=== PATIENT | female | born 1945 | race Caucasian/White ===

== ENCOUNTER 2016-03-22 08:44 | Outpatient (CLI) | payer MEDICARE, MEDICAID | END 2016-03-22 08:45 | disposition home or self-care (01) | DX: I48.91 Unspecified atrial fibrillation (principal); Z79.899 Other long term (current) drug therapy ==

== ENCOUNTER 2016-04-19 | Outpatient (CLI) | payer MEDICARE | END 2016-04-19 09:15 | disposition home or self-care (01) ==

== ENCOUNTER 2016-04-19 09:09 | Outpatient (CLI) | payer MEDICARE, MEDICAID | END 2016-04-19 09:10 | disposition home or self-care (01) | DX: I50.9 Heart failure, unspecified (principal); I48.91 Unspecified atrial fibrillation; Z79.899 Other long term (current) drug therapy ==

== ENCOUNTER 2016-04-20 09:27 | Emergency (ER) | payer MEDICARE, MEDICAID ==
[2016-04-20] MEDS ORDERED: FUROSEMIDE 20 MG/2 ML VIAL IVP STA (10:08)
[2016-04-20] MEDS ORDERED: FUROSEMIDE 20 MG/2 ML VIAL IVP ONE (10:16)
== END 2016-04-20 12:06 | disposition home or self-care (01) ==
DX: I11.0 Hypertensive heart disease with heart failure (principal); I50.9 Heart failure, unspecified; E87.6 Hypokalemia; I48.91 Unspecified atrial fibrillation; I44.7 Left bundle-branch block, unspecified; Z79.01 Long term (current) use of anticoagulants; J45.909 Unspecified asthma, uncomplicated; E03.9 Hypothyroidism, unspecified; K44.9 Diaphragmatic hernia without obstruction or gangrene

== ENCOUNTER 2016-04-24 14:24 | Outpatient (CLI) | payer MEDICARE, MEDICAID | END 2016-04-24 14:25 | disposition home or self-care (01) | DX: M17.12 Unilateral primary osteoarthritis, left knee (principal); I50.9 Heart failure, unspecified; E87.6 Hypokalemia; I48.91 Unspecified atrial fibrillation; Z79.899 Other long term (current) drug therapy ==

== ENCOUNTER 2016-04-24 14:27 | Outpatient (CLI) | payer MEDICARE, MEDICAID | END 2016-04-24 14:28 | disposition home or self-care (01) | DX: I50.9 Heart failure, unspecified (principal); E87.6 Hypokalemia; I48.91 Unspecified atrial fibrillation; Z79.899 Other long term (current) drug therapy ==

== ENCOUNTER 2016-05-16 08:55 | Outpatient (CLI) | payer MEDICARE, MEDICAID | END 2016-05-16 23:59 | DX: I48.91 Unspecified atrial fibrillation (principal); Z79.899 Other long term (current) drug therapy ==

== ENCOUNTER 2016-06-13 14:34 | Outpatient (CLI) | payer MEDICAID | END 2016-06-13 14:35 | disposition home or self-care (01) | DX: I48.91 Unspecified atrial fibrillation (principal); E87.6 Hypokalemia; Z79.899 Other long term (current) drug therapy ==

== ENCOUNTER 2016-07-11 08:38 | Outpatient (CLI) | payer MEDICARE, MEDICAID | END 2016-07-11 08:39 | disposition home or self-care (01) | DX: I48.91 Unspecified atrial fibrillation (principal); Z79.899 Other long term (current) drug therapy ==

== ENCOUNTER 2016-08-08 12:31 | Outpatient (CLI) | payer MEDICARE, MEDICAID | END 2016-08-08 12:32 | disposition home or self-care (01) | LOC: LAB.N 12:31 | PROVIDERS: ATTEND Nurse Practitioner Gerontology | DX: I48.91 Unspecified atrial fibrillation (principal); Z79.899 Other long term (current) drug therapy | CPT/HCPCS: 85610 ==

== ENCOUNTER 2016-08-15 09:35 | Outpatient (CLI) | payer MEDICARE, MEDICAID | END 2016-08-15 09:36 | LOC: LAB.N 09:35 | PROVIDERS: ATTEND Nurse Practitioner Gerontology | DX: I48.91 Unspecified atrial fibrillation (principal); Z79.899 Other long term (current) drug therapy | CPT/HCPCS: 85610 ==

== ENCOUNTER 2016-09-12 09:00 | Outpatient (CLI) | payer MEDICARE, MEDICAID | END 2016-09-12 09:01 | disposition home or self-care (01) | LOC: LAB.N 09:00 | PROVIDERS: ATTEND Nurse Practitioner Gerontology | DX: I48.91 Unspecified atrial fibrillation (principal); Z79.899 Other long term (current) drug therapy | CPT/HCPCS: 85610 ==

== ENCOUNTER 2016-09-17 08:27 | Outpatient (CLI) | payer MEDICARE, MEDICAID | END 2016-09-17 08:28 | disposition home or self-care (01) | LOC: LAB.N 08:27 | PROVIDERS: ATTEND Nurse Practitioner Gerontology | DX: I48.91 Unspecified atrial fibrillation (principal); Z79.899 Other long term (current) drug therapy | CPT/HCPCS: 85610 ==

== ENCOUNTER 2016-09-24 09:01 | Outpatient (CLI) | payer MEDICARE, MEDICAID | END 2016-09-24 09:02 | disposition home or self-care (01) | LOC: LAB.N 09:01 | PROVIDERS: ATTEND Nurse Practitioner Gerontology | DX: I48.91 Unspecified atrial fibrillation (principal); Z79.899 Other long term (current) drug therapy | CPT/HCPCS: 85610 ==

== ENCOUNTER 2016-10-03 09:15 | Outpatient (CLI) | payer MEDICARE, MEDICAID | END 2016-10-03 09:16 | LOC: LAB.N 09:15 | PROVIDERS: ATTEND Nurse Practitioner Gerontology | DX: I48.91 Unspecified atrial fibrillation (principal); Z79.899 Other long term (current) drug therapy | CPT/HCPCS: 85610 ==

== ENCOUNTER 2016-10-09 08:10 | Outpatient (CLI) | payer MEDICARE, MEDICAID | END 2016-10-09 08:11 | disposition home or self-care (01) | LOC: LAB.N 08:10 | PROVIDERS: ATTEND Nurse Practitioner Gerontology | DX: I48.91 Unspecified atrial fibrillation (principal); Z79.899 Other long term (current) drug therapy | CPT/HCPCS: 85610 ==

== ENCOUNTER 2016-10-17 08:25 | Outpatient (CLI) | payer MEDICARE, MEDICAID | END 2016-10-17 08:26 | disposition home or self-care (01) | LOC: LAB.N 08:25 | PROVIDERS: ATTEND Nurse Practitioner Gerontology | DX: I48.91 Unspecified atrial fibrillation (principal); Z79.899 Other long term (current) drug therapy | CPT/HCPCS: 85610 ==

== ENCOUNTER 2016-10-24 07:57 | Outpatient (CLI) | payer MEDICARE, MEDICAID | END 2016-10-24 07:58 | disposition home or self-care (01) | LOC: LAB.N 07:57 | PROVIDERS: ATTEND Nurse Practitioner Gerontology | DX: I48.91 Unspecified atrial fibrillation (principal); Z79.899 Other long term (current) drug therapy | CPT/HCPCS: 85610 ==

== ENCOUNTER 2016-11-07 08:21 | Outpatient (CLI) | payer MEDICARE, MEDICAID | END 2016-11-07 08:22 | disposition home or self-care (01) | LOC: LAB.N 08:21 | PROVIDERS: ATTEND Nurse Practitioner Gerontology | DX: I48.91 Unspecified atrial fibrillation (principal); Z79.899 Other long term (current) drug therapy | CPT/HCPCS: 85610 ==

== ENCOUNTER 2016-11-20 08:49 | Outpatient (CLI) | payer MEDICARE, MEDICAID | END 2016-11-20 08:50 | disposition home or self-care (01) | LOC: LAB.N 08:49 | PROVIDERS: ATTEND Nurse Practitioner Gerontology | DX: I48.91 Unspecified atrial fibrillation (principal); Z79.899 Other long term (current) drug therapy | CPT/HCPCS: 85610 ==

== ENCOUNTER 2016-12-05 15:17 | Outpatient (CLI) | payer MEDICARE, MEDICAID | END 2016-12-05 15:18 | disposition home or self-care (01) | LOC: LAB.N 15:17 | PROVIDERS: ATTEND Nurse Practitioner Gerontology | DX: I48.91 Unspecified atrial fibrillation (principal); Z79.899 Other long term (current) drug therapy | CPT/HCPCS: 85610 ==

== ENCOUNTER 2017-01-23 08:41 | Outpatient (CLI) | payer MEDICARE, MEDICAID | END 2017-01-23 08:42 | disposition home or self-care (01) | LOC: LAB.N 08:41 | PROVIDERS: ATTEND Nurse Practitioner Gerontology | DX: E87.6 Hypokalemia (principal); I48.91 Unspecified atrial fibrillation; Z79.899 Other long term (current) drug therapy | CPT/HCPCS: 36415; 84132; 85610 ==

== ENCOUNTER 2017-01-30 09:03 | Outpatient (CLI) | payer MEDICARE, MEDICAID | END 2017-01-30 09:04 | disposition home or self-care (01) | LOC: LAB.N 09:03 | PROVIDERS: ATTEND Nurse Practitioner Gerontology | DX: I48.91 Unspecified atrial fibrillation (principal); Z79.899 Other long term (current) drug therapy | CPT/HCPCS: 85610 ==

== ENCOUNTER 2017-02-13 09:11 | Outpatient (CLI) | payer MEDICARE, MEDICAID | END 2017-02-13 23:59 | LOC: LAB.N 09:11 | PROVIDERS: ATTEND Nurse Practitioner Gerontology | DX: I48.91 Unspecified atrial fibrillation (principal); Z79.899 Other long term (current) drug therapy | CPT/HCPCS: 85610 ==

== ENCOUNTER 2017-02-28 15:19 | Inpatient (IN) | payer MEDICARE, MEDICAID ==
--- NOTE | 2017-02-28 16:49 | ED Physician Documentation ---
History of Present Illness - Stated complaint Stated Complaint: CHF - Chief complaint Chief Complaint: Resp - Additonal information Additional information: hx from pt's sister 71 female hx afib and CHF on lasix and coumadin among other meds cough since Nov after a flu shot today acute soa while shopping also body aches no fever no NVD no bloody BM no new leg swelling Review of Systems Constitutional: denies: Fever, Chills Cardiac: denies: Chest pain / pressure Respiratory: reports: Dyspnea GI: denies: Abdominal Pain, Nausea, Vomiting, Diarrhea, Bloody / black stool Musculoskeletal: denies: Extremity swelling Neurologic: denies: Generalized weakness Endocrine: reports: Easy bruising / bleeding (coumadin) Immunocompromised: denies: Immunocompromised PD PAST MEDICAL HISTORY - Past Medical History Cardiovascular: Atrial fibrillation, Other Respiratory: Asthma Endocrine/Autoimmune: HyPOthyroidism : Incontinence - 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 History 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 History: Yes - Present Medications Home Medications: Ambulatory Orders Medication Instructions Recorded Confirmed Hydrochlorothiazide 25 mg PO DAILY PRN 08/01/12 02/28/17 Levothyroxine [Synthroid] 100 mcg PO QDAC 08/01/12 02/28/17 Loratadine [Claritin] 10 mg PO DAILY 08/01/12 02/28/17 Oxybutynin [Ditropan] 5 mg PO BID 08/01/12 02/28/17 Verapamil ER [Calan SA] 180 mg PO DAILY 08/01/12 02/28/17 Warfarin Sodium [Coumadin] 5 mg PO DAILY 08/01/12 02/28/17 Potassium Bicarbonate/Cit AC 25 meq PO DAILY #7 tablet.eff 04/20/16 02/28/17 [Potassium 25 Meq Tablet Eff] Furosemide [Lasix] 20 mg PO DAILY 02/28/17 02/28/17 - Allergies Allergies/Adverse Reactions: Allergies Allergy/AdvReac Type Severity Reaction Status Date / Time teva pharmacuticals AdvReac Unknown Rash Uncoded 12/24/15 10:02 - Social History Does the pt smoke?: No Smoking Status: Never smoker Does the pt drink ETOH?: No Does the pt have substance abuse?: No - Immunizations Immunizations are current?: Yes - POLST Patient has POLST: No PD ED PE NORMAL - Vitals Vital signs reviewed: Yes - Cardiac Cardiac: No: RRR (irreg) - Respiratory Respiratory: Other - Abdomen Abdomen: No: Soft, Non tender - Extremities Extremities: No edema (mild luiz symm). No: No calf tenderness / cord - Neuro Neuro: No: No motor deficit, No sensory deficit Results - Vitals Vitals: Vital Signs - 24 hr 02/28/17 02/28/17 15:35 17:33 Temperature 36.8 C Heart Rate 104 H 93 Respiratory 17 19 Rate Blood Pressure 140/90 H 154/94 H O2 Saturation 97 96 Oxygen O2 Source Room air - EKG (time done) 1648 Rate: Rate (enter#) (92) Rhythm: Atrial fibrillation Intervals: LBBB Other comments: Other comments (discordant ST elev< 5 mm inferior leads) Compare to prior EKG: Unchanged from prior EKG (unchanged from Mar 2016) - Labs Labs: Laboratory Tests 02/28/17 02/28/17 02/28/17 16:45 16:54 16:54 WBC 9.3 RBC 4.74 Hgb 15.1 Hct 45.7 MCV 96.5 MCH 31.9 H MCHC 33.0 RDW 14.9 Plt Count 228 MPV 9.3 Neut # 6.9 H Lymph # 1.4 L [place] # 1.0 Eos # 0.0 Baso # 0.0 Absolute Nucleated RBC 0.00 Nucleated RBC % 0.0 Manual Slide Review Indicated WBC Morphology NORMAL APPEARANCE Platelet Estimate NORMAL (130-450,000) Platelet Morphology 1+ GIANT PLATELETS RBC Morph Micro Appear NORMAL APPEARANCE PT INR Sodium 133 L Potassium 3.7 Chloride 95 L Carbon Dioxide 25 Anion Gap 13.0 BUN 30 H Creatinine 1.3 H Estimated GFR (MDRD) 41 L Glucose 122 H Calcium 8.6 Troponin I B-Natriuretic Peptide Influenza A (Rapid) Negative Influenza B (Rapid) Negative Influenza Types A,B Ag - 02/28/17 02/28/17 02/28/17 16:54 16:54 16:54 WBC RBC Hgb Hct MCV MCH MCHC RDW Plt Count MPV Neut # Lymph # [place] # Eos # Baso # Absolute Nucleated RBC Nucleated RBC % Manual Slide Review WBC Morphology Platelet Estimate Platelet Morphology RBC Morph Micro Appear PT 25.2 H INR 2.3 H Sodium Potassium Chloride Carbon Dioxide Anion Gap BUN Creatinine Estimated GFR (MDRD) Glucose Calcium Troponin I 0.08 B-Natriuretic Peptide 2081 H Influenza A (Rapid) Influenza B (Rapid) Influenza Types A,B Ag - Rads (name of study) CXR Radiology: See rad report (cardiomegaly, some pulm edema, COPD) PD MEDICAL DECISION MAKING - ED course ED course: abn EKG LBBB perhaps inferior ischemia but unchanged from prior EKG neg but borderline trop BNP > 2000 without sig CHF on CXR sig cardiomegaly on CXR - do not see any prior echos on pt will admit for diuresis, YT, and echo with elev BNP and not too much CHF on CXR considered PE with heat strain but doubtful to occur while therapeutic on coumadin and GFR too low for CTPA Departure - Departure Disposition: 66 [facility] DC/Xfer Clinical Impression: Ruled out for myocardial infarction, Renal insufficiency, Cardiomegaly Congestive heart failure Qualifiers: Congestive heart failure type: unspecified congestive heart failure type Congestive heart failure chronicity: unspecified congestive heart failure chronicity Qualified Code(s): I50.9 - Heart failure, unspecified
[2017-02-28 17:06] LABS: BASOPHILS % (AUTO) 0.4 %; HGB - HEMOGLOBIN 15.1 g/dL (12.0-16.0); LYMPHOCYTES # (AUTO) 1.4 10^3/uL (1.5-3.5); LYMPHOCYTES % (AUTO) 14.5 %; MEAN CORPUSCULAR HEMOGLOBIN 31.9 pg (27.0-31.0); MEAN CORPUSCULAR VOLUME 96.5 fL (81.0-99.0); MEAN PLATELET VOLUME 9.3 fL (7.9-10.8); MONOCYTES % (AUTO) 11.1 %; NEUTROPHILS # (AUTO) 6.9 10^3/uL (1.5-6.6); PLT - PLATELET COUNT 228 10^3/uL (130-450); RED BLOOD COUNT 4.74 10^6/uL (4.20-5.40); RED CELL DISTRIBUTION WIDTH 14.9 % (12.0-15.0); WHITE BLOOD COUNT 9.3 x10^3/uL (4.8-10.8)
[2017-02-28 17:08] LABS: CALCIUM 8.6 mg/dL (8.5-10.3); CREATININE 1.3 mg/dL (0.4-1.0)
[2017-02-28 17:10] LABS: INR 2.3 (0.8-1.2); PT - PROTHROMBIN TIME 25.2 secs (9.9-12.6)
--- NOTE | 2017-02-28 17:17 | XRAY Report ---
EXAM: CHEST RADIOGRAPHY EXAM DATE: 02/28/2017 04:45 PM. CLINICAL HISTORY: Shortness of breath COMPARISON: None. TECHNIQUE: 2 views. FINDINGS: Lungs/Pleura: Lucent upper lungs compatible with COPD. Mild cephalization of pulmonary vascular or co uld reflect mild interstitial pulmonary edema. No other focal airspace consolidation. No evidence for pneumothorax. Mediastinum: Cardiomegaly is noted. Heart size unchanged compared to prior. Other: Again noted is hiatal hernia. IMPRESSION: 1. Persistent cardiomegaly. 2. Possible mild interstitial pulmonary edema. 3. COPD again noted. [facility] Referring Provider Line: [phone] SITE ID: [id number]
[2017-02-28] MEDS ORDERED: FUROSEMIDE 40 MG/4 ML VIAL IVP STA (17:22)
[2017-02-28 17:29] LABS: PLATELET ESTIMATE, MANUAL NORMAL (130-450,000) (NORMAL); PLATELET MORPHOLOGY 1+ GIANT PLATELETS (NORMAL); RBC MORPHOLOGY (MULTIPLE) NORMAL APPEARANCE (NORMAL)
[2017-02-28] MEDS ORDERED: hydroCHLOROthiazide 25 MG TABLET PO PRN (18:14)
[2017-02-28] MEDS ORDERED: oxyCODONE 5 MG TABLET PO PRN ×2 (18:14)
[2017-02-28] MEDS ORDERED: ONDANSETRON 4 MG/2 ML VIAL IVP PRN (18:14)
[2017-02-28] MEDS ORDERED: FUROSEMIDE 40 MG/4 ML VIAL IVP SCH (21:00)
[2017-02-28] MEDS: OXYBUTYNIN 5MG TABLET PO SCH (21:02)
[2017-02-28] MEDS: SODIUM CHLORIDE FLUSH 0.9% 10 ML SYRINGE IVP SCH (21:02)
--- NOTE | 2017-02-28 21:05 | HISTORY & PHYSICAL EXAMINATION ---
Chief Complaint - Chief Complaint Chief Complaint: Shortness of breath History of Present Illness - Admitted From Admitted From:: Home - History of Present Illness HPI Comment/Other: Ms. Misti Dai is a 71-year-old female with a history of shortness of breath for the last 2-3 days. She was admitted to [facility] about 12 years ago and was diagnosed with congestive heart failure at that time. The patient continued to struggle to breathe today and had increasing dyspnea with exertion and her sister brought her into the emergency room for evaluation and treatment. At the ED she was found to have a BNP of 2106, and the chest x-ray suggested patchy interstitial pulmonary edema. 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 - Family & Social History Family History: Mother: , CAD, Hyperlipidemia, Hypertension, [place] (Father age 57 of an [place]), Father: , CAD, Hyperlipidemia, Hypertension, [place], Brother: , CAD, Hyperlipidemia, Hypertension, [place] Living arrangement: At home Living Situation: Alone (Sister is legal guardian and supervises her closely) - Substance History Use: Uses substance without health or social issues: NONE - POLST Patient has POLST: No POLST Status: Full Code Meds/Allgy - Home Medications Home Medications: Ambulatory Orders Medication Instructions Recorded Confirmed Hydrochlorothiazide 25 mg PO DAILY PRN 08/01/12 02/28/17 Levothyroxine [Synthroid] 100 mcg PO QDAC 08/01/12 02/28/17 Loratadine [Claritin] 10 mg PO DAILY 08/01/12 02/28/17 Oxybutynin [Ditropan] 5 mg PO BID 08/01/12 02/28/17 Verapamil ER [Calan SA] 180 mg PO DAILY 08/01/12 02/28/17 Warfarin Sodium [Coumadin] 5 mg PO DAILY 08/01/12 02/28/17 Potassium Bicarbonate/Cit AC 25 meq PO DAILY #7 tablet.eff 04/20/16 02/28/17 [Potassium 25 Meq Tablet Eff] Furosemide [Lasix] 20 mg PO DAILY 02/28/17 02/28/17 - Allergies Allergies/Adverse Reactions: Allergies Allergy/AdvReac Type Severity Reaction Status Date / Time teva pharmacuticals AdvReac Unknown Rash Uncoded 12/24/15 10:02 Review of Systems - Constitutional Constitutional: reports: Fatigue. denies: Fever, Chills, Malaise - Eyes Eyes: denies: Pain, Irritation, Blurred vision, Dipolpia - Ears, Nose & Throat Ears, Nose & Throat: denies: Ear pain, Hearing loss, Hearing aids, Tinnitus, Vertigo - Cardiovascular Cariovascular: reports: Irregular heart rate. denies: Palpitations, Chest pain , Edema - Respiratory Respiratory: reports: SOB at rest, SOB with exertion. denies: Wheezing, Hemoptysis - Gastrointestinal Gastrointestinal: denies: Abdominal pain, Abdominal distention, Constipation, Diarrhea, Rectal bleeding, Bloody stools - Genitourinary Genitourinary: denies: Dysuria, Frequency, Urgency, Hematuria - Musculoskeletal Musculoskeletal: denies: Muscle pain, Back pain, Muscle aches, Stiffness - Integumentary Integumentary: denies: Rash, Pruritis, Lesions, Dryness - Neurological Neurological: reports: General weakness. denies: Focal weakness, Headache, Dizziness - Psychiatric Psychiatric: denies: Depression, Anxiety, Suicidal, Hallucinations - Endocrine Endocrine: denies: Polyuria, Polydypsia, Polyphagia - Hematologic/Lymphatic Hematologic/Lymphatic: denies: Anemia, Bruising, Petechiae - All Other Systems All Other Systems: reports: Reviewed and negative Exam - Vital Signs Reviewed Vital Signs: Yes Vital Signs: Vital Signs x48h Temp Pulse Pulse Resp BP Pulse Ox 02/28/17 20:58 37.2 C 98 20 95 02/28/17 19:23 91 18 135/96 H 97 - Physical Exam General Appearance: positive: No acute distress, Alert, Anxious Eyes Bilateral: positive: Normal inspection, PERRL, EOMI ENT: positive: ENT inspection nml, Pharynx nml, No signs of dehydration. negative: Purulent nasal drainage Neck: positive: Nml inspection, Thyroid nml, No JVD, Trachea midline. negative : Thyromegaly Respiratory: positive: Chest non-tender. negative: Wheezes, Rales, Rhonchi Cardiovascular: positive: No murmur, No gallop, Irregularly irregular Peripheral Pulses: positive: 1+ Abdomen: positive: Non-tender, No organomegaly, Nml bowel sounds, No distention. negative: Guarding, Rebound Back: positive: Nml inspection. negative: CVA tenderness (R), CVA tenderness (L ) Skin: positive: Color nml, No rash, Warm, Dry. negative: Cyanosis Extremities: positive: Non-tender, Full ROM, Nml appearance Neurologic/Psychiatric: positive: Oriented x3, CN's nml (2-12), Motor nml, Sensation nml, Mood/affect nml Conclusion/Plan - Problem List (1) Congestive heart failure Conclusion/Plan: We will admit the patient to a telemetry bed and start her on diuresis for her fluid overload.We will continue with supplemental oxygen on a as needed basis and obtain an echocardiogram. Qualifiers: Congestive heart failure type: unspecified congestive heart failure type Congestive heart failure chronicity: unspecified congestive heart failure chronicity Qualified Code(s): I50.9 - Heart failure, unspecified (2) COPD (chronic obstructive pulmonary disease) Conclusion/Plan: We will continue the patient on supplemental oxygen and nebulized bronchodilators. Qualifiers: COPD type: emphysema - Lab Results Lab results reviewed: Yes Fish Bones: 02/28/17 16:54 02/28/17 16:54 - Diagnostic Imaging Results Diagnostic Imaging Results: positive: Final report reviewed Diagnostic Imaging Results Comments: EXAM: CHEST RADIOGRAPHY EXAM DATE: 02/28/2017 04:45 PM. CLINICAL HISTORY: Shortness of breath COMPARISON: None. TECHNIQUE: 2 views. FINDINGS: Lungs/Pleura: Lucent upper lungs compatible with COPD. Mild cephalization of pulmonary vascular or could reflect mild interstitial pulmonary edema. No other focal airspace consolidation. No evidence for pneumothorax. Mediastinum: Cardiomegaly is noted. Heart size unchanged compared to prior. Other: Again noted is hiatal hernia. IMPRESSION: 1. Persistent cardiomegaly. 2. Possible mild interstitial pulmonary edema. 3. COPD again noted. Core Measures - Anticipated LOS I expect patient to be DC'd or transferred within 96 hours.: Yes - DVT/VTE - Prophylaxis VTE/DVT Device ordered at admit?: Yes
[2017-02-28] MEDS ORDERED: ALBUTEROL NEB 2.5 MG/3 ML INH PRN (21:19)
[2017-03-01 04:18] LABS: BASOPHILS % (AUTO) 0.4 %; EOSINOPHILS % (AUTO) 0.1 %; HGB - HEMOGLOBIN 14.4 g/dL (12.0-16.0); LYMPHOCYTES # (AUTO) 1.5 10^3/uL (1.5-3.5); LYMPHOCYTES % (AUTO) 14.5 %; MEAN CORPUSCULAR HEMOGLOBIN 32.2 pg (27.0-31.0); MEAN CORPUSCULAR HGB CONC 33.7 g/dL (32.0-36.0); MEAN CORPUSCULAR VOLUME 95.4 fL (81.0-99.0); MEAN PLATELET VOLUME 9.5 fL (7.9-10.8); MONOCYTES # (AUTO) 1.3 10^3/uL (0.0-1.0); MONOCYTES % (AUTO) 13.1 %; NEUTROPHILS # (AUTO) 7.2 10^3/uL (1.5-6.6); NEUTROPHILS % (AUTO) 71.9 %; PLT - PLATELET COUNT 219 10^3/uL (130-450); RED BLOOD COUNT 4.47 10^6/uL (4.20-5.40); RED CELL DISTRIBUTION WIDTH 14.4 % (12.0-15.0); WHITE BLOOD COUNT 10.1 x10^3/uL (4.8-10.8)
[2017-03-01 04:23] LABS: INR 2.4 (0.8-1.2); PT - PROTHROMBIN TIME 25.8 secs (9.9-12.6)
[2017-03-01 04:30] LABS: ALBUMIN 3.6 g/dL (3.2-5.5); ALBUMIN/GLOBULIN RATIO 1.1 (1.0-2.2); BILIRUBIN,TOTAL 1.5 mg/dL (0.2-1.0); CALCIUM 8.6 mg/dL (8.5-10.3); CREATININE 1.2 mg/dL (0.4-1.0); MAGNESIUM 1.5 mg/dL (1.7-2.8); TOTAL PROTEIN 6.9 g/dL (6.7-8.2)
[2017-03-01] MEDS ORDERED: MAG HYDROX/AL HYDROX/SIMETH 30 ML UDC PO PRN (04:32)
[2017-03-01] MEDS: SODIUM CHLORIDE FLUSH 0.9% 10 ML SYRINGE IVP SCH ×4 (06:08→20:16)
[2017-03-01] MEDS: LEVOTHYROXINE 125 MCG TABLET PO SCH (06:08)
[2017-03-01] MEDS: OXYBUTYNIN 5MG TABLET PO SCH ×2 (09:43→20:15)
[2017-03-01] MEDS: FUROSEMIDE 40 MG/4 ML VIAL IVP SCH ×2 (09:45→14:14)
[2017-03-01] MEDS: FAMOTIDINE 20 MG TABLET PO SCH (09:45)
[2017-03-01] MEDS: SODIUM CHLORIDE FLUSH 0.9% 10 ML SYRINGE IVP PRN ×3 (10:07→15:16)
[2017-03-01] MEDS: VERAPAMIL ER 180 MG TABLET PO SCH (10:09)
[2017-03-01] MEDS: POTASSIUM CHLORIDE 20 MEQ TABLET PO SCH ×2 (10:09→18:14)
[2017-03-01] MEDS: POLYETHYLENE GLYCOL 3350 17 GM PACKET PO SCH (14:13)
[2017-03-01] MEDS: WARFARIN 5 MG TABLET PO SCH (14:13)
[2017-03-01] MEDS: PROCHLORPERAZINE 10 MG/2 ML VIAL IVP PRN (15:15)
[2017-03-01] MEDS: ACETAMINOPHEN 325 MG TABLET PO PRN (20:15)
[2017-03-02] MEDS: LEVOTHYROXINE 125 MCG TABLET PO SCH (06:26)
[2017-03-02 06:48] LABS: INR 2.6 (0.8-1.2); PT - PROTHROMBIN TIME 28.6 secs (9.9-12.6)
[2017-03-02 06:50] LABS: BASOPHILS % (AUTO) 0.5 %; EOSINOPHILS % (AUTO) 0.5 %; LYMPHOCYTES % (AUTO) 23.7 %; MEAN CORPUSCULAR HEMOGLOBIN 31.6 pg (27.0-31.0); MEAN CORPUSCULAR HGB CONC 32.7 g/dL (32.0-36.0); MEAN CORPUSCULAR VOLUME 96.7 fL (81.0-99.0); MONOCYTES # (AUTO) 1.1 10^3/uL (0.0-1.0); NEUTROPHILS # (AUTO) 5.3 10^3/uL (1.5-6.6); NEUTROPHILS % (AUTO) 62.3 %; PLT - PLATELET COUNT 205 10^3/uL (130-450); RED BLOOD COUNT 4.75 10^6/uL (4.20-5.40); RED CELL DISTRIBUTION WIDTH 14.5 % (12.0-15.0); WHITE BLOOD COUNT 8.6 x10^3/uL (4.8-10.8)
[2017-03-02 06:56] LABS: ALBUMIN 3.8 g/dL (3.2-5.5); ALBUMIN/GLOBULIN RATIO 1.1 (1.0-2.2); BILIRUBIN,TOTAL 1.5 mg/dL (0.2-1.0); CALCIUM 8.6 mg/dL (8.5-10.3); CREATININE 1.5 mg/dL (0.4-1.0); TOTAL PROTEIN 7.4 g/dL (6.7-8.2)
[2017-03-02 07:13] LABS: PLATELET ESTIMATE, MANUAL NORMAL (130-450,000) (NORMAL); PLATELET MORPHOLOGY 1+ GIANT PLATELETS (NORMAL)
[2017-03-02] MEDS: FAMOTIDINE 20 MG TABLET PO SCH (11:08)
[2017-03-02] MEDS: OXYBUTYNIN 5MG TABLET PO SCH ×2 (11:08→21:34)
[2017-03-02] MEDS: VERAPAMIL ER 180 MG TABLET PO SCH (11:09)
[2017-03-02] MEDS: FUROSEMIDE 40 MG/4 ML VIAL IVP SCH ×2 (11:11→15:19)
[2017-03-02] MEDS: POLYETHYLENE GLYCOL 3350 17 GM PACKET PO SCH (11:16)
[2017-03-02] MEDS: SODIUM CHLORIDE FLUSH 0.9% 10 ML SYRINGE IVP PRN (11:16)
[2017-03-02] MEDS: DOCUSATE SODIUM 250 MG CAPSULE PO SCH (14:55)
[2017-03-02] MEDS: WARFARIN 5 MG TABLET PO SCH (15:19)
[2017-03-02] MEDS: SODIUM CHLORIDE FLUSH 0.9% 10 ML SYRINGE IVP SCH ×2 (15:19→21:33)
[2017-03-02] MEDS: ACETAMINOPHEN 325 MG TABLET PO PRN ×2 (15:29→21:33)
[2017-03-02] MEDS: METOPROLOL TARTRATE 25 MG TABLET PO SCH ×2 (22:09→22:16)
[2017-03-02] MEDS: LISINOPRIL 5 MG TABLET PO SCH ×2 (22:12→22:15)
[2017-03-03] MEDS: LEVOTHYROXINE 125 MCG TABLET PO SCH (06:45)
[2017-03-03] MEDS: SODIUM CHLORIDE FLUSH 0.9% 10 ML SYRINGE IVP SCH ×3 (06:45→20:22)
[2017-03-03 06:56] LABS: BASOPHILS % (AUTO) 0.4 %; EOSINOPHILS # (AUTO) 0.1 10^3/uL (0.0-0.7); EOSINOPHILS % (AUTO) 0.7 %; HGB - HEMOGLOBIN 13.2 g/dL (12.0-16.0); LYMPHOCYTES # (AUTO) 1.5 10^3/uL (1.5-3.5); MEAN CORPUSCULAR HGB CONC 32.9 g/dL (32.0-36.0); MEAN CORPUSCULAR VOLUME 97.2 fL (81.0-99.0); MEAN PLATELET VOLUME 9.6 fL (7.9-10.8); MONOCYTES % (AUTO) 12.3 %; NEUTROPHILS # (AUTO) 5.7 10^3/uL (1.5-6.6); NEUTROPHILS % (AUTO) 68.6 %; PLT - PLATELET COUNT 177 10^3/uL (130-450); RED BLOOD COUNT 4.13 10^6/uL (4.20-5.40); RED CELL DISTRIBUTION WIDTH 14.6 % (12.0-15.0); WHITE BLOOD COUNT 8.3 x10^3/uL (4.8-10.8)
[2017-03-03 07:04] LABS: PT - PROTHROMBIN TIME 32.7 secs (9.9-12.6)
[2017-03-03 07:05] LABS: ALBUMIN 3.2 g/dL (3.2-5.5); BILIRUBIN,TOTAL 0.8 mg/dL (0.2-1.0); CALCIUM 8.5 mg/dL (8.5-10.3); CREATININE 1.6 mg/dL (0.4-1.0); MAGNESIUM 1.7 mg/dL (1.7-2.8); TOTAL PROTEIN 6.3 g/dL (6.7-8.2)
[2017-03-03] MEDS: ACETAMINOPHEN 325 MG TABLET PO PRN ×2 (08:52→18:48)
[2017-03-03] MEDS: POLYETHYLENE GLYCOL 3350 17 GM PACKET PO SCH (08:53)
[2017-03-03] MEDS: FUROSEMIDE 40 MG TABLET PO SCH (08:55)
[2017-03-03] MEDS: METOPROLOL TARTRATE 25 MG TABLET PO SCH ×2 (08:55→20:18)
[2017-03-03] MEDS: FAMOTIDINE 20 MG TABLET PO SCH (08:55)
[2017-03-03] MEDS: OXYBUTYNIN 5MG TABLET PO SCH ×2 (08:55→20:20)
[2017-03-03] MEDS: DOCUSATE SODIUM 250 MG CAPSULE PO SCH (08:56)
[2017-03-03] MEDS: PROCHLORPERAZINE 10 MG/2 ML VIAL IVP PRN (11:27)
[2017-03-03] MEDS ORDERED: WARFARIN 2.5 MG TABLET PO SCH (14:00)
[2017-03-03 15:06] LABS: BILIRUBIN,URINE NEGATIVE (NEGATIVE); GLUCOSE, URINE (UA) NEGATIVE (NEGATIVE); KETONES,URINE (UA) NEGATIVE (NEGATIVE); LEUKOCYTE ESTERASE, URINE TRACE (NEGATIVE); NITRITE,URINE NEGATIVE (NEGATIVE); OCCULT BLOOD,URINE LARGE (NEGATIVE); PROTEIN,URINE TRACE mg/dL (NEGATIVE); UROBILINOGEN,URINE 1 (NORMAL) E.U./dL (NORMAL)
[2017-03-03 15:21] LABS: BACTERIA,URINE Few /HPF (None Seen); CLARITY,URINE CLOUDY (CLEAR); RBC,URINE TNTC /HPF (0-5); SQUAMOUS EPITHELIAL CELL,UR RARE Squamous (<= Few)
[2017-03-03] MEDS ORDERED: SODIUM CHLORIDE FLUSH 0.9% 10 ML SYRINGE IVP ONE (17:12)
[2017-03-03] MEDS: SODIUM CHLORIDE FLUSH 0.9% 10 ML SYRINGE IVP PRN (17:13)
[2017-03-03] MEDS: cefTRIAXone 1 GM in SODIUM CHLORIDE 0.9% MINIBAG 100 ML IV SCH (17:13)
[2017-03-03] MEDS: LOSARTAN 50 MG TABLET PO SCH (20:20)
[2017-03-04 05:06] LABS: BASOPHILS # (AUTO) 0.1 10^3/uL (0.0-0.1); EOSINOPHILS # (AUTO) 0.1 10^3/uL (0.0-0.7); EOSINOPHILS % (AUTO) 2.1 %; HGB - HEMOGLOBIN 13.3 g/dL (12.0-16.0); LYMPHOCYTES # (AUTO) 1.6 10^3/uL (1.5-3.5); LYMPHOCYTES % (AUTO) 26.4 %; MEAN CORPUSCULAR HEMOGLOBIN 31.7 pg (27.0-31.0); MEAN CORPUSCULAR HGB CONC 32.7 g/dL (32.0-36.0); MEAN PLATELET VOLUME 9.3 fL (7.9-10.8); MONOCYTES # (AUTO) 0.9 10^3/uL (0.0-1.0); MONOCYTES % (AUTO) 13.9 %; NEUTROPHILS # (AUTO) 3.5 10^3/uL (1.5-6.6); NEUTROPHILS % (AUTO) 56.6 %; PLT - PLATELET COUNT 205 10^3/uL (130-450); RED CELL DISTRIBUTION WIDTH 14.5 % (12.0-15.0); WHITE BLOOD COUNT 6.2 x10^3/uL (4.8-10.8)
[2017-03-04 05:28] LABS: ALBUMIN/GLOBULIN RATIO 0.8 (1.0-2.2); BILIRUBIN,TOTAL 0.8 mg/dL (0.2-1.0); CALCIUM 8.4 mg/dL (8.5-10.3); CREATININE 1.3 mg/dL (0.4-1.0); MAGNESIUM 1.7 mg/dL (1.7-2.8); TOTAL PROTEIN 6.6 g/dL (6.7-8.2)
[2017-03-04 05:31] LABS: INR 2.9 (0.8-1.2); PT - PROTHROMBIN TIME 31.9 secs (9.9-12.6)
[2017-03-04] MEDS: LEVOTHYROXINE 125 MCG TABLET PO SCH (06:51)
[2017-03-04] MEDS: SODIUM CHLORIDE FLUSH 0.9% 10 ML SYRINGE IVP SCH ×3 (06:52→20:25)
[2017-03-04] MEDS: POLYETHYLENE GLYCOL 3350 17 GM PACKET PO SCH (08:51)
[2017-03-04] MEDS: DOCUSATE SODIUM 250 MG CAPSULE PO SCH (08:52)
[2017-03-04] MEDS: OXYBUTYNIN 5MG TABLET PO SCH ×2 (08:52→20:25)
[2017-03-04] MEDS: METOPROLOL TARTRATE 25 MG TABLET PO SCH ×2 (08:52→20:24)
[2017-03-04] MEDS: FAMOTIDINE 20 MG TABLET PO SCH (08:52)
[2017-03-04] MEDS: FUROSEMIDE 40 MG TABLET PO SCH (08:52)
--- NOTE | 2017-03-04 17:05 | PROVIDER PROGRESS NOTE ---
Assessment/Plan - Problem List (1) CHF exacerbation Qualifiers: Congestive heart failure type: unspecified Qualified Code(s): I50.9 - Heart failure, unspecified Assessment/Plan: Patient presented with 2-3 days of shortness of breath. She had a previous admission at [facility] 12 years ago with CHF exacerbation and alcohol withdrawal. 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 Resource Planner Avoid nephrotoxic agents (3) COPD (chronic obstructive pulmonary disease) Qualifiers: COPD type: emphysema Assessment/Plan: History of COPD Does not appear to be in exacerbation Will place on albuterol as needed O2 (4) Atrial fibrillation Qualifiers: Atrial fibrillation type: chronic Qualified Code(s): I48.2 - Chronic atrial fibrillation Assessment/Plan: Patient has history of A fib on coumadin INR is 2.4 COntinue coumadin Tele Rate controlled (5) Hypothyroidism Assessment/Plan: Continue synthroid Stable - Current Meds Current Meds: Current Medications Generic Name Dose Route Start Last Admin Trade Name Freq PRN Reason Stop Dose Admin Acetaminophen 650 mg 02/28/17 18:14 03/03/17 18:48 Tylenol PO 650 mg Q4HR PRN Administration Pain 1 to 4 Al Hydroxide/Mg Hydroxide 30 ml 03/01/17 04:32 03/01/17 04:35 Mylanta Plus PO 30 ml Q4HR PRN Administration INDIGESTION Docusate Sodium 250 - 500 mg 03/02/17 09:00 03/04/17 08:52 Colace 250mg Capsule PO 250 mg DAILY RAYNA Administration Famotidine 20 mg 03/01/17 09:00 03/04/17 08:52 Pepcid PO 20 mg DAILY RAYNA Administration Furosemide 40 mg 03/03/17 09:00 03/04/17 08:52 Lasix PO 40 mg DAILY RAYNA Administration Ceftriaxone Sodium 1 gm/ 100 mls @ 200 mls/hr 03/03/17 16:00 03/03/17 19:29 Sodium Chloride IV Infused Q24H RAYNA Infusion Levothyroxine Sodium 125 mcg 03/01/17 07:00 03/04/17 06:51 Synthroid PO 125 mcg QDAC RAYNA Administration Losartan Potassium 25 mg 03/03/17 21:00 03/03/17 20:20 Cozaar PO 25 mg QPM RAYNA Administration Metoprolol Tartrate 12.5 mg 03/03/17 09:00 03/04/17 08:52 Lopressor PO 12.5 mg BID RAYNA Administration Ondansetron HCl 4 mg 02/28/17 18:14 03/01/17 11:28 Zofran Inj IVP 4 mg Q6HR PRN Administration Nausea / Vomiting Oxybutynin Chloride 5 mg 02/28/17 21:00 03/04/17 08:52 Ditropan PO 5 mg BID RAYNA Administration Polyethylene Glycol 17 gm 03/01/17 09:00 03/04/17 08:51 Miralax PO 17 gm DAILY RAYNA Administration Prochlorperazine Edisylate 10 mg 02/28/17 18:14 03/03/17 11:27 Compazine Inj IVP 10 mg Q6HR PRN Administration Nausea / Vomiting Sodium Chloride 10 ml 02/28/17 18:14 03/03/17 17:13 Normal Saline Flush 0.9% IVP 10 ml PRN PRN Administration NEEDED PER PROVIDER ORDERS Sodium Chloride 10 ml 02/28/17 22:00 03/04/17 14:30 Normal Saline Flush 0.9% IVP 10 ml Q8HR RAYNA Administration - Lab Result Lab results reviewed: Yes Fish Bone Diagrams: 03/04/17 04:58 03/04/17 04:58 - Diagnostic Imaging Results Diagnostic Imaging Results: Final report reviewed - Additional Planning Condition/Complexity: Guarded My Orders: My Active Orders 03/03/17 21:00 Losartan [Cozaar] 25 mg PO QPM Plan Discussed with:: Patient, Family Time Spent: 31-60 minutes Subjective - Subjective Patient Reports: Shortness of Breath (At rest and with minimal exertion), Other (No cough, fevers or chills.) Nursing Reports: No Complaints Objective Vital Signs: Vital Signs - 24 hr 03/03/17 03/03/17 03/04/17 20:14 23:25 05:00 Temperature 36.6 C 36.4 C L 36.4 C L Heart Rate [ Brachial] Heart Rate [ 76 58 L 61 Monitoring electrodes] Respiratory 18 16 16 Rate Blood Pressure Blood Pressure 101/61 99/68 102/61 [Right Brachial artery] O2 Saturation 95 93 94 03/04/17 03/04/17 03/04/17 08:52 09:13 14:26 Temperature 36.8 C 37.0 C Heart Rate [ Brachial] Heart Rate [ 75 70 Monitoring electrodes] Respiratory 18 19 Rate Blood Pressure 105/49 L Blood Pressure 105/53 L 109/55 L [Right Brachial artery] O2 Saturation 98 97 03/04/17 15:37 Temperature 36.7 C Heart Rate [ 67 Brachial] Heart Rate [ Monitoring electrodes] Respiratory 20 Rate Blood Pressure Blood Pressure 106/59 L [Right Brachial artery] O2 Saturation 98 Oxygen O2 Source Nasal cannula I&O (Last 24 Hrs): Intake and Output Totals x24h 03/02/17 03/03/17 03/04/17 23:59 23:59 23:59 Intake Total 720 980 450 Output Total 2075 950 1300 Balance -1355 30 -850 General: Alert, Oriented x3, Cooperative, Mild distress (respiratory) HEENT: Atraumatic, PERRLA, EOMI, Mucous membr. moist/pink Neck: Supple, No thyromegaly, +2 carotid pulse wo bruit, No LAD Lymphatic: no adenopathy Neuro: Alert, Non Focal, CN 2-12 Grossly Intact, Oriented Times 3 Cardiovascular: No murmurs, Other (Irregularly irregular) Respiratory: Chest non-tender, Rales (Bilateral) Abdomen: Normal bowel sounds, Soft, No tenderness, No hepatospenomegaly Extremities: No clubbing, No cyanosis, Normal pulses, Other (Bilateral LE edema) Skin: No rashes, No breakdown - Results Results: Laboratory Results WBC 6.2 x10^3/uL (4.8-10.8) 03/04/17 04:58 RBC 4.20 10^6/uL (4.20-5.40) 03/04/17 04:58 Hgb 13.3 g/dL (12.0-16.0) 03/04/17 04:58 Hct 40.8 % (37.0-47.0) 03/04/17 04:58 MCV 97.0 fL (81.0-99.0) 03/04/17 04:58 MCH 31.7 pg (27.0-31.0) H 03/04/17 04:58 MCHC 32.7 g/dL (32.0-36.0) 03/04/17 04:58 RDW 14.5 % (12.0-15.0) 03/04/17 04:58 Plt Count 205 10^3/uL (130-450) 03/04/17 04:58 MPV 9.3 fL (7.9-10.8) 03/04/17 04:58 Neut # 3.5 10^3/uL (1.5-6.6) 03/04/17 04:58 Lymph # 1.6 10^3/uL (1.5-3.5) 03/04/17 04:58 [place] # 0.9 10^3/uL (0.0-1.0) 03/04/17 04:58 Eos # 0.1 10^3/uL (0.0-0.7) 03/04/17 04:58 Baso # 0.1 10^3/uL (0.0-0.1) 03/04/17 04:58 Absolute Nucleated RBC 0.00 x10^3/uL 03/04/17 04:58 Nucleated RBC % 0.0 /100WBC 03/04/17 04:58 Manual Slide Review Indicated 02/28/17 16:54 WBC Morphology NORMAL APPEARANCE (NORMAL) 02/28/17 16:54 Platelet Estimate NORMAL (130-450,000) (NORMAL) 03/02/17 06:32 Platelet Morphology 1+ GIANT PLATELETS (NORMAL) 03/02/17 06:32 RBC Morph Micro Appear NORMAL APPEARANCE (NORMAL) 02/28/17 16:54 PT 31.9 secs (9.9-12.6) H 03/04/17 04:58 INR 2.9 (0.8-1.2) H 03/04/17 04:58 Sodium 134 mmol/L (135-145) L 03/04/17 04:58 Potassium 4.2 mmol/L (3.5-5.0) 03/04/17 04:58 Chloride 96 mmol/L (101-111) L 03/04/17 04:58 Carbon Dioxide 29 mmol/L (21-32) 03/04/17 04:58 Anion Gap 9.0 (6-13) 03/04/17 04:58 BUN 46 mg/dL (6-20) H 03/04/17 04:58 Creatinine 1.3 mg/dL (0.4-1.0) H 03/04/17 04:58 Estimated GFR (MDRD) 41 (>89) L 03/04/17 04:58 Glucose 99 mg/dL (70-100) 03/04/17 04:58 Calcium 8.4 mg/dL (8.5-10.3) L 03/04/17 04:58 Magnesium 1.7 mg/dL (1.7-2.8) 03/04/17 04:58 Total Bilirubin 0.8 mg/dL (0.2-1.0) 03/04/17 04:58 AST 30 IU/L (10-42) 03/04/17 04:58 ALT 15 IU/L (10-60) 03/04/17 04:58 Alkaline Phosphatase 52 IU/L (42-121) 03/04/17 04:58 Troponin I 0.08 ng/mL (<0.49) 03/01/17 10:04 B-Natriuretic Peptide 876 pg/mL (5-100) H 03/04/17 04:58 Total Protein 6.6 g/dL (6.7-8.2) L 03/04/17 04:58 Albumin 3.0 g/dL (3.2-5.5) L 03/04/17 04:58 Globulin 3.6 g/dL (2.1-4.2) 03/04/17 04:58 Albumin/Globulin Ratio 0.8 (1.0-2.2) L 03/04/17 04:58 Urine Color BROWN 03/03/17 14:35 Urine Clarity CLOUDY (CLEAR) 03/03/17 14:35 Urine pH 6.0 PH (5.0-7.5) 03/03/17 14:35 Ur Specific [place] 1.010 (1.002-1.030) 03/03/17 14:35 Urine Protein TRACE mg/dL (NEGATIVE) 03/03/17 14:35 Urine Glucose (UA) NEGATIVE mg/dL (NEGATIVE) 03/03/17 14:35 Urine Ketones NEGATIVE mg/dL (NEGATIVE) 03/03/17 14:35 Urine Occult Blood LARGE (NEGATIVE) H 03/03/17 14:35 Urine Nitrite NEGATIVE (NEGATIVE) 03/03/17 14:35 Urine Bilirubin NEGATIVE (NEGATIVE) 03/03/17 14:35 Urine Urobilinogen 1 (NORMAL) E.U./dL (NORMAL) 03/03/17 14:35 Ur Leukocyte Esterase TRACE (NEGATIVE) H 03/03/17 14:35 Urine RBC TNTC /HPF (0-5) H 03/03/17 14:35 Urine WBC 6-10 /HPF (0-5) H 03/03/17 14:35 Ur Squamous Epith Cells RARE Squamous (<= Few) 03/03/17 14:35 Urine Bacteria Few /HPF (None Seen) 03/03/17 14:35 Urine Culture Comments INDICATED 03/03/17 14:35 Influenza A (Rapid) Negative (Negative) 02/28/17 16:45 Influenza B (Rapid) Negative (Negative) 02/28/17 16:45 Influenza Types A,B Ag - 02/28/17 16:45
--- NOTE | 2017-03-04 17:30 | PROVIDER PROGRESS NOTE ---
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 Operator was 1.2 on presentation now up to 1.5 with increasing BNP concerning for cardiorenal syndrome Give IV lasix Monitor Video Camera Operator Avoid nephrotoxic agents (3) COPD (chronic obstructive pulmonary disease) Qualifiers: COPD type: emphysema Assessment/Plan: History of COPD Does not appear to be in exacerbation Will place on albuterol as needed O2 (4) Atrial fibrillation Qualifiers: Atrial fibrillation type: chronic Qualified Code(s): I48.2 - Chronic atrial fibrillation Assessment/Plan: Patient has history of A fib on coumadin INR is 2.6 COntinue coumadin Tele Rate controlled (5) Hypothyroidism Assessment/Plan: Continue synthroid Stable - Current Meds Current Meds: Current Medications Generic Name Dose Route Start Last Admin Trade Name Freq PRN Reason Stop Dose Admin Acetaminophen 650 mg 02/28/17 18:14 03/03/17 18:48 Tylenol PO 650 mg Q4HR PRN Administration Pain 1 to 4 Al Hydroxide/Mg Hydroxide 30 ml 03/01/17 04:32 03/01/17 04:35 Mylanta Plus PO 30 ml Q4HR PRN Administration INDIGESTION Docusate Sodium 250 - 500 mg 03/02/17 09:00 03/04/17 08:52 Colace 250mg Capsule PO 250 mg DAILY RAYNA Administration Famotidine 20 mg 03/01/17 09:00 03/04/17 08:52 Pepcid PO 20 mg DAILY ARYNA Administration Furosemide 40 mg 03/03/17 09:00 03/04/17 08:52 Lasix PO 40 mg DAILY RAYNA Administration Ceftriaxone Sodium 1 gm/ 100 mls @ 200 mls/hr 03/03/17 16:00 03/03/17 19:29 Sodium Chloride IV Infused Q24H RAYNA Infusion Levothyroxine Sodium 125 mcg 03/01/17 07:00 03/04/17 06:51 Synthroid PO 125 mcg QDAC RAYNA Administration Losartan Potassium 25 mg 03/03/17 21:00 03/03/17 20:20 Cozaar PO 25 mg QPM RAYNA Administration Metoprolol Tartrate 12.5 mg 03/03/17 09:00 03/04/17 08:52 Lopressor PO 12.5 mg BID RAYNA Administration Ondansetron HCl 4 mg 02/28/17 18:14 03/01/17 11:28 Zofran Inj IVP 4 mg Q6HR PRN Administration Nausea / Vomiting Oxybutynin Chloride 5 mg 02/28/17 21:00 03/04/17 08:52 Ditropan PO 5 mg BID RAYNA Administration Polyethylene Glycol 17 gm 03/01/17 09:00 03/04/17 08:51 Miralax PO 17 gm DAILY RAYNA Administration Prochlorperazine Edisylate 10 mg 02/28/17 18:14 03/03/17 11:27 Compazine Inj IVP 10 mg Q6HR PRN Administration Nausea / Vomiting Sodium Chloride 10 ml 02/28/17 18:14 03/03/17 17:13 Normal Saline Flush 0.9% IVP 10 ml PRN PRN Administration NEEDED PER PROVIDER ORDERS Sodium Chloride 10 ml 02/28/17 22:00 03/04/17 14:30 Normal Saline Flush 0.9% IVP 10 ml Q8HR RAYNA Administration - Lab Result Lab results reviewed: Yes Fish Bone Diagrams: 03/04/17 04:58 03/04/17 04:58 - Diagnostic Imaging Results Diagnostic Imaging Results: Final report reviewed - Additional Planning Condition/Complexity: Guarded My Orders: My Active Orders 03/03/17 21:00 Losartan [Cozaar] 25 mg PO QPM Plan Discussed with:: Patient, Family Time Spent: 31-60 minutes Subjective - Subjective Patient Reports: Feeling Better (But still very weak and easily fatigued), Shortness of Breath (With minimal exertion) Nursing Reports: No Complaints Objective Vital Signs: Vital Signs - 24 hr 03/03/17 03/03/17 03/04/17 20:14 23:25 05:00 Temperature 36.6 C 36.4 C L 36.4 C L Heart Rate [ Brachial] Heart Rate [ 76 58 L 61 Monitoring electrodes] Respiratory 18 16 16 Rate Blood Pressure Blood Pressure 101/61 99/68 102/61 [Right Brachial artery] O2 Saturation 95 93 94 03/04/17 03/04/17 03/04/17 08:52 09:13 14:26 Temperature 36.8 C 37.0 C Heart Rate [ Brachial] Heart Rate [ 75 70 Monitoring electrodes] Respiratory 18 19 Rate Blood Pressure 105/49 L Blood Pressure 105/53 L 109/55 L [Right Brachial artery] O2 Saturation 98 97 03/04/17 15:37 Temperature 36.7 C Heart Rate [ 67 Brachial] Heart Rate [ Monitoring electrodes] Respiratory 20 Rate Blood Pressure Blood Pressure 106/59 L [Right Brachial artery] O2 Saturation 98 Oxygen O2 Source Nasal cannula I&O (Last 24 Hrs): Intake and Output Totals x24h 03/02/17 03/03/17 03/04/17 23:59 23:59 23:59 Intake Total 720 980 450 Output Total 2075 950 1300 Balance -1355 30 -850 General: Alert, Oriented x3, Cooperative, Mild distress (respiratory with exertion) HEENT: Atraumatic, PERRLA, EOMI, Mucous membr. moist/pink Neck: Supple, No JVD, No thyromegaly, +2 carotid pulse wo bruit, No LAD Lymphatic: no adenopathy Neuro: Alert, Non Focal, CN 2-12 Grossly Intact, Oriented Times 3 Cardiovascular: No murmurs, Other (Irregularly irregular rhythm) Respiratory: Chest non-tender, No respiratory distress, Rales ([place]) Abdomen: Normal bowel sounds, Soft, No tenderness, No hepatospenomegaly Extremities: No clubbing, No cyanosis, Normal pulses, Other (Mild LE edema) Skin: No rashes, No breakdown - Results Results: Laboratory Results WBC 6.2 x10^3/uL (4.8-10.8) 03/04/17 04:58 RBC 4.20 10^6/uL (4.20-5.40) 03/04/17 04:58 Hgb 13.3 g/dL (12.0-16.0) 03/04/17 04:58 Hct 40.8 % (37.0-47.0) 03/04/17 04:58 MCV 97.0 fL (81.0-99.0) 03/04/17 04:58 MCH 31.7 pg (27.0-31.0) H 03/04/17 04:58 MCHC 32.7 g/dL (32.0-36.0) 03/04/17 04:58 RDW 14.5 % (12.0-15.0) 03/04/17 04:58 Plt Count 205 10^3/uL (130-450) 03/04/17 04:58 MPV 9.3 fL (7.9-10.8) 03/04/17 04:58 Neut # 3.5 10^3/uL (1.5-6.6) 03/04/17 04:58 Lymph # 1.6 10^3/uL (1.5-3.5) 03/04/17 04:58 [place] # 0.9 10^3/uL (0.0-1.0) 03/04/17 04:58 Eos # 0.1 10^3/uL (0.0-0.7) 03/04/17 04:58 Baso # 0.1 10^3/uL (0.0-0.1) 03/04/17 04:58 Absolute Nucleated RBC 0.00 x10^3/uL 03/04/17 04:58 Nucleated RBC % 0.0 /100WBC 03/04/17 04:58 Manual Slide Review Indicated 02/28/17 16:54 WBC Morphology NORMAL APPEARANCE (NORMAL) 02/28/17 16:54 Platelet Estimate NORMAL (130-450,000) (NORMAL) 03/02/17 06:32 Platelet Morphology 1+ GIANT PLATELETS (NORMAL) 03/02/17 06:32 RBC Morph Micro Appear NORMAL APPEARANCE (NORMAL) 02/28/17 16:54 PT 31.9 secs (9.9-12.6) H 03/04/17 04:58 INR 2.9 (0.8-1.2) H 03/04/17 04:58 Sodium 134 mmol/L (135-145) L 03/04/17 04:58 Potassium 4.2 mmol/L (3.5-5.0) 03/04/17 04:58 Chloride 96 mmol/L (101-111) L 03/04/17 04:58 Carbon Dioxide 29 mmol/L (21-32) 03/04/17 04:58 Anion Gap 9.0 (6-13) 03/04/17 04:58 BUN 46 mg/dL (6-20) H 03/04/17 04:58 Creatinine 1.3 mg/dL (0.4-1.0) H 03/04/17 04:58 Estimated GFR (MDRD) 41 (>89) L 03/04/17 04:58 Glucose 99 mg/dL (70-100) 03/04/17 04:58 Calcium 8.4 mg/dL (8.5-10.3) L 03/04/17 04:58 Magnesium 1.7 mg/dL (1.7-2.8) 03/04/17 04:58 Total Bilirubin 0.8 mg/dL (0.2-1.0) 03/04/17 04:58 AST 30 IU/L (10-42) 03/04/17 04:58 ALT 15 IU/L (10-60) 03/04/17 04:58 Alkaline Phosphatase 52 IU/L (42-121) 03/04/17 04:58 Troponin I 0.08 ng/mL (<0.49) 03/01/17 10:04 B-Natriuretic Peptide 876 pg/mL (5-100) H 03/04/17 04:58 Total Protein 6.6 g/dL (6.7-8.2) L 03/04/17 04:58 Albumin 3.0 g/dL (3.2-5.5) L 03/04/17 04:58 Globulin 3.6 g/dL (2.1-4.2) 03/04/17 04:58 Albumin/Globulin Ratio 0.8 (1.0-2.2) L 03/04/17 04:58 Urine Color BROWN 03/03/17 14:35 Urine Clarity CLOUDY (CLEAR) 03/03/17 14:35 Urine pH 6.0 PH (5.0-7.5) 03/03/17 14:35 Ur Specific [place] 1.010 (1.002-1.030) 03/03/17 14:35 Urine Protein TRACE mg/dL (NEGATIVE) 03/03/17 14:35 Urine Glucose (UA) NEGATIVE mg/dL (NEGATIVE) 03/03/17 14:35 Urine Ketones NEGATIVE mg/dL (NEGATIVE) 03/03/17 14:35 Urine Occult Blood LARGE (NEGATIVE) H 03/03/17 14:35 Urine Nitrite NEGATIVE (NEGATIVE) 03/03/17 14:35 Urine Bilirubin NEGATIVE (NEGATIVE) 03/03/17 14:35 Urine Urobilinogen 1 (NORMAL) E.U./dL (NORMAL) 03/03/17 14:35 Ur Leukocyte Esterase TRACE (NEGATIVE) H 03/03/17 14:35 Urine RBC TNTC /HPF (0-5) H 03/03/17 14:35 Urine WBC 6-10 /HPF (0-5) H 03/03/17 14:35 Ur Squamous Epith Cells RARE Squamous (<= Few) 03/03/17 14:35 Urine Bacteria Few /HPF (None Seen) 03/03/17 14:35 Urine Culture Comments INDICATED 03/03/17 14:35 Influenza A (Rapid) Negative (Negative) 02/28/17 16:45 Influenza B (Rapid) Negative (Negative) 02/28/17 16:45 Influenza Types A,B Ag - 02/28/17 16:45
--- NOTE | 2017-03-04 17:38 | PROVIDER PROGRESS NOTE ---
Assessment/Plan - Problem List (1) CHF exacerbation Qualifiers: Congestive heart failure type: unspecified Qualified Code(s): I50.9 - Heart failure, unspecified Assessment/Plan: Echo shows EF of less than 20% Start patient on metoprolol and cozaar (allergy to lisinopril) BNP down to 676 and patient is -3.5L Will hold off on starting spironolactone as patients BP may not be able to tolerate all that Patients echo shows global hypokinesis likely has cardiomyopathy possibly from history of alcoholism Patient needs to follow up with cardiology may need AICD if EF does not improve Would benefit from Cardiac Rehab CHF education Fluid restriction 1800 ml Low Na diet Patient is very weak from hospitalization will order PT today (2) OUMOU (acute kidney injury) Assessment/Plan: Supervisor 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 was 1.2 on presentation now up to 1.6 Change lasix to PO Monitor Supervisor Litharge Avoid nephrotoxic agents (3) COPD (chronic obstructive pulmonary disease) Qualifiers: COPD type: emphysema Assessment/Plan: History of COPD Does not appear to be in exacerbation Will place on albuterol as needed O2 (4) Atrial fibrillation Qualifiers: Atrial fibrillation type: chronic Qualified Code(s): I48.2 - Chronic atrial fibrillation Assessment/Plan: Patient has history of A fib on coumadin INR is 3.0 Hold coumadin Tele Rate controlled Start metoprolol (5) Hypothyroidism Assessment/Plan: Continue synthroid Stable - Current Meds Current Meds: Current Medications Generic Name Dose Route Start Last Admin Trade Name Freq PRN Reason Stop Dose Admin Acetaminophen 650 mg 02/28/17 18:14 03/03/17 18:48 Tylenol PO 650 mg Q4HR PRN Administration Pain 1 to 4 Al Hydroxide/Mg Hydroxide 30 ml 03/01/17 04:32 03/01/17 04:35 Mylanta Plus PO 30 ml Q4HR PRN Administration INDIGESTION Docusate Sodium 250 - 500 mg 03/02/17 09:00 03/04/17 08:52 Colace 250mg Capsule PO 250 mg DAILY RAYNA Administration Famotidine 20 mg 03/01/17 09:00 03/04/17 08:52 Pepcid PO 20 mg DAILY RAYNA Administration Furosemide 40 mg 03/03/17 09:00 03/04/17 08:52 Lasix PO 40 mg DAILY RAYNA Administration Ceftriaxone Sodium 1 gm/ 100 mls @ 200 mls/hr 03/03/17 16:00 03/03/17 19:29 Sodium Chloride IV Infused Q24H RAYNA Infusion Levothyroxine Sodium 125 mcg 03/01/17 07:00 03/04/17 06:51 Synthroid PO 125 mcg QDAC RAYNA Administration Losartan Potassium 25 mg 03/03/17 21:00 03/03/17 20:20 Cozaar PO 25 mg QPM RAYNA Administration Metoprolol Tartrate 12.5 mg 03/03/17 09:00 03/04/17 08:52 Lopressor PO 12.5 mg BID RAYNA Administration Ondansetron HCl 4 mg 02/28/17 18:14 03/01/17 11:28 Zofran Inj IVP 4 mg Q6HR PRN Administration Nausea / Vomiting Oxybutynin Chloride 5 mg 02/28/17 21:00 03/04/17 08:52 Ditropan PO 5 mg BID RAYNA Administration Polyethylene Glycol 17 gm 03/01/17 09:00 03/04/17 08:51 Miralax PO 17 gm DAILY RAYNA Administration Prochlorperazine Edisylate 10 mg 02/28/17 18:14 03/03/17 11:27 Compazine Inj IVP 10 mg Q6HR PRN Administration Nausea / Vomiting Sodium Chloride 10 ml 02/28/17 18:14 03/03/17 17:13 Normal Saline Flush 0.9% IVP 10 ml PRN PRN Administration NEEDED PER PROVIDER ORDERS Sodium Chloride 10 ml 02/28/17 22:00 03/04/17 14:30 Normal Saline Flush 0.9% IVP 10 ml Q8HR RAYNA Administration - Lab Result Lab results reviewed: Yes Fish Bone Diagrams: 03/04/17 04:58 03/04/17 04:58 - Diagnostic Imaging Results Diagnostic Imaging Results: Final report reviewed - Additional Planning Condition/Complexity: Guarded My Orders: My Active Orders 03/03/17 21:00 Losartan [Cozaar] 25 mg PO QPM Plan Discussed with:: Patient, Family Time Spent: 31-60 minutes Subjective - Subjective Patient Reports: Fatigue, Shortness of Breath (With exertion and feels very weak and unsteady) Nursing Reports: No Complaints Objective Vital Signs: Vital Signs - 24 hr 03/03/17 03/03/17 03/04/17 20:14 23:25 05:00 Temperature 36.6 C 36.4 C L 36.4 C L Heart Rate [ Brachial] Heart Rate [ 76 58 L 61 Monitoring electrodes] Respiratory 18 16 16 Rate Blood Pressure Blood Pressure 101/61 99/68 102/61 [Right Brachial artery] O2 Saturation 95 93 94 03/04/17 03/04/17 03/04/17 08:52 09:13 14:26 Temperature 36.8 C 37.0 C Heart Rate [ Brachial] Heart Rate [ 75 70 Monitoring electrodes] Respiratory 18 19 Rate Blood Pressure 105/49 L Blood Pressure 105/53 L 109/55 L [Right Brachial artery] O2 Saturation 98 97 03/04/17 15:37 Temperature 36.7 C Heart Rate [ 67 Brachial] Heart Rate [ Monitoring electrodes] Respiratory 20 Rate Blood Pressure Blood Pressure 106/59 L [Right Brachial artery] O2 Saturation 98 Oxygen O2 Source Nasal cannula I&O (Last 24 Hrs): Intake and Output Totals x24h 03/02/17 03/03/17 03/04/17 23:59 23:59 23:59 Intake Total 720 980 450 Output Total 2075 950 1300 Balance -1355 30 -850 General: Alert, Oriented x3, Cooperative, No acute distress, Other (thin and frail) HEENT: Atraumatic, PERRLA, EOMI Neck: Supple, No JVD, No thyromegaly, +2 carotid pulse wo bruit, No LAD Lymphatic: no adenopathy Neuro: Alert, Non Focal, CN 2-12 Grossly Intact, Oriented Times 3 Cardiovascular: No murmurs, Other (Irregularly irregular) Respiratory: Chest non-tender, Rales ([place]) Abdomen: Normal bowel sounds, Soft, No tenderness, No hepatospenomegaly, No masses Extremities: No clubbing, No cyanosis, No edema, Normal pulses Skin: No rashes, No breakdown - Results Results: Laboratory Results WBC 6.2 x10^3/uL (4.8-10.8) 03/04/17 04:58 RBC 4.20 10^6/uL (4.20-5.40) 03/04/17 04:58 Hgb 13.3 g/dL (12.0-16.0) 03/04/17 04:58 Hct 40.8 % (37.0-47.0) 03/04/17 04:58 MCV 97.0 fL (81.0-99.0) 03/04/17 04:58 MCH 31.7 pg (27.0-31.0) H 03/04/17 04:58 MCHC 32.7 g/dL (32.0-36.0) 03/04/17 04:58 RDW 14.5 % (12.0-15.0) 03/04/17 04:58 Plt Count 205 10^3/uL (130-450) 03/04/17 04:58 MPV 9.3 fL (7.9-10.8) 03/04/17 04:58 Neut # 3.5 10^3/uL (1.5-6.6) 03/04/17 04:58 Lymph # 1.6 10^3/uL (1.5-3.5) 03/04/17 04:58 [place] # 0.9 10^3/uL (0.0-1.0) 03/04/17 04:58 Eos # 0.1 10^3/uL (0.0-0.7) 03/04/17 04:58 Baso # 0.1 10^3/uL (0.0-0.1) 03/04/17 04:58 Absolute Nucleated RBC 0.00 x10^3/uL 03/04/17 04:58 Nucleated RBC % 0.0 /100WBC 03/04/17 04:58 Manual Slide Review Indicated 02/28/17 16:54 WBC Morphology NORMAL APPEARANCE (NORMAL) 02/28/17 16:54 Platelet Estimate NORMAL (130-450,000) (NORMAL) 03/02/17 06:32 Platelet Morphology 1+ GIANT PLATELETS (NORMAL) 03/02/17 06:32 RBC Morph Micro Appear NORMAL APPEARANCE (NORMAL) 02/28/17 16:54 PT 31.9 secs (9.9-12.6) H 03/04/17 04:58 INR 2.9 (0.8-1.2) H 03/04/17 04:58 Sodium 134 mmol/L (135-145) L 03/04/17 04:58 Potassium 4.2 mmol/L (3.5-5.0) 03/04/17 04:58 Chloride 96 mmol/L (101-111) L 03/04/17 04:58 Carbon Dioxide 29 mmol/L (21-32) 03/04/17 04:58 Anion Gap 9.0 (6-13) 03/04/17 04:58 BUN 46 mg/dL (6-20) H 03/04/17 04:58 Creatinine 1.3 mg/dL (0.4-1.0) H 03/04/17 04:58 Estimated GFR (MDRD) 41 (>89) L 03/04/17 04:58 Glucose 99 mg/dL (70-100) 03/04/17 04:58 Calcium 8.4 mg/dL (8.5-10.3) L 03/04/17 04:58 Magnesium 1.7 mg/dL (1.7-2.8) 03/04/17 04:58 Total Bilirubin 0.8 mg/dL (0.2-1.0) 03/04/17 04:58 AST 30 IU/L (10-42) 03/04/17 04:58 ALT 15 IU/L (10-60) 03/04/17 04:58 Alkaline Phosphatase 52 IU/L (42-121) 03/04/17 04:58 Troponin I 0.08 ng/mL (<0.49) 03/01/17 10:04 B-Natriuretic Peptide 876 pg/mL (5-100) H 03/04/17 04:58 Total Protein 6.6 g/dL (6.7-8.2) L 03/04/17 04:58 Albumin 3.0 g/dL (3.2-5.5) L 03/04/17 04:58 Globulin 3.6 g/dL (2.1-4.2) 03/04/17 04:58 Albumin/Globulin Ratio 0.8 (1.0-2.2) L 03/04/17 04:58 Urine Color BROWN 03/03/17 14:35 Urine Clarity CLOUDY (CLEAR) 03/03/17 14:35 Urine pH 6.0 PH (5.0-7.5) 03/03/17 14:35 Ur Specific [place] 1.010 (1.002-1.030) 03/03/17 14:35 Urine Protein TRACE mg/dL (NEGATIVE) 03/03/17 14:35 Urine Glucose (UA) NEGATIVE mg/dL (NEGATIVE) 03/03/17 14:35 Urine Ketones NEGATIVE mg/dL (NEGATIVE) 03/03/17 14:35 Urine Occult Blood LARGE (NEGATIVE) H 03/03/17 14:35 Urine Nitrite NEGATIVE (NEGATIVE) 03/03/17 14:35 Urine Bilirubin NEGATIVE (NEGATIVE) 03/03/17 14:35 Urine Urobilinogen 1 (NORMAL) E.U./dL (NORMAL) 03/03/17 14:35 Ur Leukocyte Esterase TRACE (NEGATIVE) H 03/03/17 14:35 Urine RBC TNTC /HPF (0-5) H 03/03/17 14:35 Urine WBC 6-10 /HPF (0-5) H 03/03/17 14:35 Ur Squamous Epith Cells RARE Squamous (<= Few) 03/03/17 14:35 Urine Bacteria Few /HPF (None Seen) 03/03/17 14:35 Urine Culture Comments INDICATED 03/03/17 14:35 Influenza A (Rapid) Negative (Negative) 02/28/17 16:45 Influenza B (Rapid) Negative (Negative) 02/28/17 16:45 Influenza Types A,B Ag - 02/28/17 16:45
--- NOTE | 2017-03-04 17:49 | PROVIDER PROGRESS NOTE ---
Assessment/Plan - Problem List (1) CHF exacerbation Qualifiers: Congestive heart failure type: unspecified Qualified Code(s): I50.9 - Heart failure, unspecified Assessment/Plan: Echo shows EF of less than 20% Patient on metoprolol and cozaar (allergy to lisinopril) BNP is 876 down from 2680 and patient nearly 4L negative since admission Will hold off on starting spironolactone as patients BP may not be able to tolerate all that Patients echo shows global hypokinesis likely has cardiomyopathy possibly from history of alcoholism Patient needs to follow up with cardiology may need AICD if EF does not improve Would benefit from Cardiac Rehab CHF education Fluid restriction 1800 ml Low Na diet According to PT patient is still very weak and needs home health PT Patient still got SOA with PT and was very weak. PT will work with her again tomorrow If stronger and able to tolerate more PT tomorrow will likely be able to go home COntinue PO lasix and consider starting aldactone in place of lasix at discharge (2) OUMOU (acute kidney injury) Assessment/Plan: Resolved Physician General Internal Medicine down 1.3 (3) COPD (chronic obstructive pulmonary disease) Qualifiers: COPD type: emphysema Assessment/Plan: History of COPD Does not appear to be in exacerbation Will place on albuterol as needed O2 (4) Atrial fibrillation Qualifiers: Atrial fibrillation type: chronic Qualified Code(s): I48.2 - Chronic atrial fibrillation Assessment/Plan: Patient has history of A fib on coumadin INR is 2.9 Hold coumadin Tele Rate controlled On metoprolol Restart Coumadin at discharge (5) Hypothyroidism Assessment/Plan: Continue synthroid Stable - Current Meds Current Meds: Current Medications Generic Name Dose Route Start Last Admin Trade Name Freq PRN Reason Stop Dose Admin Acetaminophen 650 mg 02/28/17 18:14 03/03/17 18:48 Tylenol PO 650 mg Q4HR PRN Administration Pain 1 to 4 Al Hydroxide/Mg Hydroxide 30 ml 03/01/17 04:32 03/01/17 04:35 Mylanta Plus PO 30 ml Q4HR PRN Administration INDIGESTION Docusate Sodium 250 - 500 mg 03/02/17 09:00 03/04/17 08:52 Colace 250mg Capsule PO 250 mg DAILY RAYNA Administration Famotidine 20 mg 03/01/17 09:00 03/04/17 08:52 Pepcid PO 20 mg DAILY RAYNA Administration Furosemide 40 mg 03/03/17 09:00 03/04/17 08:52 Lasix PO 40 mg DAILY RAYNA Administration Ceftriaxone Sodium 1 gm/ 100 mls @ 200 mls/hr 03/03/17 16:00 03/03/17 19:29 Sodium Chloride IV Infused Q24H RAYNA Infusion Levothyroxine Sodium 125 mcg 03/01/17 07:00 03/04/17 06:51 Synthroid PO 125 mcg QDAC RAYNA Administration Losartan Potassium 25 mg 03/03/17 21:00 03/03/17 20:20 Cozaar PO 25 mg QPM RAYNA Administration Metoprolol Tartrate 12.5 mg 03/03/17 09:00 03/04/17 08:52 Lopressor PO 12.5 mg BID RAYNA Administration Ondansetron HCl 4 mg 02/28/17 18:14 03/01/17 11:28 Zofran Inj IVP 4 mg Q6HR PRN Administration Nausea / Vomiting Oxybutynin Chloride 5 mg 02/28/17 21:00 03/04/17 08:52 Ditropan PO 5 mg BID RAYNA Administration Polyethylene Glycol 17 gm 03/01/17 09:00 03/04/17 08:51 Miralax PO 17 gm DAILY RAYNA Administration Prochlorperazine Edisylate 10 mg 02/28/17 18:14 03/03/17 11:27 Compazine Inj IVP 10 mg Q6HR PRN Administration Nausea / Vomiting Sodium Chloride 10 ml 02/28/17 18:14 03/03/17 17:13 Normal Saline Flush 0.9% IVP 10 ml PRN PRN Administration NEEDED PER PROVIDER ORDERS Sodium Chloride 10 ml 02/28/17 22:00 03/04/17 14:30 Normal Saline Flush 0.9% IVP 10 ml Q8HR RAYNA Administration - Lab Result Fish Bone Diagrams: 03/04/17 04:58 03/04/17 04:58 - Diagnostic Imaging Results Diagnostic Imaging Results: Final report reviewed - Additional Planning Condition/Complexity: Improved My Orders: My Active Orders 03/03/17 21:00 Losartan [Cozaar] 25 mg PO QPM Consult/Specialty: PT Plan Discussed with:: Patient, Family Time Spent: 31-60 minutes Subjective - Subjective Patient Reports: Other (Feels very weak when working with PT. Shortness of breath is better when at rest but still has SOB with exertion. No fevers, no chills. No chest pain.) Nursing Reports: No Complaints Objective Vital Signs: Vital Signs - 24 hr 03/03/17 03/03/17 03/04/17 20:14 23:25 05:00 Temperature 36.6 C 36.4 C L 36.4 C L Heart Rate [ Brachial] Heart Rate [ 76 58 L 61 Monitoring electrodes] Respiratory 18 16 16 Rate Blood Pressure Blood Pressure 101/61 99/68 102/61 [Right Brachial artery] O2 Saturation 95 93 94 03/04/17 03/04/17 03/04/17 08:52 09:13 14:26 Temperature 36.8 C 37.0 C Heart Rate [ Brachial] Heart Rate [ 75 70 Monitoring electrodes] Respiratory 18 19 Rate Blood Pressure 105/49 L Blood Pressure 105/53 L 109/55 L [Right Brachial artery] O2 Saturation 98 97 03/04/17 15:37 Temperature 36.7 C Heart Rate [ 67 Brachial] Heart Rate [ Monitoring electrodes] Respiratory 20 Rate Blood Pressure Blood Pressure 106/59 L [Right Brachial artery] O2 Saturation 98 Oxygen O2 Source Nasal cannula I&O (Last 24 Hrs): Intake and Output Totals x24h 03/02/17 03/03/17 03/04/17 23:59 23:59 23:59 Intake Total 720 980 450 Output Total 2075 950 1300 Balance -1355 30 -850 General: Alert, Oriented x3, Cooperative, No acute distress, Other (Thin, frail) HEENT: Atraumatic, PERRLA, EOMI, Mucous membr. moist/pink Neck: Supple, No JVD, No thyromegaly, +2 carotid pulse wo bruit, No LAD Lymphatic: no adenopathy Neuro: Alert, Non Focal, CN 2-12 Grossly Intact, Oriented Times 3 Cardiovascular: Regular rate, Other (Irregularly, irregular) Respiratory: Chest non-tender, No respiratory distress, Other (Breath sounds improved no more crackles) Abdomen: Normal bowel sounds, Soft, No tenderness, No hepatospenomegaly Extremities: No clubbing, No cyanosis, No edema, Normal pulses, No tenderness/ swelling Skin: No rashes, No breakdown - Results Results: Laboratory Results WBC 6.2 x10^3/uL (4.8-10.8) 03/04/17 04:58 RBC 4.20 10^6/uL (4.20-5.40) 03/04/17 04:58 Hgb 13.3 g/dL (12.0-16.0) 03/04/17 04:58 Hct 40.8 % (37.0-47.0) 03/04/17 04:58 MCV 97.0 fL (81.0-99.0) 03/04/17 04:58 MCH 31.7 pg (27.0-31.0) H 03/04/17 04:58 MCHC 32.7 g/dL (32.0-36.0) 03/04/17 04:58 RDW 14.5 % (12.0-15.0) 03/04/17 04:58 Plt Count 205 10^3/uL (130-450) 03/04/17 04:58 MPV 9.3 fL (7.9-10.8) 03/04/17 04:58 Neut # 3.5 10^3/uL (1.5-6.6) 03/04/17 04:58 Lymph # 1.6 10^3/uL (1.5-3.5) 03/04/17 04:58 [place] # 0.9 10^3/uL (0.0-1.0) 03/04/17 04:58 Eos # 0.1 10^3/uL (0.0-0.7) 03/04/17 04:58 Baso # 0.1 10^3/uL (0.0-0.1) 03/04/17 04:58 Absolute Nucleated RBC 0.00 x10^3/uL 03/04/17 04:58 Nucleated RBC % 0.0 /100WBC 03/04/17 04:58 Manual Slide Review Indicated 02/28/17 16:54 WBC Morphology NORMAL APPEARANCE (NORMAL) 02/28/17 16:54 Platelet Estimate NORMAL (130-450,000) (NORMAL) 03/02/17 06:32 Platelet Morphology 1+ GIANT PLATELETS (NORMAL) 03/02/17 06:32 RBC Morph Micro Appear NORMAL APPEARANCE (NORMAL) 02/28/17 16:54 PT 31.9 secs (9.9-12.6) H 03/04/17 04:58 INR 2.9 (0.8-1.2) H 03/04/17 04:58 Sodium 134 mmol/L (135-145) L 03/04/17 04:58 Potassium 4.2 mmol/L (3.5-5.0) 03/04/17 04:58 Chloride 96 mmol/L (101-111) L 03/04/17 04:58 Carbon Dioxide 29 mmol/L (21-32) 03/04/17 04:58 Anion Gap 9.0 (6-13) 03/04/17 04:58 BUN 46 mg/dL (6-20) H 03/04/17 04:58 Creatinine 1.3 mg/dL (0.4-1.0) H 03/04/17 04:58 Estimated GFR (MDRD) 41 (>89) L 03/04/17 04:58 Glucose 99 mg/dL (70-100) 03/04/17 04:58 Calcium 8.4 mg/dL (8.5-10.3) L 03/04/17 04:58 Magnesium 1.7 mg/dL (1.7-2.8) 03/04/17 04:58 Total Bilirubin 0.8 mg/dL (0.2-1.0) 03/04/17 04:58 AST 30 IU/L (10-42) 03/04/17 04:58 ALT 15 IU/L (10-60) 03/04/17 04:58 Alkaline Phosphatase 52 IU/L (42-121) 03/04/17 04:58 Troponin I 0.08 ng/mL (<0.49) 03/01/17 10:04 B-Natriuretic Peptide 876 pg/mL (5-100) H 03/04/17 04:58 Total Protein 6.6 g/dL (6.7-8.2) L 03/04/17 04:58 Albumin 3.0 g/dL (3.2-5.5) L 03/04/17 04:58 Globulin 3.6 g/dL (2.1-4.2) 03/04/17 04:58 Albumin/Globulin Ratio 0.8 (1.0-2.2) L 03/04/17 04:58 Urine Color BROWN 03/03/17 14:35 Urine Clarity CLOUDY (CLEAR) 03/03/17 14:35 Urine pH 6.0 PH (5.0-7.5) 03/03/17 14:35 Ur Specific [place] 1.010 (1.002-1.030) 03/03/17 14:35 Urine Protein TRACE mg/dL (NEGATIVE) 03/03/17 14:35 Urine Glucose (UA) NEGATIVE mg/dL (NEGATIVE) 03/03/17 14:35 Urine Ketones NEGATIVE mg/dL (NEGATIVE) 03/03/17 14:35 Urine Occult Blood LARGE (NEGATIVE) H 03/03/17 14:35 Urine Nitrite NEGATIVE (NEGATIVE) 03/03/17 14:35 Urine Bilirubin NEGATIVE (NEGATIVE) 03/03/17 14:35 Urine Urobilinogen 1 (NORMAL) E.U./dL (NORMAL) 03/03/17 14:35 Ur Leukocyte Esterase TRACE (NEGATIVE) H 03/03/17 14:35 Urine RBC TNTC /HPF (0-5) H 03/03/17 14:35 Urine WBC 6-10 /HPF (0-5) H 03/03/17 14:35 Ur Squamous Epith Cells RARE Squamous (<= Few) 03/03/17 14:35 Urine Bacteria Few /HPF (None Seen) 03/03/17 14:35 Urine Culture Comments INDICATED 03/03/17 14:35 Influenza A (Rapid) Negative (Negative) 02/28/17 16:45 Influenza B (Rapid) Negative (Negative) 02/28/17 16:45 Influenza Types A,B Ag - 02/28/17 16:45
[2017-03-04] MEDS: ACETAMINOPHEN 325 MG TABLET PO PRN (19:34)
[2017-03-04] MEDS: cefTRIAXone 1 GM in SODIUM CHLORIDE 0.9% MINIBAG 100 ML IV SCH (19:36)
[2017-03-04] MEDS: LOSARTAN 50 MG TABLET PO SCH (20:25)
[2017-03-05] MEDS: LEVOTHYROXINE 125 MCG TABLET PO SCH (06:15)
[2017-03-05] MEDS: ACETAMINOPHEN 325 MG TABLET PO PRN (06:15)
[2017-03-05] MEDS: SODIUM CHLORIDE FLUSH 0.9% 10 ML SYRINGE IVP SCH (06:16)
[2017-03-05 06:26] LABS: PT - PROTHROMBIN TIME 22.5 secs (9.9-12.6)
[2017-03-05 06:29] LABS: BASOPHILS # (AUTO) 0.1 10^3/uL (0.0-0.1); BASOPHILS % (AUTO) 1.1 %; EOSINOPHILS # (AUTO) 0.1 10^3/uL (0.0-0.7); EOSINOPHILS % (AUTO) 2.5 %; LYMPHOCYTES # (AUTO) 1.7 10^3/uL (1.5-3.5); LYMPHOCYTES % (AUTO) 31.9 %; MEAN CORPUSCULAR HEMOGLOBIN 31.7 pg (27.0-31.0); MEAN CORPUSCULAR HGB CONC 32.6 g/dL (32.0-36.0); MEAN CORPUSCULAR VOLUME 97.2 fL (81.0-99.0); MEAN PLATELET VOLUME 9.8 fL (7.9-10.8); MONOCYTES # (AUTO) 0.8 10^3/uL (0.0-1.0); MONOCYTES % (AUTO) 14.6 %; NEUTROPHILS # (AUTO) 2.7 10^3/uL (1.5-6.6); NEUTROPHILS % (AUTO) 49.9 %; PLT - PLATELET COUNT 203 10^3/uL (130-450); RED BLOOD COUNT 4.41 10^6/uL (4.20-5.40); RED CELL DISTRIBUTION WIDTH 14.6 % (12.0-15.0); WHITE BLOOD COUNT 5.5 x10^3/uL (4.8-10.8)
[2017-03-05 06:35] LABS: ALBUMIN/GLOBULIN RATIO 0.8 (1.0-2.2); BILIRUBIN,TOTAL 0.5 mg/dL (0.2-1.0); CALCIUM 8.4 mg/dL (8.5-10.3); CREATININE 0.9 mg/dL (0.4-1.0); MAGNESIUM 1.5 mg/dL (1.7-2.8); TOTAL PROTEIN 6.6 g/dL (6.7-8.2)
[2017-03-05 06:51] LABS: PLATELET ESTIMATE, MANUAL NORMAL (130-450,000) (NORMAL); PLATELET MORPHOLOGY 1+ LARGE PLATELETS (NORMAL)
[2017-03-05] MEDS: DOCUSATE SODIUM 250 MG CAPSULE PO SCH (08:26)
[2017-03-05] MEDS: FUROSEMIDE 40 MG TABLET PO SCH (08:26)
[2017-03-05] MEDS: OXYBUTYNIN 5MG TABLET PO SCH (08:29)
[2017-03-05] MEDS: FAMOTIDINE 20 MG TABLET PO SCH (08:29)
[2017-03-05] MEDS: POLYETHYLENE GLYCOL 3350 17 GM PACKET PO SCH (08:30)
[2017-03-05] MEDS: METOPROLOL TARTRATE 25 MG TABLET PO SCH (08:30)
--- NOTE | 2017-03-05 10:39 | Discharge Plan ---
Discharge Plan Disposition: Home Health Service Condition: Stable Prescriptions: Losartan [Cozaar] 25 mg PO QPM #30 tablet Metoprolol Tartrate [Lopressor] 12.5 mg PO BID #30 tablet Nitrofurantoin [Macrobid] 100 mg PO DAILY #8 capsule Diet: Low Sodium Activity Restrictions: Activity as Tolerated Shower Restrictions: No Driving Restrictions: Yes (no driving) Additional Instructions or Follow Up instructions: You are a patient with chronic congestive heart failure and have chronic shortness of breath. For the week before admission, you were getting more and more short of breath. We found you to have worsening of your congestive heart failure that we treated with new medicines. You are now on metoprolol and we have stopped your verapamil. We added losartan as well which is a basic medicine for congestive heart failure. We have also increased your lasix dose. Please see your primary care provider, Oswaldo Banuelos, in the next week. You need to weigh yourself daily and if you gain more than 3 pounds in 2 days, take and extra lasix dose and call Oswaldo Banuelos. While here you had cloudy, bloody urine with bacteria and you have a UTI. We will finish treatment for that using oral antibiotics. Please finish all of those pills. Stay on a low sodium diet. Walk daily. 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 No Smoking: If you smoke, Please STOP! Call for help. Follow-up with: Oswaldo Banuelos PA-C [Primary Care Provider] -
[2017-03-05 12:10] VITALS: BP 109/61
--- NOTE | 2017-03-13 14:49 | DISCHARGE SUMMARY ---
Physician: Chichi Branch MD DATE OF ADMISSION: 02/28/2017 DATE OF DISCHARGE: 03/05/2017 DISCHARGE DIAGNOSES: 1. Acute on chronic systolic high blood pressure. 2. Acute kidney injury on chronic kidney injury, stage III. 3. Chronic obstructive pulmonary disease. 4. Chronic atrial fibrillation. 5. Hypothyroidism. 6. Urinary tract infection. DISCHARGE MEDICATIONS: 1. Lasix 40 mg p.o. daily. 2. Synthroid 100 mcg daily. 3. Loratadine 10 mg daily. 4. Losartan 25 mg daily. 5. Lopressor 12.5 mg p.o. b.i.d. 6. Macrobid 100 mg p.o. b.i.d. 7. Ditropan 5 mg p.o. daily. 8. Potassium chloride 10 mEq daily, 2 mg on Tuesdays and Wednesdays, 4 mg on Saturday, Saturday, Saturday, Saturday, 5 mg on . PRINCIPAL PROCEDURES: 1. Chest x-ray with persistent cardiomegaly, persistent mild interstitial pulmonary edema and signs of chronic obstructive pulmonary disease. 2. Echocardiogram showing moderate left ventricular enlargement, mild concentric left ventricular hypertrophy. Overall, left ventricular systolic function is severely impaired with an ejection fraction of less than 20%. Severe global hypokinesis of the LV contractility. Right ventricle size normal. Right ventricular systolic function moderately impaired. Severe increase in left atrial volume index. Severe right atrial enlargement. Moderate to severe mitral regurgitation. Mitral regurgitation is predominantly posterior jet. Moderate tricuspid regurgitation. Mildly abnormal right heart pressures. Right ventricular systolic pressure at rest is 44 mmHg. Inferior vena cava dilated suggesting elevated CVP. HOSPITAL COURSE: She is a 71-year-old female who presents with a history of shortness of breath for a few days if not a few weeks prior to admission. She was admitted to this hospital 12 years ago and diagnosed with congestive heart failure. While she is on verapamil for rate control of her atrial fibrillation and anticoagulated, she is not on a beta john or LALITHA inhibitor. She continues to struggle to breathe today and had increasing dyspnea with exertion, and she was brought to the emergency room by her sister. In the ED, she was found to have acute congestive heart failure on physical examination with a BNP of 2106. Chest x-ray was suggestive of patchy interstitial pulmonary edema. On admission, her O2 saturation was 96%. This was on 1.5 liters nasal cannula. She has a past medical history of chronic atrial fibrillation, hypertension. Asthma/COPD with hypothyroidism. All of those problems remain quiescent during her stay. In an effort to treat her congestive heart failure and tighten up medical management, verapamil was changed to metoprolol. Lasix was added to her regime initially IV. Then, p.o. Her intake and output was negative 700 the first day, negative 1455 the second day, negative 1355 the third day, and negative 480 on the fourth day. She was seen by physical therapy to see how she did with ambulation because of the dyspnea on exertion she had prior to admission. She was seen for 15 minutes by physical therapy for gait training. She was able to transfer from a supine to a sitting position with standby assist. She transferred by standing up with bilateral hands pushing on the bed. Contact guard assist from physical therapy. She was able to ambulate 30 feet with a front-wheeled walker and contact guard assist and was very tired with that. She transferred to her chair with standby assist. Rested for 3 minutes. Able to get back out of her chair and ambulate 10 feet to the bedside chair with contact guard assist. They did not feel she would need usp placement for physical therapy, but thought she would improve with home health PT. During her stay, she also was noted to have an abnormal urinalysis. She was treated as a possible UTI and at discharge, she is to be continued on nitrofurantoin. Urine growth was no culture. She did not have a fever or an elevated white cell count during her stay. As already noted, her verapamil was discontinued and changed to Lopressor. Lasix was added to her home regime. She is asked to follow up with her primary care provider in the next 1-2 weeks. She was instructed to weigh herself daily and call her primary care provider office if she increased weight over 2 days. To avoid a high salt diet. To elevate her legs as much as possible. At discharge, temperature is 36.9, heart rate is 88, blood pressure is 109/61, respirations 16, 96% on room air. She is an alert, oriented, short statured, moderately overweight female who looks her stated age. Able to ambulate with only minimal increased respiratory effort. Lungs are clear with diminished breath sounds at the bases. She has a chronic irregular rate and rhythm that is slow and controlled. Abdomen is soft and nontender. No edema is present. Greater than 30 minutes was spent in coordinating discharge. It would be recommended that this patient go home with home health, physical and occupational therapy and a possible RN evaluation to listen to her lungs and make sure she is being compliant with medications and that she is not going back into congestive heart failure, needing medication adjustment. TD: 03/13/2017 13:47 IVAN
== END 2017-03-05 13:15 | disposition home health service (06) | DRG 291 ==
LOC: ED 15:19 → MS2 18:14
PROVIDERS: ADMIT Hospitalist; ATTEND Specialist
DX: I50.9 Heart failure, unspecified (principal); N28.9 Disorder of kidney and ureter, unspecified; I51.7 Cardiomegaly; I13.0 Hypertensive heart and chronic kidney disease with heart failure and stage 1 through stage 4 chronic kidney disease, or unspecified chronic kidney disease; I48.91 Unspecified atrial fibrillation; Z79.899 Other long term (current) drug therapy; I50.23 Acute on chronic systolic (congestive) heart failure; N17.9 Acute kidney failure, unspecified; N39.0 Urinary tract infection, site not specified; R31.9 Hematuria, unspecified; N18.3 Chronic kidney disease, stage 3 (moderate); R09.02 Hypoxemia; J43.9 Emphysema, unspecified; I48.2 Chronic atrial fibrillation; E03.9 Hypothyroidism, unspecified; F10.21 Alcohol dependence, in remission; Z79.01 Long term (current) use of anticoagulants; Z88.8 Allergy status to other drugs, medicaments and biological substances
CPT/HCPCS: 36415; 71046; 80048; 80053; 81001; 83735; 83880; 84484; 85025; 85610; 87086; 87275; 87276; 93005; 93306; 96374; 99284

== ENCOUNTER 2017-03-14 14:22 | Outpatient (CLI) | payer MEDICARE, MEDICAID | END 2017-03-14 14:23 | disposition home or self-care (01) | LOC: LAB.N 14:22 | PROVIDERS: ATTEND Nurse Practitioner Gerontology | DX: I48.91 Unspecified atrial fibrillation (principal); Z79.899 Other long term (current) drug therapy | CPT/HCPCS: 85610 ==

== ENCOUNTER 2017-03-21 08:00 | Outpatient (CLI) | payer MEDICARE, MEDICAID | END 2017-03-21 08:01 | disposition home or self-care (01) | LOC: LAB.N 08:00 | PROVIDERS: ATTEND Nurse Practitioner Gerontology | DX: I48.91 Unspecified atrial fibrillation (principal); Z79.899 Other long term (current) drug therapy | CPT/HCPCS: 85610 ==

== ENCOUNTER 2017-04-03 10:31 | Outpatient (CLI) | payer MEDICARE, MEDICAID | END 2017-04-03 10:32 | disposition home or self-care (01) | LOC: LAB.N 10:31 | PROVIDERS: ATTEND Nurse Practitioner Gerontology | DX: Z79.899 Other long term (current) drug therapy (principal); I48.91 Unspecified atrial fibrillation | CPT/HCPCS: 85610 ==

== ENCOUNTER 2017-05-01 08:00 | Outpatient (CLI) | payer MEDICARE, MEDICAID | END 2017-05-01 08:01 | disposition home or self-care (01) | LOC: LAB.N 08:00 | PROVIDERS: ATTEND Nurse Practitioner Gerontology | DX: I48.91 Unspecified atrial fibrillation (principal); Z79.899 Other long term (current) drug therapy | CPT/HCPCS: 85610 ==

== ENCOUNTER 2017-05-16 07:00 | Outpatient (CLI) | payer MEDICARE, MEDICAID ==
[2017-05-16 18:57] LABS: BASOPHILS # (AUTO) 0.1 10^3/uL (0.0-0.1); BASOPHILS % (AUTO) 1.2 %; EOSINOPHILS # (AUTO) 0.1 10^3/uL (0.0-0.7); EOSINOPHILS % (AUTO) 1.4 %; HGB - HEMOGLOBIN 15.1 g/dL (12.0-16.0); LYMPHOCYTES # (AUTO) 1.5 10^3/uL (1.5-3.5); LYMPHOCYTES % (AUTO) 28.6 %; MEAN CORPUSCULAR HEMOGLOBIN 31.2 pg (27.0-31.0); MEAN CORPUSCULAR HGB CONC 32.6 g/dL (32.0-36.0); MEAN CORPUSCULAR VOLUME 95.8 fL (81.0-99.0); MEAN PLATELET VOLUME 10.1 fL (7.9-10.8); MONOCYTES # (AUTO) 0.8 10^3/uL (0.0-1.0); NEUTROPHILS % (AUTO) 54.8 %; PLT - PLATELET COUNT 200 10^3/uL (130-450); RED BLOOD COUNT 4.85 10^6/uL (4.20-5.40); RED CELL DISTRIBUTION WIDTH 15.6 % (12.0-15.0); WHITE BLOOD COUNT 5.4 x10^3/uL (4.8-10.8)
[2017-05-16 18:58] LABS: CALCIUM 9.2 mg/dL (8.5-10.3); CREATININE 0.8 mg/dL (0.4-1.0)
== END 2017-05-16 07:01 | disposition home or self-care (01) ==
LOC: LAB.N 07:00
PROVIDERS: ATTEND Internal Medicine Cardiovascular Disease
DX: I48.2 Chronic atrial fibrillation (principal); I50.23 Acute on chronic systolic (congestive) heart failure
CPT/HCPCS: 36415; 80048; 85025

== ENCOUNTER 2017-05-31 09:23 | Outpatient (CLI) | payer MEDICARE, MEDICAID | END 2017-05-31 09:24 | disposition home or self-care (01) | LOC: LAB.N 09:23 | PROVIDERS: ATTEND Nurse Practitioner Gerontology | DX: I48.91 Unspecified atrial fibrillation (principal); Z79.899 Other long term (current) drug therapy | CPT/HCPCS: 85610 ==

== ENCOUNTER 2017-06-03 08:00 | Outpatient (CLI) | payer MEDICARE, MEDICAID | END 2017-06-03 08:01 | disposition home or self-care (01) | LOC: LAB.N 08:00 | PROVIDERS: ATTEND Nurse Practitioner Gerontology | DX: I48.91 Unspecified atrial fibrillation (principal); Z79.899 Other long term (current) drug therapy | CPT/HCPCS: 85610 ==

== ENCOUNTER 2017-06-07 08:50 | Outpatient (CLI) | payer MEDICARE, MEDICAID | END 2017-06-07 08:51 | disposition home or self-care (01) | LOC: LAB.N 08:50 | PROVIDERS: ATTEND Nurse Practitioner Gerontology | DX: I48.91 Unspecified atrial fibrillation (principal); Z79.899 Other long term (current) drug therapy | CPT/HCPCS: 85610 ==

== ENCOUNTER 2017-06-12 09:04 | Outpatient (CLI) | payer MEDICARE, MEDICAID | END 2017-06-12 09:05 | disposition home or self-care (01) | LOC: LAB.N 09:04 | PROVIDERS: ATTEND Nurse Practitioner Gerontology | DX: I48.91 Unspecified atrial fibrillation (principal); Z79.899 Other long term (current) drug therapy | CPT/HCPCS: 85610 ==

== ENCOUNTER 2017-06-19 08:00 | Outpatient (CLI) | payer MEDICARE, MEDICAID | END 2017-06-19 08:01 | disposition home or self-care (01) | LOC: LAB.N 08:00 | PROVIDERS: ATTEND Nurse Practitioner Gerontology | DX: I48.91 Unspecified atrial fibrillation (principal); Z79.899 Other long term (current) drug therapy | CPT/HCPCS: 85610 ==

== ENCOUNTER 2017-07-03 08:41 | Outpatient (CLI) | payer MEDICARE, MEDICAID | END 2017-07-03 08:42 | disposition home or self-care (01) | LOC: LAB.N 08:41 | PROVIDERS: ATTEND Nurse Practitioner Gerontology | DX: I48.91 Unspecified atrial fibrillation (principal); Z79.899 Other long term (current) drug therapy | CPT/HCPCS: 85610 ==

== ENCOUNTER 2017-07-23 10:57 | Outpatient (CLI) | payer MEDICARE, MEDICAID | END 2017-07-23 10:58 | disposition home or self-care (01) | LOC: DI 10:57 | PROVIDERS: ATTEND Internal Medicine Cardiovascular Disease | DX: I50.23 Acute on chronic systolic (congestive) heart failure (principal); I48.2 Chronic atrial fibrillation; I51.7 Cardiomegaly | CPT/HCPCS: 93308 ==

== ENCOUNTER 2017-07-31 08:00 | Outpatient (CLI) | payer MEDICARE, MEDICAID | END 2017-07-31 08:01 | disposition home or self-care (01) | LOC: LAB.N 08:00 | PROVIDERS: ATTEND Nurse Practitioner Gerontology | DX: I48.91 Unspecified atrial fibrillation (principal); Z79.899 Other long term (current) drug therapy | CPT/HCPCS: 85610 ==

== ENCOUNTER 2017-08-29 08:48 | Outpatient (CLI) | payer MEDICARE, MEDICAID | END 2017-08-29 08:49 | disposition home or self-care (01) | LOC: LAB.N 08:48 | PROVIDERS: ATTEND Nurse Practitioner Gerontology | DX: I48.91 Unspecified atrial fibrillation (principal); Z79.899 Other long term (current) drug therapy | CPT/HCPCS: 85610 ==

== ENCOUNTER 2017-09-25 08:00 | Outpatient (CLI) | payer MEDICARE, MEDICAID | END 2017-09-25 08:01 | disposition home or self-care (01) | LOC: LAB.N 08:00 | PROVIDERS: ATTEND Nurse Practitioner Gerontology | DX: I48.91 Unspecified atrial fibrillation (principal); Z79.899 Other long term (current) drug therapy | CPT/HCPCS: 85610 ==

== ENCOUNTER 2017-10-02 08:00 | Outpatient (CLI) | payer MEDICARE, MEDICAID ==
[2017-10-02 13:53] LABS: ALBUMIN 3.7 g/dL (3.2-5.5); BILIRUBIN,TOTAL 0.8 mg/dL (0.2-1.0); CALCIUM 9.1 mg/dL (8.5-10.3); CREATININE 0.7 mg/dL (0.4-1.0); TOTAL PROTEIN 7.4 g/dL (6.7-8.2)
== END 2017-10-02 08:01 | disposition home or self-care (01) ==
LOC: LAB.N 08:00
PROVIDERS: ATTEND Internal Medicine Clinical Cardiac Electrophysiology
DX: I50.22 Chronic systolic (congestive) heart failure (principal); E03.9 Hypothyroidism, unspecified
CPT/HCPCS: 36415; 80053; 84443

== ENCOUNTER 2017-10-23 08:38 | Outpatient (CLI) | payer MEDICARE, MEDICAID | END 2017-10-23 08:39 | disposition home or self-care (01) | LOC: LAB.N 08:38 | PROVIDERS: ATTEND Nurse Practitioner Gerontology | DX: I48.91 Unspecified atrial fibrillation (principal); Z79.899 Other long term (current) drug therapy | CPT/HCPCS: 85610 ==

== ENCOUNTER 2017-11-04 08:00 | Outpatient (CLI) | payer MEDICARE, MEDICAID ==
[2017-11-04 13:43] LABS: THYROID STIMULATING HORMONE 0.19 uIU/mL (0.34-5.60)
[2017-11-04 13:45] LABS: FREE T4 (FREE THYROXINE) 1.69 ng/dL (0.58-1.64)
== END 2017-11-04 08:01 ==
LOC: LAB.N 08:00
PROVIDERS: ATTEND Physician Assistant Medical
DX: E03.9 Hypothyroidism, unspecified (principal)
CPT/HCPCS: 36415; 84439; 84443

== ENCOUNTER 2017-11-11 10:46 | Outpatient (CLI) | payer MEDICARE, MEDICAID | END 2017-11-11 10:47 | disposition home or self-care (01) | LOC: DI 10:46 | PROVIDERS: ATTEND Internal Medicine Clinical Cardiac Electrophysiology | DX: I50.22 Chronic systolic (congestive) heart failure (principal); I51.7 Cardiomegaly | CPT/HCPCS: 93308 ==

== ENCOUNTER 2017-12-16 09:32 | Outpatient (CLI) | payer MEDICARE, MEDICAID ==
[2017-12-16 14:53] LABS: THYROID STIMULATING HORMONE 1.21 uIU/mL (0.34-5.60)
[2017-12-16 14:54] LABS: FREE T4 (FREE THYROXINE) 1.37 ng/dL (0.58-1.64)
== END 2017-12-16 09:33 | disposition home or self-care (01) ==
LOC: LAB.N 09:32
PROVIDERS: ATTEND Physician Assistant Medical
DX: E03.9 Hypothyroidism, unspecified (principal); I48.91 Unspecified atrial fibrillation; Z79.899 Other long term (current) drug therapy
CPT/HCPCS: 36415; 84439; 84443; 85610

== ENCOUNTER 2018-01-13 08:00 | Outpatient (CLI) | payer MEDICARE, MEDICAID | END 2018-01-13 08:01 | disposition home or self-care (01) | LOC: LAB.N 08:00 | PROVIDERS: ATTEND Nurse Practitioner Gerontology | DX: I48.91 Unspecified atrial fibrillation (principal); Z79.899 Other long term (current) drug therapy | CPT/HCPCS: 85610 ==

== ENCOUNTER 2018-01-20 08:00 | Outpatient (CLI) | payer MEDICARE, MEDICAID | END 2018-01-20 23:59 | disposition home or self-care (01) | LOC: LAB.N 08:00 | PROVIDERS: ATTEND Nurse Practitioner Gerontology | DX: I48.91 Unspecified atrial fibrillation (principal); Z79.899 Other long term (current) drug therapy | CPT/HCPCS: 85610 ==

== ENCOUNTER 2018-01-27 08:00 | Outpatient (CLI) | payer MEDICARE, MEDICAID | END 2018-01-27 23:59 | disposition home or self-care (01) | LOC: LAB.N 08:00 | PROVIDERS: ATTEND Nurse Practitioner Gerontology | DX: I48.91 Unspecified atrial fibrillation (principal); Z79.899 Other long term (current) drug therapy | CPT/HCPCS: 85610 ==

== ENCOUNTER 2018-02-03 08:00 | Outpatient (CLI) | payer MEDICARE, MEDICAID | END 2018-02-03 23:59 | disposition home or self-care (01) | LOC: LAB.N 08:00 | PROVIDERS: ATTEND Nurse Practitioner Gerontology | DX: I48.91 Unspecified atrial fibrillation (principal); Z79.899 Other long term (current) drug therapy | CPT/HCPCS: 85610 ==

== ENCOUNTER 2018-02-20 10:32 | Outpatient (CLI) | payer MEDICARE, MEDICAID | END 2018-02-20 23:59 | disposition home or self-care (01) | LOC: LAB.N 10:32 | PROVIDERS: ATTEND Nurse Practitioner Gerontology | DX: I48.91 Unspecified atrial fibrillation (principal); Z79.899 Other long term (current) drug therapy | CPT/HCPCS: 85610 ==

== ENCOUNTER 2018-03-19 08:00 | Outpatient (CLI) | payer MEDICARE, MEDICAID | END 2018-03-19 23:59 | LOC: LAB.N 08:00 | PROVIDERS: ATTEND Nurse Practitioner Gerontology | DX: I48.91 Unspecified atrial fibrillation (principal) | CPT/HCPCS: 85610 ==

== ENCOUNTER 2018-04-16 08:00 | Outpatient (CLI) | payer MEDICARE, MEDICAID | END 2018-04-16 23:59 | LOC: LAB.N 08:00 | PROVIDERS: ATTEND Nurse Practitioner Gerontology | DX: I48.91 Unspecified atrial fibrillation (principal); Z79.899 Other long term (current) drug therapy | CPT/HCPCS: 85610 ==

== ENCOUNTER 2018-05-14 08:00 | Outpatient (CLI) | payer MEDICARE, MEDICAID | END 2018-05-14 23:59 | disposition home or self-care (01) | LOC: LAB.N 08:00 | PROVIDERS: ATTEND Nurse Practitioner Gerontology | DX: I48.91 Unspecified atrial fibrillation (principal); Z79.899 Other long term (current) drug therapy | CPT/HCPCS: 85610 ==

== ENCOUNTER 2018-06-16 08:00 | Outpatient (CLI) | payer MEDICARE, MEDICAID ==
[2018-06-16 13:51] LABS: BASOPHILS % (AUTO) 0.2 %; EOSINOPHILS % (AUTO) 0.8 %; HGB - HEMOGLOBIN 15.6 g/dL (12.0-16.0); LYMPHOCYTES % (AUTO) 22.8 %; MEAN CORPUSCULAR HEMOGLOBIN 32.5 pg (27.0-31.0); MEAN CORPUSCULAR HGB CONC 33.2 g/dL (32.0-36.0); MEAN CORPUSCULAR VOLUME 97.8 fL (81.0-99.0); MEAN PLATELET VOLUME 9.9 fL (7.9-10.8); MONOCYTES % (AUTO) 11.1 %; NEUTROPHILS % (AUTO) 65.1 %; PLT - PLATELET COUNT 180 10^3/uL (130-450); RED BLOOD COUNT 4.81 10^6/uL (4.20-5.40); WHITE BLOOD COUNT 4.2 x10^3/uL (4.8-10.8)
[2018-06-16 13:55] LABS: CALCIUM 8.9 mg/dL (8.5-10.3); CREATININE 0.9 mg/dL (0.4-1.0)
[2018-06-16 14:15] LABS: THYROID STIMULATING HORMONE 1.21 uIU/mL (0.34-5.60)
[2018-06-16 14:17] LABS: FREE T4 (FREE THYROXINE) 1.29 ng/dL (0.58-1.64)
[2018-06-16 14:55] LABS: ABNORMAL LYMPHS % (MANUAL) 0 %
[2018-06-16 15:21] LABS: BAND NEUTROPHILS % (MANUAL) 3 %; DIFFERENTIAL COMMENT MANUAL DIFFERENTIAL; LYMPHOCYTES # (MANUAL) 1.2 10^3/uL (1.5-3.5); LYMPHOCYTES % (MANUAL) 28 %; MONOCYTES # (MANUAL) 0.5 10^3/uL (0.0-1.0); NEUTROPHILS # (MANUAL) 2.4 10^3/uL (1.5-6.6); NEUTROPHILS % (MANUAL) 55 %
== END 2018-06-16 23:59 | disposition home or self-care (01) ==
LOC: LAB.N 08:00
PROVIDERS: ATTEND Nurse Practitioner Gerontology
DX: I50.9 Heart failure, unspecified (principal); E03.9 Hypothyroidism, unspecified; I48.91 Unspecified atrial fibrillation; Z79.899 Other long term (current) drug therapy
CPT/HCPCS: 36415; 80048; 84439; 84443; 85025; 85610

== ENCOUNTER 2018-07-14 08:00 | Outpatient (CLI) | payer MEDICARE, MEDICAID | END 2018-07-14 23:59 | disposition home or self-care (01) | LOC: LAB.N 08:00 | PROVIDERS: ATTEND Physician Assistant Medical | DX: I48.91 Unspecified atrial fibrillation (principal); Z79.899 Other long term (current) drug therapy | CPT/HCPCS: 85610 ==

== ENCOUNTER 2018-07-22 08:00 | Outpatient (CLI) | payer MEDICARE, MEDICAID | END 2018-07-22 23:59 | disposition home or self-care (01) | LOC: LAB.N 08:00 | PROVIDERS: ATTEND Physician Assistant Medical | DX: I48.91 Unspecified atrial fibrillation (principal); Z79.01 Long term (current) use of anticoagulants | CPT/HCPCS: 85610 ==

== ENCOUNTER 2018-07-28 08:00 | Outpatient (CLI) | payer MEDICARE, MEDICAID | END 2018-07-28 23:59 | disposition home or self-care (01) | LOC: LAB.N 08:00 | PROVIDERS: ATTEND Physician Assistant Medical | DX: I48.91 Unspecified atrial fibrillation (principal); Z79.899 Other long term (current) drug therapy | CPT/HCPCS: 85610 ==

== ENCOUNTER 2018-08-04 08:00 | Outpatient (CLI) | payer MEDICARE, MEDICAID | END 2018-08-04 23:59 | disposition home or self-care (01) | LOC: LAB.N 08:00 | PROVIDERS: ATTEND Physician Assistant Medical | DX: I48.91 Unspecified atrial fibrillation (principal); Z79.899 Other long term (current) drug therapy | CPT/HCPCS: 85610 ==

== ENCOUNTER 2018-08-11 08:00 | Outpatient (CLI) | payer MEDICARE, MEDICAID | END 2018-08-11 23:59 | disposition home or self-care (01) | LOC: LAB.N 08:00 | PROVIDERS: ATTEND Physician Assistant Medical | DX: I48.91 Unspecified atrial fibrillation (principal); Z79.01 Long term (current) use of anticoagulants | CPT/HCPCS: 85610 ==

== ENCOUNTER 2018-08-18 08:31 | Outpatient (CLI) | payer MEDICARE, MEDICAID | END 2018-08-18 23:59 | disposition home or self-care (01) | LOC: LAB.N 08:31 | PROVIDERS: ATTEND Physician Assistant Medical | DX: I48.91 Unspecified atrial fibrillation (principal); Z79.899 Other long term (current) drug therapy | CPT/HCPCS: 85610 ==

== ENCOUNTER 2018-08-25 06:34 | Outpatient (CLI) | payer MEDICARE, MEDICAID | END 2018-08-25 23:59 | disposition home or self-care (01) | LOC: LAB.N 06:34 | PROVIDERS: ATTEND Physician Assistant Medical | DX: I48.91 Unspecified atrial fibrillation (principal); Z79.899 Other long term (current) drug therapy | CPT/HCPCS: 85610 ==

== ENCOUNTER 2018-09-08 08:00 | Outpatient (CLI) | payer MEDICARE, MEDICAID | END 2018-09-08 23:59 | disposition home or self-care (01) | LOC: LAB.N 08:00 | PROVIDERS: ATTEND Physician Assistant Medical | DX: I48.91 Unspecified atrial fibrillation (principal); Z79.899 Other long term (current) drug therapy | CPT/HCPCS: 85610 ==

== ENCOUNTER 2018-09-15 08:51 | Outpatient (CLI) | payer MEDICARE, MEDICAID | END 2018-09-15 23:59 | disposition home or self-care (01) | LOC: LAB.N 08:51 | PROVIDERS: ATTEND Physician Assistant Medical | DX: I48.91 Unspecified atrial fibrillation (principal); Z79.899 Other long term (current) drug therapy | CPT/HCPCS: 85610 ==

== ENCOUNTER 2018-09-29 08:49 | Outpatient (CLI) | payer MEDICARE, MEDICAID | END 2018-09-29 23:59 | disposition home or self-care (01) | LOC: LAB.N 08:49 | PROVIDERS: ATTEND Physician Assistant Medical | DX: I48.91 Unspecified atrial fibrillation (principal); Z79.899 Other long term (current) drug therapy | CPT/HCPCS: 85610 ==

== ENCOUNTER 2018-10-13 08:00 | Outpatient (CLI) | payer MEDICARE, MEDICAID | END 2018-10-13 23:59 | disposition home or self-care (01) | LOC: LAB.N 08:00 | PROVIDERS: ATTEND Physician Assistant Medical | DX: I48.91 Unspecified atrial fibrillation (principal); Z79.899 Other long term (current) drug therapy | CPT/HCPCS: 85610 ==

== ENCOUNTER 2018-11-03 08:00 | Outpatient (CLI) | payer MEDICARE, MEDICAID | END 2018-11-03 23:59 | disposition home or self-care (01) | LOC: LAB.N 08:00 | PROVIDERS: ATTEND Physician Assistant Medical | DX: I48.91 Unspecified atrial fibrillation (principal); Z79.01 Long term (current) use of anticoagulants | CPT/HCPCS: 85610 ==

== ENCOUNTER 2018-11-11 08:00 | Outpatient (CLI) | payer MEDICARE, MEDICAID | END 2018-11-11 23:59 | disposition home or self-care (01) | LOC: LAB.N 08:00 | PROVIDERS: ATTEND Physician Assistant Medical | DX: I48.91 Unspecified atrial fibrillation (principal); Z79.899 Other long term (current) drug therapy | CPT/HCPCS: 85610 ==

== ENCOUNTER 2018-11-17 08:00 | Outpatient (CLI) | payer MEDICARE, MEDICAID | END 2018-11-17 08:15 | disposition home or self-care (01) | LOC: LAB.N 08:00 | PROVIDERS: ATTEND Physician Assistant Medical | DX: I48.91 Unspecified atrial fibrillation (principal); Z79.899 Other long term (current) drug therapy | CPT/HCPCS: 85610 ==

== ENCOUNTER 2018-11-24 08:00 | Outpatient (CLI) | payer MEDICARE, MEDICAID | END 2018-11-24 08:20 | disposition home or self-care (01) | LOC: LAB.N 08:00 | PROVIDERS: ATTEND Physician Assistant Medical | DX: I48.91 Unspecified atrial fibrillation (principal); Z79.899 Other long term (current) drug therapy | CPT/HCPCS: 85610 ==

== ENCOUNTER 2018-12-03 09:02 | Outpatient (CLI) | payer MEDICARE, MEDICAID ==
[2018-12-03 12:27] LABS: BASOPHILS # (AUTO) 0.1 10^3/uL (0.0-0.1); BASOPHILS % (AUTO) 1.1 %; EOSINOPHILS # (AUTO) 0.1 10^3/uL (0.0-0.7); EOSINOPHILS % (AUTO) 1.3 %; LYMPHOCYTES # (AUTO) 1.1 10^3/uL (1.5-3.5); LYMPHOCYTES % (AUTO) 24.7 %; MEAN CORPUSCULAR HEMOGLOBIN 32.7 pg (27.0-31.0); MEAN CORPUSCULAR HGB CONC 32.7 g/dL (32.0-36.0); MEAN CORPUSCULAR VOLUME 99.8 fL (81.0-99.0); MEAN PLATELET VOLUME 11.3 fL (7.9-10.8); MONOCYTES # (AUTO) 0.5 10^3/uL (0.0-1.0); MONOCYTES % (AUTO) 10.7 %; NEUTROPHILS # (AUTO) 2.8 10^3/uL (1.5-6.6); NEUTROPHILS % (AUTO) 61.8 %; PLT - PLATELET COUNT 244 10^3/uL (130-450); RED CELL DISTRIBUTION WIDTH 13.4 % (12.0-15.0); WHITE BLOOD COUNT 4.5 x10^3/uL (4.8-10.8)
[2018-12-03 12:39] LABS: CALCIUM 8.9 mg/dL (8.5-10.3); CREATININE 0.8 mg/dL (0.4-1.0)
[2018-12-03 13:17] LABS: FREE T4 (FREE THYROXINE) 1.2 ng/dL (0.58-1.64)
== END 2018-12-03 23:59 | disposition home or self-care (01) ==
LOC: LAB.N 09:02
PROVIDERS: ATTEND Physician Assistant Medical
DX: I48.91 Unspecified atrial fibrillation (principal); R05 Cough; I50.9 Heart failure, unspecified; E03.9 Hypothyroidism, unspecified; Z79.899 Other long term (current) drug therapy
CPT/HCPCS: 36415; 80048; 83880; 84439; 84443; 85025; 85610

== ENCOUNTER 2018-12-08 09:32 | Outpatient (CLI) | payer MEDICARE, MEDICAID | END 2018-12-08 09:33 | disposition home or self-care (01) | LOC: LAB.N 09:32 | PROVIDERS: ATTEND Physician Assistant Medical | DX: Z79.899 Other long term (current) drug therapy (principal); I48.91 Unspecified atrial fibrillation | CPT/HCPCS: 85610 ==

== ENCOUNTER 2018-12-09 10:41 | Outpatient (CLI) | payer MEDICARE, MEDICAID | END 2018-12-09 23:59 | disposition home or self-care (01) | LOC: LAB.N 10:41 | PROVIDERS: ATTEND Physician Assistant Medical | DX: I50.9 Heart failure, unspecified (principal) | CPT/HCPCS: 36415; 83880 ==

== ENCOUNTER 2018-12-11 08:00 | Outpatient (CLI) | payer MEDICARE, MEDICAID ==
[2018-12-11 13:03] LABS: ALBUMIN 3.7 g/dL (3.2-5.5); BILIRUBIN,TOTAL 1.1 mg/dL (0.2-1.0); CALCIUM 8.9 mg/dL (8.5-10.3); CREATININE 0.8 mg/dL (0.4-1.0); TOTAL PROTEIN 7.3 g/dL (6.7-8.2)
== END 2018-12-11 23:59 | disposition home or self-care (01) ==
LOC: LAB.N 08:00
PROVIDERS: ATTEND Physician Assistant Medical
DX: I50.9 Heart failure, unspecified (principal)
CPT/HCPCS: 36415; 80053; 83880

== ENCOUNTER 2018-12-15 08:00 | Outpatient (CLI) | payer MEDICARE, MEDICAID | END 2018-12-15 23:59 | disposition home or self-care (01) | LOC: LAB.N 08:00 | PROVIDERS: ATTEND Physician Assistant Medical | DX: I48.91 Unspecified atrial fibrillation (principal); Z79.899 Other long term (current) drug therapy | CPT/HCPCS: 85610 ==

== ENCOUNTER 2018-12-22 08:00 | Outpatient (CLI) | payer MEDICARE, MEDICAID | END 2018-12-22 08:01 | disposition home or self-care (01) | LOC: LAB.N 08:00 | PROVIDERS: ATTEND Physician Assistant Medical | DX: Z79.899 Other long term (current) drug therapy (principal); I48.91 Unspecified atrial fibrillation | CPT/HCPCS: 85610 ==

== ENCOUNTER 2018-12-29 08:39 | Outpatient (CLI) | payer MEDICARE, MEDICAID | END 2018-12-29 23:59 | disposition home or self-care (01) | LOC: LAB.N 08:39 | PROVIDERS: ATTEND Physician Assistant Medical | DX: Z79.899 Other long term (current) drug therapy (principal); I48.91 Unspecified atrial fibrillation | CPT/HCPCS: 85610 ==

== ENCOUNTER 2019-01-05 08:51 | Outpatient (CLI) | payer MEDICARE, MEDICAID | END 2019-01-05 23:59 | disposition home or self-care (01) | LOC: LAB.N 08:51 | PROVIDERS: ATTEND Physician Assistant Medical | DX: Z79.899 Other long term (current) drug therapy (principal); I48.91 Unspecified atrial fibrillation | CPT/HCPCS: 85610 ==

== ENCOUNTER 2019-01-19 09:09 | Outpatient (CLI) | payer MEDICARE, MEDICAID | END 2019-01-19 23:59 | disposition home or self-care (01) | LOC: LAB.N 09:09 | PROVIDERS: ATTEND Physician Assistant Medical | DX: I48.91 Unspecified atrial fibrillation (principal); Z79.899 Other long term (current) drug therapy | CPT/HCPCS: 85610 ==

== ENCOUNTER 2019-02-02 08:37 | Outpatient (CLI) | payer MEDICARE, MEDICAID | END 2019-02-02 23:59 | disposition home or self-care (01) | LOC: LAB.N 08:37 | PROVIDERS: ATTEND Physician Assistant Medical | DX: Z79.899 Other long term (current) drug therapy (principal); I48.91 Unspecified atrial fibrillation | CPT/HCPCS: 85610 ==

== ENCOUNTER 2019-02-04 11:05 | Outpatient (CLI) | payer MEDICARE, MEDICAID | END 2019-02-04 11:06 | disposition home or self-care (01) | LOC: DI 11:05 | PROVIDERS: ATTEND Internal Medicine Cardiovascular Disease | DX: I50.22 Chronic systolic (congestive) heart failure (principal); I27.20 Pulmonary hypertension, unspecified; I08.1 Rheumatic disorders of both mitral and tricuspid valves | CPT/HCPCS: 93306 ==

== ENCOUNTER 2019-02-17 12:19 | Inpatient (IN) | payer MEDICARE, MEDICAID ==
--- NOTE | 2019-02-17 13:38 | ED Physician Documentation ---
History of Present Illness - Stated complaint Stated Complaint: VOMITING - Chief complaint Chief Complaint: Abd Pain - Additonal information Additional information: This is a 73-year-old female history of hypertension, atrial fibrillation on warfarin, heart failure with reported ejection fraction less than 30%, and history of a past laparotomy for abdominal trauma in the distant past, who presents with vomiting for 2 days, and no bowel movement for 3 days. Patient states that initially she thought she was constipated, but then 2 days ago began vomiting and she has been having repeated episodes of vomiting since. Her vomit turned to brownish in color today, and she is been unable to hold down any medications. She is been sipping on water but most fluids and anything else she eats she will throw up right back up. She denies any history of bowel obstructions. She denies chest pain or shortness of breath. She has had a mild to moderate abdominal discomfort which is located more in her but is somewhat migratory. Currently she has very little pain. No fever or dysuria. 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: Other - Present Medications Home Medications: Ambulatory Orders Medication Instructions Recorded Confirmed Loratadine [Claritin] 10 mg PO DAILY 08/01/12 02/17/19 Oxybutynin [Ditropan] 5 mg PO BID 08/01/12 02/17/19 Warfarin [Coumadin] 4 mg PO SUMOFRSA@1400 03/01/17 02/17/19 Warfarin [Coumadin] 5 mg PO TH@1400 03/01/17 02/17/19 Furosemide 20 mg ORAL DAILY 02/17/19 02/17/19 Levothyroxine Sodium 75 mcg ORAL DAILY 02/17/19 02/17/19 Metoprolol Succinate 25 mg ORAL DAILY 02/17/19 02/17/19 Metoprolol Tartrate [Lopressor] 12.5 mg PO DAILY PM 02/17/19 02/17/19 Spironolactone 12.5 mg PO DAILY 02/17/19 02/17/19 - Allergies Allergies/Adverse Reactions: Allergies Allergy/AdvReac Type Severity Reaction Status Date / Time peach Allergy Hives Verified 02/17/19 12:25 pear Allergy Hives Verified 02/17/19 12:25 milk AdvReac Nausea Verified 02/17/19 12:25 teva pharmacuticals AdvReac Unknown Rash Uncoded 02/17/19 12:25 - Social History Does the pt smoke?: No Smoking Status: Never smoker Does the pt drink ETOH?: No Does the pt have substance abuse?: No - Immunizations Immunizations are current?: Yes - POLST Patient has POLST: No POLST Status: Full Code PD ED PE NORMAL - Vitals Vital signs reviewed: Yes - General General: Alert and oriented X 3, Other (Uncomfortable but nontoxic-appearing) - HEENT HEENT: PERRL - Neck Neck: Supple, no meningeal sign - Cardiac Cardiac: Other (Irregularly irregular rhythm, tachycardic.) - Respiratory Respiratory: No respiratory distress, Clear bilaterally - Abdomen Abdomen: Soft, Other (Non-distended. Tender in the mid upper abdomen mildly, no guarding.) - Derm Derm: Warm and dry - Extremities Extremities: No deformity - Neuro Neuro: Alert and oriented X 3 - Psych Psych: Normal mood, Normal affect Results - Vitals Vitals: Vital Signs - 24 hr 02/17/19 02/17/19 02/17/19 12:25 13:38 14:32 Temperature 36.5 C 36.7 C Heart Rate 107 H 104 H 116 H Heart Rate [ Sitting] Heart Rate [ Standing] Heart Rate [ Supine] Respiratory 14 22 24 Rate Blood Pressure 130/100 H 129/86 H 133/94 H Blood Pressure [Sitting] Blood Pressure [Standing] Blood Pressure [Supine] O2 Saturation 97 97 98 02/17/19 02/17/19 14:42 16:33 Temperature 36.7 C Heart Rate 108 H Heart Rate [ 114 H Sitting] Heart Rate [ 118 H Standing] Heart Rate [ 116 H Supine] Respiratory 16 Rate Blood Pressure 119/92 H Blood Pressure 140/94 H [Sitting] Blood Pressure 139/97 H [Standing] Blood Pressure 133/94 H [Supine] O2 Saturation 98 Oxygen O2 Source Room air - EKG (time done) 13:15 Other comments: Other comments (Rate 112, rhythm atrial fibrillation with rapid ventricular response. There is a left bundle branch block. There is ST elevation from a repolarization abnormality in V2 and V3, however this is negative for STEMI by [place] modified Sgarbossa criteria. The pattern is unchanged from prior EKGs) - Labs Labs: Laboratory Tests 02/17/19 02/17/19 02/17/19 13:35 13:35 13:35 WBC 9.0 RBC 5.39 Hgb 18.2 H Hct 53.2 H MCV 98.7 MCH 33.8 H MCHC 34.2 RDW 13.5 Plt Count 205 MPV 11.5 H Neut # (Auto) 6.8 H Lymph # (Auto) 1.0 L Faulk # (Auto) 1.1 H Eos # (Auto) 0.0 Baso # (Auto) 0.1 Absolute Nucleated RBC 0.00 Nucleated RBC % 0.0 PT 54.1 H INR 5.2 H* Sodium 128 L Potassium 4.9 Chloride 90 L Carbon Dioxide 24 Anion Gap 14.0 H BUN 37 H Creatinine 1.0 Estimated GFR (MDRD) 55 L Glucose 138 H Lactic Acid Calcium 9.6 Total Bilirubin 1.5 H AST 53 H ALT 31 Alkaline Phosphatase 76 Troponin I High Sens B-Natriuretic Peptide Total Protein 9.3 H Albumin 4.7 Globulin 4.6 H Albumin/Globulin Ratio 1.0 Lipase 27 Urine Color Urine Clarity Urine pH Ur Specific [place] Urine Protein Urine Glucose (UA) Urine Ketones Urine Occult Blood Urine Nitrite Urine Bilirubin Urine Urobilinogen Ur Leukocyte Esterase Urine RBC Urine WBC Ur Squamous Epith Cells Urine Bacteria Ur Microscopic Review Gastric Fluid pH Gastric Occult Blood 02/17/19 02/17/19 02/17/19 13:35 14:32 16:17 WBC RBC Hgb Hct MCV MCH MCHC RDW Plt Count MPV Neut # (Auto) Lymph # (Auto) Faulk # (Auto) Eos # (Auto) Baso # (Auto) Absolute Nucleated RBC Nucleated RBC % PT INR Sodium Potassium Chloride Carbon Dioxide Anion Gap BUN Creatinine Estimated GFR (MDRD) Glucose Lactic Acid Calcium Total Bilirubin AST ALT Alkaline Phosphatase Troponin I High Sens 54.8 H* 41.0 H* B-Natriuretic Peptide Total Protein Albumin Globulin Albumin/Globulin Ratio Lipase Urine Color Urine Clarity Urine pH Ur Specific [place] Urine Protein Urine Glucose (UA) Urine Ketones Urine Occult Blood Urine Nitrite Urine Bilirubin Urine Urobilinogen Ur Leukocyte Esterase Urine RBC Urine WBC Ur Squamous Epith Cells Urine Bacteria Ur Microscopic Review Gastric Fluid pH 5.0 Gastric Occult Blood POSITIVE A 02/17/19 02/17/19 02/17/19 16:17 16:17 16:30 WBC RBC Hgb Hct MCV MCH MCHC RDW Plt Count MPV Neut # (Auto) Lymph # (Auto) Faulk # (Auto) Eos # (Auto) Baso # (Auto) Absolute Nucleated RBC Nucleated RBC % PT INR Sodium Potassium Chloride Carbon Dioxide Anion Gap BUN Creatinine Estimated GFR (MDRD) Glucose Lactic Acid 1.6 Calcium Total Bilirubin AST ALT Alkaline Phosphatase Troponin I High Sens B-Natriuretic Peptide 825 H Total Protein Albumin Globulin Albumin/Globulin Ratio Lipase Urine Color YELLOW Urine Clarity HAZY Urine pH 6.5 Ur Specific Lincoln <=1.005 Urine Protein TRACE Urine Glucose (UA) NEGATIVE Urine Ketones NEGATIVE Urine Occult Blood SMALL H Urine Nitrite NEGATIVE Urine Bilirubin NEGATIVE Urine Urobilinogen 0.2 (NORMAL) Ur Leukocyte Esterase NEGATIVE Urine RBC 6-10 H Urine WBC 0-3 Ur Squamous Epith Cells FEW Squamous Urine Bacteria None Seen Ur Microscopic Review INDICATED Gastric Fluid pH Gastric Occult Blood - Rads (name of study) Ct abd/pelvis W Radiology: Other (Small bowel obstruction, potentially partial or early given prominent colonic stool burden, large hiatal hernia which is not new) CXR Radiology: Other (Large hiatal hernia, otherwise lungs are essentially clear) PD MEDICAL DECISION MAKING - ED course Complexity details: considered differential (Gastritis, GI bleed, pancreatitis, obstruction, cholecystitis, UTI, ACS, dysrhtymia, electrolyte abnormality) ED course: On arrival patient is tachycardic, normotensive, appears mildly uncomfortable. IV was inserted labs were drawn and patient was is given a 500 cc normal saline bolus as well as Zofran. She had significant improvement in her symptoms with these interventions. Labs show hemoconcentration with a hemoglobin of 18.2. No leukocytosis. INR is supratherapeutic at 5.2. She did have a small amount emesis that she brought in a bag, this was mostly clear with some specks of brown in it, it was gastric occult positive. She has not had any blood in her stool, and I have a high suspicion this is a Zoë-Tatum tear from persistent repeated vomiting. She had no further vomiting and given that she does not have signs of serious or significant bleeding at this time, I think it would be reasonable to hold her warfarin but do not think we need to actively reverse it at the moment Her chemistry panel reveals a hyponatremia of 128 and hypochloremia. She appears hypovolemic. Her creatinine is actually normal at 1. Bilirubin is slightly elevated at 1.5, and her AST is also mildly elevated at 53, though it is been mildly elevated on past visits as well. She does have a history of congestive heart failure and this may be secondary to some hepatic congestion. She does not have any chest pain or shortness of breath, her initial troponin is elevated at 54.8, this is downtrending to 41 on repeat 2 hours later. Given her symptoms, I think a troponin leak is more likely than true ACS, she continues to have no chest pain or shortness of breath. Her BNP is elevated 825, her past values have ranged anywhere from 391-2600. Urine is negative for infection. CT scan shows a small bowel obstruction with no transition point. I spoke with Dr. Ernandez Of general surgery, who agreed that she appeared reasonable for trial of conservative management at this time. Given her multiple medical comorbidities she will be admitted to the hospitalist service. I updated patient with his results, she is on exam and is feeling much better. She is in agreement with the plan and was admitted to the hospital. She remains mildly tachycardic but her blood pressure is normal at the time of admission. Departure - Departure Disposition: [facility] DC/Xfer Clinical Impression: Dehydration, Hyponatremia, Elevated troponin Bowel obstruction Qualifiers: Intestinal obstruction type: unspecified Intestinal obstruction extent: unspecified extent Qualified Code(s): K56.609 - Unspecified intestinal obstruc tion, unspecified as to partial versus complete obstruction Condition: Stable
[2019-02-17] MEDS ORDERED: ONDANSETRON 4 MG/2 ML VIAL IVP STA (13:39)
[2019-02-17] MEDS ORDERED: SODIUM CHLORIDE 0.9% 500 ML IV ONE ×2 (13:39→16:10)
[2019-02-17 14:08] LABS: BASOPHILS # (AUTO) 0.1 10^3/uL (0.0-0.1); BASOPHILS % (AUTO) 0.6 %; EOSINOPHILS % (AUTO) 0.1 %; HGB - HEMOGLOBIN 18.2 g/dL (12.0-16.0); LYMPHOCYTES % (AUTO) 11.3 %; MEAN CORPUSCULAR HEMOGLOBIN 33.8 pg (27.0-31.0); MEAN CORPUSCULAR HGB CONC 34.2 g/dL (32.0-36.0); MEAN CORPUSCULAR VOLUME 98.7 fL (81.0-99.0); MEAN PLATELET VOLUME 11.5 fL (7.9-10.8); MONOCYTES # (AUTO) 1.1 10^3/uL (0.0-1.0); MONOCYTES % (AUTO) 12.1 %; NEUTROPHILS # (AUTO) 6.8 10^3/uL (1.5-6.6); NEUTROPHILS % (AUTO) 75.5 %; PLT - PLATELET COUNT 205 10^3/uL (130-450); RED BLOOD COUNT 5.39 10^6/uL (4.20-5.40); RED CELL DISTRIBUTION WIDTH 13.5 % (12.0-15.0)
[2019-02-17 14:12] LABS: PT - PROTHROMBIN TIME 54.1 secs (9.9-12.6)
[2019-02-17 14:18] LABS: INR 5.2 (0.8-1.2)
[2019-02-17 14:22] LABS: ALBUMIN 4.7 g/dL (3.2-5.5); BILIRUBIN,TOTAL 1.5 mg/dL (0.2-1.0); CALCIUM 9.6 mg/dL (8.5-10.3); TOTAL PROTEIN 9.3 g/dL (6.7-8.2)
[2019-02-17 14:52] LABS: GASTROCCULT POSITIVE (Negative)
[2019-02-17] MEDS ORDERED: IOVERSOL 320 100 ML VIAL IVP ONE ×2 (15:02→16:38)
--- NOTE | 2019-02-17 15:32 | XRAY Report ---
Reason: Cough, vomiting Procedure Date: 02/17/2019 Accession Number: [id number] / [id number] Procedure: XR - Chest 2 View X-Ray CPT Code: 06735 Final Report FULL RESULT: EXAM: CHEST RADIOGRAPHY EXAM DATE: 02/17/2019 03:24 PM. CLINICAL HISTORY: Cough, vomiting. COMPARISON: CHEST 2 VIEW 02/28/2017 4:21 PM. TECHNIQUE: 2 views. FINDINGS: Lungs/Pleura: No focal opacities evident. No pleural effusion. No pneumothorax. Normal volumes. Mediastinum: Moderate stable cardiomegaly. Other: The large hiatal hernia seen projected through the right mediastinum and right lower hemithorax, with an air-fluid level. IMPRESSION: A large hiatal hernia projected through right mediastinum and right lower hemithorax with an air-fluid level. Essentially clear lungs. RADIA
--- NOTE | 2019-02-17 15:51 | CT Report ---
Reason: Abdominal pain, vomiting Procedure Date: 02/17/2019 Accession Number: [id number] / [id number] Procedure: CT - Abdomen/Pelvis W CPT Code: Final Report FULL RESULT: EXAM: CT ABDOMEN AND PELVIS EXAM DATE: 02/17/2019 03:34 PM. CLINICAL HISTORY: Abdominal pain, vomiting. COMPARISONS: CHEST 2 VIEW PA/LAT 04/20/2016 9:42 AM. TECHNIQUE: Routine helical CT imaging was performed through the abdomen and pelvis. IV contrast: Optiray 320 100 mL. Enteric contrast: No. Reconstructions: Coronal and sagittal. In accordance with CT protocol optimization, one or more of the following dose reduction techniques were utilized for this exam: automated exposure control, adjustment of mA and/or KV based on patient size, or use of iterative reconstructive technique. FINDINGS: Lung Bases: There is marked biatrial cardiomegaly. There is what is presumed to be compressive atelectasis of the right lower lobe in the setting of a gas and fluid-filled bowel structure occupying much of the right hemithorax, likely the vast majority of the stomach, anatomy is difficult to delineate as the esophagus is not visualized. Liver: Normal. No masses. Gallbladder/Bile Ducts: Unremarkable. Spleen: Spleen is not seen, presumed asplenic. Pancreas: Limited visualization of the splenic bed due to extensive streak artifact from surgical clips. Adrenal Glands: Normal. Kidneys: Normal. No masses or hydronephrosis. Peritoneal Cavity/Bowel: There are dilated loops of duodenum and proximal small bowel with collapsed loops of small bowel in the pelvis and stool-filled colon. The appearance is suggestive of small bowel obstruction with potential transition point in the pelvis near midline on image 57 series 3. There is no free air or free fluid. Within exam limitations there is no definite lymphadenopathy by size criteria. Pelvic Organs: Limited visualization of pelvic organs due to absence of intrapelvic fat and close conglomerate of collapsed bowel loops, loss of definition. Vasculature: No aneurysms or other significant abnormality. Bones: Less than 1 cm of anterolisthesis of L5 on S1. No aggressive osseous lesions are detected. Other: None. IMPRESSION: Small bowel obstruction, potentially partial or early given prominent colonic stool burden. Of note, the large hiatal hernia appears radiographically present dating back to 2017. CRITICAL RESULT: The findings were discussed with Dr. Santos on 02/17/2019 at 3:49 PM. RADIA
[2019-02-17 16:42] LABS: BILIRUBIN,URINE NEGATIVE (NEGATIVE); GLUCOSE, URINE (UA) NEGATIVE (NEGATIVE); KETONES,URINE (UA) NEGATIVE (NEGATIVE); LEUKOCYTE ESTERASE, URINE NEGATIVE (NEGATIVE); NITRITE,URINE NEGATIVE (NEGATIVE); OCCULT BLOOD,URINE SMALL (NEGATIVE); PH,URINE 6.5 PH (5.0-7.5); PROTEIN,URINE TRACE mg/dL (NEGATIVE); UROBILINOGEN,URINE 0.2 (NORMAL) E.U./dL (NORMAL)
[2019-02-17 16:45] LABS: CLARITY,URINE HAZY (CLEAR)
[2019-02-17 17:00] LABS: BACTERIA,URINE None Seen /HPF (None Seen); SQUAMOUS EPITHELIAL CELL,UR FEW Squamous (<= Few)
[2019-02-17] MEDS ORDERED: ONDANSETRON 4 MG/2 ML VIAL IVP PRN (17:07)
[2019-02-17] MEDS ORDERED: ACETAMINOPHEN 325 MG TABLET PO PRN (17:07)
[2019-02-17] MEDS ORDERED: MORPHINE 2 MG/ML CARPUJECT IVP PRN (17:07)
[2019-02-17] MEDS ORDERED: METOPROLOL 5 MG/5 ML VIAL IVP PRN (17:16)
[2019-02-17] MEDS ORDERED: PHYTONADIONE 10 MG/ML AMP IVP STA (17:19)
--- NOTE | 2019-02-17 17:59 | HISTORY & PHYSICAL EXAMINATION ---
Chief Complaint - Chief Complaint Chief Complaint: N/V and abdominal pain History of Present Illness - History of Present Illness HPI Comment/Other: This is a 73-year-old female a PMH significant of hypertension, atrial fibrillation on warfarin, heart failure with recently reported ejection fraction 20-25%, hypothyroidism, asthma, incontinence, osteoarthritis, s/p a past laparotomy for abdominal trauma in the distant past, Hep C, who presents with na usea and vomiting for and no bowel movement for 2- 3 days. she report she felt upper quadrant abdominal pain only when she vomited. She also report her vomit turned to brownish in color today, and she is been unable to hold down any medications and food. she has no NG tube since she has no vomiting now. She report her manager support only let she drink 4 small bottle waster per day, she report she felt dehydrated and felt very tired all the time. She denies chest pain, fever, chill, shortness of breath. She report her PT/INR is unstable, and up and down and her PCP is monitoring for her. CT of abdomen reveals small obstruction, potentially partial or early, large hiatal hernia presented dating back to 2017. lab test reveals elevated troponin 55, then down to 41, BNP is 825, Na 128, BUN 37, Bili 1.5 HGB 18.2, Occult stool positive for blood, INR 5.2. pt is afebrile, slight tachycardia with afib at HR 108, otherwise pt is hemodynamic stable. Surgeon was called by ER. pt is admitted for above medical reason. 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: Other - Substance History Use: Uses substance without health or social issues: NONE - POLST Patient has POLST: No POLST Status: Full Code Meds/Allgy - Home Medications Home Medications: Ambulatory Orders Medication Instructions Recorded Confirmed Loratadine [Claritin] 10 mg PO DAILY 08/01/12 02/17/19 Oxybutynin [Ditropan] 5 mg PO BID 08/01/12 02/17/19 Warfarin [Coumadin] 4 mg PO SUMOFRSA@1400 01/05/18 12/24/19 Warfarin [Coumadin] 5 mg PO TH@1400 03/01/17 02/17/19 Furosemide 20 mg ORAL DAILY 02/17/19 02/17/19 Levothyroxine Sodium 75 mcg ORAL DAILY 02/17/19 02/17/19 Metoprolol Succinate 25 mg ORAL DAILY 02/17/19 02/17/19 Metoprolol Tartrate [Lopressor] 12.5 mg PO DAILY PM 02/17/19 02/17/19 Spironolactone 12.5 mg PO DAILY 02/17/19 02/17/19 - Allergies Allergies/Adverse Reactions: Allergies Allergy/AdvReac Type Severity Reaction Status Date / Time peach Allergy Hives Verified 02/17/19 12:25 pear Allergy Hives Verified 02/17/19 12:25 milk AdvReac Nausea Verified 02/17/19 12:25 teva pharmacuticals AdvReac Unknown Rash Uncoded 02/17/19 12:25 Review of Systems - Constitutional Constitutional: reports: Fatigue. denies: Fever, Chills, Malaise, Weakness, Poor appetite, Diaphoresis, Night sweats - Eyes Eyes: denies: Pain, Irritation, Amaurosis, Blurred vision, Spots in vision, Field loss, Vision loss, Dipolpia - Ears, Nose & Throat Ears, Nose & Throat: denies: Ear pain, Hearing loss, Hearing aids, Tinnitus, Nasal pain, Nasal discharge, Nosebleeds, Nasal obstruction, Nasal congestion, Sore throat, Hoarseness, Mouth lesions, Bleeding gums - Cardiovascular Cariovascular: denies: Irregular heart rate, Palpitations, Chest pain, Edema, Lightheadedness, Syncope, Exertional dyspnea, Decr. exercise tolerance - Respiratory Respiratory: denies: Cough, Sputum production, Wheezing, Snoring, Hemoptysis, Orthopnea, SOB at rest, SOB with exertion - Gastrointestinal Gastrointestinal: reports: Abdominal pain, Nausea, Vomiting. denies: Abdominal distention, Constipation, Diarrhea, Change in bowel habits, Rectal bleeding, Black stools, Bloody stools, Bile emesis, [place] blood emesis, Coffee grounds emesis - Genitourinary Genitourinary: denies: Dysuria, Frequency, Urgency, Hematuria, Incontinence, Flank pain, Nocturia, Urethral discharge - Musculoskeletal Musculoskeletal: denies: Muscle pain, Back pain, Muscle aches, Stiffness, Limited range of motion, Muscle weakness, Gout, Joint pain - Integumentary Integumentary: denies: Rash, Pruritis, Lesions, Dryness, Lumps, Acne, Pigment changes, Nail changes - Neurological Neurological: denies: General weakness, Focal weakness, Headache, Dizziness, Numbness, Memory problems, Pre-existing deficit, Abnormal gait, Seizures, Incoordination, Slurred speech - Psychiatric Psychiatric: denies: Depression, Anxiety, Suicidal, Delusions, Hallucinations, Homicidal - Endocrine Endocrine: denies: Polyuria, Polydypsia, Polyphagia, Intolerance to cold - Hematologic/Lymphatic Hematologic/Lymphatic: denies: Anemia, Bruising, Petechiae, Blood clots, Lymphadenopathy, Bleeding tendencies Exam - Vital Signs Reviewed Vital Signs: Yes Vital Signs: Vital Signs x48h Temp Pulse Pulse Pulse Pulse Resp BP 02/17/19 16:33 36.7 C 108 H 16 119/92 H 02/17/19 14:42 114 H 118 H 116 H 02/17/19 14:32 116 H 24 133/94 H 02/17/19 13:38 36.7 C 104 H 22 129/86 H 02/17/19 12:25 36.5 C 107 H 14 130/100 H BP BP BP Pulse Ox 02/17/19 16:33 98 02/17/19 14:42 140/94 H 139/97 H 133/94 H 02/17/19 14:32 98 02/17/19 13:38 97 02/17/19 12:25 97 - Physical Exam General Appearance: positive: No acute distress, Alert. negative: Lethargic Eyes Bilateral: positive: Normal inspection, PERRL, EOMI, No lid inflammation ENT: positive: ENT inspection nml, Pharynx nml, No signs of dehydration. negative: Purulent nasal drainage Neck: positive: Nml inspection, Thyroid nml, No JVD, Trachea midline. negative: Thyromegaly, Lymphadenopathy (R), Lymphadenopathy (L), Stiff neck, Tracheal deviation Respiratory: positive: Chest non-tender, No respiratory distress, Breath sounds nml. negative: Wheezes, Rales, Rhonchi Cardiovascular: positive: No murmur, No gallop, Irregularly irregular, Tachycardia. negative: Regular rate & rhythm, Extrasystoles, Bradycardia, JVD present, Systolic murmur, Diastolic murmur Peripheral Pulses: positive: 2+ Abdomen: positive: Non-tender, No organomegaly, No distention, Abnml bowel sounds (hypoactive bowel sound at all quadrant). negative: Nml bowel sounds, Tenderness, Guarding, Rebound Back: positive: Nml inspection Skin: positive: Color nml, No rash, Warm, Dry. negative: Cyanosis, Diaphoresis, Pallor, Skin rash Extremities: positive: Non-tender, Full ROM, Nml appearance. negative: Calf tenderness, Khurram's sign/cords Neurologic/Psychiatric: positive: Oriented x3, Motor nml, Sensation nml, Mood/affect nml. negative: Weakness, Sensory loss, Facial droop, Slurred/abnml speech, Depressed mood/affect Sepsis Event Note (H) - Evaluation Current Stage of Sepsis: Ruled out Conclusion/Plan - Problem List (1) Bowel obstruction Conclusion/Plan: pt present N/V and abdominal pain, no bowel movement. CT of abdomen reveals SB, potentially partial. Encourage pt ambulate consult with surgeon NPO, IVF. will put NG tube if pt has vomiting Qualifiers: Intestinal obstruction type: unspecified Intestinal obstruction extent: unspecified extent Qualified Code(s): K56.609 - Unspecified intestinal obstruction, unspecified as to partial versus complete obstruction (2) GI bleed Conclusion/Plan: occult test is positive. pt has INR 5.2 and HGB 18.2. hold Coumadin, IV of vitamin K consult with GI surgeon daily check PT/INR H&H monitor (3) Elevated INR Conclusion/Plan: pt report her PT/INR is unstable, today INR is 5.2. Hold Coumadin, IV of vitamin K 2.5 mg daily check PT/INR (4) Systolic heart failure Conclusion/Plan: pt has 20-25% EF at 01/13 ECHO. pt is high risk for surgery. pt has 98% sat on room air and did not present respiratory distress or SOB. add IV Metoprolol PRN hold Spironolactone and Lasix now for her dehydration. check BNP tele and vital monitor (5) Dehydration Conclusion/Plan: pt clinic present dehydration, an has elevated BUN, elevated HGB, and hyponatremia. it is likely hypovolumia with hyponatremia slight hydration slowly because her EF 20-25% daily lab monitor, vital monitor (6) Hyponatremia Conclusion/Plan: it is likely hypovolumia with hyponatremia IV of NS slowly, lab monitor (7) Elevated troponin Conclusion/Plan: it is likely from pt's dehydration and demanded, pt's EKG has no acute change from previous with afib and LBBB. and troponin is running down as well. pt has INR 5.2, it is unlikely pt has heart attack. tele and vital monitor PRN metoprolol (8) HTN (hypertension) Conclusion/Plan: stable now, will resume home after verified. hold Lasix and spironolactone for pt's dehydration. (9) Hypothyroidism Conclusion/Plan: stable, check TSH, resume home levothyroxine after pt can have PO. now pt is NPO for SBO (10) History of asthma Conclusion/Plan: stable, PRN albuterol (11) Do not intubate, cardiopulmonary resuscitation (CPR)-only code status Conclusion/Plan: pt and her DPOA request DNR/DNI - Lab Results Fish Bones: 02/17/19 13:35 02/17/19 13:35 Core Measures - Anticipated LOS I expect patient to be DC'd or transferred within 96 hours.: Yes - DVT/VTE - Prophylaxis VTE/DVT Device ordered at admit?: Yes VTE/DVT Prophylaxis med ordered at admit?: Yes
[2019-02-17] MEDS ORDERED: SODIUM CHLORIDE 0.9% 1,000 ML IV SCH (18:00)
[2019-02-17] MEDS ORDERED: ALBUTEROL NEB 2.5 MG/3 ML INH PRN (18:01)
[2019-02-17] MEDS ORDERED: PHYTONADIONE INJ (ADULT) 5 MG in SODIUM CHLORIDE 0.9% 50 ML IV ONE (18:12)
[2019-02-17] MEDS ORDERED: PHYTONADIONE INJ (ADULT) 2.5 MG in SODIUM CHLORIDE 0.9% 50 ML IV ONE (18:30)
[2019-02-17 18:50] LABS: HGB - HEMOGLOBIN 17.3 g/dL (12.0-16.0)
[2019-02-17] MEDS: SODIUM CHLORIDE 0.9% 1,000 ML IV SCH (19:11)
[2019-02-17] MEDS: METOCLOPRAMIDE 10 MG/2 ML VIAL IVP PRN (19:57)
[2019-02-17] MEDS ORDERED: ZINC OXIDE 20% OINT 30 GM TUBE SCH (23:00)
[2019-02-18] MEDS: SODIUM CHLORIDE FLUSH 0.9% 10 ML SYRINGE IVP SCH ×3 (01:58→18:55)
[2019-02-18] MEDS: METOCLOPRAMIDE 10 MG/2 ML VIAL IVP PRN ×2 (03:01→09:03)
[2019-02-18 03:15] LABS: BASOPHILS % (AUTO) 0.3 %; EOSINOPHILS % (AUTO) 0.1 %; HGB - HEMOGLOBIN 16.5 g/dL (12.0-16.0); LYMPHOCYTES # (AUTO) 1.1 10^3/uL (1.5-3.5); LYMPHOCYTES % (AUTO) 12.5 %; MEAN CORPUSCULAR HEMOGLOBIN 33.6 pg (27.0-31.0); MEAN CORPUSCULAR HGB CONC 33.7 g/dL (32.0-36.0); MEAN CORPUSCULAR VOLUME 99.8 fL (81.0-99.0); MEAN PLATELET VOLUME 10.6 fL (7.9-10.8); MONOCYTES # (AUTO) 1.4 10^3/uL (0.0-1.0); MONOCYTES % (AUTO) 16.3 %; NEUTROPHILS # (AUTO) 6.2 10^3/uL (1.5-6.6); NEUTROPHILS % (AUTO) 70.3 %; PLT - PLATELET COUNT 204 10^3/uL (130-450); RED BLOOD COUNT 4.91 10^6/uL (4.20-5.40); RED CELL DISTRIBUTION WIDTH 13.4 % (12.0-15.0); WHITE BLOOD COUNT 8.9 x10^3/uL (4.8-10.8)
[2019-02-18 03:24] LABS: INR 2.5 (0.8-1.2); PT - PROTHROMBIN TIME 27.3 secs (9.9-12.6)
[2019-02-18 03:25] LABS: ALBUMIN 3.9 g/dL (3.2-5.5); ALBUMIN/GLOBULIN RATIO 1.1 (1.0-2.2); CALCIUM 8.6 mg/dL (8.5-10.3); CREATININE 0.9 mg/dL (0.4-1.0); TOTAL PROTEIN 7.3 g/dL (6.7-8.2)
[2019-02-18] MEDS: PANTOPRAZOLE 40 MG VIAL IVP SCH (06:21)
[2019-02-18] MEDS ORDERED: ENOXAPARIN 40 MG/0.4 ML SYRINGE SUBQ SCH (09:00)
[2019-02-18] MEDS: SODIUM CHLORIDE 0.9% 1,000 ML IV SCH ×2 (09:04→22:51)
--- NOTE | 2019-02-18 09:30 | PHARMACY PROGRESS NOTE ---
- Best Possible Medication History Admit Date and Time: 02/17/19 0722 Medication History completed: Yes Patient Interview: Completed As the person ultimately responsible for medication therapy, providers are able to order a medication from an existing home medication list in [facility] via the "Reconcile Routine" prior to Confirmation of that medication by lead performance support analyst. Such practice is discouraged except when the physician, in their clinical judgment, deems that a medical need exists for a medication without regard to previous use.
[2019-02-18 11:13] LABS: HGB - HEMOGLOBIN 16.3 g/dL (12.0-16.0)
[2019-02-18] MEDS: METOPROLOL 5 MG/5 ML VIAL IVP SCH ×2 (12:20→20:21)
[2019-02-18] MEDS: DIATR MEGLU/DIATRIZOATE SODIUM 120 ML BOTTLE PO SCH ×2 (12:20→14:54)
--- NOTE | 2019-02-18 12:47 | CONSULTATION NOTE ---
Referring Provider Name of Referring Provider:: Dr. 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 Her sister is her child care teacher and is with her today. She reports she was in her usual state of health when she began to feel nauseated and subsequently started vomiting. She has not had a bowel movement in 3-4 days and denies passing any flatus. No vomiting since admission but says she still feels nauseated when she gets up to walk around. Denies any pain. She and her sister both report she has not had a similar episode in the past. She has a distant history of laparotomy for trauma. Unsure what procedures were done at laparotomy or what injuries necessitated the procedure. She has a fairly complex past medical history including congestive heart failure with decreased EF, Hepatitis C and Atrial fibrillation. She was evaluated in the ED and found to have findings consistent with small bowel obstruction. CT scan showed dilated proximal small bowel with decompressed distal loops and a stool filled colon. Possible transition zone in the upper pelvis toward the midline. I have been consulted regarding these findings. 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 - Substance History Use: Uses substance without health or social issues: NONE - POLST Patient has POLST: No POLST Status: Full Code Meds/Allgy - Home Medications Home Medications: Ambulatory Orders Medication Instructions Recorded Confirmed Loratadine [Claritin] 10 mg PO DAILY 08/01/12 02/18/19 Oxybutynin [Ditropan] 5 mg PO BID 08/01/12 02/18/19 Warfarin [Coumadin] 4 mg PO NORBERTOTCHRISTINESA@0700 03/01/17 02/18/19 Warfarin [Coumadin] 5 mg PO WEFR@0700 03/01/17 02/18/19 Furosemide 20 mg PO MOWEFR@0700 02/17/19 02/18/19 Levothyroxine Sodium 75 mcg ORAL QDAC 02/17/19 02/18/19 Metoprolol Succinate 25 mg PO DAILY 02/17/19 02/18/19 Spironolactone 12.5 mg PO DAILY 02/17/19 02/18/19 - Allergies Allergies/Adverse Reactions: Allergies Allergy/AdvReac Type Severity Reaction Status Date / Time peach Allergy Hives Verified 02/17/19 12:25 pear Allergy Hives Verified 02/17/19 12:25 milk AdvReac Nausea Verified 02/17/19 12:25 Sulfa (Sulfonamide AdvReac Rash Verified 02/17/19 20:30 Antibiotics) teva pharmacuticals AdvReac Unknown Rash Uncoded 02/17/19 12:25 Review of Systems - Constitutional Constitutional: reports: Fatigue, Malaise, Weakness, Poor appetite. denies: Fever, Chills - Eyes Eyes: denies: Pain, Irritation, Blurred vision - Ears, Nose & Throat Ears, Nose & Throat: denies: Tinnitus, Vertigo, Nasal pain, Nasal discharge - Cardiovascular Cariovascular: reports: Irregular heart rate, Lightheadedness, Exertional dyspnea. denies: Palpitations, Chest pain - Respiratory Respiratory: denies: Cough, Wheezing - Gastrointestinal Gastrointestinal: reports: Change in bowel habits, Nausea, Vomiting, Coffee grounds emesis, Reflux/heartburn. denies: Abdominal pain, Abdominal distention, Constipation, Diarrhea - Genitourinary Genitourinary: denies: Dysuria, Frequency, Urgency - Musculoskeletal Musculoskeletal: denies: Muscle pain, Back pain - Integumentary Integumentary: denies: Rash, Pruritis - Neurological Neurological: denies: General weakness, Focal weakness - Psychiatric Psychiatric: denies: Depression, Anxiety - Hematologic/Lymphatic Hematologic/Lymphatic: denies: Anemia, Bruising Exam - Vital Signs Reviewed Vital Signs: Yes Vital Signs: Vital Signs x48h Temp Pulse Pulse Resp BP BP BP 02/18/19 12:20 36.6 C 109 H 16 132/79 H 132/79 H 02/18/19 11:00 100 151/87 H 02/18/19 08:50 36.5 C 99 20 141/90 H 02/18/19 05:22 37.0 C 95 17 146/85 H Pulse Ox Pulse Ox 02/18/19 12:20 96 02/18/19 11:00 97 02/18/19 08:50 98 02/18/19 05:22 99 - Physical Exam General Appearance: positive: No acute distress (Very thin and frail appearing lady. Appearance is older than stated age.), Alert Eyes Bilateral: positive: Normal inspection, PERRL ENT: positive: ENT inspection nml, Pharynx nml, No signs of dehydration Neck: positive: Nml inspection Abdomen: positive: Non-tender, Nml bowel sounds, Other (Mildly distended but active bowel sounds). negative: Tenderness Skin: positive: Color nml Conclusion and Plan - Lab Results Laboratory Results 02/18/19 10:57: Hgb 16.3 H, Hct 49.9 H 02/18/19 03:00: TSH 3.93 02/18/19 03:00: Sodium 131 L, Potassium 4.4, Chloride 95 L, Carbon Dioxide 25, Anion Gap 11.0, BUN 33 H, Creatinine 0.9, Estimated GFR (MDRD) 62 L, Glucose 124 H, Calcium 8.6, Total Bilirubin 2.0 H, AST 40, ALT 26, Alkaline Phosphatase 61, Total Protein 7.3, Albumin 3.9, Globulin 3.4, Albumin/Globulin Ratio 1.1 02/18/19 03:00: WBC 8.9, RBC 4.91, Hgb 16.5 H, Hct 49.0 H, MCV 99.8 H, MCH 33.6 H, MCHC 33.7, RDW 13.4, Plt Count 204, MPV 10.6, Neut # (Auto) 6.2, Lymph # (Auto) 1.1 L, Donley # (Auto) 1.4 H, Eos # (Auto) 0.0, Baso # (Auto) 0.0, Absolute Nucleated RBC 0.00, Nucleated RBC % 0.0 02/18/19 03:00: B-Natriuretic Peptide 697 H 02/18/19 03:00: PT 27.3 H, INR 2.5 H 02/17/19 18:45: Hgb 17.3 H, Hct 52.3 H 02/17/19 16:30: Urine Color YELLOW, Urine Clarity HAZY, Urine pH 6.5, Ur Specific [place] <=1.005, Urine Protein TRACE, Urine Glucose (UA) NEGATIVE, Urine Ketones NEGATIVE, Urine Occult Blood SMALL H, Urine Nitrite NEGATIVE, Urine Bilirubin NEGATIVE, Urine Urobilinogen 0.2 (NORMAL), Ur Leukocyte Esterase NEGATIVE, Urine RBC 6-10 H, Urine WBC 0-3, Ur Squamous Epith Cells FEW Squamous, Urine Bacteria None Seen, Ur Microscopic Review INDICATED 02/17/19 16:17: B-Natriuretic Peptide 825 H 02/17/19 16:17: Lactic Acid 1.6 02/17/19 16:17: Troponin I High Sens 41.0 H* 02/17/19 14:32: Gastric Fluid pH 5.0, Gastric Occult Blood POSITIVE A 02/17/19 13:35: Troponin I High Sens 54.8 H* 02/17/19 13:35: Sodium 128 L, Potassium 4.9, Chloride 90 L, Carbon Dioxide 24, Anion Gap 14.0 H, BUN 37 H, Creatinine 1.0, Estimated GFR (MDRD) 55 L, Glucose 138 H, Calcium 9.6, Total Bilirubin 1.5 H, AST 53 H, ALT 31, Alkaline Phosphatase 76, Total Protein 9.3 H, Albumin 4.7, Globulin 4.6 H, Albumin/Globulin Ratio 1.0, Lipase 27 02/17/19 13:35: PT 54.1 H, INR 5.2 H* 02/17/19 13:35: WBC 9.0, RBC 5.39, Hgb 18.2 H, Hct 53.2 H, MCV 98.7, MCH 33.8 H, MCHC 34.2, RDW 13.5, Plt Count 205, MPV 11.5 H, Neut # (Auto) 6.8 H, Lymph # (Auto) 1.0 L, [place]ley # (Auto) 1.1 H, Eos # (Auto) 0.0, Baso # (Auto) 0.1, Absolute Nucleated RBC 0.00, Nucleated RBC % 0.0 - Diagnostic Imaging Results Diagnostic Imaging Results: positive: Final report reviewed - Diagnosis Diagnosis: Small bowel obstruction - Plan Plan: 1. Continue to bowel rest. Recommend NGT placement with plans to consider gastrograffin challenge tomorrow 2. Dulcolax suppository to stimulate from below. 3. Agree with all excellent care per the Hospitalist service.
[2019-02-18] MEDS ORDERED: BISACODYL 10 MG SUPP PR ONE (14:35)
--- NOTE | 2019-02-18 15:05 | XRAY Report ---
Reason: NG tube placement Procedure Date: 02/18/2019 Accession Number: [id number] / [id number] Procedure: XR - Chest 1 View X-Ray CPT Code: 78043 Addended Final Report FULL RESULT: EXAM: CHEST RADIOGRAPHY EXAM DATE: 02/18/2019 02:56 PM. CLINICAL HISTORY: NG tube placement. COMPARISON: CT of the abdomen and pelvis from 02/17/2019. TECHNIQUE: 1 view. FINDINGS: Lungs/Pleura: No focal airspace opacities. No pleural effusion or pneumothorax. Mediastinum: There is moderate enlargement of the cardiac silhouette. There is ovoid density projecting over the medial base of the right hemithorax, compatible with paraesophageal hernia seen on CT. Atherosclerotic calcification of the aortic arch and descending thoracic aorta demonstrated. Other: Enteric tube projects over the right lower chest. Its course appears to be just below the right mainstem bronchus. Dilated small bowel loops are demonstrated in the upper abdomen, measuring up to 4.6 cm. Multiple surgical clips project over the upper abdomen. IMPRESSION: 1. Enteric tube projects over the right lower chest, most likely within large paraesophageal hernia. The catheter appears to be just below the right mainstem bronchus, suggesting this does not represent endobronchial placement. However, would correlate with tube output to ensure intragastric positioning. 2. Partially visualized small bowel dilation in the upper abdomen, compatible with bowel obstruction seen on CT. 3. Moderate enlargement of the cardiac silhouette. No acute cardiopulmonary abnormality. RADIA The call report notification system was initiated by Dr. Beto Lovelace at 03:00 PM on 02/18/2019. ADDENDUM: 02/18/19 15:47 The above call report findings were discussed with CE Acuna, by Dr. Beto Lovelace at 03:47 PM on 02/18/2019. There are gastric contents coming from the patient's NG tube, suggesting enteric tube is intragastric in position.
--- NOTE | 2019-02-18 15:42 | PROVIDER PROGRESS NOTE ---
Assessment/Plan - Problem List (1) Partial small bowel obstruction Assessment/Plan: She is still nauseated despite getting Reglan every 6 hours. We will insert NG tube to wall suction, for bowel rest. No diet yet. PT for walking if she can tolerate this which will help the obstruction. Surgical consult advised the NG tube. It was put in and she had 1350 mL of output. Gastrografin challenge will be planned for tomorrow. The surgeon recommended a Dulcolax suppository which was ordered. Continue with IV hydration, antiemetics, pain meds if she has any pain. (2) Dehydration Assessment/Plan: She still has an elevated BUN/creatinine ratio. Continue with IV hydration but slower than for a non-cardiomyopathy patient. Follow daily weight, I's and O's, daily BMP (3) Chronic systolic congestive heart failure, NYHA class 2 Assessment/Plan: There are no current signs of volume overload. The BNP went from 800 to 600 She was currently on Metoprolol, Spironolactone and Lasix, no LALITHA or ARB, at home. Her Metoprolol will be changed to IV form, since she is getting tachycardic by being off her oral meds for the past 2 to 3 days (due to vomiting) Continue telemetry. IV hydration planned at a slow rate to avoid CHF exacerbation (4) Atrial fibrillation Qualifiers: Atrial fibrillation type: chronic Assessment/Plan: Chronic A. fib, the rate appears to be tachycardic since she has been off her p.o. beta-john for 2 to 3 days because of vomiting at home. We will switch to IV beta-john. Continue telemetry monitoring. Will hold Coumadin since she is npo, and switch to therapeutic subq bid Lovenox injections, to start when the INR is subtherapeutic. Follow INR daily (5) Elevated INR Assessment/Plan: She got vitamin K x1 and the INR is therapeutic today at 2.5. Coumadin is on hold however because she is n.p.o. We will use therapeutic subcu twice daily Lovenox doses in the place of Coumadin while she is n.p.o. (6) Hyponatremia Assessment/Plan: This is likely from her use of Lasix plus the current volume losses with vomiting. Follow BMP daily. IV hydration is planned while she is n.p.o. (7) UGI bleed Assessment/Plan: The vomitus was heme tested and is positive. This is likely a Zoë-Tatum tear due to her 2 to 3 days of vomiting or stress gastritis or a stress ulcer. She is on IV treatment to prevent a peptic ulcer. We will also start bowel rest with NG decompression. (8) Hypothyroidism Assessment/Plan: Thyroid medicine oral is on hold currently. If she does not resume p.o. meds soon, will give IV thyroid replacement q. 3 days (9) History of asthma Assessment/Plan: Currently stable, no wheezing. (10) History of hypertension Assessment/Plan: Her meds are currently on hold because she is dehydrated and not hypertensive - Current Meds Current Meds: Current Medications Generic Name Dose Route Start Last Admin Trade Name Freq PRN Reason Stop Dose Admin Sodium Chloride 1,000 mls @ 75 mls/hr 02/17/19 18:00 02/18/19 09:04 Normal Saline 0.9% IV 02/18/19 20:38 75 mls/hr .[id number] RAYNA Administration Metoclopramide HCl 5 mg 02/17/19 18:34 02/18/19 09:03 Reglan Inj IVP 5 mg Q6HR PRN Administration Nausea / Vomiting Metoprolol Tartrate 5 mg 02/17/19 17:16 02/17/19 18:51 Lopressor Inj IVP 5 mg Q6H PRN Administration afib Metoprolol Tartrate 5 mg 02/18/19 12:30 02/18/19 12:20 Lopressor Inj IVP 5 mg Q8H RAYNA Administration Pantoprazole Sodium 40 mg 02/18/19 07:00 02/18/19 06:21 Protonix IVP 40 mg QDAC RAYNA Administration Sodium Chloride 10 ml 02/18/19 01:00 02/18/19 08:19 Normal Saline Flush 0.9% IVP Not Given 0100,0900,1700 RAYNA - Lab Result Fish Bone Diagrams: 02/18/19 10:57 02/18/19 03:00 - Additional Planning My Orders: My Active Orders 02/18/19 Evaluate and Treat PT [PT] Routine 02/18/19 12:30 Metoprolol Inj [Lopressor Inj] 5 mg IVP Q8H 02/18/19 14:35 NG Tube Care [RC] Q4HR 02/18/19 15:10 Miscellaenous Nursing Order [RC] ONCE 02/19/19 07:00 Levothyroxine [Synthroid] 75 mcg PO QDAC Subjective - Subjective Patient Reports: Nausea Nursing Reports: Other (G-tube inserted and she had 1350 mL of output) Objective Vital Signs: Vital Signs - 24 hr 02/17/19 02/17/19 02/17/19 16:33 18:04 18:32 Temperature 36.7 C 36.3 C L Heart Rate 108 H 119 H Heart Rate [ Activity] Heart Rate [ 110 H Radial] Respiratory 16 22 16 Rate Blood Pressure 119/92 H 131/84 H Blood Pressure [Activity] Blood Pressure 136/85 H [Right Brachial artery] O2 Saturation 98 98 97 O2 Saturation [ With Activity] 02/17/19 02/17/19 02/17/19 18:51 19:15 19:21 Temperature Heart Rate Heart Rate [ Activity] Heart Rate [ 97 Radial] Respiratory Rate Blood Pressure 132/85 H 136/85 H Blood Pressure [Activity] Blood Pressure 136/82 H [Right Brachial artery] O2 Saturation O2 Saturation [ With Activity] 02/17/19 02/18/19 02/18/19 19:30 00:56 04:44 Temperature 36.4 C L Heart Rate Heart Rate [ Activity] Heart Rate [ 101 H 104 H 98 Radial] Respiratory 18 Rate Blood Pressure Blood Pressure [Activity] Blood Pressure 137/90 H 142/89 H [Right Brachial artery] O2 Saturation 96 O2 Saturation [ With Activity] 02/18/19 02/18/19 02/18/19 05:22 08:50 11:00 Temperature 37.0 C 36.5 C Heart Rate Heart Rate [ 100 Activity] Heart Rate [ 95 99 Radial] Respiratory 17 20 Rate Blood Pressure Blood Pressure 151/87 H [Activity] Blood Pressure 146/85 H 141/90 H [Right Brachial artery] O2 Saturation 99 98 O2 Saturation [ 97 With Activity] 02/18/19 02/18/19 12:20 15:38 Temperature 36.6 C 36.9 C Heart Rate Heart Rate [ Activity] Heart Rate [ 109 H 89 Radial] Respiratory 16 18 Rate Blood Pressure 132/79 H Blood Pressure [Activity] Blood Pressure 132/79 H 129/77 [Right Brachial artery] O2 Saturation 96 96 O2 Saturation [ With Activity] Oxygen O2 Source [With Activity] Room air O2 Source Room air I&O (Last 24 Hrs): Intake and Output Totals x24h 02/16/19 02/17/19 02/18/19 23:59 23:59 23:59 Intake Total 1050.25 1000 Output Total 250 1600 Balance 800.25 -600 General: Alert, Oriented x3 HEENT: Mucous membr. moist/pink, Other (Cachectic) Neck: Supple, No JVD Neuro: Non Focal Cardiovascular: No murmurs, Other (Irregularly irregular) Respiratory: No respiratory distress, Breath sounds nml Abdomen: Soft, Other (No bowel sounds present, no guarding or rebound) Extremities: No edema - Results Results: Laboratory Results WBC 8.9 x10^3/uL (4.8-10.8) 02/18/19 03:00 RBC 4.91 10^6/uL (4.20-5.40) 02/18/19 03:00 Hgb 16.3 g/dL (12.0-16.0) H 02/18/19 10:57 Hct 49.9 % (37.0-47.0) H 02/18/19 10:57 MCV 99.8 fL (81.0-99.0) H 02/18/19 03:00 MCH 33.6 pg (27.0-31.0) H 02/18/19 03:00 MCHC 33.7 g/dL (32.0-36.0) 02/18/19 03:00 RDW 13.4 % (12.0-15.0) 02/18/19 03:00 Plt Count 204 10^3/uL (130-450) 02/18/19 03:00 MPV 10.6 fL (7.9-10.8) 02/18/19 03:00 Neut # (Auto) 6.2 10^3/uL (1.5-6.6) 02/18/19 03:00 Lymph # (Auto) 1.1 10^3/uL (1.5-3.5) L 02/18/19 03:00 [place] # (Auto) 1.4 10^3/uL (0.0-1.0) H 02/18/19 03:00 Eos # (Auto) 0.0 10^3/uL (0.0-0.7) 02/18/19 03:00 Baso # (Auto) 0.0 10^3/uL (0.0-0.1) 02/18/19 03:00 Absolute Nucleated RBC 0.00 x10^3/uL 02/18/19 03:00 Nucleated RBC % 0.0 /100WBC 02/18/19 03:00 PT 27.3 secs (9.9-12.6) H 02/18/19 03:00 INR 2.5 (0.8-1.2) H 02/18/19 03:00 Sodium 131 mmol/L (135-145) L 02/18/19 03:00 Potassium 4.4 mmol/L (3.5-5.0) 02/18/19 03:00 Chloride 95 mmol/L (101-111) L 02/18/19 03:00 Carbon Dioxide 25 mmol/L (21-32) 02/18/19 03:00 Anion Gap 11.0 (6-13) 02/18/19 03:00 BUN 33 mg/dL (6-20) H 02/18/19 03:00 Creatinine 0.9 mg/dL (0.4-1.0) 02/18/19 03:00 Estimated GFR (MDRD) 62 (>89) L 02/18/19 03:00 Glucose 124 mg/dL (70-100) H 02/18/19 03:00 Lactic Acid 1.6 mmol/L (0.5-2.2) 02/17/19 16:17 Calcium 8.6 mg/dL (8.5-10.3) 02/18/19 03:00 Total Bilirubin 2.0 mg/dL (0.2-1.0) H 02/18/19 03:00 AST 40 IU/L (10-42) 02/18/19 03:00 ALT 26 IU/L (10-60) 02/18/19 03:00 Alkaline Phosphatase 61 IU/L (42-121) 02/18/19 03:00 Troponin I High Sens 41.0 ng/L (2.3-14.8) H* 02/17/19 16:17 B-Natriuretic Peptide 697 pg/mL (5-100) H 02/18/19 03:00 Total Protein 7.3 g/dL (6.7-8.2) 02/18/19 03:00 Albumin 3.9 g/dL (3.2-5.5) 02/18/19 03:00 Globulin 3.4 g/dL (2.1-4.2) 02/18/19 03:00 Albumin/Globulin Ratio 1.1 (1.0-2.2) 02/18/19 03:00 Lipase 27 U/L (22-51) 02/17/19 13:35 TSH 3.93 uIU/mL (0.34-5.60) 02/18/19 03:00 Urine Color YELLOW 02/17/19 16:30 Urine Clarity HAZY (CLEAR) 02/17/19 16:30 Urine pH 6.5 PH (5.0-7.5) 02/17/19 16:30 Ur Specific [place] <=1.005 (1.002-1.030) 02/17/19 16:30 Urine Protein TRACE mg/dL (NEGATIVE) 02/17/19 16:30 Urine Glucose (UA) NEGATIVE mg/dL (NEGATIVE) 02/17/19 16:30 Urine Ketones NEGATIVE mg/dL (NEGATIVE) 02/17/19 16:30 Urine Occult Blood SMALL (NEGATIVE) H 02/17/19 16:30 Urine Nitrite NEGATIVE (NEGATIVE) 02/17/19 16:30 Urine Bilirubin NEGATIVE (NEGATIVE) 02/17/19 16:30 Urine Urobilinogen 0.2 (NORMAL) E.U./dL (NORMAL) 02/17/19 16:30 Ur Leukocyte Esterase NEGATIVE (NEGATIVE) 02/17/19 16:30 Urine RBC 6-10 /HPF (0-5) H 02/17/19 16:30 Urine WBC 0-3 /HPF (0-5) 02/17/19 16:30 Ur Squamous Epith Cells FEW Squamous (<= Few) 02/17/19 16:30 Urine Bacteria None Seen /HPF (None Seen) 02/17/19 16:30 Ur Microscopic Review INDICATED 02/17/19 16:30 Gastric Fluid pH 5.0 02/17/19 14:32 Gastric Occult Blood POSITIVE (Negative) A 02/17/19 14:32 Sepsis Event Note (H) - Evaluation Current Stage of Sepsis: Ruled out
[2019-02-18] MEDS: ACETAMINOPHEN 1,000 MG/100 ML 100 ML IV PRN (19:25)
[2019-02-18 19:50] LABS: HGB - HEMOGLOBIN 15.2 g/dL (12.0-16.0)
[2019-02-18] MEDS ORDERED: SODIUM CHLORIDE 0.9% 1,000 ML IV SCH (23:00)
[2019-02-19] MEDS: SODIUM CHLORIDE FLUSH 0.9% 10 ML SYRINGE IVP SCH ×3 (01:51→16:40)
[2019-02-19] MEDS: METOPROLOL 5 MG/5 ML VIAL IVP SCH ×4 (04:37→20:22)
[2019-02-19 04:59] LABS: INR 1.6 (0.8-1.2)
[2019-02-19 05:10] LABS: ALBUMIN 3.3 g/dL (3.2-5.5); ALBUMIN/GLOBULIN RATIO 1.1 (1.0-2.2); CALCIUM 8.2 mg/dL (8.5-10.3); CREATININE 0.8 mg/dL (0.4-1.0); TOTAL PROTEIN 6.4 g/dL (6.7-8.2)
[2019-02-19] MEDS: ACETAMINOPHEN 1,000 MG/100 ML 100 ML IV PRN ×3 (05:16→22:57)
[2019-02-19] MEDS: PANTOPRAZOLE 40 MG VIAL IVP SCH (05:53)
[2019-02-19 06:10] LABS: BASOPHILS % (AUTO) 0.5 %; EOSINOPHILS % (AUTO) 0.5 %; HGB - HEMOGLOBIN 14.9 g/dL (12.0-16.0); LYMPHOCYTES # (AUTO) 1.3 10^3/uL (1.5-3.5); LYMPHOCYTES % (AUTO) 20.9 %; MEAN CORPUSCULAR HEMOGLOBIN 33.6 pg (27.0-31.0); MEAN CORPUSCULAR HGB CONC 33.3 g/dL (32.0-36.0); MEAN CORPUSCULAR VOLUME 100.7 fL (81.0-99.0); MEAN PLATELET VOLUME 10.7 fL (7.9-10.8); MONOCYTES # (AUTO) 1.4 10^3/uL (0.0-1.0); MONOCYTES % (AUTO) 21.8 %; NEUTROPHILS # (AUTO) 3.6 10^3/uL (1.5-6.6); NEUTROPHILS % (AUTO) 55.8 %; PLT - PLATELET COUNT 180 10^3/uL (130-450); RED BLOOD COUNT 4.44 10^6/uL (4.20-5.40); RED CELL DISTRIBUTION WIDTH 13.3 % (12.0-15.0); WHITE BLOOD COUNT 6.4 x10^3/uL (4.8-10.8)
[2019-02-19] MEDS ORDERED: LEVOTHYROXINE 75 MCG TABLET PO SCH (07:00)
[2019-02-19] MEDS: SODIUM CHLORIDE 0.9% 1,000 ML IV SCH (12:09)
--- NOTE | 2019-02-19 13:52 | XRAY Report ---
Reason: small bowel obstruction Procedure Date: 02/19/2019 Accession Number: [id number] / [id number] Procedure: XR - Abdomen Acute CPT Code: Final Report FULL RESULT: EXAM: ABDOMINAL SERIES AND PA CHEST EXAM DATE: 02/19/2019 01:39 PM. CLINICAL HISTORY: Small bowel obstruction. COMPARISON: CHEST 1 VIEW 02/18/2019 2:38 PM ABDOMEN/PELVIS W/ 02/17/2019 3:26 PM. TECHNIQUE: 2 views abdomen and 1 view chest. FINDINGS: CHEST: Lungs/Pleura: No focal opacities. No effusion or pneumothorax. Mediastinum: Stable moderate enlargement of cardiac silhouette. Atherosclerotic calcifications of the aortic arch. ABDOMEN: Bowel Gas Pattern: Redemonstrated large hiatal hernia which protrudes over the right long base. Enteric tube tip projects over the right lung base over gastric air bubble which appears decreased in distention from prior exam. Numerous surgical clips over the midline upper abdomen. Redemonstrated dilated loops of bowel with air-fluid levels, similar to prior exam. Moderate stool in right colon as well as colon near splenic flexure. Free Air: No obvious free air seen on upright imaging. Other: Degenerative changes in the spine. IMPRESSION: 1. Similar appearance of dilated loops of small bowel and air-fluid levels compatible with small bowel obstruction. 2. Redemonstration of large hiatal hernia. 3. Stable cardiomegaly. [facility]
[2019-02-19] MEDS ORDERED: BISACODYL 10 MG SUPP PR PRN (14:31)
[2019-02-19] MEDS ORDERED: DIATR MEGLU/DIATRIZOATE SODIUM 120 ML BOTTLE PO ONE (14:36)
--- NOTE | 2019-02-19 16:23 | PROVIDER PROGRESS NOTE ---
Assessment/Plan - Problem List (1) Partial small bowel obstruction Assessment/Plan: Awaiting further BMs or flatus after last night's small BM, but none occurred by noon. Abdominal films still show dilated loops without much change. The Gastrografin challenge would be the next step. The surgeon and I both ordered this with a series of small bowel follow-through images in the x-ray department. There is no radiologist here after 3:30 PM today therefore this could not be started today, will begin at 0845 tomorrow, per the [employer] Helper. Continue with NG to suction, for decompression. Continue with walking to help with releaving the obstruction. Continue gentle hydration, while npo. She is off her Coumadin now, her INR has drifted down to 1.6. Coumadin will be on hold, no Lovenox currently if there is a chance of needing surgery. (2) Chronic systolic congestive heart failure, NYHA class 2 Assessment/Plan: No signs of overt heart failure, especially no shortness of breath with walking. The BNP is actually improving every day. Continue with her beta-john in IV form. She remains off of her Lasix while she is getting very gentle hydration (3) Atrial fibrillation Qualifiers: Atrial fibrillation type: chronic Assessment/Plan: At presentation she was tachycardic, since she had been throwing up her oral beta-john for 3 days. IV beta-jonh has been started yesterday Continue with telemetry and present management. She is off her Coumadin now, her INR has drifted down to 1.6. Coumadin will be on hold, no Lovenox currently if there is a chance of needing surgery. (4) Hyponatremia Assessment/Plan: Likely related to Lasix use plus volume depletion from vomiting. Yesterday's sodium 131, improving to 134 today. Follow BMP daily. Continue gentle hydration (5) UGI bleed Assessment/Plan: Her vomitus was tested for heme and it was positive. This is an additional reason that Coumadin is on hold. The CBC showed no anemia. Follow hemoglobin daily (6) Hypothyroidism Assessment/Plan: The TSH is acceptable at 3.9. Since she cannot get the NG out today, and remains npo, will plan IV thyroid replacement which is given every 3 days. (7) History of asthma Assessment/Plan: PRN inhalers. (8) History of hypertension Assessment/Plan: Blood pressure is currently stable (9) Elevated INR Assessment/Plan: Resolved after she got 1 dose of vitamin K at presentation (10) Dehydration Assessment/Plan: Resolved with gentle hydration - Current Meds Current Meds: Current Medications Generic Name Dose Route Start Last Admin Trade Name Freq PRN Reason Stop Dose Admin Acetaminophen 100 mls @ 400 mls/hr 02/18/19 19:08 02/19/19 05:54 Ofirmev IV Infused Q6HR PRN Infusion PAIN Sodium Chloride 1,000 mls @ 75 mls/hr 02/18/19 23:00 02/19/19 12:09 Normal Saline 0.9% IV 75 mls/hr .[id number] RAYNA Administration Metoclopramide HCl 5 mg 02/17/19 18:34 02/18/19 09:03 Reglan Inj IVP 5 mg Q6HR PRN Administration Nausea / Vomiting Metoprolol Tartrate 5 mg 02/17/19 17:16 02/17/19 18:51 Lopressor Inj IVP 5 mg Q6H PRN Administration afib Metoprolol Tartrate 5 mg 02/18/19 12:30 02/19/19 12:09 Lopressor Inj IVP 5 mg Q8H RAYNA Administration Pantoprazole Sodium 40 mg 02/18/19 07:00 02/19/19 05:53 Protonix IVP 40 mg QDAC RAYNA Administration Sodium Chloride 10 ml 02/18/19 01:00 02/19/19 07:41 Normal Saline Flush 0.9% IVP Not Given 0100,0900,1700 RAYNA - Lab Result Fish Bone Diagrams: 02/19/19 06:00 02/19/19 04:30 - Additional Planning My Orders: My Active Orders 02/18/19 14:35 NG Tube Care [RC] Q4HR 02/18/19 15:10 Miscellaenous Nursing Order [RC] ONCE 02/18/19 15:51 Daily Weight [RC] 0600 02/18/19 19:08 Acetaminophen 1,000 mg/100 ml [Ofirmev] 100 ml IV Q6HR 02/19/19 14:37 Miscellaenous Nursing Order [RC] ONCE 02/20/19 02:35 No-Charge 1V Abdomen [XR] Timed 02/20/19 09:00 Small Bowel Follow Through [FL] Routine 02/20/19 14:35 No-Charge 1V Abdomen [XR] Timed Subjective - Subjective Patient Reports: Feeling Better, Resting Comfortably Nursing Reports: Other (She had a small luma, brown BM last night) Objective Vital Signs: Vital Signs - 24 hr 02/18/19 02/18/19 02/18/19 15:38 19:46 20:10 Temperature 36.9 C 37.0 C Heart Rate 97 Heart Rate [ 89 97 Radial] Respiratory 18 18 18 Rate Blood Pressure Blood Pressure 129/77 133/74 H [Right Brachial artery] O2 Saturation 96 97 02/18/19 02/18/19 02/19/19 20:21 23:04 04:00 Temperature 37.0 C 36.6 C Heart Rate Heart Rate [ 85 93 Radial] Respiratory 16 16 Rate Blood Pressure 129/75 Blood Pressure 113/54 L 113/60 [Right Brachial artery] O2 Saturation 93 94 02/19/19 02/19/19 02/19/19 04:37 05:51 06:09 Temperature Heart Rate Heart Rate [ 98 Radial] Respiratory Rate Blood Pressure 106/59 L 140/75 H Blood Pressure 137/85 H [Right Brachial artery] O2 Saturation 02/19/19 02/19/19 02/19/19 06:20 06:34 08:39 Temperature 37.4 C Heart Rate Heart Rate [ 87 78 87 Radial] Respiratory 16 Rate Blood Pressure Blood Pressure 132/81 H 120/82 H 138/69 H [Right Brachial artery] O2 Saturation 97 02/19/19 02/19/19 02/19/19 09:20 12:09 12:16 Temperature 37 C Heart Rate 97 Heart Rate [ 100 Radial] Respiratory 16 16 Rate Blood Pressure 127/82 H Blood Pressure 127/82 H [Right Brachial artery] O2 Saturation 99 Oxygen O2 Source [With Activity] Room air O2 Source Room air I&O (Last 24 Hrs): Intake and Output Totals x24h 02/17/19 02/18/19 02/19/19 23:59 23:59 23:59 Intake Total 1050.25 2130 1125.00 Output Total 250 1600 850 Balance 800.25 530 275.00 General: Alert, Oriented x3 HEENT: Mucous membr. moist/pink Neck: Supple Neuro: Alert, Non Focal Cardiovascular: No murmurs Respiratory: No respiratory distress Abdomen: Soft, Other (decreased bowel sounds) Extremities: No edema - Results Results: Laboratory Results WBC 6.4 x10^3/uL (4.8-10.8) 02/19/19 06:00 RBC 4.44 10^6/uL (4.20-5.40) 02/19/19 06:00 Hgb 14.9 g/dL (12.0-16.0) 02/19/19 06:00 Hct 44.7 % (37.0-47.0) 02/19/19 06:00 MCV 100.7 fL (81.0-99.0) H 02/19/19 06:00 MCH 33.6 pg (27.0-31.0) H 02/19/19 06:00 MCHC 33.3 g/dL (32.0-36.0) 02/19/19 06:00 RDW 13.3 % (12.0-15.0) 02/19/19 06:00 Plt Count 180 10^3/uL (130-450) 02/19/19 06:00 MPV 10.7 fL (7.9-10.8) 02/19/19 06:00 Neut # (Auto) 3.6 10^3/uL (1.5-6.6) 02/19/19 06:00 Lymph # (Auto) 1.3 10^3/uL (1.5-3.5) L 02/19/19 06:00 [place] # (Auto) 1.4 10^3/uL (0.0-1.0) H 02/19/19 06:00 Eos # (Auto) 0.0 10^3/uL (0.0-0.7) 02/19/19 06:00 Baso # (Auto) 0.0 10^3/uL (0.0-0.1) 02/19/19 06:00 Absolute Nucleated RBC 0.00 x10^3/uL 02/19/19 06:00 Nucleated RBC % 0.0 /100WBC 02/19/19 06:00 PT 18.0 secs (9.9-12.6) H 02/19/19 04:30 INR 1.6 (0.8-1.2) H 02/19/19 04:30 Sodium 134 mmol/L (135-145) L 02/19/19 04:30 Potassium 3.7 mmol/L (3.5-5.0) 02/19/19 04:30 Chloride 103 mmol/L (101-111) 02/19/19 04:30 Carbon Dioxide 22 mmol/L (21-32) 02/19/19 04:30 Anion Gap 9.0 (6-13) 02/19/19 04:30 BUN 26 mg/dL (6-20) H 02/19/19 04:30 Creatinine 0.8 mg/dL (0.4-1.0) 02/19/19 04:30 Estimated GFR (MDRD) 71 (>89) L 02/19/19 04:30 Glucose 84 mg/dL (70-100) 02/19/19 04:30 POC Whole Bld Glucose 64 mg/dL (70 - 100) L 02/19/19 08:15 Lactic Acid 1.6 mmol/L (0.5-2.2) 02/17/19 16:17 Calcium 8.2 mg/dL (8.5-10.3) L 02/19/19 04:30 Total Bilirubin 2.0 mg/dL (0.2-1.0) H 02/19/19 04:30 AST 31 IU/L (10-42) 02/19/19 04:30 ALT 21 IU/L (10-60) 02/19/19 04:30 Alkaline Phosphatase 48 IU/L (42-121) 02/19/19 04:30 Troponin I High Sens 41.0 ng/L (2.3-14.8) H* 02/17/19 16:17 B-Natriuretic Peptide 438 pg/mL (5-100) H 02/19/19 06:00 Total Protein 6.4 g/dL (6.7-8.2) L 02/19/19 04:30 Albumin 3.3 g/dL (3.2-5.5) 02/19/19 04:30 Globulin 3.1 g/dL (2.1-4.2) 02/19/19 04:30 Albumin/Globulin Ratio 1.1 (1.0-2.2) 02/19/19 04:30 Lipase 27 U/L (22-51) 02/17/19 13:35 TSH 3.93 uIU/mL (0.34-5.60) 02/18/19 03:00 Urine Color YELLOW 02/17/19 16:30 Urine Clarity HAZY (CLEAR) 02/17/19 16:30 Urine pH 6.5 PH (5.0-7.5) 02/17/19 16:30 Ur Specific [place] <=1.005 (1.002-1.030) 02/17/19 16:30 Urine Protein TRACE mg/dL (NEGATIVE) 02/17/19 16:30 Urine Glucose (UA) NEGATIVE mg/dL (NEGATIVE) 02/17/19 16:30 Urine Ketones NEGATIVE mg/dL (NEGATIVE) 02/17/19 16:30 Urine Occult Blood SMALL (NEGATIVE) H 02/17/19 16:30 Urine Nitrite NEGATIVE (NEGATIVE) 02/17/19 16:30 Urine Bilirubin NEGATIVE (NEGATIVE) 02/17/19 16:30 Urine Urobilinogen 0.2 (NORMAL) E.U./dL (NORMAL) 02/17/19 16:30 Ur Leukocyte Esterase NEGATIVE (NEGATIVE) 02/17/19 16:30 Urine RBC 6-10 /HPF (0-5) H 02/17/19 16:30 Urine WBC 0-3 /HPF (0-5) 02/17/19 16:30 Ur Squamous Epith Cells FEW Squamous (<= Few) 02/17/19 16:30 Urine Bacteria None Seen /HPF (None Seen) 02/17/19 16:30 Ur Microscopic Review INDICATED 02/17/19 16:30 Gastric Fluid pH 5.0 02/17/19 14:32 Gastric Occult Blood POSITIVE (Negative) A 02/17/19 14:32 Sepsis Event Note (H) - Evaluation Current Stage of Sepsis: Ruled out
[2019-02-19] MEDS: SODIUM CHLORIDE FLUSH 0.9% 10 ML SYRINGE IVP PRN (16:52)
--- NOTE | 2019-02-19 17:11 | PROVIDER PROGRESS NOTE ---
Assessment/Plan - Current Meds Current Meds: Current Medications Generic Name Dose Route Start Last Admin Trade Name Freq PRN Reason Stop Dose Admin Bisacodyl 10 mg 02/19/19 14:31 02/19/19 16:40 Dulcolax Supp MS 10 mg DAILY PRN Administration Constipation Acetaminophen 100 mls @ 400 mls/hr 02/18/19 19:08 02/19/19 16:39 Ofirmev IV 400 mls/hr Q6HR PRN Administration PAIN Sodium Chloride 1,000 mls @ 75 mls/hr 02/18/19 23:00 02/19/19 12:09 Normal Saline 0.9% IV 75 mls/hr .[id number] RAYNA Administration Metoclopramide HCl 5 mg 02/17/19 18:34 02/18/19 09:03 Reglan Inj IVP 5 mg Q6HR PRN Administration Nausea / Vomiting Metoprolol Tartrate 5 mg 02/17/19 17:16 02/17/19 18:51 Lopressor Inj IVP 5 mg Q6H PRN Administration afib Metoprolol Tartrate 5 mg 02/18/19 12:30 02/19/19 12:09 Lopressor Inj IVP 5 mg Q8H RAYNA Administration Pantoprazole Sodium 40 mg 02/18/19 07:00 02/19/19 05:53 Protonix IVP 40 mg QDAC RAYNA Administration Sodium Chloride 10 ml 02/17/19 17:07 02/19/19 16:52 Normal Saline Flush 0.9% IVP 10 ml PRN PRN Administration NEEDED PER PROVIDER ORDERS Sodium Chloride 10 ml 02/18/19 01:00 02/19/19 16:40 Normal Saline Flush 0.9% IVP Not Given 0100,0900,1700 RAYNA - Lab Result Lab results reviewed: Yes Fish Bone Diagrams: 02/19/19 06:00 02/19/19 04:30 - Additional Planning My Orders: My Active Orders 02/19/19 14:31 Bisacodyl Supp [Dulcolax Supp] 10 mg MS DAILY PRN Plan Discussed with:: Patient, Family Additional Planning Notes: Passing flatus today per patient and her sister. Has had several small hard bowel movements and nausea has abated with NGT in place. Abdominal films still show dilated loops without much change. Gastrograffin challenge ordered and discussed with radiology. Due to availability of Radiologist, could not be completed today. Will start the procedure at 0900 in the AM. Would very much hope to manage this nonoperatively as she is a fairly high risk surgical candidate. Both patient and her sister are in agreement with our plan. Subjective - Subjective Patient Reports: Feeling Better, Abdominal Pain (throat discomfort from NGT) Objective Vital Signs: Vital Signs - 24 hr 02/18/19 02/18/19 02/18/19 19:46 20:10 20:21 Temperature 37.0 C Heart Rate 97 Heart Rate [ 97 Radial] Respiratory 18 18 Rate Blood Pressure 129/75 Blood Pressure 133/74 H [Right Brachial artery] O2 Saturation 97 02/18/19 02/19/19 02/19/19 23:04 04:00 04:37 Temperature 37.0 C 36.6 C Heart Rate Heart Rate [ 85 93 Radial] Respiratory 16 16 Rate Blood Pressure 106/59 L Blood Pressure 113/54 L 113/60 [Right Brachial artery] O2 Saturation 93 94 02/19/19 02/19/19 02/19/19 05:51 06:09 06:20 Temperature Heart Rate Heart Rate [ 98 87 Radial] Respiratory Rate Blood Pressure 140/75 H Blood Pressure 137/85 H 132/81 H [Right Brachial artery] O2 Saturation 02/19/19 02/19/19 02/19/19 06:34 08:39 09:20 Temperature 37.4 C Heart Rate 97 Heart Rate [ 78 87 Radial] Respiratory 16 16 Rate Blood Pressure Blood Pressure 120/82 H 138/69 H [Right Brachial artery] O2 Saturation 97 02/19/19 02/19/19 02/19/19 12:09 12:16 15:58 Temperature 37 C 36.7 C Heart Rate Heart Rate [ 100 100 Radial] Respiratory 16 18 Rate Blood Pressure 127/82 H Blood Pressure 127/82 H 124/75 [Right Brachial artery] O2 Saturation 99 97 Oxygen O2 Source [With Activity] Room air O2 Source Room air I&O (Last 24 Hrs): Intake and Output Totals x24h 02/17/19 02/18/19 02/19/19 23:59 23:59 23:59 Intake Total 1050.25 2130 1125.00 Output Total 250 1600 850 Balance 800.25 530 275.00 General: Alert, Cooperative, No acute distress HEENT: Atraumatic, PERRLA Abdomen: Normal bowel sounds, Soft, No tenderness - Results Results: Laboratory Results WBC 6.4 x10^3/uL (4.8-10.8) 02/19/19 06:00 RBC 4.44 10^6/uL (4.20-5.40) 02/19/19 06:00 Hgb 14.9 g/dL (12.0-16.0) 02/19/19 06:00 Hct 44.7 % (37.0-47.0) 02/19/19 06:00 MCV 100.7 fL (81.0-99.0) H 02/19/19 06:00 MCH 33.6 pg (27.0-31.0) H 02/19/19 06:00 MCHC 33.3 g/dL (32.0-36.0) 02/19/19 06:00 RDW 13.3 % (12.0-15.0) 02/19/19 06:00 Plt Count 180 10^3/uL (130-450) 02/19/19 06:00 MPV 10.7 fL (7.9-10.8) 02/19/19 06:00 Neut # (Auto) 3.6 10^3/uL (1.5-6.6) 02/19/19 06:00 Lymph # (Auto) 1.3 10^3/uL (1.5-3.5) L 02/19/19 06:00 [place] # (Auto) 1.4 10^3/uL (0.0-1.0) H 02/19/19 06:00 Eos # (Auto) 0.0 10^3/uL (0.0-0.7) 02/19/19 06:00 Baso # (Auto) 0.0 10^3/uL (0.0-0.1) 02/19/19 06:00 Absolute Nucleated RBC 0.00 x10^3/uL 02/19/19 06:00 Nucleated RBC % 0.0 /100WBC 02/19/19 06:00 PT 18.0 secs (9.9-12.6) H 02/19/19 04:30 INR 1.6 (0.8-1.2) H 02/19/19 04:30 Sodium 134 mmol/L (135-145) L 02/19/19 04:30 Potassium 3.7 mmol/L (3.5-5.0) 02/19/19 04:30 Chloride 103 mmol/L (101-111) 02/19/19 04:30 Carbon Dioxide 22 mmol/L (21-32) 02/19/19 04:30 Anion Gap 9.0 (6-13) 02/19/19 04:30 BUN 26 mg/dL (6-20) H 02/19/19 04:30 Creatinine 0.8 mg/dL (0.4-1.0) 02/19/19 04:30 Estimated GFR (MDRD) 71 (>89) L 02/19/19 04:30 Glucose 84 mg/dL (70-100) 02/19/19 04:30 POC Whole Bld Glucose 64 mg/dL (70 - 100) L 02/19/19 08:15 Lactic Acid 1.6 mmol/L (0.5-2.2) 02/17/19 16:17 Calcium 8.2 mg/dL (8.5-10.3) L 02/19/19 04:30 Total Bilirubin 2.0 mg/dL (0.2-1.0) H 02/19/19 04:30 AST 31 IU/L (10-42) 02/19/19 04:30 ALT 21 IU/L (10-60) 02/19/19 04:30 Alkaline Phosphatase 48 IU/L (42-121) 02/19/19 04:30 Troponin I High Sens 41.0 ng/L (2.3-14.8) H* 02/17/19 16:17 B-Natriuretic Peptide 438 pg/mL (5-100) H 02/19/19 06:00 Total Protein 6.4 g/dL (6.7-8.2) L 02/19/19 04:30 Albumin 3.3 g/dL (3.2-5.5) 02/19/19 04:30 Globulin 3.1 g/dL (2.1-4.2) 02/19/19 04:30 Albumin/Globulin Ratio 1.1 (1.0-2.2) 02/19/19 04:30 Lipase 27 U/L (22-51) 02/17/19 13:35 TSH 3.93 uIU/mL (0.34-5.60) 02/18/19 03:00 Urine Color YELLOW 02/17/19 16:30 Urine Clarity HAZY (CLEAR) 02/17/19 16:30 Urine pH 6.5 PH (5.0-7.5) 02/17/19 16:30 Ur Specific [place] <=1.005 (1.002-1.030) 02/17/19 16:30 Urine Protein TRACE mg/dL (NEGATIVE) 02/17/19 16:30 Urine Glucose (UA) NEGATIVE mg/dL (NEGATIVE) 02/17/19 16:30 Urine Ketones NEGATIVE mg/dL (NEGATIVE) 02/17/19 16:30 Urine Occult Blood SMALL (NEGATIVE) H 02/17/19 16:30 Urine Nitrite NEGATIVE (NEGATIVE) 02/17/19 16:30 Urine Bilirubin NEGATIVE (NEGATIVE) 02/17/19 16:30 Urine Urobilinogen 0.2 (NORMAL) E.U./dL (NORMAL) 02/17/19 16:30 Ur Leukocyte Esterase NEGATIVE (NEGATIVE) 02/17/19 16:30 Urine RBC 6-10 /HPF (0-5) H 02/17/19 16:30 Urine WBC 0-3 /HPF (0-5) 02/17/19 16:30 Ur Squamous Epith Cells FEW Squamous (<= Few) 02/17/19 16:30 Urine Bacteria None Seen /HPF (None Seen) 02/17/19 16:30 Ur Microscopic Review INDICATED 02/17/19 16:30 Gastric Fluid pH 5.0 02/17/19 14:32 Gastric Occult Blood POSITIVE (Negative) A 02/17/19 14:32 Sepsis Event Note (H) - Evaluation Current Stage of Sepsis: Ruled out ABX Reporting Has patient been on IV antibiotics over the past 48 hours?: No Current Medications - Current Medications Current Medications: Active Medications Generic Name Dose Route Start Last Admin Trade Name Freq PRN Reason Stop Dose Admin Albuterol 2.5 mg 02/17/19 18:01 INH RTQ4H PRN Wheezing Bisacodyl 10 mg 02/19/19 14:31 02/19/19 16:40 Dulcolax Supp MS 10 mg DAILY PRN Administration Constipation Acetaminophen 100 mls @ 400 mls/hr 02/18/19 19:08 02/19/19 16:39 Ofirmev IV 400 mls/hr Q6HR PRN Administration PAIN Sodium Chloride 1,000 mls @ 75 mls/hr 02/18/19 23:00 02/19/19 12:09 Normal Saline 0.9% IV 75 mls/hr .[id number] RAYNA Administration Metoclopramide HCl 5 mg 02/17/19 18:34 02/18/19 09:03 Reglan Inj IVP 5 mg Q6HR PRN Administration Nausea / Vomiting Metoprolol Tartrate 5 mg 02/17/19 17:16 02/17/19 18:51 Lopressor Inj IVP 5 mg Q6H PRN Administration afib Metoprolol Tartrate 5 mg 02/18/19 12:30 02/19/19 12:09 Lopressor Inj IVP 5 mg Q8H RAYNA Administration Multi-Ingredient Ointment 1 applic 02/17/19 22:29 Zinc Oxide TOP PRN PRN skin care Ondansetron HCl 4 mg 02/17/19 17:07 Zofran Inj IVP Q6HR PRN Nausea / Vomiting Pantoprazole Sodium 40 mg 02/18/19 07:00 02/19/19 05:53 Protonix IVP 40 mg QDAC RAYNA Administration Sodium Chloride 10 ml 02/17/19 17:07 02/19/19 16:52 Normal Saline Flush 0.9% IVP 10 ml PRN PRN Administration NEEDED PER PROVIDER ORDERS Sodium Chloride 10 ml 02/18/19 01:00 02/19/19 16:40 Normal Saline Flush 0.9% IVP Not Given 0100,0900,1700 RAYNA Loratadine [Claritin] 10 mg PO DAILY 08/01/12 Oxybutynin [Ditropan] 5 mg PO BID 08/01/12 Warfarin [Coumadin] 4 mg PO SUMOTUTHSA@0700 03/01/17 Warfarin [Coumadin] 5 mg PO WEFR@0703/01/17 Furosemide 20 mg PO MOWEFR@69902/17/19 Levothyroxine Sodium 75 mcg ORAL QDAC 02/17/19 Metoprolol Succinate 25 mg PO DAILY 02/17/19 Spironolactone 12.5 mg PO DAILY 02/17/19
[2019-02-19] MEDS: BENZOCAINE/MENTHOL LOZENGE MM PRN ×2 (19:47→20:22)
[2019-02-19] MEDS ORDERED: DEXTROSE 10% 250 ML IV STA (22:57)
[2019-02-19] MEDS ORDERED: DEXTROSE 5%-0.45% NACL 1,000 ML IV SCH ×2 (23:00→23:04)
[2019-02-20] MEDS: SODIUM CHLORIDE FLUSH 0.9% 10 ML SYRINGE IVP SCH ×3 (00:58→06:15)
--- NOTE | 2019-02-20 03:30 | XRAY Report ---
Reason: SBO Procedure Date: 02/20/2019 Accession Number: [id number] / [id number] Procedure: XR - No-Charge 1V Abdomen CPT Code: 44756 Final Report FULL RESULT: EXAM: ABDOMEN RADIOGRAPHY EXAM DATE: 02/20/2019 02:41 AM. CLINICAL HISTORY: Small bowel obstruction. COMPARISON: ABDOMEN ACUTE 02/19/2019 1:24 PM. TECHNIQUE: 1 view. FINDINGS: Bowel Gas Pattern: Dilated small bowel loops. Moderate stool in the colon. Other: Postoperative changes. Enteric tube tip in large hiatal hernia. IMPRESSION: 1. Dilated small bowel loops consistent with obstruction. 2. Moderate stool in the colon. RADIA
[2019-02-20] MEDS: METOPROLOL 5 MG/5 ML VIAL IVP SCH ×4 (04:30→20:28)
[2019-02-20 04:56] LABS: BASOPHILS % (AUTO) 0.7 %; EOSINOPHILS # (AUTO) 0.1 10^3/uL (0.0-0.7); EOSINOPHILS % (AUTO) 1.3 %; HGB - HEMOGLOBIN 15.2 g/dL (12.0-16.0); LYMPHOCYTES # (AUTO) 1.5 10^3/uL (1.5-3.5); MEAN CORPUSCULAR HEMOGLOBIN 33.6 pg (27.0-31.0); MEAN CORPUSCULAR HGB CONC 34.1 g/dL (32.0-36.0); MEAN CORPUSCULAR VOLUME 98.5 fL (81.0-99.0); MEAN PLATELET VOLUME 10.6 fL (7.9-10.8); MONOCYTES % (AUTO) 17.5 %; NEUTROPHILS # (AUTO) 2.8 10^3/uL (1.5-6.6); NEUTROPHILS % (AUTO) 51.9 %; PLT - PLATELET COUNT 178 10^3/uL (130-450); RED BLOOD COUNT 4.53 10^6/uL (4.20-5.40); WHITE BLOOD COUNT 5.4 x10^3/uL (4.8-10.8)
[2019-02-20 05:11] LABS: ALBUMIN 3.4 g/dL (3.2-5.5); ALBUMIN/GLOBULIN RATIO 1.1 (1.0-2.2); BILIRUBIN,TOTAL 2.1 mg/dL (0.2-1.0); CALCIUM 8.7 mg/dL (8.5-10.3); CREATININE 0.7 mg/dL (0.4-1.0); TOTAL PROTEIN 6.6 g/dL (6.7-8.2)
[2019-02-20 05:17] LABS: INR 1.6 (0.8-1.2); PT - PROTHROMBIN TIME 18.1 secs (9.9-12.6)
[2019-02-20] MEDS: PANTOPRAZOLE 40 MG VIAL IVP SCH (06:14)
--- NOTE | 2019-02-20 06:54 | PROVIDER PROGRESS NOTE ---
Subjective - Prog Note Date Prog Note Date: 02/20/19 Prog Note Time: 06:52 - Subjective Pt reports feeling: Improved Subjective: Misti reports feeling better today. She denies any abdominal pain. She says she passed a little flatus last night but no additional bowel movements. Denies shortness of breath. Current Medications - Current Medications Current Medications: Active Medications Generic Name Dose Route Start Last Admin Trade Name Freq PRN Reason Stop Dose Admin Albuterol 2.5 mg 02/17/19 18:01 INH RTQ4H PRN Wheezing Bisacodyl 10 mg 02/19/19 14:31 02/19/19 16:40 Dulcolax Supp [place] 10 mg DAILY PRN Administration Constipation Acetaminophen 100 mls @ 400 mls/hr 02/18/19 19:08 02/19/19 23:15 Ofirmev IV Infused Q6HR PRN Infusion PAIN Dextrose/Sodium Chloride 1,000 mls @ 75 mls/hr 02/19/19 23:04 02/19/19 23:13 D5.45ns IV 75 mls/hr .[id number] RAYNA Administration Metoclopramide HCl 5 mg 02/17/19 18:34 02/18/19 09:03 Reglan Inj IVP 5 mg Q6HR PRN Administration Nausea / Vomiting Metoprolol Tartrate 5 mg 02/17/19 17:16 02/17/19 18:51 Lopressor Inj IVP 5 mg Q6H PRN Administration afib Metoprolol Tartrate 5 mg 02/18/19 12:30 02/20/19 04:30 Lopressor Inj IVP 5 mg Q8H RAYNA Administration Multi-Ingredient Ointment 1 applic 02/17/19 22:29 Zinc Oxide TOP PRN PRN skin care Ondansetron HCl 4 mg 02/17/19 17:07 Zofran Inj IVP Q6HR PRN Nausea / Vomiting Pantoprazole Sodium 40 mg 02/18/19 07:00 02/20/19 06:14 Protonix IVP 40 mg QDAC RAYNA Administration Sodium Chloride 10 ml 02/17/19 17:07 02/19/19 16:52 Normal Saline Flush 0.9% IVP 10 ml PRN PRN Administration NEEDED PER PROVIDER ORDERS Sodium Chloride 10 ml 02/18/19 01:00 02/20/19 06:15 Normal Saline Flush 0.9% IVP 10 ml 0100,0900,1700 RAYNA Administration Throat Lozenges 1 lozenge 02/19/19 17:14 02/19/19 20:22 Cepacol MM 1 lozenge Q2HR PRN Administration Mouth Sore Pain Loratadine [Claritin] 10 mg PO DAILY 08/01/12 Oxybutynin [Ditropan] 5 mg PO BID 08/01/12 Warfarin [Coumadin] 4 mg PO SUMOTUTHSA@69903/01/17 Warfarin [Coumadin] 5 mg PO WEFR@69903/01/17 Furosemide 20 mg PO MOWEFR@69902/17/19 Levothyroxine Sodium 75 mcg ORAL QDAC 02/17/19 Metoprolol Succinate 25 mg PO DAILY 02/17/19 Spironolactone 12.5 mg PO DAILY 02/17/19 Objective - Vital Signs/Intake & Output Reviewed Vital Signs: Yes Vital Signs: Vital Signs x48h Temp Pulse Resp BP BP BP Pulse Ox 02/20/19 05:30 109 H 135/79 H 02/20/19 05:15 91 143/76 H 02/20/19 05:00 109 H 138/76 H 02/20/19 04:45 81 131/68 H 02/20/19 04:43 92 133/76 H 02/20/19 04:40 103 H 145/88 H 02/20/19 04:30 134/80 H 02/20/19 04:00 36.4 C L 91 16 134/80 H 96 02/20/19 00:36 36.7 C 85 18 139/70 H 96 Intake & Output: Intake & Output 02/17/19 02/18/19 02/19/19 02/20/19 23:59 23:59 23:59 23:59 Intake Total 1050.25 2130 2426.25 Output Total 250 1600 1350 400 Balance 800.25 530 1076.25 -400 - Objective General Appearance: positive: No acute distress, Alert Eyes Bilateral: positive: Normal inspection, PERRL, EOMI Respiratory: positive: Chest non-tender, No respiratory distress Abdomen: positive: No distention, Tenderness, Abnml bowel sounds (Hypoactive bowel sounds) Skin: positive: Color nml, No rash - Lab Results Fish Bones: 02/20/19 04:50 02/20/19 04:50 Other Labs: Lab Results x24hrs 02/20/19 02/20/19 02/20/19 Range/Units 05:33 04:50 04:50 WBC 5.4 (4.8-10.8) x10^3/uL RBC 4.53 (4.20-5.40) 10^6/uL Hgb 15.2 (12.0-16.0) g/dL Hct 44.6 (37.0-47.0) % MCV 98.5 (81.0-99.0) fL MCH 33.6 H (27.0-31.0) pg MCHC 34.1 (32.0-36.0) g/dL RDW 13.0 (12.0-15.0) % Plt Count 178 (130-450) 10^3/uL MPV 10.6 (7.9-10.8) fL Neut # (Auto) 2.8 (1.5-6.6) 10^3/uL Lymph # (Auto) 1.5 (1.5-3.5) 10^3/uL [place] # (Auto) 1.0 (0.0-1.0) 10^3/uL Eos # (Auto) 0.1 (0.0-0.7) 10^3/uL Baso # (Auto) 0.0 (0.0-0.1) 10^3/uL Absolute Nucleated RBC 0.00 x10^3/uL Nucleated RBC % 0.0 /100WBC PT (9.9-12.6) secs INR (0.8-1.2) Sodium 137 (135-145) mmol/L Potassium 3.6 (3.5-5.0) mmol/L Chloride 106 (101-111) mmol/L Carbon Dioxide 21 (21-32) mmol/L Anion Gap 10.0 (6-13) BUN 25 H (6-20) mg/dL Creatinine 0.7 (0.4-1.0) mg/dL Estimated GFR (MDRD) 82 L (>89) Glucose 79 (70-100) mg/dL POC Whole Bld Glucose 73 (70 - 100) mg/dL Calcium 8.7 (8.5-10.3) mg/dL Total Bilirubin 2.1 H (0.2-1.0) mg/dL AST 34 (10-42) IU/L ALT 21 (10-60) IU/L Alkaline Phosphatase 51 (42-121) IU/L B-Natriuretic Peptide (5-100) pg/mL Total Protein 6.6 L (6.7-8.2) g/dL Albumin 3.4 (3.2-5.5) g/dL Globulin 3.2 (2.1-4.2) g/dL Albumin/Globulin Ratio 1.1 (1.0-2.2) 02/20/19 02/19/19 02/19/19 Range/Units 04:50 23:35 22:52 WBC (4.8-10.8) x10^3/uL RBC (4.20-5.40) 10^6/uL Hgb (12.0-16.0) g/dL Hct (37.0-47.0) % MCV (81.0-99.0) fL MCH (27.0-31.0) pg MCHC (32.0-36.0) g/dL RDW (12.0-15.0) % Plt Count (130-450) 10^3/uL MPV (7.9-10.8) fL Neut # (Auto) (1.5-6.6) 10^3/uL Lymph # (Auto) (1.5-3.5) 10^3/uL [place] # (Auto) (0.0-1.0) 10^3/uL Eos # (Auto) (0.0-0.7) 10^3/uL Baso # (Auto) (0.0-0.1) 10^3/uL Absolute Nucleated RBC x10^3/uL Nucleated RBC % /100WBC PT 18.1 H (9.9-12.6) secs INR 1.6 H (0.8-1.2) Sodium (135-145) mmol/L Potassium (3.5-5.0) mmol/L Chloride (101-111) mmol/L Carbon Dioxide (21-32) mmol/L Anion Gap (6-13) BUN (6-20) mg/dL Creatinine (0.4-1.0) mg/dL Estimated GFR (MDRD) (>89) Glucose (70-100) mg/dL POC Whole Bld Glucose 200 H 54 L* (70 - 100) mg/dL Calcium (8.5-10.3) mg/dL Total Bilirubin (0.2-1.0) mg/dL AST (10-42) IU/L ALT (10-60) IU/L Alkaline Phosphatase (42-121) IU/L B-Natriuretic Peptide (5-100) pg/mL Total Protein (6.7-8.2) g/dL Albumin (3.2-5.5) g/dL Globulin (2.1-4.2) g/dL Albumin/Globulin Ratio (1.0-2.2) 02/19/19 02/19/19 Range/Units 08:15 06:00 WBC (4.8-10.8) x10^3/uL RBC (4.20-5.40) 10^6/uL Hgb (12.0-16.0) g/dL Hct (37.0-47.0) % MCV (81.0-99.0) fL MCH (27.0-31.0) pg MCHC (32.0-36.0) g/dL RDW (12.0-15.0) % Plt Count (130-450) 10^3/uL MPV (7.9-10.8) fL Neut # (Auto) (1.5-6.6) 10^3/uL Lymph # (Auto) (1.5-3.5) 10^3/uL [place] # (Auto) (0.0-1.0) 10^3/uL Eos # (Auto) (0.0-0.7) 10^3/uL Baso # (Auto) (0.0-0.1) 10^3/uL Absolute Nucleated RBC x10^3/uL Nucleated RBC % /100WBC PT (9.9-12.6) secs INR (0.8-1.2) Sodium (135-145) mmol/L Potassium (3.5-5.0) mmol/L Chloride (101-111) mmol/L Carbon Dioxide (21-32) mmol/L Anion Gap (6-13) BUN (6-20) mg/dL Creatinine (0.4-1.0) mg/dL Estimated GFR (MDRD) (>89) Glucose (70-100) mg/dL POC Whole Bld Glucose 64 L (70 - 100) mg/dL Calcium (8.5-10.3) mg/dL Total Bilirubin (0.2-1.0) mg/dL AST (10-42) IU/L ALT (10-60) IU/L Alkaline Phosphatase (42-121) IU/L B-Natriuretic Peptide 438 H (5-100) pg/mL Total Protein (6.7-8.2) g/dL Albumin (3.2-5.5) g/dL Globulin (2.1-4.2) g/dL Albumin/Globulin Ratio (1.0-2.2) ABX Reporting Has patient been on IV antibiotics over the past 48 hours?: No Sepsis Event Note (H) - Evaluation Current Stage of Sepsis: Ruled out Assessment/Plan - Problem List (1) Bowel obstruction Impression: WBC has normalized and pain has improved. NGT output remains high and there is n o real evidence of bowel function. Gastrograffin challenge today. I have discussed this case with our anesthesia service. If Misti requires surgical intervention, she is a very poor candidate for our facility and transfer to a tertiary care center should be strongly considered. Qualifiers: Intestinal obstruction type: unspecified Intestinal obstruction extent: unspecified extent Qualified Code(s): K56.609 - Unspecified intestinal obstruction, unspecified as to partial versus complete obstruction
--- NOTE | 2019-02-20 08:19 | XRAY Report ---
Reason: IMMEDIATE FILM Procedure Date: 02/20/2019 Accession Number: [id number] / [id number] Procedure: XR - No-Charge 1V Abdomen CPT Code: 04987 Final Report FULL RESULT: EXAM: ABDOMEN RADIOGRAPHY EXAM DATE: 02/20/2019 07:53 AM. CLINICAL HISTORY: Immediate film. Abdominal pain, Gastrografin challenge. COMPARISON: NO CHARGE 1V ABDOMEN 02/20/2019 2:20 AM ABDOMEN/PELVIS W/ 02/17/2019 3:26 PM. TECHNIQUE: 1 view. FINDINGS: Bowel Gas Pattern: Enteric tube projects to the right of the mediastinum, with contrast within stomach, suggesting a previous gastric pull-through. Numerous surgical clips are seen in the midabdomen, and a few clips are seen at the midline upper abdomen at the level of the diaphragm. A small amount of oral contrast is seen within nondilated bowel in the right midabdomen, presumably within duodenum. A small amount of oral contrast is also seen within the presumed remnant esophagus at the level of the aortic arch, at the top of the film. The pelvis is mostly off the field of view. Gaseous prominence of the visualized small bowel in the midabdomen and increased volume of stool indicated within the imaged portion of the transverse and descending colon. Other: None. IMPRESSION: Findings consistent with previous gastric pull-through with contrast within nondilated stomach and a portion of the presumed duodenum. RADIA
[2019-02-20] MEDS: BENZOCAINE/MENTHOL LOZENGE MM PRN (09:00)
--- NOTE | 2019-02-20 14:55 | PROVIDER PROGRESS NOTE ---
Assessment/Plan - Problem List (1) Partial small bowel obstruction Assessment/Plan: Gastrografin was given this morning. She is getting serial abdominal films. This has started to work therapeutically as well, she has had to moderate BMs. We will remove the NG. We will see if she can tolerate clear liquids. Continue with all her meds by IV yet today, until tomorrow, in case she fails the diet and vomits. (2) Chronic systolic congestive heart failure, NYHA class 2 Assessment/Plan: No signs of volume overload. Continue with IV metoprolol. Continue with gentle fluid hydration since she is only going to start sips of clear liquids today (3) Atrial fibrillation Qualifiers: Atrial fibrillation type: chronic Assessment/Plan: Heart rate is controlled with her IV metoprolol. The Coumadin was discontinued, INR has decreased into a non-therapeutic range. The chance for need for surgery therefore no Coumadin will be resumed yet. (4) UGI bleed Assessment/Plan: Her heme of gastric contents was positive. She likely had gastritis or Zoë-Tatum tear because of 3 days of vomiting before this admission. The hemoglobin has dropped from 18 at admission down to 14 but she is hemodiluted. An EGD would likely have to be done at higher level of care center because of her comorbidities making it high risk here. She is on empiric IV medications for ulcer prophylaxis (5) Hypothyroidism Assessment/Plan: TSH was stable. Her thyroid medication will be given IV x1 (since it is dosed at 1/2 of her usual po dose and every 3-5 days only).. (6) History of asthma Assessment/Plan: Pulmonary status is stable. (7) History of hypertension Assessment/Plan: Controlled on current management (8) Elevated INR Assessment/Plan: Resolved after vitamin K dosing x1 and then Coumadin not given while here (9) Dehydration Assessment/Plan: Resolved (10) Hyponatremia Assessment/Plan: Resolved - Current Meds Current Meds: Current Medications Generic Name Dose Route Start Last Admin Trade Name Freq PRN Reason Stop Dose Admin Bisacodyl 10 mg 02/19/19 14:31 02/19/19 16:40 Dulcolax Supp [place] 10 mg DAILY PRN Administration Constipation Acetaminophen 100 mls @ 400 mls/hr 02/18/19 19:08 02/19/19 23:15 Ofirmev IV Infused Q6HR PRN Infusion PAIN Metoclopramide HCl 5 mg 02/17/19 18:34 02/18/19 09:03 Reglan Inj IVP 5 mg Q6HR PRN Administration Nausea / Vomiting Metoprolol Tartrate 5 mg 02/20/19 08:00 02/20/19 14:36 Lopressor Inj IVP 5 mg Q6H RAYNA Administration Pantoprazole Sodium 40 mg 02/18/19 07:00 02/20/19 06:14 Protonix IVP 40 mg QDAC RAYNA Administration Sodium Chloride 10 ml 02/17/19 17:07 02/19/19 16:52 Normal Saline Flush 0.9% IVP 10 ml PRN PRN Administration NEEDED PER PROVIDER ORDERS Sodium Chloride 10 ml 02/18/19 01:00 02/20/19 06:15 Normal Saline Flush 0.9% IVP 10 ml 0100,0900,1700 RAYNA Administration Throat Lozenges 1 lozenge 02/19/19 17:14 02/20/19 09:00 Cepacol MM 1 lozenge Q2HR PRN Administration Mouth Sore Pain - Lab Result Fish Bone Diagrams: 02/20/19 04:50 02/20/19 04:50 - Additional Planning My Orders: My Active Orders 02/20/19 08:00 Metoprolol Inj [Lopressor Inj] 5 mg IVP Q6H 02/20/19 12:20 D5.45ns W/20 Meq KCl 1,000 ml IV 75 mls/hr 02/20/19 20:00 No-Charge 1V Abdomen [XR] Routine 02/20/19 Lunch Clear Liquid Diet [DIET] Subjective - Subjective Patient Reports: Feeling Better Nursing Reports: Other (Had to moderate sized BMs, after the morning Gastrograf in challenge) Objective Vital Signs: Vital Signs - 24 hr 02/19/19 02/19/19 02/19/19 15:58 20:15 20:16 Temperature 36.7 C 36.5 C Heart Rate 95 Heart Rate [ Brachial] Heart Rate [ 100 95 Radial] Respiratory 18 18 18 Rate Blood Pressure Blood Pressure [Left Brachial artery] Blood Pressure 124/75 140/79 H [Right Brachial artery] O2 Saturation 97 97 02/19/19 02/20/19 02/20/19 20:22 00:36 04:00 Temperature 36.7 C 36.4 C L Heart Rate Heart Rate [ 85 91 Brachial] Heart Rate [ Radial] Respiratory 18 16 Rate Blood Pressure 140/79 H Blood Pressure [Left Brachial artery] Blood Pressure 139/70 H 134/80 H [Right Brachial artery] O2 Saturation 96 96 02/20/19 02/20/19 02/20/19 04:30 04:40 04:43 Temperature Heart Rate Heart Rate [ 103 H 92 Brachial] Heart Rate [ Radial] Respiratory Rate Blood Pressure 134/80 H Blood Pressure 145/88 H 133/76 H [Left Brachial artery] Blood Pressure [Right Brachial artery] O2 Saturation 02/20/19 02/20/19 02/20/19 04:45 05:00 05:15 Temperature Heart Rate Heart Rate [ 81 109 H 91 Brachial] Heart Rate [ Radial] Respiratory Rate Blood Pressure Blood Pressure 131/68 H 138/76 H 143/76 H [Left Brachial artery] Blood Pressure [Right Brachial artery] O2 Saturation 02/20/19 02/20/19 02/20/19 05:30 08:59 09:00 Temperature Heart Rate Heart Rate [ 109 H Brachial] Heart Rate [ 100 Radial] Respiratory Rate Blood Pressure 150/75 H Blood Pressure 154/89 H [Left Brachial artery] Blood Pressure 135/79 H [Right Brachial artery] O2 Saturation 02/20/19 02/20/19 13:00 14:36 Temperature 37.1 C Heart Rate Heart Rate [ 107 H Brachial] Heart Rate [ Radial] Respiratory 18 Rate Blood Pressure 150/75 H Blood Pressure 141/85 H [Left Brachial artery] Blood Pressure [Right Brachial artery] O2 Saturation 96 Oxygen O2 Source [With Activity] Room air O2 Source Room air I&O (Last 24 Hrs): Intake and Output Totals x24h 02/18/19 02/19/19 02/20/19 23:59 23:59 23:59 Intake Total 2130 2426.25 0 Output Total 1600 1350 550 Balance 530 1076.25 -550 General: Alert, Oriented x3 HEENT: Mucous membr. moist/pink Neck: Supple Neuro: Non Focal Cardiovascular: No murmurs Respiratory: No respiratory distress Abdomen: Soft Extremities: No edema - Results Results: Laboratory Results WBC 5.4 x10^3/uL (4.8-10.8) 02/20/19 04:50 RBC 4.53 10^6/uL (4.20-5.40) 02/20/19 04:50 Hgb 15.2 g/dL (12.0-16.0) 02/20/19 04:50 Hct 44.6 % (37.0-47.0) 02/20/19 04:50 MCV 98.5 fL (81.0-99.0) 02/20/19 04:50 MCH 33.6 pg (27.0-31.0) H 02/20/19 04:50 MCHC 34.1 g/dL (32.0-36.0) 02/20/19 04:50 RDW 13.0 % (12.0-15.0) 02/20/19 04:50 Plt Count 178 10^3/uL (130-450) 02/20/19 04:50 MPV 10.6 fL (7.9-10.8) 02/20/19 04:50 Neut # (Auto) 2.8 10^3/uL (1.5-6.6) 02/20/19 04:50 Lymph # (Auto) 1.5 10^3/uL (1.5-3.5) 02/20/19 04:50 [place] # (Auto) 1.0 10^3/uL (0.0-1.0) 02/20/19 04:50 Eos # (Auto) 0.1 10^3/uL (0.0-0.7) 02/20/19 04:50 Baso # (Auto) 0.0 10^3/uL (0.0-0.1) 02/20/19 04:50 Absolute Nucleated RBC 0.00 x10^3/uL 02/20/19 04:50 Nucleated RBC % 0.0 /100WBC 02/20/19 04:50 PT 18.1 secs (9.9-12.6) H 02/20/19 04:50 INR 1.6 (0.8-1.2) H 02/20/19 04:50 Sodium 137 mmol/L (135-145) 02/20/19 04:50 Potassium 3.6 mmol/L (3.5-5.0) 02/20/19 04:50 Chloride 106 mmol/L (101-111) 02/20/19 04:50 Carbon Dioxide 21 mmol/L (21-32) 02/20/19 04:50 Anion Gap 10.0 (6-13) 02/20/19 04:50 BUN 25 mg/dL (6-20) H 02/20/19 04:50 Creatinine 0.7 mg/dL (0.4-1.0) 02/20/19 04:50 Estimated GFR (MDRD) 82 (>89) L 02/20/19 04:50 Glucose 79 mg/dL (70-100) 02/20/19 04:50 POC Whole Bld Glucose 96 mg/dL (70 - 100) 02/20/19 11:41 Lactic Acid 1.6 mmol/L (0.5-2.2) 02/17/19 16:17 Calcium 8.7 mg/dL (8.5-10.3) 02/20/19 04:50 Magnesium 2.1 mg/dL (1.7-2.8) 02/20/19 04:52 Total Bilirubin 2.1 mg/dL (0.2-1.0) H 02/20/19 04:50 AST 34 IU/L (10-42) 02/20/19 04:50 ALT 21 IU/L (10-60) 02/20/19 04:50 Alkaline Phosphatase 51 IU/L (42-121) 02/20/19 04:50 Troponin I High Sens 22.5 ng/L (2.3-14.8) H* 02/20/19 09:25 B-Natriuretic Peptide 438 pg/mL (5-100) H 02/19/19 06:00 Total Protein 6.6 g/dL (6.7-8.2) L 02/20/19 04:50 Albumin 3.4 g/dL (3.2-5.5) 02/20/19 04:50 Globulin 3.2 g/dL (2.1-4.2) 02/20/19 04:50 Albumin/Globulin Ratio 1.1 (1.0-2.2) 02/20/19 04:50 Lipase 27 U/L (22-51) 02/17/19 13:35 TSH 3.93 uIU/mL (0.34-5.60) 02/18/19 03:00 Urine Color YELLOW 02/17/19 16:30 Urine Clarity HAZY (CLEAR) 02/17/19 16:30 Urine pH 6.5 PH (5.0-7.5) 02/17/19 16:30 Ur Specific [place] <=1.005 (1.002-1.030) 02/17/19 16:30 Urine Protein TRACE mg/dL (NEGATIVE) 02/17/19 16:30 Urine Glucose (UA) NEGATIVE mg/dL (NEGATIVE) 02/17/19 16:30 Urine Ketones NEGATIVE mg/dL (NEGATIVE) 02/17/19 16:30 Urine Occult Blood SMALL (NEGATIVE) H 02/17/19 16:30 Urine Nitrite NEGATIVE (NEGATIVE) 02/17/19 16:30 Urine Bilirubin NEGATIVE (NEGATIVE) 02/17/19 16:30 Urine Urobilinogen 0.2 (NORMAL) E.U./dL (NORMAL) 02/17/19 16:30 Ur Leukocyte Esterase NEGATIVE (NEGATIVE) 02/17/19 16:30 Urine RBC 6-10 /HPF (0-5) H 02/17/19 16:30 Urine WBC 0-3 /HPF (0-5) 02/17/19 16:30 Ur Squamous Epith Cells FEW Squamous (<= Few) 02/17/19 16:30 Urine Bacteria None Seen /HPF (None Seen) 02/17/19 16:30 Ur Microscopic Review INDICATED 02/17/19 16:30 Gastric Fluid pH 5.0 02/17/19 14:32 Gastric Occult Blood POSITIVE (Negative) A 02/17/19 14:32 Sepsis Event Note (H) - Evaluation Current Stage of Sepsis: Ruled out
--- NOTE | 2019-02-20 14:58 | XRAY Report ---
Reason: 4 HOUR FILM GASTROGRAFFIN CHALLANGE Procedure Date: 02/20/2019 Accession Number: [id number] / [id number] Procedure: XR - No-Charge 1V Abdomen CPT Code: 37248 Addended Final Report FULL RESULT: EXAM: ABDOMEN RADIOGRAPHY EXAM DATE: 02/20/2019 11:52 AM. CLINICAL HISTORY: 4 hour film Gastrografin challenge. COMPARISON: NO CHARGE 1V ABDOMEN 02/20/2019 7:34 AM ABDOMEN/PELVIS W/ 02/17/2019 3:26 PM. TECHNIQUE: 1 view. FINDINGS: Bowel Gas Pattern: Dilated loops of small bowel containing gas as well as contrast are again seen, caliber of up to 5.6 cm. What is felt to represent the ascending colon appears to contain hyperdense formed stool. A significant amount of hyperdense contrast is still seen in the visualized intrathoracic abdomen. Other: None. IMPRESSION: Progression of oral contrast into multiple prominently dilated loops of small bowel. Significant contrast volume within the intrathoracic herniated stomach, suggestive of partial gastric outlet obstruction. RADIA
[2019-02-20] MEDS: D5.45NS W/20 MEQ KCL 1,000 ML IV SCH (17:14)
[2019-02-20] MEDS: SODIUM CHLORIDE FLUSH 0.9% 10 ML SYRINGE IVP PRN (20:21)
--- NOTE | 2019-02-20 20:57 | XRAY Report ---
Reason: Gastrograffin [place] Procedure Date: 02/20/2019 Accession Number: [id number] / [id number] Procedure: XR - No-Charge 1V Abdomen CPT Code: 82477 Addended Final Report FULL RESULT: EXAM: ABDOMEN RADIOGRAPHY EXAM DATE: 02/20/2019 08:06 PM. CLINICAL HISTORY: Gastrografin Challenge. COMPARISON: Today at 1134. TECHNIQUE: 1 12 hour view. FINDINGS: Bowel Gas Pattern: Dilated small bowel. Oral contrast has moved into the large bowel down to the rectum. Other: None. IMPRESSION: Dilated small bowel, apparently partial small bowel obstruction, with oral contrast moving into the nondilated large bowel down to the rectum at 12 hours. RADIA ADDENDUM: 02/20/19 21:40 No further imaging required.
[2019-02-21] MEDS: METOPROLOL 5 MG/5 ML VIAL IVP SCH ×2 (02:38→08:14)
[2019-02-21] MEDS: SODIUM CHLORIDE FLUSH 0.9% 10 ML SYRINGE IVP SCH ×3 (02:38→16:20)
[2019-02-21 06:08] LABS: BASOPHILS % (AUTO) 0.4 %; EOSINOPHILS # (AUTO) 0.1 10^3/uL (0.0-0.7); EOSINOPHILS % (AUTO) 0.9 %; HGB - HEMOGLOBIN 14.8 g/dL (12.0-16.0); LYMPHOCYTES # (AUTO) 0.8 10^3/uL (1.5-3.5); LYMPHOCYTES % (AUTO) 12.4 %; MEAN CORPUSCULAR HEMOGLOBIN 33.3 pg (27.0-31.0); MEAN CORPUSCULAR VOLUME 97.8 fL (81.0-99.0); MEAN PLATELET VOLUME 10.7 fL (7.9-10.8); MONOCYTES % (AUTO) 14.4 %; NEUTROPHILS # (AUTO) 4.8 10^3/uL (1.5-6.6); NEUTROPHILS % (AUTO) 71.5 %; PLT - PLATELET COUNT 183 10^3/uL (130-450); RED BLOOD COUNT 4.45 10^6/uL (4.20-5.40); WHITE BLOOD COUNT 6.7 x10^3/uL (4.8-10.8)
[2019-02-21 06:14] LABS: PT - PROTHROMBIN TIME 21.8 secs (9.9-12.6)
[2019-02-21 06:21] LABS: ALBUMIN 3.4 g/dL (3.2-5.5); ALBUMIN/GLOBULIN RATIO 1.1 (1.0-2.2); BILIRUBIN,TOTAL 1.5 mg/dL (0.2-1.0); CALCIUM 8.4 mg/dL (8.5-10.3); CREATININE 0.6 mg/dL (0.4-1.0); TOTAL PROTEIN 6.5 g/dL (6.7-8.2)
[2019-02-21] MEDS: D5.45NS W/20 MEQ KCL 1,000 ML IV SCH ×3 (06:31→20:11)
[2019-02-21] MEDS: PANTOPRAZOLE 40 MG VIAL IVP SCH (06:32)
[2019-02-21] MEDS ORDERED: LEVOTHYROXINE 25 MCG TABLET PO SCH (07:00)
[2019-02-21] MEDS: ZINC OXIDE 20% OINT 30 GM TUBE TOP PRN (08:19)
[2019-02-21] MEDS ORDERED: SPIRONOLACTONE 25 MG TABLET PO SCH (12:00)
[2019-02-21] MEDS ORDERED: METOPROLOL SUCCINATE 25 MG TABLET PO SCH (12:00)
[2019-02-21] MEDS ORDERED: ONDANSETRON 4 MG/2 ML VIAL IVP PRN (13:57)
[2019-02-21] MEDS ORDERED: WARFARIN 1 MG TABLET PO ONE ×2 (14:00→16:00)
[2019-02-21] MEDS: METOCLOPRAMIDE 10 MG/2 ML VIAL IVP PRN (14:00)
--- NOTE | 2019-02-21 15:34 | PROVIDER PROGRESS NOTE ---
Subjective - General Admit Date: 02/17/19 - Review of Systems General: positive: No symptoms, Other (Had 4 large BM following gastrograffin challenge. Feels much better.) Objective - Patient Data Reviewed Vital Signs: Yes Vital Signs: Vital Signs x48h Temp Pulse Resp BP BP Pulse Ox 02/21/19 11:27 36.6 C 91 18 131/75 H 95 02/21/19 08:14 162/84 H Weight: Weight 02/19/19 02/20/19 02/21/19 23:59 23:59 23:59 Weight (kg) 50 kg 50.5 kg 50.5 kg Intake & Output: Intake and Output Totals x24h 02/19/19 02/20/19 02/21/19 23:59 23:59 23:59 Intake Total 2426.25 1690 1396.25 Output Total 1350 570 100 Balance 1076.25 1120 1296.25 - Lab Results Lab Results: 02/21/19 05:50 02/21/19 05:50 Other Lab Results: Lab Results x24hrs 02/21/19 02/21/19 02/21/19 Range/Units 11:19 06:06 05:50 WBC (4.8-10.8) x10^3/uL RBC (4.20-5.40) 10^6/uL Hgb (12.0-16.0) g/dL Hct (37.0-47.0) % MCV (81.0-99.0) fL MCH (27.0-31.0) pg MCHC (32.0-36.0) g/dL RDW (12.0-15.0) % Plt Count (130-450) 10^3/uL MPV (7.9-10.8) fL Neut # (Auto) (1.5-6.6) 10^3/uL Lymph # (Auto) (1.5-3.5) 10^3/uL [place] # (Auto) (0.0-1.0) 10^3/uL Eos # (Auto) (0.0-0.7) 10^3/uL Baso # (Auto) (0.0-0.1) 10^3/uL Absolute Nucleated RBC x10^3/uL Nucleated RBC % /100WBC PT (9.9-12.6) secs INR (0.8-1.2) Sodium 136 (135-145) mmol/L Potassium 3.4 L (3.5-5.0) mmol/L Chloride 107 (101-111) mmol/L Carbon Dioxide 23 (21-32) mmol/L Anion Gap 6.0 (6-13) BUN 16 (6-20) mg/dL Creatinine 0.6 (0.4-1.0) mg/dL Estimated GFR (MDRD) 99 (>89) Glucose 135 H (70-100) mg/dL POC Whole Bld Glucose 118 H 118 H (70 - 100) mg/dL Calcium 8.4 L (8.5-10.3) mg/dL Total Bilirubin 1.5 H (0.2-1.0) mg/dL AST 32 (10-42) IU/L ALT 20 (10-60) IU/L Alkaline Phosphatase 48 (42-121) IU/L Total Protein 6.5 L (6.7-8.2) g/dL Albumin 3.4 (3.2-5.5) g/dL Globulin 3.1 (2.1-4.2) g/dL Albumin/Globulin Ratio 1.1 (1.0-2.2) 02/21/19 02/21/19 02/21/19 Range/Units 05:50 05:50 01:27 WBC 6.7 (4.8-10.8) x10^3/uL RBC 4.45 (4.20-5.40) 10^6/uL Hgb 14.8 (12.0-16.0) g/dL Hct 43.5 (37.0-47.0) % MCV 97.8 (81.0-99.0) fL MCH 33.3 H (27.0-31.0) pg MCHC 34.0 (32.0-36.0) g/dL RDW 13.0 (12.0-15.0) % Plt Count 183 (130-450) 10^3/uL MPV 10.7 (7.9-10.8) fL Neut # (Auto) 4.8 (1.5-6.6) 10^3/uL Lymph # (Auto) 0.8 L (1.5-3.5) 10^3/uL [place] # (Auto) 1.0 (0.0-1.0) 10^3/uL Eos # (Auto) 0.1 (0.0-0.7) 10^3/uL Baso # (Auto) 0.0 (0.0-0.1) 10^3/uL Absolute Nucleated RBC 0.00 x10^3/uL Nucleated RBC % 0.0 /100WBC PT 21.8 H (9.9-12.6) secs INR 2.0 H (0.8-1.2) Sodium (135-145) mmol/L Potassium (3.5-5.0) mmol/L Chloride (101-111) mmol/L Carbon Dioxide (21-32) mmol/L Anion Gap (6-13) BUN (6-20) mg/dL Creatinine (0.4-1.0) mg/dL Estimated GFR (MDRD) (>89) Glucose (70-100) mg/dL POC Whole Bld Glucose 98 (70 - 100) mg/dL Calcium (8.5-10.3) mg/dL Total Bilirubin (0.2-1.0) mg/dL AST (10-42) IU/L ALT (10-60) IU/L Alkaline Phosphatase (42-121) IU/L Total Protein (6.7-8.2) g/dL Albumin (3.2-5.5) g/dL Globulin (2.1-4.2) g/dL Albumin/Globulin Ratio (1.0-2.2) 02/20/19 Range/Units 18:34 WBC (4.8-10.8) x10^3/uL RBC (4.20-5.40) 10^6/uL Hgb (12.0-16.0) g/dL Hct (37.0-47.0) % MCV (81.0-99.0) fL MCH (27.0-31.0) pg MCHC (32.0-36.0) g/dL RDW (12.0-15.0) % Plt Count (130-450) 10^3/uL MPV (7.9-10.8) fL Neut # (Auto) (1.5-6.6) 10^3/uL Lymph # (Auto) (1.5-3.5) 10^3/uL [place] # (Auto) (0.0-1.0) 10^3/uL Eos # (Auto) (0.0-0.7) 10^3/uL Baso # (Auto) (0.0-0.1) 10^3/uL Absolute Nucleated RBC x10^3/uL Nucleated RBC % /100WBC PT (9.9-12.6) secs INR (0.8-1.2) Sodium (135-145) mmol/L Potassium (3.5-5.0) mmol/L Chloride (101-111) mmol/L Carbon Dioxide (21-32) mmol/L Anion Gap (6-13) BUN (6-20) mg/dL Creatinine (0.4-1.0) mg/dL Estimated GFR (MDRD) (>89) Glucose (70-100) mg/dL POC Whole Bld Glucose 108 H (70 - 100) mg/dL Calcium (8.5-10.3) mg/dL Total Bilirubin (0.2-1.0) mg/dL AST (10-42) IU/L ALT (10-60) IU/L Alkaline Phosphatase (42-121) IU/L Total Protein (6.7-8.2) g/dL Albumin (3.2-5.5) g/dL Globulin (2.1-4.2) g/dL Albumin/Globulin Ratio (1.0-2.2) - Current Medications Current Medications: Current Medications Generic Name Dose Route Start Last Admin Trade Name Freq PRN Reason Stop Dose Admin Potassium Chloride/Dextrose/Sod Cl 1,000 mls @ 75 mls/hr 02/21/19 14:00 02/21/19 14:55 D5.45ns W/20 Meq Kcl IV Not Given .[id number] RAYNA Metoclopramide HCl 5 mg 02/17/19 18:34 02/21/19 14:00 Reglan Inj IVP 5 mg Q6HR PRN Administration Nausea / Vomiting Multi-Ingredient Ointment 1 applic 02/17/19 22:29 02/21/19 08:19 Zinc Oxide TOP 1 applic PRN PRN Administration skin care Sodium Chloride 10 ml 02/17/19 17:07 02/20/19 20:21 Normal Saline Flush 0.9% IVP 20 ml PRN PRN Administration NEEDED PER PROVIDER ORDERS Sodium Chloride 10 ml 02/18/19 01:00 02/21/19 08:15 Normal Saline Flush 0.9% IVP 10 ml 0100,0900,1700 RAYNA Administration Throat Lozenges 1 lozenge 02/19/19 17:14 02/20/19 09:00 Cepacol MM 1 lozenge Q2HR PRN Administration Mouth Sore Pain - Physical Exam General Appearance: positive: No acute distress, Alert Respiratory: positive: Chest non-tender, No respiratory distress, Breath sounds nml Cardiovascular: positive: Regular rate & rhythm Abdomen: positive: Non-tender, Other (Normal bowel tones) Impression/Plan - Problem List Problem List: SBO resolving Cont present tx per Hospitalist. No surgical intervention at this time.
--- NOTE | 2019-02-21 15:52 | PROVIDER PROGRESS NOTE ---
Assessment/Plan - Problem List (1) N&V (nausea and vomiting) Assessment/Plan: She had this symptom at presentation, when ng tube for decompression was placed and there was 1350cc fluid in a large hiatal hernia. The NG tube has now been out for 1 day. Will revert back from pured diet to clear liquids. Will try to contol sx with antiemetics, and not reinsert ng tube. We will try to continue with the p.o. medication doses (that were to resume today), if antiemetics can control her symptoms (2) Partial small bowel obstruction Assessment/Plan: Resolution of obstruction, with multiple large and mostly liquid BMs occurring now. Follow electrolytes and Mg, may have losses in watery stool. (3) Chronic systolic congestive heart failure, NYHA class 2 Assessment/Plan: She still appears euvolemic. Her weight has not increased since admission, despite iv fluids at 75 cc/hr going since admission. Will slowly resume her loop diuretic and her oral metoprolol and LALITHA, if not vomiting (4) Atrial fibrillation Qualifiers: Atrial fibrillation type: chronic Assessment/Plan: HR is controlled on iv scheduled Metoprolol. Will transition to po Metoprolol, if not vomiting (5) UGI bleed Assessment/Plan: This was likely gastritis versus Zoë-Tatum tear because of 3 days of vomiting before this admission. Hemoglobin is stable at 14-15. (6) Hypothyroidism Assessment/Plan: Try to switch to oral home thyroid dose if no vomiting (7) History of asthma Assessment/Plan: Stable, PRN inhalers (8) History of hypertension Assessment/Plan: Stable on current medications and management (9) Elevated INR Assessment/Plan: Resolved, the INR has drifted down to 2.0 today. We will resume Coumadin since there is no need for surgery, since the obstruction is resolved (10) Dehydration Assessment/Plan: Resolved, wanted to try off IV fluids, but sincethere is N/V, will continue gentle hydration (11) Hyponatremia Assessment/Plan: Resolved - Current Meds Current Meds: Current Medications Generic Name Dose Route Start Last Admin Trade Name Freq PRN Reason Stop Dose Admin Potassium Chloride/Dextrose/Sod Cl 1,000 mls @ 75 mls/hr 02/21/19 14:00 02/21/19 14:55 D5.45ns W/20 Meq Kcl IV Not Given .[id number] RAYNA Metoclopramide HCl 5 mg 02/17/19 18:34 02/21/19 14:00 Reglan Inj IVP 5 mg Q6HR PRN Administration Nausea / Vomiting Multi-Ingredient Ointment 1 applic 02/17/19 22:29 02/21/19 08:19 Zinc Oxide TOP 1 applic PRN PRN Administration skin care Sodium Chloride 10 ml 02/17/19 17:07 02/20/19 20:21 Normal Saline Flush 0.9% IVP 20 ml PRN PRN Administration NEEDED PER PROVIDER ORDERS Sodium Chloride 10 ml 02/18/19 01:00 02/21/19 08:15 Normal Saline Flush 0.9% IVP 10 ml 0100,0900,1700 RAYNA Administration Throat Lozenges 1 lozenge 02/19/19 17:14 02/20/19 09:00 Cepacol MM 1 lozenge Q2HR PRN Administration Mouth Sore Pain - Lab Result Fish Bone Diagrams: 02/21/19 05:50 02/21/19 05:50 - Additional Planning My Orders: My Active Orders 02/25/19 16:00 Warfarin [Coumadin] 5 mg PO WEFR@1600 02/21/19 13:57 Ondansetron Inj [Zofran Inj] 4 mg IVP Q6HR PRN 02/21/19 14:00 D5.45ns W/20 Meq KCl 1,000 ml IV 75 mls/hr 02/21/19 16:00 Metoprolol Succinate [Toprol Xl] 25 mg PO DAILY Prochlorperazine Inj [Compazine Inj] 10 mg IVP Q6HR PRN Warfarin [Coumadin] 4 mg PO SUMOTUTHSA@1600 02/21/19 21:00 Oxybutynin [Ditropan] 5 mg PO BID 02/21/19 Dinner Clear Liquid Diet [DIET] 02/21/19 Lunch DIET [Dysphagia Puree Diet] [DIET] 02/22/19 07:00 Levothyroxine [Synthroid] 75 mcg PO QDAC Pantoprazole [Protonix] 40 mg IVP QDAC Subjective - Subjective Patient Reports: Nausea (She tolerated clear liquids for breakfast but threw up after pureed food for lunch) Nursing Reports: Other (Has had 6-7 BMs since the gastrograffin given yesterday) Objective Vital Signs: Vital Signs - 24 hr 02/20/19 02/20/19 02/20/19 16:21 20:16 20:28 Temperature 36.2 C L 36.5 C Heart Rate [ 93 116 H 104 H Brachial] Respiratory 20 20 Rate Blood Pressure 164/76 H Blood Pressure 138/92 H 134/76 H 134/79 H [Left Brachial artery] O2 Saturation 98 98 02/20/19 02/20/19 02/20/19 20:33 20:38 21:00 Temperature Heart Rate [ 86 95 100 Brachial] Respiratory Rate Blood Pressure Blood Pressure 140/70 H 139/75 H 137/77 H [Left Brachial artery] O2 Saturation 02/20/19 02/21/19 02/21/19 21:15 01:00 02:38 Temperature 36.6 C Heart Rate [ 94 102 H Brachial] Respiratory 18 Rate Blood Pressure 131/75 H Blood Pressure 139/74 H 146/80 H [Left Brachial artery] O2 Saturation 98 02/21/19 02/21/19 02/21/19 04:59 07:32 08:14 Temperature 36.5 C 36.4 C L Heart Rate [ 108 H 98 Brachial] Respiratory 18 18 Rate Blood Pressure 162/84 H Blood Pressure 145/75 H 162/84 H [Left Brachial artery] O2 Saturation 93 02/21/19 11:27 Temperature 36.6 C Heart Rate [ 91 Brachial] Respiratory 18 Rate Blood Pressure Blood Pressure 131/75 H [Left Brachial artery] O2 Saturation 95 Oxygen O2 Source [With Activity] Room air O2 Source Room air I&O (Last 24 Hrs): Intake and Output Totals x24h 02/19/19 02/20/19 02/21/19 23:59 23:59 23:59 Intake Total 2426.25 1690 1396.25 Output Total 1350 570 100 Balance 1076.25 1120 1296.25 General: Alert, Oriented x3, Mild distress, Other (is currently nauseated) HEENT: Mucous membr. moist/pink Neuro: Alert, Non Focal Cardiovascular: Regular rate Respiratory: No respiratory distress Abdomen: Soft, No tenderness, Other (Decreased bowel sounds diffusely) Extremities: No edema - Results Results: Laboratory Results WBC 6.7 x10^3/uL (4.8-10.8) 02/21/19 05:50 RBC 4.45 10^6/uL (4.20-5.40) 02/21/19 05:50 Hgb 14.8 g/dL (12.0-16.0) 02/21/19 05:50 Hct 43.5 % (37.0-47.0) 02/21/19 05:50 MCV 97.8 fL (81.0-99.0) 02/21/19 05:50 MCH 33.3 pg (27.0-31.0) H 02/21/19 05:50 MCHC 34.0 g/dL (32.0-36.0) 02/21/19 05:50 RDW 13.0 % (12.0-15.0) 02/21/19 05:50 Plt Count 183 10^3/uL (130-450) 02/21/19 05:50 MPV 10.7 fL (7.9-10.8) 02/21/19 05:50 Neut # (Auto) 4.8 10^3/uL (1.5-6.6) 02/21/19 05:50 Lymph # (Auto) 0.8 10^3/uL (1.5-3.5) L 02/21/19 05:50 [place] # (Auto) 1.0 10^3/uL (0.0-1.0) 02/21/19 05:50 Eos # (Auto) 0.1 10^3/uL (0.0-0.7) 02/21/19 05:50 Baso # (Auto) 0.0 10^3/uL (0.0-0.1) 02/21/19 05:50 Absolute Nucleated RBC 0.00 x10^3/uL 02/21/19 05:50 Nucleated RBC % 0.0 /100WBC 02/21/19 05:50 PT 21.8 secs (9.9-12.6) H 02/21/19 05:50 INR 2.0 (0.8-1.2) H 02/21/19 05:50 Sodium 136 mmol/L (135-145) 02/21/19 05:50 Potassium 3.4 mmol/L (3.5-5.0) L 02/21/19 05:50 Chloride 107 mmol/L (101-111) 02/21/19 05:50 Carbon Dioxide 23 mmol/L (21-32) 02/21/19 05:50 Anion Gap 6.0 (6-13) 02/21/19 05:50 BUN 16 mg/dL (6-20) 02/21/19 05:50 Creatinine 0.6 mg/dL (0.4-1.0) 02/21/19 05:50 Estimated GFR (MDRD) 99 (>89) 02/21/19 05:50 Glucose 135 mg/dL (70-100) H 02/21/19 05:50 POC Whole Bld Glucose 118 mg/dL (70 - 100) H 02/21/19 11:19 Lactic Acid 1.6 mmol/L (0.5-2.2) 02/17/19 16:17 Calcium 8.4 mg/dL (8.5-10.3) L 02/21/19 05:50 Magnesium 2.1 mg/dL (1.7-2.8) 02/20/19 04:52 Total Bilirubin 1.5 mg/dL (0.2-1.0) H 02/21/19 05:50 AST 32 IU/L (10-42) 02/21/19 05:50 ALT 20 IU/L (10-60) 02/21/19 05:50 Alkaline Phosphatase 48 IU/L (42-121) 02/21/19 05:50 Troponin I High Sens 22.5 ng/L (2.3-14.8) H* 02/20/19 09:25 B-Natriuretic Peptide 438 pg/mL (5-100) H 02/19/19 06:00 Total Protein 6.5 g/dL (6.7-8.2) L 02/21/19 05:50 Albumin 3.4 g/dL (3.2-5.5) 02/21/19 05:50 Globulin 3.1 g/dL (2.1-4.2) 02/21/19 05:50 Albumin/Globulin Ratio 1.1 (1.0-2.2) 02/21/19 05:50 Lipase 27 U/L (22-51) 02/17/19 13:35 TSH 3.93 uIU/mL (0.34-5.60) 02/18/19 03:00 Urine Color YELLOW 02/17/19 16:30 Urine Clarity HAZY (CLEAR) 02/17/19 16:30 Urine pH 6.5 PH (5.0-7.5) 02/17/19 16:30 Ur Specific [place] <=1.005 (1.002-1.030) 02/17/19 16:30 Urine Protein TRACE mg/dL (NEGATIVE) 02/17/19 16:30 Urine Glucose (UA) NEGATIVE mg/dL (NEGATIVE) 02/17/19 16:30 Urine Ketones NEGATIVE mg/dL (NEGATIVE) 02/17/19 16:30 Urine Occult Blood SMALL (NEGATIVE) H 02/17/19 16:30 Urine Nitrite NEGATIVE (NEGATIVE) 02/17/19 16:30 Urine Bilirubin NEGATIVE (NEGATIVE) 02/17/19 16:30 Urine Urobilinogen 0.2 (NORMAL) E.U./dL (NORMAL) 02/17/19 16:30 Ur Leukocyte Esterase NEGATIVE (NEGATIVE) 02/17/19 16:30 Urine RBC 6-10 /HPF (0-5) H 02/17/19 16:30 Urine WBC 0-3 /HPF (0-5) 02/17/19 16:30 Ur Squamous Epith Cells FEW Squamous (<= Few) 02/17/19 16:30 Urine Bacteria None Seen /HPF (None Seen) 02/17/19 16:30 Ur Microscopic Review INDICATED 02/17/19 16:30 Gastric Fluid pH 5.0 02/17/19 14:32 Gastric Occult Blood POSITIVE (Negative) A 02/17/19 14:32 Sepsis Event Note (H) - Evaluation Current Stage of Sepsis: Ruled out
[2019-02-21] MEDS: METOPROLOL SUCCINATE 25 MG TABLET PO SCH (16:19)
[2019-02-21] MEDS: WARFARIN 1 MG TABLET PO SCH (16:20)
[2019-02-21] MEDS: PROCHLORPERAZINE 10 MG/2 ML VIAL IVP PRN (17:54)
[2019-02-21] MEDS: SODIUM CHLORIDE FLUSH 0.9% 10 ML SYRINGE IVP PRN (17:55)
[2019-02-21] MEDS: OXYBUTYNIN 5MG TABLET PO SCH (20:51)
[2019-02-22] MEDS: SODIUM CHLORIDE FLUSH 0.9% 10 ML SYRINGE IVP SCH ×3 (00:32→16:24)
[2019-02-22 05:11] LABS: BASOPHILS % (AUTO) 0.3 %; EOSINOPHILS # (AUTO) 0.1 10^3/uL (0.0-0.7); EOSINOPHILS % (AUTO) 1.3 %; HGB - HEMOGLOBIN 13.5 g/dL (12.0-16.0); LYMPHOCYTES # (AUTO) 1.2 10^3/uL (1.5-3.5); MEAN CORPUSCULAR HGB CONC 33.7 g/dL (32.0-36.0); MEAN PLATELET VOLUME 11.2 fL (7.9-10.8); MONOCYTES % (AUTO) 16.6 %; NEUTROPHILS # (AUTO) 3.7 10^3/uL (1.5-6.6); PLT - PLATELET COUNT 159 10^3/uL (130-450); RED BLOOD COUNT 3.97 10^6/uL (4.20-5.40); RED CELL DISTRIBUTION WIDTH 13.2 % (12.0-15.0); WHITE BLOOD COUNT 6.1 x10^3/uL (4.8-10.8)
[2019-02-22 05:17] LABS: INR 2.5 (0.8-1.2); PT - PROTHROMBIN TIME 27.5 secs (9.9-12.6)
[2019-02-22 05:25] LABS: ALBUMIN 2.9 g/dL (3.2-5.5); BILIRUBIN,TOTAL 1.3 mg/dL (0.2-1.0); CALCIUM 7.8 mg/dL (8.5-10.3); CREATININE 0.6 mg/dL (0.4-1.0); TOTAL PROTEIN 5.8 g/dL (6.7-8.2)
[2019-02-22] MEDS: PANTOPRAZOLE 40 MG VIAL IVP SCH (06:40)
[2019-02-22] MEDS: LEVOTHYROXINE 75 MCG TABLET PO SCH (06:40)
[2019-02-22] MEDS: SODIUM CHLORIDE FLUSH 0.9% 10 ML SYRINGE IVP PRN (06:40)
[2019-02-22] MEDS ORDERED: WARFARIN 1 MG TABLET PO SCH (07:00)
[2019-02-22] MEDS: PROCHLORPERAZINE 10 MG/2 ML VIAL IVP PRN (08:18)
[2019-02-22] MEDS: OXYBUTYNIN 5MG TABLET PO SCH ×2 (08:18→20:23)
[2019-02-22] MEDS: METOPROLOL SUCCINATE 25 MG TABLET PO SCH (08:20)
[2019-02-22] MEDS: D5.45NS W/20 MEQ KCL 1,000 ML IV SCH ×2 (08:21→22:30)
--- NOTE | 2019-02-22 11:58 | PROVIDER PROGRESS NOTE ---
Subjective - General Admit Date: 02/17/19 - Review of Systems General: positive: No symptoms, Other (Had 4 large BM following gastrograffin challenge. Feels much better.) Gastrointestinal: positive: Other (Continues to have BM's. Taking food without emesis) Objective - Patient Data Reviewed Vital Signs: Yes Vital Signs: Vital Signs x48h Temp Pulse Pulse Resp BP Pulse Ox 02/22/19 08:20 82 134/72 H 02/22/19 05:23 36.8 C 72 20 95 02/22/19 05:00 36.8 C 72 18 127/62 96 Weight: Weight 02/20/19 02/21/19 02/22/19 23:59 23:59 23:59 Weight (kg) 50.5 kg 50.5 kg 56 kg Intake & Output: Intake and Output Totals x24h 02/20/19 02/21/19 02/22/19 23:59 23:59 23:59 Intake Total 1690 2770.00 1148.75 Output Total 570 900 Balance 1120 1870.00 1148.75 - Lab Results Lab Results: 02/22/19 04:40 02/22/19 04:40 Other Lab Results: Lab Results x24hrs 02/22/19 02/22/19 02/22/19 Range/Units 11:36 07:55 04:40 WBC (4.8-10.8) x10^3/uL RBC (4.20-5.40) 10^6/uL Hgb (12.0-16.0) g/dL Hct (37.0-47.0) % MCV (81.0-99.0) fL MCH (27.0-31.0) pg MCHC (32.0-36.0) g/dL RDW (12.0-15.0) % Plt Count (130-450) 10^3/uL MPV (7.9-10.8) fL Neut # (Auto) (1.5-6.6) 10^3/uL Lymph # (Auto) (1.5-3.5) 10^3/uL [place] # (Auto) (0.0-1.0) 10^3/uL Eos # (Auto) (0.0-0.7) 10^3/uL Baso # (Auto) (0.0-0.1) 10^3/uL Absolute Nucleated RBC x10^3/uL Nucleated RBC % /100WBC PT (9.9-12.6) secs INR (0.8-1.2) Sodium 136 (135-145) mmol/L Potassium 3.7 (3.5-5.0) mmol/L Chloride 108 (101-111) mmol/L Carbon Dioxide 23 (21-32) mmol/L Anion Gap 5.0 L (6-13) BUN 11 (6-20) mg/dL Creatinine 0.6 (0.4-1.0) mg/dL Estimated GFR (MDRD) 99 (>89) Glucose 102 H (70-100) mg/dL POC Whole Bld Glucose 101 H 91 (70 - 100) mg/dL Calcium 7.8 L (8.5-10.3) mg/dL Total Bilirubin 1.3 H (0.2-1.0) mg/dL AST 28 (10-42) IU/L ALT 18 (10-60) IU/L Alkaline Phosphatase 42 (42-121) IU/L Total Protein 5.8 L (6.7-8.2) g/dL Albumin 2.9 L (3.2-5.5) g/dL Globulin 2.9 (2.1-4.2) g/dL Albumin/Globulin Ratio 1.0 (1.0-2.2) 02/22/19 02/22/19 02/21/19 Range/Units 04:40 04:40 21:24 WBC 6.1 (4.8-10.8) x10^3/uL RBC 3.97 L (4.20-5.40) 10^6/uL Hgb 13.5 (12.0-16.0) g/dL Hct 40.1 (37.0-47.0) % MCV 101.0 H (81.0-99.0) fL MCH 34.0 H (27.0-31.0) pg MCHC 33.7 (32.0-36.0) g/dL RDW 13.2 (12.0-15.0) % Plt Count 159 (130-450) 10^3/uL MPV 11.2 H (7.9-10.8) fL Neut # (Auto) 3.7 (1.5-6.6) 10^3/uL Lymph # (Auto) 1.2 L (1.5-3.5) 10^3/uL [place] # (Auto) 1.0 (0.0-1.0) 10^3/uL Eos # (Auto) 0.1 (0.0-0.7) 10^3/uL Baso # (Auto) 0.0 (0.0-0.1) 10^3/uL Absolute Nucleated RBC 0.00 x10^3/uL Nucleated RBC % 0.0 /100WBC PT 27.5 H (9.9-12.6) secs INR 2.5 H (0.8-1.2) Sodium (135-145) mmol/L Potassium (3.5-5.0) mmol/L Chloride (101-111) mmol/L Carbon Dioxide (21-32) mmol/L Anion Gap (6-13) BUN (6-20) mg/dL Creatinine (0.4-1.0) mg/dL Estimated GFR (MDRD) (>89) Glucose (70-100) mg/dL POC Whole Bld Glucose 101 H (70 - 100) mg/dL Calcium (8.5-10.3) mg/dL Total Bilirubin (0.2-1.0) mg/dL AST (10-42) IU/L ALT (10-60) IU/L Alkaline Phosphatase (42-121) IU/L Total Protein (6.7-8.2) g/dL Albumin (3.2-5.5) g/dL Globulin (2.1-4.2) g/dL Albumin/Globulin Ratio (1.0-2.2) 02/21/19 Range/Units 16:47 WBC (4.8-10.8) x10^3/uL RBC (4.20-5.40) 10^6/uL Hgb (12.0-16.0) g/dL Hct (37.0-47.0) % MCV (81.0-99.0) fL MCH (27.0-31.0) pg MCHC (32.0-36.0) g/dL RDW (12.0-15.0) % Plt Count (130-450) 10^3/uL MPV (7.9-10.8) fL Neut # (Auto) (1.5-6.6) 10^3/uL Lymph # (Auto) (1.5-3.5) 10^3/uL [place] # (Auto) (0.0-1.0) 10^3/uL Eos # (Auto) (0.0-0.7) 10^3/uL Baso # (Auto) (0.0-0.1) 10^3/uL Absolute Nucleated RBC x10^3/uL Nucleated RBC % /100WBC PT (9.9-12.6) secs INR (0.8-1.2) Sodium (135-145) mmol/L Potassium (3.5-5.0) mmol/L Chloride (101-111) mmol/L Carbon Dioxide (21-32) mmol/L Anion Gap (6-13) BUN (6-20) mg/dL Creatinine (0.4-1.0) mg/dL Estimated GFR (MDRD) (>89) Glucose (70-100) mg/dL POC Whole Bld Glucose 109 H (70 - 100) mg/dL Calcium (8.5-10.3) mg/dL Total Bilirubin (0.2-1.0) mg/dL AST (10-42) IU/L ALT (10-60) IU/L Alkaline Phosphatase (42-121) IU/L Total Protein (6.7-8.2) g/dL Albumin (3.2-5.5) g/dL Globulin (2.1-4.2) g/dL Albumin/Globulin Ratio (1.0-2.2) - Current Medications Current Medications: Current Medications Generic Name Dose Route Start Last Admin Trade Name Freq PRN Reason Stop Dose Admin Potassium Chloride/Dextrose/Sod Cl 1,000 mls @ 75 mls/hr 02/21/19 14:00 02/22/19 08:21 D5.45ns W/20 Meq Kcl IV 75 mls/hr .[id number] RAYNA Administration Levothyroxine Sodium 75 mcg 02/22/19 07:00 02/22/19 06:40 Synthroid PO 75 mcg QDAC RAYNA Administration Metoclopramide HCl 5 mg 02/17/19 18:34 02/21/19 14:00 Reglan Inj IVP 5 mg Q6HR PRN Administration Nausea / Vomiting Metoprolol Succinate 25 mg 02/21/19 16:00 02/22/19 08:20 Toprol Xl PO 25 mg DAILY [facility] Administration Multi-Ingredient Ointment 1 applic 02/17/19 22:29 02/21/19 08:19 Zinc Oxide TOP 1 applic PRN PRN Administration skin care Oxybutynin Chloride 5 mg 02/21/19 21:00 02/22/19 08:18 Ditropan PO 5 mg BID [facility] Administration Pantoprazole Sodium 40 mg 02/22/19 07:00 02/22/19 06:40 Protonix IVP 40 mg QDAC [facility] Administration Prochlorperazine Edisylate 10 mg 02/21/19 16:00 02/22/19 08:18 Compazine Inj IVP 10 mg Q6HR PRN Administration Nausea / Vomiting Sodium Chloride 10 ml 02/17/19 17:07 02/22/19 06:40 Normal Saline Flush 0.9% IVP 10 ml PRN PRN Administration NEEDED PER PROVIDER ORDERS Sodium Chloride 10 ml 02/18/19 01:00 02/22/19 08:18 Normal Saline Flush 0.9% IVP 10 ml 0100,0900,1700 [facility] Administration Throat Lozenges 1 lozenge 02/19/19 17:14 02/20/19 09:00 Cepacol MM 1 lozenge Q2HR PRN Administration Mouth Sore Pain Warfarin Sodium 4 mg 02/21/19 16:00 02/21/19 16:20 Coumadin PO 4 mg SUMOTUTHSA@1600 [facility] Administration - Physical Exam General Appearance: positive: No acute distress, Alert Respiratory: positive: No respiratory distress Abdomen: positive: Non-tender Impression/Plan - Problem List Problem List: SBO resolved Will sign off
[2019-02-22] MEDS: WARFARIN 1 MG TABLET PO SCH (16:23)
--- NOTE | 2019-02-22 16:43 | PROVIDER PROGRESS NOTE ---
Assessment/Plan - Problem List (1) N&V (nausea and vomiting) Assessment/Plan: This resolved with several doses of different antiemetics IV. No NG tube was needed for decompression. She tolerated sips of liquids then clear liquids for dinner last night and breakfast today. She will advance to pured food with specific requests, for dinner. She has a large hiatal hernia which is been known but was able to tolerate a usual diet without N/V before this hospitalization. The abdominal imaging had results of "partial gastric outlet obstruction" on one of the Gastrografin challenge films. If there is recurrence of nausea vomiting or large-volume emesis, this would have to be addressed. (2) Partial small bowel obstruction Assessment/Plan: Resolved and now has diarrhea Will add Imodium prn (3) Chronic systolic congestive heart failure, NYHA class 2 Assessment/Plan: Stable weight during this hospitalization despite no diuretics and very gentle IV fluid hydration since she is mostly n.p.o. Her beta-john doses have continued, today changed from IV to p.o. (4) Atrial fibrillation Qualifiers: Atrial fibrillation type: chronic Assessment/Plan: Heart rate is controlled with current beta-john use, as above. Coumadin has been restarted. Following INR daily (5) UGI bleed Assessment/Plan: History contents are heme positive. Hemoglobin dropped from 18 when she dehydrated at admission, now 13-15. (6) Hypothyroidism Assessment/Plan: Her home thyroid dose has been resumed orally (7) History of asthma Assessment/Plan: Stable pulm status (8) History of hypertension Assessment/Plan: Stable on current meds and iv's (9) Elevated INR Assessment/Plan: Resolved (10) Dehydration Assessment/Plan: Resolved (11) Hyponatremia Assessment/Plan: Resolved - Current Meds Current Meds: Current Medications Generic Name Dose Route Start Last Admin Trade Name Freq PRN Reason Stop Dose Admin Potassium Chloride/Dextrose/Sod Cl 1,000 mls @ 75 mls/hr 02/21/19 14:00 02/22/19 08:21 D5.45ns W/20 Meq Kcl IV 75 mls/hr .[id number] RAYNA Administration Levothyroxine Sodium 75 mcg 02/22/19 07:00 02/22/19 06:40 Synthroid PO 75 mcg QDAC RAYNA Administration Metoclopramide HCl 5 mg 02/17/19 18:34 02/21/19 14:00 Reglan Inj IVP 5 mg Q6HR PRN Administration Nausea / Vomiting Metoprolol Succinate 25 mg 02/21/19 16:00 02/22/19 08:20 Toprol Xl PO 25 mg DAILY [facility] Administration Multi-Ingredient Ointment 1 applic 02/17/19 22:29 02/21/19 08:19 Zinc Oxide TOP 1 applic PRN PRN Administration skin care Oxybutynin Chloride 5 mg 02/21/19 21:00 02/22/19 08:18 Ditropan PO 5 mg BID [facility] Administration Pantoprazole Sodium 40 mg 02/22/19 07:00 02/22/19 06:40 Protonix IVP 40 mg QDAC [facility] Administration Prochlorperazine Edisylate 10 mg 02/21/19 16:00 02/22/19 08:18 Compazine Inj IVP 10 mg Q6HR PRN Administration Nausea / Vomiting Sodium Chloride 10 ml 02/17/19 17:07 02/22/19 06:40 Normal Saline Flush 0.9% IVP 10 ml PRN PRN Administration NEEDED PER PROVIDER ORDERS Sodium Chloride 10 ml 02/18/19 01:00 02/22/19 16:24 Normal Saline Flush 0.9% IVP Not Given 0100,0900,1700 [facility] Throat Lozenges 1 lozenge 02/19/19 17:14 02/20/19 09:00 Cepacol MM 1 lozenge Q2HR PRN Administration Mouth Sore Pain Warfarin Sodium 4 mg 02/21/19 16:00 02/22/19 16:23 Coumadin PO 4 mg SUMOTUTHSA@1600 [facility] Administration - Lab Result Fish Bone Diagrams: 02/22/19 04:40 02/22/19 04:40 - Additional Planning My Orders: My Active Orders 02/25/19 16:00 Warfarin [Coumadin] 5 mg PO WEFR@1600 02/21/19 16:00 Metoprolol Succinate [Toprol Xl] 25 mg PO DAILY Prochlorperazine Inj [Compazine Inj] 10 mg IVP Q6HR PRN Warfarin [Coumadin] 4 mg PO SUMOTUTHSA@1600 02/21/19 21:00 Oxybutynin [Ditropan] 5 mg PO BID 02/22/19 07:00 Levothyroxine [Synthroid] 75 mcg PO QDAC Pantoprazole [Protonix] 40 mg IVP QDAC 02/22/19 Dinner DIET [Dysphagia Puree Diet] [DIET] Subjective - Subjective Patient Reports: Feeling Better, Resting Comfortably, No Complaints, Other (She wants to try pured food again today) Objective Vital Signs: Vital Signs - 24 hr 02/21/19 02/21/19 02/22/19 20:21 20:22 00:26 Temperature 36.6 C 36.8 C Heart Rate Heart Rate [ 95 72 Brachial] Respiratory 20 20 Rate Blood Pressure 136/74 H [Left Brachial artery] Blood Pressure 126/69 [Right Brachial artery] O2 Saturation 98 95 02/22/19 02/22/19 02/22/19 05:00 05:23 08:20 Temperature 36.8 C 36.8 C Heart Rate 72 Heart Rate [ 72 82 Brachial] Respiratory 18 20 Rate Blood Pressure 127/62 134/72 H [Left Brachial artery] Blood Pressure [Right Brachial artery] O2 Saturation 96 95 02/22/19 02/22/19 13:00 15:51 Temperature 36.7 C 36.9 C Heart Rate Heart Rate [ 71 73 Brachial] Respiratory 19 20 Rate Blood Pressure 117/67 132/78 H [Left Brachial artery] Blood Pressure [Right Brachial artery] O2 Saturation 99 98 Oxygen O2 Source [With Activity] Room air O2 Source Room air I&O (Last 24 Hrs): Intake and Output Totals x24h 02/20/19 02/21/19 02/22/19 23:59 23:59 23:59 Intake Total 1690 2770.00 1508.75 Output Total 570 900 Balance 1120 1870.00 1508.75 General: Alert, Oriented x3 HEENT: Mucous membr. moist/pink Neck: Supple, No JVD Neuro: Alert Cardiovascular: Regular rate Respiratory: No respiratory distress Abdomen: Soft Extremities: No edema - Results Results: Laboratory Results WBC 6.1 x10^3/uL (4.8-10.8) 02/22/19 04:40 RBC 3.97 10^6/uL (4.20-5.40) L 02/22/19 04:40 Hgb 13.5 g/dL (12.0-16.0) 02/22/19 04:40 Hct 40.1 % (37.0-47.0) 02/22/19 04:40 MCV 101.0 fL (81.0-99.0) H 02/22/19 04:40 MCH 34.0 pg (27.0-31.0) H 02/22/19 04:40 MCHC 33.7 g/dL (32.0-36.0) 02/22/19 04:40 RDW 13.2 % (12.0-15.0) 02/22/19 04:40 Plt Count 159 10^3/uL (130-450) 02/22/19 04:40 MPV 11.2 fL (7.9-10.8) H 02/22/19 04:40 Neut # (Auto) 3.7 10^3/uL (1.5-6.6) 02/22/19 04:40 Lymph # (Auto) 1.2 10^3/uL (1.5-3.5) L 02/22/19 04:40 [place] # (Auto) 1.0 10^3/uL (0.0-1.0) 02/22/19 04:40 Eos # (Auto) 0.1 10^3/uL (0.0-0.7) 02/22/19 04:40 Baso # (Auto) 0.0 10^3/uL (0.0-0.1) 02/22/19 04:40 Absolute Nucleated RBC 0.00 x10^3/uL 02/22/19 04:40 Nucleated RBC % 0.0 /100WBC 02/22/19 04:40 PT 27.5 secs (9.9-12.6) H 02/22/19 04:40 INR 2.5 (0.8-1.2) H 02/22/19 04:40 Sodium 136 mmol/L (135-145) 02/22/19 04:40 Potassium 3.7 mmol/L (3.5-5.0) 02/22/19 04:40 Chloride 108 mmol/L (101-111) 02/22/19 04:40 Carbon Dioxide 23 mmol/L (21-32) 02/22/19 04:40 Anion Gap 5.0 (6-13) L 02/22/19 04:40 BUN 11 mg/dL (6-20) 02/22/19 04:40 Creatinine 0.6 mg/dL (0.4-1.0) 02/22/19 04:40 Estimated GFR (MDRD) 99 (>89) 02/22/19 04:40 Glucose 102 mg/dL (70-100) H 02/22/19 04:40 POC Whole Bld Glucose 101 mg/dL (70 - 100) H 02/22/19 11:36 Lactic Acid 1.6 mmol/L (0.5-2.2) 02/17/19 16:17 Calcium 7.8 mg/dL (8.5-10.3) L 02/22/19 04:40 Magnesium 2.1 mg/dL (1.7-2.8) 02/20/19 04:52 Total Bilirubin 1.3 mg/dL (0.2-1.0) H 02/22/19 04:40 AST 28 IU/L (10-42) 02/22/19 04:40 ALT 18 IU/L (10-60) 02/22/19 04:40 Alkaline Phosphatase 42 IU/L (42-121) 02/22/19 04:40 Troponin I High Sens 22.5 ng/L (2.3-14.8) H* 02/20/19 09:25 B-Natriuretic Peptide 438 pg/mL (5-100) H 02/19/19 06:00 Total Protein 5.8 g/dL (6.7-8.2) L 02/22/19 04:40 Albumin 2.9 g/dL (3.2-5.5) L 02/22/19 04:40 Globulin 2.9 g/dL (2.1-4.2) 02/22/19 04:40 Albumin/Globulin Ratio 1.0 (1.0-2.2) 02/22/19 04:40 Lipase 27 U/L (22-51) 02/17/19 13:35 TSH 3.93 uIU/mL (0.34-5.60) 02/18/19 03:00 Urine Color YELLOW 02/17/19 16:30 Urine Clarity HAZY (CLEAR) 02/17/19 16:30 Urine pH 6.5 PH (5.0-7.5) 02/17/19 16:30 Ur Specific [place] <=1.005 (1.002-1.030) 02/17/19 16:30 Urine Protein TRACE mg/dL (NEGATIVE) 02/17/19 16:30 Urine Glucose (UA) NEGATIVE mg/dL (NEGATIVE) 02/17/19 16:30 Urine Ketones NEGATIVE mg/dL (NEGATIVE) 02/17/19 16:30 Urine Occult Blood SMALL (NEGATIVE) H 02/17/19 16:30 Urine Nitrite NEGATIVE (NEGATIVE) 02/17/19 16:30 Urine Bilirubin NEGATIVE (NEGATIVE) 02/17/19 16:30 Urine Urobilinogen 0.2 (NORMAL) E.U./dL (NORMAL) 02/17/19 16:30 Ur Leukocyte Esterase NEGATIVE (NEGATIVE) 02/17/19 16:30 Urine RBC 6-10 /HPF (0-5) H 02/17/19 16:30 Urine WBC 0-3 /HPF (0-5) 02/17/19 16:30 Ur Squamous Epith Cells FEW Squamous (<= Few) 02/17/19 16:30 Urine Bacteria None Seen /HPF (None Seen) 02/17/19 16:30 Ur Microscopic Review INDICATED 02/17/19 16:30 Gastric Fluid pH 5.0 02/17/19 14:32 Gastric Occult Blood POSITIVE (Negative) A 02/17/19 14:32 Sepsis Event Note (H) - Evaluation Current Stage of Sepsis: Ruled out
[2019-02-22] MEDS ORDERED: LOPERAMIDE 2 MG CAPSULE PO PRN (16:49)
[2019-02-23] MEDS: SODIUM CHLORIDE FLUSH 0.9% 10 ML SYRINGE IVP SCH ×2 (00:30→06:36)
[2019-02-23] MEDS ORDERED: ACETAMINOPHEN 325 MG TABLET PO PRN (01:12)
[2019-02-23 06:04] LABS: BASOPHILS % (AUTO) 0.3 %; EOSINOPHILS # (AUTO) 0.1 10^3/uL (0.0-0.7); EOSINOPHILS % (AUTO) 1.5 %; HGB - HEMOGLOBIN 13.1 g/dL (12.0-16.0); LYMPHOCYTES # (AUTO) 1.5 10^3/uL (1.5-3.5); MEAN CORPUSCULAR HEMOGLOBIN 33.5 pg (27.0-31.0); MEAN CORPUSCULAR HGB CONC 33.9 g/dL (32.0-36.0); MEAN CORPUSCULAR VOLUME 98.7 fL (81.0-99.0); MEAN PLATELET VOLUME 11.2 fL (7.9-10.8); MONOCYTES # (AUTO) 0.9 10^3/uL (0.0-1.0); MONOCYTES % (AUTO) 14.7 %; NEUTROPHILS # (AUTO) 3.5 10^3/uL (1.5-6.6); NEUTROPHILS % (AUTO) 57.7 %; PLT - PLATELET COUNT 149 10^3/uL (130-450); RED BLOOD COUNT 3.91 10^6/uL (4.20-5.40); RED CELL DISTRIBUTION WIDTH 13.2 % (12.0-15.0); WHITE BLOOD COUNT 6.1 x10^3/uL (4.8-10.8)
[2019-02-23 06:18] LABS: INR 3.1 (0.8-1.2); PT - PROTHROMBIN TIME 33.6 secs (9.9-12.6)
[2019-02-23 06:23] LABS: ALBUMIN 2.9 g/dL (3.2-5.5); ALBUMIN/GLOBULIN RATIO 1.1 (1.0-2.2); BILIRUBIN,TOTAL 1.2 mg/dL (0.2-1.0); CALCIUM 7.6 mg/dL (8.5-10.3); CREATININE 0.6 mg/dL (0.4-1.0); TOTAL PROTEIN 5.6 g/dL (6.7-8.2)
[2019-02-23] MEDS: PANTOPRAZOLE 40 MG VIAL IVP SCH (06:36)
[2019-02-23] MEDS: LEVOTHYROXINE 75 MCG TABLET PO SCH (06:37)
[2019-02-23] MEDS ORDERED: FUROSEMIDE 20 MG TABLET PO SCH (07:00)
[2019-02-23] MEDS: OXYBUTYNIN 5MG TABLET PO SCH (08:59)
[2019-02-23] MEDS: METOPROLOL SUCCINATE 25 MG TABLET PO SCH (08:59)
[2019-02-23] MEDS: ZINC OXIDE 20% OINT 30 GM TUBE TOP PRN (09:07)
[2019-02-23 15:39] VITALS: BP 144/83
[2019-02-23] MEDS: WARFARIN 1 MG TABLET PO SCH (15:57)
--- NOTE | 2019-02-23 16:18 | Discharge Plan ---
Discharge Plan Problem Reviewed?: Yes Disposition: Home, Self Care Condition: Stable Diet: Soft Activity Restrictions: Activity as Tolerated Shower Restrictions: No Instruction Topics: Obstruction Sm Bowel, ED Abdominal Pain Adhesions Health Concerns: You were admitted with a bowel obstruction, this opened up and then there was diarrhea. Separately there was nausea and vomiting. Thus, for both reasons you were on gentle IV hydration while you were here, and the diuretics were on hold. Advance your diet as tolerated, low fiber food is essential and eat food that is easily digestible, and avoid milk or milk products. Resume all your medications on your usual schedule, except do not resume the Lasix until 02/26/2019. See your doctor in approximately a week and follow-up. If you have new or worsening symptoms, call your PCP or [facility] or come to the emergency room. Plan of Treatment: As above. Care Goals: Improvement in symptoms and stabilization are the goals. Assessment: The patient and sister understand and are in agreement. No Smoking: If you smoke, Please STOP! Call for help. Follow-up with: Oswaldo Banuelos PA-C [Primary Care Provider] -
--- NOTE | 2019-02-23 18:40 | DISCHARGE SUMMARY ---
Discharge Summary Admit Date: 02/17/19 Discharge Date: 02/23/19 Discharging Provider: Dr Ely Looney Primary Care Provider: DU Multani Code Status: Do Not Attempt Resuscitation Condition at Discharge: Stable Discharge Disposition: 01 Home, Self Care - DIAGNOSES Admission Diagnoses: (1) Bowel obstruction, partial (2) GI bleed (3) Elevated INR (4) Systolic heart failure (5) Dehydration (6) Hyponatremia (7) Elevated troponin (8) HTN (hypertension) (9) Hypothyroidism (10) History of asthma Discharge Diagnoses with Status of Each Condition: See below - HPI History of Present Illness: From the admission H&P of Sanjiv Verdugo NP: This is a 73-year-old female a PMH significant of hypertension, atrial fibrillation on warfarin, heart failure with recently reported ejection fraction 20-25%, hypothyroidism, asthma, incontinence, osteoarthritis, s/p a past laparotomy for abdominal trauma in the distant past, Hep C, who presents with nausea and vomiting for and no bowel movement for 2- 3 days. she report she felt upper quadrant abdominal pain only when she vomited. She also report her vomit turned to brownish in color today, and she is been unable to hold down any medications and food. she has no NG tube since she has no vomiting now. She report her canvass manager only let she drink 4 small bottle waster per day, she report she felt dehydrated and felt very tired all the time. She denies chest pain, fever, chill, shortness of breath. She report her PT/INR is unstable, and up and down and her PCP is monitoring for her. CT of abdomen reveals small obstruction, potentially partial or early, large hiatal hernia presented dating back to 2017. lab test reveals elevated troponin 55, then down to 41, BNP is 825, Na 128, BUN 37, Bili 1.5 HGB 18.2, Occult stool positive for blood, INR 5.2. pt is afebrile, slight tachycardia with afib at HR 108, otherwise pt is hemodynamic stable. Surgeon was called by ER. pt is admitted for partial bowel obstruction. - CONSULTS | PROCEDURES Consultations: Dr Marian Ernandez - HOSPITAL COURSE Hospital Course: (1) N&V (nausea and vomiting) This initially resolved with several doses of different antiemetics IV, but recurred and an NG tube was needed for decompression. She has a large hiatal hernia which is been known but was able to tolerate a usual diet without N/V before this hospitalization. She was ordered to have Gastrografin and sequential abdominal films. The abdominal imaging had results of "partial gastric outlet obstruction" on one of the Gastrografin challenge films. After resolution of the bowel obstruction (see below), she was able to tolerate liquids then a soft diet and then advised to advance this very slowly after discharge on her own at home. (2) Partial small bowel obstruction She did require Gastrografin given per NG tube, there was eventual appearance in her colon at which time she did have many bowel movements that actually turned to diarrhea and we added Imodium prn. There was a general surgery consult initially and the surgeons followed along. The surgeon did say to the sister, caregiver who was at her bedside every day at that if surgery was needed she would be a high risk because of her heart condition and that she would have needed transfer. (3) Dehydration The patient reported that she had not been able to keep down liquids or any of her pills for 3 days. She did present with clinical dehydration. She received IV fluids throughout her entire course, stopped on the day before discharge. Also her Lasix was on hold during the entire hospitalization. She was advised 2 more days off Lasix in order to advance to a more complete diet. (4) Chronic systolic congestive heart failure, NYHA class 2 She had stable weight during this hospitalization despite no diuretics used and very gentle IV fluid hydration since she was mostly n.p.o. Her beta-john doses have continued iv then transitioned to p.o. (5) Atrial fibrillation Heart rate was controlled with iv beta-john use, as above. Coumadin was on hold in case of need for surgery. The Coumadin was restarted when she started to have bowel movements. (6) UGI bleed At admission the emesis contents were heme positive. She got empiric iv meds for ulcer prophylaxis. The hemoglobin dropped from 18 when she was dehydrated at admission to 13-15. He was felt to be high risk by Surgery even to undergo endoscopy. (7) Hypothyroidism Her home thyroid dose was eventually resumed orally (8) History of asthma Stable pulm status with only prn inhaler orders. (9) History of hypertension BP was stable with iv meds and gentle iv fluid rate. (10) Elevated INR The INR was mildly elevated and managed by holding the Coumadin throughout the entire hospitalization until the INR was near 2.0 and she was able to take p.o. meds. (11) Hyponatremia Resolved with saline hydration. - ALLERGIES Allergies/Adverse Reactions: Allergies Allergy/AdvReac Type Severity Reaction Status Date / Time peach Allergy Hives Verified 02/17/19 12:25 pear Allergy Hives Verified 02/17/19 12:25 milk AdvReac Nausea Verified 02/17/19 12:25 Sulfa (Sulfonamide AdvReac Rash Verified 02/17/19 20:30 Antibiotics) - MEDICATIONS Home Medications: Ambulatory Orders Medication Instructions Recorded Confirmed Loratadine [Claritin] 10 mg PO DAILY 08/01/12 02/18/19 Oxybutynin [Ditropan] 5 mg PO BID 08/01/12 02/18/19 Warfarin [Coumadin] 4 mg PO SUMOTUTHSA@0700 03/01/17 02/18/19 Warfarin [Coumadin] 5 mg PO WEFR@0700 03/01/17 02/18/19 Furosemide 20 mg PO MOWEFR@0700 02/17/19 02/18/19 Levothyroxine Sodium 75 mcg ORAL QDAC 02/17/19 02/18/19 Metoprolol Succinate 25 mg PO DAILY 02/17/19 02/18/19 Spironolactone 12.5 mg PO DAILY 02/17/19 02/18/19 - PHYSICAL EXAM AT DISCHARGE General Appearance: positive: No acute distress, Alert Eyes Bilateral: positive: Normal inspection, PERRL, EOMI ENT: positive: ENT inspection nml Neck: positive: No JVD Respiratory: positive: No respiratory distress, Breath sounds nml Cardiovascular: positive: No murmur Abdomen: positive: Non-tender, Nml bowel sounds, No distention Skin: positive: Color nml Extremities: positive: No pedal edema Neurologic/Psychiatric: positive: Oriented x3, Other (Grossly intact) - LABS Result Diagrams: 02/23/19 05:32 02/23/19 05:32 - DIAGNOSTIC IMAGING Diagnostic Imaging Results: Final report reviewed - SEPSIS Current Stage of Sepsis: Ruled out - FOLLOW UP Follow Up: See PCP in the next week for hospital follow-up and any further medication adjustments.
[2019-02-25] MEDS ORDERED: WARFARIN 5 MG TABLET PO SCH ×2 (07:00→16:00)
== END 2019-02-23 16:43 | disposition home or self-care (01) | DRG 388 ==
LOC: ED 12:19 → MS2 17:07
PROVIDERS: ADMIT Nurse Practitioner Gerontology; ATTEND Internal Medicine
DX: K56.609 Unspecified intestinal obstruction, unspecified as to partial versus complete obstruction (principal); K56.600 Partial intestinal obstruction, unspecified as to cause; E87.8 Other disorders of electrolyte and fluid balance, not elsewhere classified; K22.6 Gastro-esophageal laceration-hemorrhage syndrome; K29.71 Gastritis, unspecified, with bleeding; E87.1 Hypo-osmolality and hyponatremia; I50.9 Heart failure, unspecified; I48.91 Unspecified atrial fibrillation; I50.22 Chronic systolic (congestive) heart failure; K92.0 Hematemesis; I48.20 Chronic atrial fibrillation, unspecified; K31.1 Adult hypertrophic pyloric stenosis; I11.0 Hypertensive heart disease with heart failure; E86.0 Dehydration; R79.1 Abnormal coagulation profile; R79.89 Other specified abnormal findings of blood chemistry; K44.9 Diaphragmatic hernia without obstruction or gangrene; E03.9 Hypothyroidism, unspecified; J45.909 Unspecified asthma, uncomplicated; R32 Unspecified urinary incontinence; F10.11 Alcohol abuse, in remission; M19.90 Unspecified osteoarthritis, unspecified site; Z66 Do not resuscitate; Z79.01 Long term (current) use of anticoagulants; Z86.19 Personal history of other infectious and parasitic diseases; Z98.890 Other specified postprocedural states
CPT/HCPCS: 36415; 71045; 71046; 74022; 74177; 80053; 81001; 83605; 83690; 83735; 83880; 84443; 84484; 85014; 85018; 85025; 85610; 93005; 96361; 96374; 97116; 97162; 99284; 99285; A9270; J0131; J2765; J3490; J7040; Q9963; Q9967; 74018; 81003; 82272

== ENCOUNTER 2019-02-24 09:34 | Outpatient (CLI) | payer MEDICARE, MEDICAID | END 2019-02-24 23:59 | disposition home or self-care (01) | LOC: LAB.N 09:34 | PROVIDERS: ATTEND Physician Assistant Medical | DX: Z79.899 Other long term (current) drug therapy (principal); I48.91 Unspecified atrial fibrillation | CPT/HCPCS: 85610 ==

== ENCOUNTER 2019-03-04 08:56 | Outpatient (CLI) | payer MEDICARE, MEDICAID | END 2019-03-04 08:57 | disposition home or self-care (01) | LOC: LAB.N 08:56 | PROVIDERS: ATTEND Physician Assistant Medical | DX: Z79.899 Other long term (current) drug therapy (principal); I48.91 Unspecified atrial fibrillation | CPT/HCPCS: 85610 ==

== ENCOUNTER 2019-03-09 08:00 | Outpatient (CLI) | payer MEDICARE, MEDICAID ==
[2019-03-09 12:27] LABS: BILIRUBIN,URINE NEGATIVE (NEGATIVE); GLUCOSE, URINE (UA) NEGATIVE (NEGATIVE); KETONES,URINE (UA) NEGATIVE (NEGATIVE); LEUKOCYTE ESTERASE, URINE LARGE (NEGATIVE); NITRITE,URINE NEGATIVE (NEGATIVE); OCCULT BLOOD,URINE SMALL (NEGATIVE); PH,URINE 6.5 PH (5.0-7.5); PROTEIN,URINE TRACE mg/dL (NEGATIVE); UROBILINOGEN,URINE 0.2 (NORMAL) E.U./dL (NORMAL)
[2019-03-09 12:28] LABS: CLARITY,URINE CLOUDY (CLEAR)
[2019-03-09 12:50] LABS: BACTERIA,URINE Many /HPF (None Seen); SQUAMOUS EPITHELIAL CELL,UR NONE SEEN (<= Few); WBC CLUMPS,URINE PRESENT
== END 2019-03-09 23:59 | disposition home or self-care (01) ==
LOC: LAB.N 08:00
PROVIDERS: ATTEND Physician Assistant Medical
DX: Z79.899 Other long term (current) drug therapy (principal); I48.91 Unspecified atrial fibrillation; R30.0 Dysuria
CPT/HCPCS: 81001; 81003; 85610; 87077; 87086; 87181

== ENCOUNTER 2019-03-16 08:00 | Outpatient (CLI) | payer MEDICARE, MEDICAID | END 2019-03-16 23:59 | disposition home or self-care (01) | LOC: LAB.N 08:00 | PROVIDERS: ATTEND Physician Assistant Medical | DX: Z79.899 Other long term (current) drug therapy (principal); I48.91 Unspecified atrial fibrillation | CPT/HCPCS: 85610 ==

== ENCOUNTER 2019-03-24 08:00 | Outpatient (CLI) | payer MEDICARE, MEDICAID | END 2019-03-24 23:59 | disposition home or self-care (01) | LOC: LAB.N 08:00 | PROVIDERS: ATTEND Physician Assistant Medical | DX: Z79.899 Other long term (current) drug therapy (principal); I48.91 Unspecified atrial fibrillation | CPT/HCPCS: 85610 ==

== ENCOUNTER 2019-04-06 09:04 | Outpatient (CLI) | payer MEDICARE, MEDICAID | END 2019-04-06 23:59 | disposition home or self-care (01) | LOC: LAB.N 09:04 | PROVIDERS: ATTEND Physician Assistant Medical | DX: Z79.899 Other long term (current) drug therapy (principal); I48.91 Unspecified atrial fibrillation | CPT/HCPCS: 85610 ==

== ENCOUNTER 2019-04-13 08:00 | Outpatient (CLI) | payer MEDICARE, MEDICAID | END 2019-04-13 23:59 | disposition home or self-care (01) | LOC: LAB.N 08:00 | PROVIDERS: ATTEND Physician Assistant Medical | DX: Z79.899 Other long term (current) drug therapy (principal); I48.91 Unspecified atrial fibrillation | CPT/HCPCS: 85610 ==

== ENCOUNTER 2019-04-20 09:37 | Outpatient (CLI) | payer MEDICARE, MEDICAID | END 2019-04-20 23:59 | disposition home or self-care (01) | LOC: LAB.N 09:37 | PROVIDERS: ATTEND Physician Assistant Medical | DX: I48.91 Unspecified atrial fibrillation (principal); Z79.899 Other long term (current) drug therapy | CPT/HCPCS: 85610 ==

== ENCOUNTER 2019-04-27 09:02 | Outpatient (CLI) | payer MEDICARE, MEDICAID | END 2019-04-27 23:59 | disposition home or self-care (01) | LOC: LAB.N 09:02 | PROVIDERS: ATTEND Physician Assistant Medical | DX: I48.91 Unspecified atrial fibrillation (principal); Z79.899 Other long term (current) drug therapy | CPT/HCPCS: 85610 ==

== ENCOUNTER 2019-05-04 07:00 | Outpatient (CLI) | payer MEDICARE, MEDICAID | END 2019-05-04 23:59 | disposition home or self-care (01) | LOC: LAB.N 07:00 | PROVIDERS: ATTEND Physician Assistant Medical | DX: I48.91 Unspecified atrial fibrillation (principal); Z79.899 Other long term (current) drug therapy | CPT/HCPCS: 85610 ==

== ENCOUNTER 2019-05-18 09:10 | Outpatient (CLI) | payer MEDICARE, MEDICAID | END 2019-05-18 23:59 | disposition home or self-care (01) | LOC: LAB.N 09:10 | PROVIDERS: ATTEND Physician Assistant Medical | DX: I48.91 Unspecified atrial fibrillation (principal); Z79.899 Other long term (current) drug therapy | CPT/HCPCS: 85610 ==

== ENCOUNTER 2019-06-15 08:00 | Outpatient (CLI) | payer MEDICARE, MEDICAID | END 2019-06-15 23:59 | disposition home or self-care (01) | LOC: LAB.WCP 08:00 | PROVIDERS: ATTEND Physician Assistant Medical | DX: I48.91 Unspecified atrial fibrillation (principal); Z79.01 Long term (current) use of anticoagulants | CPT/HCPCS: 81002 ==

== ENCOUNTER 2019-07-06 08:00 | Outpatient (CLI) | payer MEDICARE, MEDICAID | END 2019-07-06 23:59 | disposition home or self-care (01) | LOC: LAB.WCP 08:00 | PROVIDERS: ATTEND Physician Assistant Medical | DX: I48.91 Unspecified atrial fibrillation (principal); Z79.01 Long term (current) use of anticoagulants ==

== ENCOUNTER 2019-07-27 08:00 | Outpatient (CLI) | payer MEDICARE, MEDICAID | END 2019-07-27 23:59 | disposition home or self-care (01) | LOC: LAB.WCP 08:00 | PROVIDERS: ATTEND Family Medicine | DX: I48.19 Other persistent atrial fibrillation (principal); Z79.01 Long term (current) use of anticoagulants ==

== ENCOUNTER 2019-08-17 08:00 | Outpatient (CLI) | payer MEDICARE, MEDICAID | END 2019-08-17 23:59 | disposition home or self-care (01) | LOC: LAB.WCP 08:00 | PROVIDERS: ATTEND Family Medicine | DX: I48.91 Unspecified atrial fibrillation (principal); Z79.01 Long term (current) use of anticoagulants ==

== ENCOUNTER 2019-09-07 08:00 | Outpatient (CLI) | payer MEDICARE, MEDICAID | END 2019-09-07 23:59 | disposition home or self-care (01) | LOC: LAB.WCP 08:00 | PROVIDERS: ATTEND Family Medicine | DX: I48.19 Other persistent atrial fibrillation (principal); Z79.01 Long term (current) use of anticoagulants ==

== ENCOUNTER 2019-09-09 10:03 | Outpatient (CLI) | payer MEDICARE, MEDICAID | END 2019-09-09 10:04 | disposition home or self-care (01) | LOC: DI 10:03 | PROVIDERS: ATTEND Family Medicine | DX: I11.0 Hypertensive heart disease with heart failure (principal); I50.9 Heart failure, unspecified; I08.1 Rheumatic disorders of both mitral and tricuspid valves | CPT/HCPCS: 93306 ==

== ENCOUNTER 2019-09-28 08:00 | Outpatient (CLI) | payer MEDICARE, MEDICAID | END 2019-09-28 23:59 | disposition home or self-care (01) | LOC: LAB.WCP 08:00 | PROVIDERS: ATTEND Family Medicine | DX: I48.19 Other persistent atrial fibrillation (principal); Z79.01 Long term (current) use of anticoagulants ==

== ENCOUNTER 2019-11-16 08:00 | Outpatient (CLI) | payer MEDICARE, MEDICAID | END 2019-11-16 23:59 | disposition home or self-care (01) | LOC: LAB.WCP 08:00 | PROVIDERS: ATTEND Nurse Practitioner Family | DX: Z79.01 Long term (current) use of anticoagulants (principal) ==

== ENCOUNTER 2019-11-23 08:00 | Outpatient (CLI) | payer MEDICARE, MEDICAID | END 2019-11-23 23:59 | disposition home or self-care (01) | LOC: LAB.WCP 08:00 | PROVIDERS: ATTEND Family Medicine | DX: Z79.01 Long term (current) use of anticoagulants (principal) ==

== ENCOUNTER 2019-11-30 08:00 | Outpatient (CLI) | payer MEDICARE, MEDICAID | END 2019-11-30 23:59 | disposition home or self-care (01) | LOC: LAB.WCP 08:00 | PROVIDERS: ATTEND Family Medicine | DX: Z79.01 Long term (current) use of anticoagulants (principal) ==

== ENCOUNTER 2019-12-08 11:20 | Outpatient (CLI) | payer MEDICARE, MEDICAID | END 2019-12-08 23:59 | disposition home or self-care (01) | LOC: COV 11:20 | PROVIDERS: ATTEND Family Medicine | DX: R05 Cough (principal); R06.02 Shortness of breath; R53.83 Other fatigue; J34.89 Other specified disorders of nose and nasal sinuses; Z20.828 Contact with and (suspected) exposure to other viral communicable diseases ==

== ENCOUNTER 2020-02-08 | Outpatient (CLI) | payer MEDICARE, MEDICAID | END 2020-02-08 23:59 | disposition home or self-care (01) | DX: Z79.01 Long term (current) use of anticoagulants (principal) ==

== ENCOUNTER 2020-02-29 08:00 | Outpatient (CLI) | payer MEDICARE, MEDICAID | END 2020-02-29 23:59 | disposition home or self-care (01) | LOC: LAB.WCP 08:00 | PROVIDERS: ATTEND Family Medicine | DX: Z79.01 Long term (current) use of anticoagulants (principal) ==

== ENCOUNTER 2020-03-14 08:00 | Outpatient (CLI) | payer MEDICARE, MEDICAID | END 2020-03-14 23:59 | disposition home or self-care (01) | LOC: LAB.WCP 08:00 | PROVIDERS: ATTEND Family Medicine | DX: Z79.01 Long term (current) use of anticoagulants (principal) ==

== ENCOUNTER 2020-03-28 08:00 | Outpatient (CLI) | payer MEDICARE, MEDICAID | END 2020-03-28 23:59 | disposition home or self-care (01) | LOC: LAB.WCP 08:00 | PROVIDERS: ATTEND Family Medicine | DX: Z79.01 Long term (current) use of anticoagulants (principal) ==

== ENCOUNTER 2020-05-02 08:00 | Outpatient (CLI) | payer MEDICARE, MEDICAID | END 2020-05-02 23:59 | disposition home or self-care (01) | LOC: LAB.WCP 08:00 | PROVIDERS: ATTEND Family Medicine | DX: Z79.01 Long term (current) use of anticoagulants (principal); I48.91 Unspecified atrial fibrillation ==

== ENCOUNTER 2020-05-23 08:00 | Outpatient (CLI) | payer MEDICARE, MEDICAID | END 2020-05-23 23:59 | disposition home or self-care (01) | LOC: LAB.WCP 08:00 | PROVIDERS: ATTEND Family Medicine | DX: I48.19 Other persistent atrial fibrillation (principal); Z79.01 Long term (current) use of anticoagulants ==

== ENCOUNTER 2020-06-06 08:00 | Outpatient (CLI) | payer MEDICARE, MEDICAID | END 2020-06-06 23:59 | disposition home or self-care (01) | LOC: LAB.WCP 08:00 | PROVIDERS: ATTEND Family Medicine | DX: I48.19 Other persistent atrial fibrillation (principal); Z79.01 Long term (current) use of anticoagulants ==

== ENCOUNTER 2020-07-04 08:00 | Outpatient (CLI) | payer MEDICARE, MEDICAID | END 2020-07-04 23:59 | disposition home or self-care (01) | LOC: LAB.WCP 08:00 | PROVIDERS: ATTEND Family Medicine | DX: Z79.01 Long term (current) use of anticoagulants (principal); I48.19 Other persistent atrial fibrillation ==

== ENCOUNTER 2020-07-18 08:00 | Outpatient (CLI) | payer MEDICARE, MEDICAID | END 2020-07-18 23:59 | disposition home or self-care (01) | LOC: LAB.WCP 08:00 | PROVIDERS: ATTEND Family Medicine | DX: I48.91 Unspecified atrial fibrillation (principal); Z79.01 Long term (current) use of anticoagulants ==

== ENCOUNTER 2020-07-26 11:09 | Emergency (ER) | payer MEDICARE, MEDICAID ==
[2020-07-26 12:27] LABS: BASOPHILS % (AUTO) 0.5 %; EOSINOPHILS # (AUTO) 0.1 10^3/uL (0.0-0.7); EOSINOPHILS % (AUTO) 0.8 %; HCT - HEMATOCRIT 54.1 % (37.0-47.0); HGB - HEMOGLOBIN 18.8 g/dL (12.0-16.0); LYMPHOCYTES % (AUTO) 11.2 %; MEAN CORPUSCULAR HEMOGLOBIN 32.6 pg (27.0-31.0); MEAN CORPUSCULAR HGB CONC 34.8 g/dL (32.0-36.0); MEAN CORPUSCULAR VOLUME 93.8 fL (81.0-99.0); MEAN PLATELET VOLUME 10.7 fL (7.9-10.8); MONOCYTES # (AUTO) 1.5 10^3/uL (0.0-1.0); MONOCYTES % (AUTO) 17.2 %; NEUTROPHILS # (AUTO) 6.1 10^3/uL (1.5-6.6); NEUTROPHILS % (AUTO) 69.8 %; PLT - PLATELET COUNT 221 10^3/uL (130-450); RED BLOOD COUNT 5.77 10^6/uL (4.20-5.40); RED CELL DISTRIBUTION WIDTH 13.1 % (12.0-15.0); WHITE BLOOD COUNT 8.7 x10^3/uL (4.8-10.8)
[2020-07-26 12:42] LABS: ALBUMIN 4.8 g/dL (3.2-5.5); BILIRUBIN,TOTAL 1.6 mg/dL (0.2-1.0); CALCIUM 9.4 mg/dL (8.5-10.3); CREATININE 3.1 mg/dL (0.4-1.0); POTASSIUM 4.7 mmol/L (3.5-5.0); TOTAL PROTEIN 9.8 g/dL (6.7-8.2)
[2020-07-26] MEDS ORDERED: ONDANSETRON 4 MG/2 ML VIAL IVP STA ×2 (13:16→14:47)
[2020-07-26] MEDS ORDERED: SODIUM CHLORIDE 0.9% 1,000 ML IV STA ×3 (13:16→17:31)
--- NOTE | 2020-07-26 13:20 | ED Physician Documentation ---
History of Present Illness - Stated complaint Stated Complaint: N/V WEAKNESS - Chief complaint Chief Complaint: Abd Pain - Additonal information Additional information: 73-year-old female a PMH significant of hypertension, atrial fibrillation on warfarin, heart failure (Hx of ejection fraction 20-25%0, hypothyroidism, asthma, incontinence, osteoarthritis, s/p a past laparotomy for abdominal trauma in the distant past, Hep C, who presents with nausea and vomiting for 2 days. Her caregiver, DPSARAH and Sister Nyla reports that she has been having coffee- ground emesis with constipation. Sometimes the stool has been black. She does have a history of small bowel obstruction in the past. Patient is reporting generalized abdominal pain. Misti also reports that the patient has occasionally slurred her words over the last 3 to 4 days. She does not have a history of CVA but wonders if sometimes the left side of her face is not normal. The patient's sister, Nyla who is also her DPOA indicates to this provider that she should be a DNR/DNI in the event of sudden cardiac arrest. Review of Systems Constitutional: denies: Fever, Chills Eyes: reports: Reviewed and negative Ears: reports: Reviewed and negative Throat: reports: Reviewed and negative Cardiac: reports: Reviewed and negative Respiratory: reports: Reviewed and negative GI: reports: Abdominal Pain, Nausea, Vomiting, Hematemesis, Bloody / black stool : reports: Incontinent Skin: reports: Reviewed and negative Musculoskeletal: reports: Reviewed and negative PD PAST MEDICAL HISTORY - Past Medical History Cardiovascular: Congestive heart failure, Hypertension, Atrial fibrillation, Other Respiratory: Asthma Endocrine/Autoimmune: HyPOthyroidism GI: None : Incontinence HEENT: Other (Allergic rhinitis) Musculoskeletal: Osteoarthritis - 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 History 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 History: 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: Other - Present Medications Home Medications: Ambulatory Orders Medication Instructions Recorded Confirmed Loratadine [Claritin] 10 mg PO DAILY 08/01/12 02/18/19 Oxybutynin [Ditropan] 5 mg PO BID 08/01/12 02/18/19 Warfarin [Coumadin] 4 mg PO SUMOTUTHSA@0700 03/01/17 02/18/19 Warfarin [Coumadin] 5 mg PO WEFR@0700 03/01/17 02/18/19 Furosemide 20 mg PO MOWEFR@0700 02/17/19 02/18/19 Levothyroxine Sodium 75 mcg ORAL QDAC 02/17/19 02/18/19 Metoprolol Succinate 25 mg PO DAILY 02/17/19 02/18/19 Spironolactone 12.5 mg PO DAILY 02/17/19 02/18/19 - Allergies Allergies/Adverse Reactions: Allergies Allergy/AdvReac Type Severity Reaction Status Date / Time peach Allergy Hives Verified 07/26/20 11:40 pear Allergy Hives Verified 07/26/20 11:40 milk AdvReac Nausea Verified 07/26/20 11:40 Sulfa (Sulfonamide AdvReac Rash Verified 07/26/20 11:40 Antibiotics) - Social History Does the pt smoke?: No Smoking Status: Current some day smoker Does the pt drink ETOH?: No Does the pt have substance abuse?: No - Immunizations Immunizations are current?: Yes - POLST Patient has POLST: No POLST Status: Full Code PD ED PE EXPANDED - General General: Alert, Other (Emaciated chronic ill appearance.) - Neck Neck: Supple w/out meningeal sx, No tenderness - Cardiac Cardiac: Tachy, Irregularly irregular, Radial strong equal, Pedal strong equal, Cap refill < 2 sec - Respiratory Respiratory: Clear to ausultation luiz. No: Distress, Labored - Abdomen Abdomen: Normal Bowel sounds, Tender to palpation, Generalized/diffuse (generalized diffuse non focal tenderness withotu guarding or rebound). No: Rebound, Guarding - Derm Derm: Normal color, Warm and dry, Rash - Neuro Neuro: No: CNII-XII intact, Normal speech (slurred speech) - GCS Eye Opening: Spontaneous Motor: Obeys Commands Verbal: Oriented Total: 15 Results - Vitals Vitals: Vital Signs - 24 hr 07/26/20 07/26/20 07/26/20 11:34 13:40 15:00 Temperature 36.3 C L Heart Rate 96 61 130 H Respiratory 18 18 23 Rate Blood Pressure 108/64 143/100 H 122/75 O2 Saturation 95 99 98 07/26/20 07/26/20 15:35 17:00 Temperature Heart Rate 105 H 132 H Respiratory 23 25 H Rate Blood Pressure 125/66 110/61 O2 Saturation 95 93 Oxygen O2 Source [] Room air O2 Source Room air - EKG (time done) 1434 Rate: Rate (enter#) (135) Rhythm: Sinus tachycardia [place]: Other Intervals: LBBB (UNCHNAGED not new) Ischemia: Non specific changes (Tachy rythm with LBBB, LBBB not new and seen in 2019) - Labs Labs: Laboratory Tests 07/26/20 07/26/20 07/26/20 12:21 12:21 12:21 WBC 8.7 RBC 5.77 H Hgb 18.8 H Hct 54.1 H MCV 93.8 MCH 32.6 H MCHC 34.8 RDW 13.1 Plt Count 221 MPV 10.7 Neut # (Auto) 6.1 Lymph # (Auto) 1.0 L Douglas # (Auto) 1.5 H Eos # (Auto) 0.1 Baso # (Auto) 0.0 Absolute Nucleated RBC 0.00 Nucleated RBC % 0.0 PT INR Sodium 127 L Potassium 4.7 Chloride 82 L Carbon Dioxide 23 Anion Gap 22.0 H BUN 78 H Creatinine 3.1 H Estimated GFR (MDRD) 15 L Glucose 156 H Lactic Acid Calcium 9.4 Total Bilirubin 1.6 H AST 44 H ALT 33 Alkaline Phosphatase 94 Troponin I High Sens B-Natriuretic Peptide Total Protein 9.8 H Albumin 4.8 Globulin 5.0 H Albumin/Globulin Ratio 1.0 Lipase 299 H TSH 3.33 Urine Color Urine Clarity Urine pH Ur Specific [place] Urine Protein Urine Glucose (UA) Urine Ketones Urine Occult Blood Urine Nitrite Urine Bilirubin Urine Urobilinogen Ur Leukocyte Esterase Urine RBC Urine WBC Ur Squamous Epith Cells Amorphous Sediment Urine Bacteria Urine Mucus Ur Microscopic Review Urine Culture Comments Nasal Adenovirus (PCR) Nasal B. parapertussis DNA (PCR) Nasal Coronavir 229E PCR Nasal Coronavir HKU1 PCR Nasal Coronavir NL63 PCR Nasal Coronavir OC43 PCR Nasal Enterovir/Rhinovir PCR Nasal Influenza B PCR Nasal Influenza A PCR Nasal Parainfluen 1 PCR Nasal Parainfluen 2 PCR Nasal Parainfluen 3 PCR Nasal Parainfluen 4 PCR Nasal RSV (PCR) Nasal B.pertussis DNA PCR Nasal C.pneumoniae (PCR) Johnny Human Metapneumo PCR Nasal M.pneumoniae (PCR) Nasal SARS-CoV-2 (PCR) 07/26/20 07/26/20 07/26/20 12:21 13:22 13:24 WBC RBC Hgb Hct MCV MCH MCHC RDW Plt Count MPV Neut # (Auto) Lymph # (Auto) Douglas # (Auto) Eos # (Auto) Baso # (Auto) Absolute Nucleated RBC Nucleated RBC % PT 66.7 H INR 6.7 H* Sodium Potassium Chloride Carbon Dioxide Anion Gap BUN Creatinine Estimated GFR (MDRD) Glucose Lactic Acid 2.3 H Calcium Total Bilirubin AST ALT Alkaline Phosphatase Troponin I High Sens B-Natriuretic Peptide 336 H Total Protein Albumin Globulin Albumin/Globulin Ratio Lipase TSH Urine Color Urine Clarity Urine pH Ur Specific [place] Urine Protein Urine Glucose (UA) Urine Ketones Urine Occult Blood Urine Nitrite Urine Bilirubin Urine Urobilinogen Ur Leukocyte Esterase Urine RBC Urine WBC Ur Squamous Epith Cells Amorphous Sediment Urine Bacteria Urine Mucus Ur Microscopic Review Urine Culture Comments Nasal Adenovirus (PCR) Nasal B. parapertussis DNA (PCR) Nasal Coronavir 229E PCR Nasal Coronavir HKU1 PCR Nasal Coronavir NL63 PCR Nasal Coronavir OC43 PCR Nasal Enterovir/Rhinovir PCR Nasal Influenza B PCR Nasal Influenza A PCR Nasal Parainfluen 1 PCR Nasal Parainfluen 2 PCR Nasal Parainfluen 3 PCR Nasal Parainfluen 4 PCR Nasal RSV (PCR) Nasal B.pertussis DNA PCR Nasal C.pneumoniae (PCR) Johnny Human Metapneumo PCR Nasal M.pneumoniae (PCR) Nasal SARS-CoV-2 (PCR) 07/26/20 07/26/20 07/26/20 13:24 13:40 15:01 WBC RBC Hgb Hct MCV MCH MCHC RDW Plt Count MPV Neut # (Auto) Lymph # (Auto) Douglas # (Auto) Eos # (Auto) Baso # (Auto) Absolute Nucleated RBC Nucleated RBC % PT INR Sodium Potassium Chloride Carbon Dioxide Anion Gap BUN Creatinine Estimated GFR (MDRD) Glucose Lactic Acid Calcium Total Bilirubin AST ALT Alkaline Phosphatase Troponin I High Sens 93.2 H* 75.5 H* B-Natriuretic Peptide Total Protein Albumin Globulin Albumin/Globulin Ratio Lipase TSH Urine Color ORANGE Urine Clarity SL. CLOUDY Urine pH 5.0 Ur Specific [place] 1.025 Urine Protein 30 H Urine Glucose (UA) NEGATIVE Urine Ketones TRACE Urine Occult Blood MODERATE H Urine Nitrite NEGATIVE Urine Bilirubin NEGATIVE Urine Urobilinogen 0.2 (NORMAL) Ur Leukocyte Esterase SMALL H Urine RBC 11-25 H Urine WBC 6-10 H Ur Squamous Epith Cells FEW Squamous Amorphous Sediment Few Urine Bacteria Many H Urine Mucus Few Strands Ur Microscopic Review INDICATED Urine Culture Comments INDICATED Nasal Adenovirus (PCR) Nasal B. parapertussis DNA (PCR) Nasal Coronavir 229E PCR Nasal Coronavir HKU1 PCR Nasal Coronavir NL63 PCR Nasal Coronavir OC43 PCR Nasal Enterovir/Rhinovir PCR Nasal Influenza B PCR Nasal Influenza A PCR Nasal Parainfluen 1 PCR Nasal Parainfluen 2 PCR Nasal Parainfluen 3 PCR Nasal Parainfluen 4 PCR Nasal RSV (PCR) Nasal B.pertussis DNA PCR Nasal C.pneumoniae (PCR) Johnny Human Metapneumo PCR Nasal M.pneumoniae (PCR) Nasal SARS-CoV-2 (PCR) 07/26/20 17:22 WBC RBC Hgb Hct MCV MCH MCHC RDW Plt Count MPV Neut # (Auto) Lymph # (Auto) Douglas # (Auto) Eos # (Auto) Baso # (Auto) Absolute Nucleated RBC Nucleated RBC % PT INR Sodium Potassium Chloride Carbon Dioxide Anion Gap BUN Creatinine Estimated GFR (MDRD) Glucose Lactic Acid Calcium Total Bilirubin AST ALT Alkaline Phosphatase Troponin I High Sens B-Natriuretic Peptide Total Protein Albumin Globulin Albumin/Globulin Ratio Lipase TSH Urine Color Urine Clarity Urine pH Ur Specific [place] Urine Protein Urine Glucose (UA) Urine Ketones Urine Occult Blood Urine Nitrite Urine Bilirubin Urine Urobilinogen Ur Leukocyte Esterase Urine RBC Urine WBC Ur Squamous Epith Cells Amorphous Sediment Urine Bacteria Urine Mucus Ur Microscopic Review Urine Culture Comments Nasal Adenovirus (PCR) NOT DETECTED Nasal B. parapertussis DNA (PCR) NOT DETECTED Nasal Coronavir 229E PCR NOT DETECTED Nasal Coronavir HKU1 PCR NOT DETECTED Nasal Coronavir NL63 PCR NOT DETECTED Nasal Coronavir OC43 PCR NOT DETECTED Nasal Enterovir/Rhinovir PCR NOT DETECTED Nasal Influenza B PCR NOT DETECTED Nasal Influenza A PCR NOT DETECTED Nasal Parainfluen 1 PCR NOT DETECTED Nasal Parainfluen 2 PCR NOT DETECTED Nasal Parainfluen 3 PCR NOT DETECTED Nasal Parainfluen 4 PCR NOT DETECTED Nasal RSV (PCR) NOT DETECTED Nasal B.pertussis DNA PCR NOT DETECTED Nasal C.pneumoniae (PCR) NOT DETECTED Johnny Human Metapneumo PCR NOT DETECTED Nasal M.pneumoniae (PCR) NOT DETECTED Nasal SARS-CoV-2 (PCR) NOT DETECTED - Rads (name of study) CXR Radiology: Final report received (Worsening cardiomegaly when compared with prior study. Worsening right paraesophageal hernia when compared with prior study. Partially visualized threshold dilated small bowel loops.) CT head Radiology: Final report received (No acute intracranial abnormality.) CT abd Radiology: Prelim report reviewed, Final report received (Fluid-filled loops of small bowel consistent with aPartial small bowel obstruction. Prominent colonic stool most consistent with constipation. Cardiomegaly with mild effusion. Mild right hydronephrosis with renal pelvic stone) CT chest Radiology: Final report received (Cardiomegaly with pericardial effusion. Prominent paraesophageal hernia. Partially visualized dilated loops of bowel.) PD MEDICAL DECISION MAKING - ED course Complexity details: reviewed results, re-evaluated patient, considered differential, d/w patient ED course: 74-year-old female who has a history of atrial fib and congestive heart failure with a last known EF of approximately 25% presents the emergency department with 2 days of uncontrolled vomiting and coffee-ground emesis. She does have a history of small bowel obstruction treated a number of years ago conservatively with an NG tube. On arrival the patient appears chronically ill. She is noted to have atrial fibrillation rate that varies between 130 and 140. There is a left bundle branch block on EKG that is unchanged from baseline. She has some generalized abdominal tenderness. Screening labs also show that she is likely fairly dehydrated with a very concentrated hemoglobin and hematocrit. She does have acute kidney injury most consistent with acute dehydration with an elevated BUN and creatinine. Lactate is mildly elevated. I have ordered initially 2 L of crystalloid. 1/3 L crystalloid was infusing upon transfer. Screening chest x-ray suggests a fairly large hiatal hernia. CT of the chest abdomen pelvis unfortunately shows a very large paraesophageal hernia with a partial small bowel obstruction. There is also a left nonobstructing right renal pelvis stone. Urine is consistent with infection. Unfortunately due to the presence of urinary tract infection with kidney stone we are unable to admit the patient to our hospital as we lack urology services therefore we will look to transfer her to a hospital that has appropriate general surgery and urology services. I have spent a fair amount of time at the bedside with the patient's Sister Nyla who is her DURABLE POWER OF BLOW MOLDING MACHINE OPERATOR. She indicates that she would like to attempt treatment of the urinary tract infection as well as the bowel obstruction but does not wish for intubation or CPR in the event of acute cardiovascular collapse. 1625: I have sp[oken with DU Jean with urology services who agrees to consult upon transfer for urinary tract infection and right renal hydronephrosis. 1645: I have spoken with DU SANDY with general surgical services who agrees to consult upon transfer. 1700: Dr. Horta is acepting hospitalist At [facility]. Patient will be sent via [facility]. appropriate COBRA paperwork completed 1 Departure - Departure Disposition: 02 Transfer Acute Care Hosp Clinical Impression: Small bowel obstruction, Hydronephrosis of right kidney, Stone in renal pelvis, OUMOU (acute kidney injury) CHF (congestive heart failure) Qualifiers: Heart failure type: other Qualified Code(s): I50.9 - Heart failure, unspecified UTI (urinary tract infection) Qualifiers: Urinary tract infection type: acute cystitis Hematuria presence: with hematuria Qualified Code(s): N30.01 - Acute cystitis with hematuria Discharge Date/Time: 07/26/20 18:50
[2020-07-26 13:33] LABS: PT - PROTHROMBIN TIME 66.7 secs (9.9-12.6)
[2020-07-26 13:41] LABS: INR 6.7 (0.8-1.2)
[2020-07-26 13:49] LABS: GLUCOSE, URINE (UA) NEGATIVE (NEGATIVE); KETONES,URINE (UA) TRACE mg/dL (NEGATIVE); LEUKOCYTE ESTERASE, URINE SMALL (NEGATIVE); NITRITE,URINE NEGATIVE (NEGATIVE); OCCULT BLOOD,URINE MODERATE (NEGATIVE); PROTEIN,URINE 30 mg/dL (NEGATIVE); UROBILINOGEN,URINE 0.2 (NORMAL) E.U./dL (NORMAL)
[2020-07-26 13:54] LABS: CLARITY,URINE SL. CLOUDY (CLEAR)
[2020-07-26 14:00] LABS: SQUAMOUS EPITHELIAL CELL,UR FEW Squamous (<= Few)
[2020-07-26 14:01] LABS: AMORPHOUS SEDIMENT,UR Few /LPF; BACTERIA,URINE Many /HPF (None Seen); MUCUS,URINE Few Strands
[2020-07-26] MEDS ORDERED: LABETALOL 20 MG/4 ML SYRINGE IVP STA ×2 (14:03→14:31)
[2020-07-26] MEDS ORDERED: cefTRIAXone 1 GM in SODIUM CHLORIDE 0.9% MINIBAG 100 ML IV STA (14:04)
[2020-07-26 14:06] LABS: BILIRUBIN,URINE NEGATIVE (NEGATIVE); ICTOTEST,URINE NEGATIVE
--- NOTE | 2020-07-26 15:11 | XRAY Report ---
PROCEDURE: Chest 1 View X-Ray INDICATIONS: Chest pain TECHNIQUE: One view of the chest was acquired. COMPARISON: 02/18/2019 FINDINGS: Surgical changes and devices: None. Lungs and pleura: No pleural effusions or pneumothorax. Lungs are clear. Mediastinum: Mediastinal contours appear normal. Paraesophageal hernia projecting to the right of th e heart has increased in size when compared with the prior study. The heart remains enlarged with sig nificant splaying of the awa worsened from the prior study. Bones, chest wall, and abdomen: No suspicious bony lesions. Overlying soft tissues appear unremarkab le. Partially visualized small bowel loops are special dilated. IMPRESSION: Worsening cardiomegaly with compare with prior study. Worsened right paraesophageal hernia when compared with prior study. Partially visualized threshold dilated small bowel loops. Consider CT of the abdomen if there are con cerns for small bowel obstruction. Reviewed by: Arnold Mondragon MD on 07/26/2020 3:09 PM PDT Approved by: Arnold Mondragon MD on 07/26/2020 3:09 PM PDT Station ID: [id number]
--- NOTE | 2020-07-26 15:36 | CT Report ---
PROCEDURE: HEAD WO INDICATIONS: Slurred speech TECHNIQUE: Noncontrast 4.5 mm thick angled axial sections acquired from the foramen magnum to the vertex. For r adiation dose reduction, the following was used: automated exposure control, adjustment of mA and/or kV according to patient size. COMPARISON: None. FINDINGS: Image quality: Excellent. CSF spaces: Basal cisterns are patent. No extra-axial fluid collections. Ventricles are normal in size and shape. Brain: No midline shift. No intracranial masses or hemorrhage. [place]aña-white matter interface is norm al. Skull and face: Calvarium and visualized facial bones are intact, without suspicious lesions. Sinuses: Visualized sinuses and mastoids are clear. IMPRESSION: No acute intracranial abnormality. Reviewed by: Arnold Mondragon MD on 07/26/2020 3:35 PM PDT Approved by: Arnold Mondragon MD on 07/26/2020 3:35 PM PDT Station ID: [id number]
--- NOTE | 2020-07-26 15:56 | CT Report ---
PROCEDURE: Abdomen/Pelvis WO INDICATIONS: vomiting,hemataemsis TECHNIQUE: Noncontrast 5 mm thick sections acquired from the diaphragms to the symphysis. 5 mm coronal and sagi ttal reformats were then performed. For radiation dose reduction, the following was used: automated exposure control, adjustment of mA and/or kV according to patient size. COMPARISON: CT chest 121, CT abdomen pelvis 02/17/2019 FINDINGS: Image quality: Excellent. ABDOMEN: Lung bases: Lung bases are clear. Heart size is markedly enlarged with mild pericardial effusion me asuring 14 mm. Solid organs: Liver and spleen are normal in size. Gallbladder appears unremarkable Pancreas is no rmal in contours. No adrenal nodules. The right kidney demonstrates mild hydronephrosis as well as a prominent extrarenal pelvis. Within the dependent portion of the pelvis there is a 4 mm calcificatio n. This is new compared to 2019. Left kidney and ureter are unremarkable. Peritoneum and bowel: Dilated, fluid-filled loops of small bowel are noted throughout the abdomen and pelvis with the greatest transverse dimension measuring 5.5 cm. Colon demonstrate prominent stool. N o free fluid or air. Nodes and vessels: No retroperitoneal or mesenteric adenopathy by size criteria. Aorta and inferior vena cava are normal in caliber. Miscellaneous: No ventral hernias. PELVIS: Genitourinary: Bladder wall thickness is normal. Miscellaneous: No inguinal hernias or adenopathy. Bones: No suspicious bony lesions. No vertebral body compression fractures. IMPRESSION: 1. Dilated fluid-filled loops of small bowel most consistent with partial small bowel obstruction. 2. Prominent colonic stool most consistent with constipation. 3. Cardiomegaly with mild effusion. 4. Mild right hydronephrosis with renal pelvic stone as above. Reviewed by: Rocio Iniguez MD on 07/26/2020 3:55 PM PDT Approved by: Rocio Iniguez MD on 07/26/2020 3:55 PM PDT Station ID: [id number]
--- NOTE | 2020-07-26 15:59 | CT Report ---
PROCEDURE: CHEST WO INDICATIONS: RLL PNA TECHNIQUE: Noncontrast 5 mm thick sections acquired from the pulmonary apices to the posterior costophrenic angl es. 7 mm thick coronal and sagittal MIP reformats were then acquired. For radiation dose reduction, the following was used: automated exposure control, adjustment of mA and/or kV according to patient size. COMPARISON: CT chest 02/17/2019, chest x-ray 07/26/20 FINDINGS: Image quality: Excellent. Lungs and pleura: No acute air space opacities. No pleural effusions or pneumothorax. Central and peripheral airways are patent and normal in caliber. Mediastinum: Heart size is markedly enlarged with a mild pericardial effusion, measuring 14 mm. No mediastinal adenopathy by size criteria. Thoracic aorta and central pulmonary arteries are normal in size. Esophagus is normal in caliber. Large right paraesophageal hernia. Bones and chest wall: No suspicious bony lesions. No vertebral body compression fractures. No axillary or supraclavicular ad enopathy by size criteria. The thyroid is normal in size and there are no incidental findings. Abdomen: Partially visualized dilated loops of bowel are noted within the upper abdomen. Otherwise, v isualized upper abdominal solid organs and bowel loops appear normal in the absence of contrast. IMPRESSION: 1. Cardiomegaly with pericardial effusion. 2. Prominent paraesophageal hernia. 3. Partially visualized dilated loops of bowel. Please see CT abdomen pelvis report of 07/26/2020 for f urther details. Reviewed by: Rocio Iniguez MD on 07/26/2020 3:58 PM PDT Approved by: Rocio Iniguez MD on 07/26/2020 3:58 PM PDT Station ID: [id number]
[2020-07-26 17:08] VITALS: BP 110/61
[2020-07-26 18:28] LABS: B. PARAPERTUSSIS- RESP PCR PAN NOT DETECTED; B. PERTUSSIS- RESP PCR PANEL NOT DETECTED; C. PNEUMONIAE- RESP PCR PANEL NOT DETECTED; CORONAVIRUS 229E-RESP PCR NOT DETECTED; CORONAVIRUS HKU1-RESP PCR NOT DETECTED; CORONAVIRUS NL63-RESP PCR NOT DETECTED; CORONAVIRUS OC43-RESP PCR NOT DETECTED; HUMAN METAPNEUMOVIRUS NOT DETECTED; INFLUENZA A- RESP PCR PANEL NOT DETECTED; INFLUENZA B - RESP PCR PANEL NOT DETECTED; M. PNEUMONIAE- RESP PCR PANEL NOT DETECTED; PARAINFLUENZA VIRUS 1 NOT DETECTED; PARAINFLUENZA VIRUS 2 NOT DETECTED; PARAINFLUENZA VIRUS 3 NOT DETECTED; PARAINFLUENZA VIRUS 4 NOT DETECTED; RHINOVIRUS/ENTEROVIRUS NOT DETECTED; RSV- RESP PCR PANEL NOT DETECTED; SARS-CoV-2 -RESP PCR PANEL NOT DETECTED
--- NOTE | 2020-07-26 18:28 | XRAY Report ---
PROCEDURE: Chest for Line Placement INDICATIONS: NG TUBE PLACEMENT TECHNIQUE: One view of the chest was acquired. COMPARISON: Chest x-ray 07/26/2020, chest CT 07/26/2020. CT abdomen 07/26/2020. FINDINGS: Surgical changes and devices: There is a nasogastric tube extending into the stomach within a large h iatal hernia. Lungs and pleura: No definite acute consolidation. No pleural effusions or pneumothorax. Mediastinum: Mediastinal contours appear unchanged. Cardiomegaly is redemonstrated as well as a larg e hiatal hernia. Bones and chest wall: No suspicious bony lesions. Overlying soft tissues appear unremarkable. Ther e is abdomen demonstrates multiple dilated loops of bowel which are incompletely evaluated on the cur rent study. IMPRESSION: 1. The nasogastric tube extends into the stomach within a large hiatal hernia. Reviewed by: Shay Davalos MD on 07/26/2020 6:26 PM PDT Approved by: Shay Davalos MD on 07/26/2020 6:26 PM PDT Station ID: [id number]
== END 2020-07-26 18:50 | disposition short-term general hospital (02) ==
LOC: ED 11:09
DX: K56.600 Partial intestinal obstruction, unspecified as to cause (principal); N17.9 Acute kidney failure, unspecified; N30.01 Acute cystitis with hematuria; I50.9 Heart failure, unspecified; I11.0 Hypertensive heart disease with heart failure; I31.3 Pericardial effusion (noninflammatory); I48.91 Unspecified atrial fibrillation; Z79.01 Long term (current) use of anticoagulants; I44.7 Left bundle-branch block, unspecified; N13.2 Hydronephrosis with renal and ureteral calculous obstruction; F17.200 Nicotine dependence, unspecified, uncomplicated; Z20.822 Contact with and (suspected) exposure to COVID-19; R47.81 Slurred speech
CPT/HCPCS: 0202U; 36415; 51701; 80053; 81001; 81003; 83605; 83690; 83880; 84443; 84484; 85025; 85610; 87077; 87086; 87181; 93005; 99284

== ENCOUNTER 2020-07-26 19:50 | Outpatient (CLI) | payer MEDICARE, MEDICAID | END 2020-07-26 19:51 | disposition short-term general hospital (02) | LOC: EMS 19:50 | PROVIDERS: ATTEND Radiology Diagnostic Radiology | DX: K56.600 Partial intestinal obstruction, unspecified as to cause (principal); R74.8 Abnormal levels of other serum enzymes; I48.91 Unspecified atrial fibrillation; I50.9 Heart failure, unspecified; N17.9 Acute kidney failure, unspecified; Z74.01 Bed confinement status | CPT/HCPCS: A0425; A0428 ==

== ENCOUNTER 2020-10-26 08:00 | Outpatient (CLI) | payer MEDICARE, MEDICAID | END 2020-10-26 23:59 | disposition home or self-care (01) | LOC: LAB.WCP 08:00 | PROVIDERS: ATTEND Family Medicine | DX: I48.91 Unspecified atrial fibrillation (principal); Z79.01 Long term (current) use of anticoagulants ==

== ENCOUNTER 2020-11-02 08:00 | Outpatient (CLI) | payer MEDICARE, MEDICAID | END 2020-11-02 23:59 | disposition home or self-care (01) | LOC: LAB.WCP 08:00 | PROVIDERS: ATTEND Family Medicine | DX: I48.91 Unspecified atrial fibrillation (principal); Z79.01 Long term (current) use of anticoagulants ==

== ENCOUNTER 2020-11-03 08:58 | Outpatient (CLI) | payer MEDICARE, MEDICAID ==
[2020-11-03 11:56] LABS: BASOPHILS # (AUTO) 0.1 10^3/uL (0.0-0.1); EOSINOPHILS # (AUTO) 0.1 10^3/uL (0.0-0.7); HCT - HEMATOCRIT 36.7 % (37.0-47.0); HGB - HEMOGLOBIN 11.6 g/dL (12.0-16.0); LYMPHOCYTES # (AUTO) 1.7 10^3/uL (1.5-3.5); LYMPHOCYTES % (AUTO) 35.4 %; MEAN CORPUSCULAR HEMOGLOBIN 31.4 pg (27.0-31.0); MEAN CORPUSCULAR HGB CONC 31.6 g/dL (32.0-36.0); MEAN CORPUSCULAR VOLUME 99.5 fL (81.0-99.0); MEAN PLATELET VOLUME 10.8 fL (7.9-10.8); MONOCYTES # (AUTO) 0.7 10^3/uL (0.0-1.0); MONOCYTES % (AUTO) 15.5 %; NEUTROPHILS # (AUTO) 2.2 10^3/uL (1.5-6.6); NEUTROPHILS % (AUTO) 46.9 %; PLT - PLATELET COUNT 301 10^3/uL (130-450); RED BLOOD COUNT 3.69 10^6/uL (4.20-5.40); RED CELL DISTRIBUTION WIDTH 15.1 % (12.0-15.0); WHITE BLOOD COUNT 4.8 x10^3/uL (4.8-10.8)
[2020-11-03 12:14] LABS: ALBUMIN 3.3 g/dL (3.2-5.5); ALBUMIN/GLOBULIN RATIO 0.8 (1.0-2.2); ALKALINE PHOSPHATASE 68 IU/L (42-121); ALT ALANINE AMINOTRANSFERASE 16 IU/L (10-60); AST ASPARTATE AMINOTRANSFERASE 40 IU/L (10-42); BUN - BLOOD UREA NITROGEN 17 mg/dL (6-20); CALCIUM 8.5 mg/dL (8.5-10.3); CARBON DIOXIDE - CO2 26 mmol/L (21-32); CHLORIDE 101 mmol/L (101-111); CHOL/HDL RATIO 3.7 (<4.4); CHOLESTEROL 148 mg/dL; CREATININE 0.7 mg/dL (0.4-1.0); GFR - MDRD 82 (>89); GLUCOSE 85 mg/dL (70-100); HDL CHOLESTEROL 40 mg/dL; LDL CHOLESTEROL,CALCULATED 94 mg/dL; LDL/HDL RATIO 2.4 (<4.4); SODIUM 135 mmol/L (135-145); TOTAL PROTEIN 7.3 g/dL (6.7-8.2); TRIGLYCERIDES 70 mg/dL; VLDL CHOLESTEROL 14 mg/dL
[2020-11-03 12:25] LABS: THYROID STIMULATING HORMONE 6.7 uIU/mL (0.34-5.60)
[2020-11-03 15:00] LABS: FREE T4 (FREE THYROXINE) 0.99 ng/dL (0.58-1.64)
== END 2020-11-03 08:59 | disposition home or self-care (01) ==
LOC: LAB.N 08:58
PROVIDERS: ATTEND Family Medicine
DX: I11.0 Hypertensive heart disease with heart failure (principal); I48.91 Unspecified atrial fibrillation; I50.9 Heart failure, unspecified; Z13.220 Encounter for screening for lipoid disorders; E03.9 Hypothyroidism, unspecified
CPT/HCPCS: 36415; 80053; 80061; 83721; 84439; 84443; 85025

== ENCOUNTER 2020-11-16 10:07 | Outpatient (CLI) | payer MEDICARE, MEDICAID | END 2020-11-16 10:08 | disposition home or self-care (01) | LOC: LAB.N 10:07 | PROVIDERS: ATTEND Family Medicine | DX: I11.0 Hypertensive heart disease with heart failure (principal); I50.1 Left ventricular failure, unspecified; E03.9 Hypothyroidism, unspecified; Z79.01 Long term (current) use of anticoagulants; I48.19 Other persistent atrial fibrillation; E05.90 Thyrotoxicosis, unspecified without thyrotoxic crisis or storm; F31.30 Bipolar disorder, current episode depressed, mild or moderate severity, unspecified ==

== ENCOUNTER 2020-11-16 10:15 | Outpatient (CLI) | payer MEDICARE, MEDICAID ==
--- NOTE | 2020-11-16 16:14 | XRAY Report ---
PROCEDURE: Chest 2 View X-Ray INDICATIONS: CONGESTIVE HEART FAILURE TECHNIQUE: 2 view(s) of the chest. COMPARISON: 07/26/2020. FINDINGS: Surgical changes and devices: Numerous upper abdominal clips.. Lungs and pleura: No pleural effusions or pneumothorax. Lungs are clear. Mediastinum: Mediastinal contours are normal. Moderately severe cardiomegaly. Large hiatal hernia. Bones and chest wall: No suspicious bony abnormalities. Soft tissues appear unremarkable. IMPRESSION: Moderately severe cardiomegaly, large hiatal hernia. No evidence acute pulmonary process . Reviewed by: Blu Chan MD on 11/16/2020 4:12 PM PDT Approved by: Blu Chan MD on 11/16/2020 4:12 PM PDT Station ID: [id number]
[2020-11-16 18:26] LABS: CALCIUM 8.8 mg/dL (8.5-10.3); CREATININE 0.6 mg/dL (0.4-1.0); POTASSIUM 4.1 mmol/L (3.5-5.0)
== END 2020-11-16 10:16 | disposition home or self-care (01) ==
LOC: DI.N 10:15
PROVIDERS: ATTEND Family Medicine
DX: I50.1 Left ventricular failure, unspecified (principal); K44.9 Diaphragmatic hernia without obstruction or gangrene; E03.9 Hypothyroidism, unspecified; Z79.01 Long term (current) use of anticoagulants; I48.19 Other persistent atrial fibrillation; E05.90 Thyrotoxicosis, unspecified without thyrotoxic crisis or storm; F31.30 Bipolar disorder, current episode depressed, mild or moderate severity, unspecified; I11.9 Hypertensive heart disease without heart failure
CPT/HCPCS: 36415; 80048; 83880

== ENCOUNTER 2020-12-19 08:00 | Outpatient (CLI) | payer MEDICARE, MEDICAID | END 2020-12-19 23:59 | disposition home or self-care (01) | LOC: LAB.WCP 08:00 | PROVIDERS: ATTEND Family Medicine | DX: Z79.01 Long term (current) use of anticoagulants (principal); I48.91 Unspecified atrial fibrillation ==

== ENCOUNTER 2020-12-26 08:00 | Outpatient (CLI) | payer MEDICARE, MEDICAID | END 2020-12-26 23:59 | disposition home or self-care (01) | LOC: LAB.WCP 08:00 | PROVIDERS: ATTEND Family Medicine | DX: I48.19 Other persistent atrial fibrillation (principal); Z79.01 Long term (current) use of anticoagulants ==

== ENCOUNTER 2021-01-04 08:00 | Outpatient (CLI) | payer MEDICARE, MEDICAID | END 2021-01-04 23:59 | disposition home or self-care (01) | LOC: LAB.WCP 08:00 | PROVIDERS: ATTEND Family Medicine | DX: I48.19 Other persistent atrial fibrillation (principal); Z79.01 Long term (current) use of anticoagulants ==

== ENCOUNTER 2021-03-02 08:00 | Outpatient (CLI) | payer MEDICARE, MEDICAID ==
[2021-03-02 18:42] LABS: BASOPHILS % (AUTO) 0.8 %; EOSINOPHILS % (AUTO) 0.8 %; HCT - HEMATOCRIT 38.7 % (37.0-47.0); HGB - HEMOGLOBIN 12.2 g/dL (12.0-16.0); LYMPHOCYTES % (AUTO) 40.2 %; MEAN CORPUSCULAR HGB CONC 31.5 g/dL (32.0-36.0); MEAN CORPUSCULAR VOLUME 101.6 fL (81.0-99.0); MEAN PLATELET VOLUME 11.3 fL (7.9-10.8); MONOCYTES # (AUTO) 0.6 10^3/uL (0.0-1.0); MONOCYTES % (AUTO) 12.8 %; NEUTROPHILS # (AUTO) 2.3 10^3/uL (1.5-6.6); NEUTROPHILS % (AUTO) 45.2 %; PLT - PLATELET COUNT 267 10^3/uL (130-450); RED BLOOD COUNT 3.81 10^6/uL (4.20-5.40); RED CELL DISTRIBUTION WIDTH 16.2 % (12.0-15.0)
[2021-03-02 19:06] LABS: ALBUMIN 3.3 g/dL (3.2-5.5); ALBUMIN/GLOBULIN RATIO 0.7 (1.0-2.2); ALKALINE PHOSPHATASE 79 IU/L (42-121); ALT ALANINE AMINOTRANSFERASE 20 IU/L (10-60); AST ASPARTATE AMINOTRANSFERASE 41 IU/L (10-42); BILIRUBIN,TOTAL 0.9 mg/dL (0.2-1.0); BUN - BLOOD UREA NITROGEN 12 mg/dL (6-20); CALCIUM 8.8 mg/dL (8.5-10.3); CARBON DIOXIDE - CO2 27 mmol/L (21-32); CHLORIDE 99 mmol/L (101-111); CHOL/HDL RATIO 2.9 (<4.4); CHOLESTEROL 167 mg/dL; CREATININE 0.5 mg/dL (0.4-1.0); GFR - MDRD 121 (>89); GLUCOSE 85 mg/dL (70-100); HDL CHOLESTEROL 58 mg/dL; LDL CHOLESTEROL,CALCULATED 98 mg/dL; LDL/HDL RATIO 1.7 (<4.4); POTASSIUM 3.5 mmol/L (3.5-5.0); SODIUM 135 mmol/L (135-145); TRIGLYCERIDES 55 mg/dL; VLDL CHOLESTEROL 11 mg/dL
[2021-03-02 19:08] LABS: THYROID STIMULATING HORMONE 5.21 uIU/mL (0.34-5.60)
== END 2021-03-02 23:59 ==
LOC: LAB.WCP 08:00
PROVIDERS: ATTEND Nurse Practitioner
DX: I48.19 Other persistent atrial fibrillation (principal); E78.5 Hyperlipidemia, unspecified; I11.0 Hypertensive heart disease with heart failure; I50.1 Left ventricular failure, unspecified; E03.9 Hypothyroidism, unspecified; Z79.01 Long term (current) use of anticoagulants; E05.90 Thyrotoxicosis, unspecified without thyrotoxic crisis or storm; F31.30 Bipolar disorder, current episode depressed, mild or moderate severity, unspecified
CPT/HCPCS: 36415; 80053; 80061; 83721; 84443; 85025

== ENCOUNTER 2021-03-13 08:00 | Outpatient (CLI) | payer MEDICARE, MEDICAID | END 2021-03-13 23:59 | disposition home or self-care (01) | LOC: LAB.N 08:00 | PROVIDERS: ATTEND Family Medicine | DX: I48.19 Other persistent atrial fibrillation (principal); Z79.01 Long term (current) use of anticoagulants ==

== ENCOUNTER 2021-03-20 08:00 | Outpatient (CLI) | payer MEDICARE, MEDICAID | END 2021-03-20 23:59 | disposition home or self-care (01) | LOC: LAB.N 08:00 | PROVIDERS: ATTEND Family Medicine | DX: I48.91 Unspecified atrial fibrillation (principal); Z79.01 Long term (current) use of anticoagulants ==

== ENCOUNTER 2021-03-27 08:00 | Outpatient (CLI) | payer MEDICARE, MEDICAID | END 2021-03-27 23:59 | disposition home or self-care (01) | LOC: LAB.N 08:00 | PROVIDERS: ATTEND Physician Assistant | DX: J02.8 Acute pharyngitis due to other specified organisms (principal); Z20.822 Contact with and (suspected) exposure to COVID-19 ==

== ENCOUNTER 2021-04-03 08:00 | Outpatient (CLI) | payer MEDICARE, MEDICAID | END 2021-04-03 23:59 | disposition home or self-care (01) | LOC: LAB.N 08:00 | PROVIDERS: ATTEND Family Medicine | DX: I48.91 Unspecified atrial fibrillation (principal); Z79.01 Long term (current) use of anticoagulants ==

== ENCOUNTER 2021-04-10 08:00 | Outpatient (CLI) | payer MEDICARE, MEDICAID | END 2021-04-10 23:59 | disposition home or self-care (01) | LOC: LAB.N 08:00 | PROVIDERS: ATTEND Family Medicine | DX: I48.19 Other persistent atrial fibrillation (principal); Z79.01 Long term (current) use of anticoagulants ==

== ENCOUNTER 2021-05-01 08:00 | Outpatient (CLI) | payer MEDICARE, MEDICAID | END 2021-05-01 23:59 | disposition home or self-care (01) | LOC: LAB.WCP 08:00 | PROVIDERS: ATTEND Family Medicine | DX: I48.19 Other persistent atrial fibrillation (principal); Z79.01 Long term (current) use of anticoagulants ==

== ENCOUNTER 2021-06-12 10:34 | Outpatient (CLI) | payer MEDICARE, MEDICAID ==
[2021-06-12 18:19] LABS: BASOPHILS % (AUTO) 0.8 %; EOSINOPHILS # (AUTO) 0.1 10^3/uL (0.0-0.7); HCT - HEMATOCRIT 41.4 % (37.0-47.0); HGB - HEMOGLOBIN 13.3 g/dL (12.0-16.0); LYMPHOCYTES # (AUTO) 1.1 10^3/uL (1.5-3.5); LYMPHOCYTES % (AUTO) 21.9 %; MEAN CORPUSCULAR HGB CONC 32.1 g/dL (32.0-36.0); MEAN CORPUSCULAR VOLUME 99.8 fL (81.0-99.0); MEAN PLATELET VOLUME 11.3 fL (7.9-10.8); MONOCYTES # (AUTO) 0.7 10^3/uL (0.0-1.0); MONOCYTES % (AUTO) 12.8 %; NEUTROPHILS # (AUTO) 3.3 10^3/uL (1.5-6.6); NEUTROPHILS % (AUTO) 63.3 %; PLT - PLATELET COUNT 224 10^3/uL (130-450); RED BLOOD COUNT 4.15 10^6/uL (4.20-5.40); WHITE BLOOD COUNT 5.2 x10^3/uL (4.8-10.8)
[2021-06-12 18:21] LABS: CALCIUM 8.8 mg/dL (8.5-10.3); CREATININE 0.5 mg/dL (0.4-1.0); POTASSIUM 4.2 mmol/L (3.5-5.0)
== END 2021-06-12 10:35 | disposition home or self-care (01) ==
LOC: LAB.N 10:34
PROVIDERS: ATTEND Family Medicine
DX: I11.0 Hypertensive heart disease with heart failure (principal); R63.4 Abnormal weight loss; I50.1 Left ventricular failure, unspecified; D62 Acute posthemorrhagic anemia; E87.1 Hypo-osmolality and hyponatremia; Z79.899 Other long term (current) drug therapy; Z79.01 Long term (current) use of anticoagulants; I48.19 Other persistent atrial fibrillation
CPT/HCPCS: 36415; 80048; 83880; 85025

== ENCOUNTER 2021-06-19 08:00 | Outpatient (CLI) | payer MEDICARE, MEDICAID | END 2021-06-19 23:59 | disposition home or self-care (01) | LOC: LAB.WCP 08:00 | PROVIDERS: ATTEND Family Medicine | DX: I48.91 Unspecified atrial fibrillation (principal); Z79.01 Long term (current) use of anticoagulants ==

== ENCOUNTER 2021-06-26 08:00 | Outpatient (CLI) | payer MEDICARE, MEDICAID | END 2021-06-26 23:59 | disposition home or self-care (01) | LOC: LAB.N 08:00 | PROVIDERS: ATTEND Family Medicine | DX: I48.19 Other persistent atrial fibrillation (principal); Z79.01 Long term (current) use of anticoagulants ==

== ENCOUNTER 2021-07-03 08:00 | Outpatient (CLI) | payer MEDICARE, MEDICAID | END 2021-07-03 23:59 | disposition home or self-care (01) | LOC: LAB.N 08:00 | PROVIDERS: ATTEND Family Medicine | DX: I48.19 Other persistent atrial fibrillation (principal); Z79.01 Long term (current) use of anticoagulants ==

== ENCOUNTER 2021-07-10 08:00 | Outpatient (CLI) | payer MEDICARE, MEDICAID | END 2021-07-10 23:59 | disposition home or self-care (01) | LOC: LAB.WCP 08:00 | PROVIDERS: ATTEND Family Medicine | DX: I48.19 Other persistent atrial fibrillation (principal); Z79.01 Long term (current) use of anticoagulants ==

== ENCOUNTER → 2021-08-14 | Outpatient (CLI) | payer MEDICARE, MEDICAID | LOC: LAB.WCP 08:00 | PROVIDERS: ATTEND Family Medicine | DX: I48.19 Other persistent atrial fibrillation (principal); Z79.01 Long term (current) use of anticoagulants ==

== ENCOUNTER 2021-09-04 09:52 | Outpatient (CLI) | payer MEDICARE, MEDICAID ==
[2021-09-04 11:28] LABS: BASOPHILS # (AUTO) 0.1 10^3/uL (0.0-0.1); BASOPHILS % (AUTO) 1.1 %; EOSINOPHILS % (AUTO) 0.6 %; HCT - HEMATOCRIT 44.9 % (37.0-47.0); HGB - HEMOGLOBIN 14.7 g/dL (12.0-16.0); LYMPHOCYTES # (AUTO) 1.5 10^3/uL (1.5-3.5); LYMPHOCYTES % (AUTO) 31.6 %; MEAN CORPUSCULAR HGB CONC 32.7 g/dL (32.0-36.0); MEAN CORPUSCULAR VOLUME 100.9 fL (81.0-99.0); MEAN PLATELET VOLUME 11.5 fL (7.9-10.8); MONOCYTES # (AUTO) 0.6 10^3/uL (0.0-1.0); MONOCYTES % (AUTO) 13.2 %; NEUTROPHILS # (AUTO) 2.5 10^3/uL (1.5-6.6); NEUTROPHILS % (AUTO) 53.1 %; PLT - PLATELET COUNT 182 10^3/uL (130-450); RED BLOOD COUNT 4.45 10^6/uL (4.20-5.40); RED CELL DISTRIBUTION WIDTH 14.9 % (12.0-15.0); WHITE BLOOD COUNT 4.7 x10^3/uL (4.8-10.8)
[2021-09-04 11:51] LABS: ALBUMIN 3.8 g/dL (3.2-5.5); ALKALINE PHOSPHATASE 63 IU/L (42-121); ALT ALANINE AMINOTRANSFERASE 30 IU/L (10-60); AST ASPARTATE AMINOTRANSFERASE 50 IU/L (10-42); BILIRUBIN,TOTAL 1.2 mg/dL (0.2-1.0); BUN - BLOOD UREA NITROGEN 22 mg/dL (6-20); CARBON DIOXIDE - CO2 29 mmol/L (21-32); CHLORIDE 101 mmol/L (101-111); CHOL/HDL RATIO 3.1 (<4.4); CHOLESTEROL 177 mg/dL; CREATININE 0.7 mg/dL (0.4-1.0); GFR - MDRD 82 (>89); GLUCOSE 94 mg/dL (70-100); HDL CHOLESTEROL 58 mg/dL; LDL CHOLESTEROL,CALCULATED 103 mg/dL; LDL/HDL RATIO 1.8 (<4.4); POTASSIUM 4.2 mmol/L (3.5-5.0); SODIUM 136 mmol/L (135-145); TOTAL PROTEIN 7.7 g/dL (6.7-8.2); TRIGLYCERIDES 81 mg/dL; VLDL CHOLESTEROL 16 mg/dL
[2021-09-04 11:56] LABS: THYROID STIMULATING HORMONE 17.45 uIU/mL (0.34-5.60)
[2021-09-04 12:30] LABS: FREE T4 (FREE THYROXINE) 0.86 ng/dL (0.58-1.64)
== END 2021-09-04 09:53 | disposition home or self-care (01) ==
LOC: LAB.N 09:52
PROVIDERS: ATTEND Family Medicine
DX: E78.5 Hyperlipidemia, unspecified (principal); M16.11 Unilateral primary osteoarthritis, right hip; E87.1 Hypo-osmolality and hyponatremia; H61.22 Impacted cerumen, left ear; H60.93 Unspecified otitis externa, bilateral; E03.9 Hypothyroidism, unspecified
CPT/HCPCS: 36415; 80053; 80061; 83721; 84439; 84443; 85025

== ENCOUNTER 2021-11-20 08:00 | Outpatient (CLI) | payer MEDICARE, MEDICAID | END 2021-11-20 23:59 | disposition home or self-care (01) | LOC: LAB.WCP 08:00 | PROVIDERS: ATTEND Family Medicine | DX: I48.19 Other persistent atrial fibrillation (principal); Z79.01 Long term (current) use of anticoagulants ==

== ENCOUNTER 2021-12-18 08:00 | Outpatient (CLI) | payer MEDICARE, MEDICAID | END 2021-12-18 23:59 | disposition home or self-care (01) | LOC: LAB.WCP 08:00 | PROVIDERS: ATTEND Family Medicine | DX: Z79.01 Long term (current) use of anticoagulants (principal); I48.19 Other persistent atrial fibrillation ==

== ENCOUNTER 2021-12-18 10:24 | Outpatient (CLI) | payer MEDICARE, MEDICAID ==
[2021-12-18 13:05] LABS: FREE T3 2.84 pg/mL (2.5-3.9); THYROID STIMULATING HORMONE 0.26 uIU/mL (0.34-5.60)
[2021-12-18 13:09] LABS: FREE T4 (FREE THYROXINE) 2.1 ng/dL (0.58-1.64)
[2021-12-18 13:11] LABS: ALBUMIN 3.7 g/dL (3.2-5.5); BILIRUBIN,TOTAL 1.1 mg/dL (0.2-1.0); CREATININE 0.9 mg/dL (0.4-1.0); POTASSIUM 3.9 mmol/L (3.5-5.0); TOTAL PROTEIN 7.4 g/dL (6.7-8.2)
[2021-12-18 13:22] LABS: BASOPHILS % (AUTO) 0.9 %; EOSINOPHILS # (AUTO) 0.1 10^3/uL (0.0-0.7); EOSINOPHILS % (AUTO) 1.1 %; HCT - HEMATOCRIT 45.3 % (37.0-47.0); HGB - HEMOGLOBIN 14.5 g/dL (12.0-16.0); LYMPHOCYTES # (AUTO) 1.2 10^3/uL (1.5-3.5); LYMPHOCYTES % (AUTO) 25.9 %; MEAN CORPUSCULAR HEMOGLOBIN 32.7 pg (27.0-31.0); MEAN PLATELET VOLUME 11.6 fL (7.9-10.8); MONOCYTES # (AUTO) 0.7 10^3/uL (0.0-1.0); MONOCYTES % (AUTO) 14.1 %; NEUTROPHILS # (AUTO) 2.7 10^3/uL (1.5-6.6); PLT - PLATELET COUNT 191 10^3/uL (130-450); RED BLOOD COUNT 4.44 10^6/uL (4.20-5.40); RED CELL DISTRIBUTION WIDTH 13.7 % (12.0-15.0); WHITE BLOOD COUNT 4.6 x10^3/uL (4.8-10.8)
== END 2021-12-18 10:25 | disposition home or self-care (01) ==
LOC: LAB.N 10:24
PROVIDERS: ATTEND Family Medicine
DX: I10 Essential (primary) hypertension (principal); I48.91 Unspecified atrial fibrillation; J45.909 Unspecified asthma, uncomplicated
CPT/HCPCS: 36415; 80053; 84439; 84443; 84481; 85025

== ENCOUNTER 2021-12-25 08:00 | Outpatient (CLI) | payer MEDICARE, MEDICAID | END 2021-12-25 23:59 | disposition home or self-care (01) | LOC: LAB.WCP 08:00 | PROVIDERS: ATTEND Family Medicine | DX: I48.19 Other persistent atrial fibrillation (principal); Z79.01 Long term (current) use of anticoagulants ==

== ENCOUNTER → 2022-01-01 | Outpatient (CLI) | payer MEDICARE, MEDICAID | LOC: LAB.WCP 08:00 | PROVIDERS: ATTEND Family Medicine | DX: Z79.01 Long term (current) use of anticoagulants (principal); I48.19 Other persistent atrial fibrillation ==

== ENCOUNTER 2022-01-23 10:41 | Outpatient (CLI) | payer MEDICARE, MEDICAID | END 2022-01-23 10:42 | disposition home or self-care (01) | LOC: LAB.N 10:41 | PROVIDERS: ATTEND Family Medicine | DX: Z79.01 Long term (current) use of anticoagulants (principal); I48.19 Other persistent atrial fibrillation | CPT/HCPCS: 36416; 85610 ==

== ENCOUNTER 2022-01-30 10:04 | Outpatient (CLI) | payer MEDICARE, MEDICAID | END 2022-01-30 10:05 | disposition home or self-care (01) | LOC: LAB.N 10:04 | PROVIDERS: ATTEND Family Medicine | DX: Z79.01 Long term (current) use of anticoagulants (principal); I48.19 Other persistent atrial fibrillation | CPT/HCPCS: 36416; 85610 ==

== ENCOUNTER 2022-02-06 10:10 | Outpatient (CLI) | payer MEDICARE, MEDICAID | END 2022-02-06 10:11 | disposition home or self-care (01) | LOC: LAB.N 10:10 | PROVIDERS: ATTEND Family Medicine | DX: I48.19 Other persistent atrial fibrillation (principal); Z79.01 Long term (current) use of anticoagulants | CPT/HCPCS: 36416; 85610 ==

== ENCOUNTER 2022-11-22 06:39 | Outpatient (CLI) | payer MEDICARE, MEDICAID ==
--- NOTE | 2022-11-22 09:36 | Ultrasound Report ---
PROCEDURE: Abdomen Limited INDICATIONS: HEP C TECHNIQUE: Real-time focused scanning was performed of the abdomen, with image documentation. COMPARISONS: None. FINDINGS: Liver: Coarsened liver echogenicity. Mildly nodular contour. No solid mass. Gallbladder: Unremarkable. Biliary ducts: Intrahepatic bile ducts are non-dilated. Extrahepatic bile duct caliber measures 5.4 mm. Normal is 6-7 mm or less in diameter, or 10 mm or less post-cholecystectomy. Pancreas: Visualized portions of the pancreas are sonographically normal. Right kidney: Small, with increased echogenicity. Right kidney measures 6.9 cm long. No hydronephrosi s or nephrolithiasis. No solid masses. No complex renal cystic lesions which require follow-up. IMPRESSION: Chronic liver disease, without solid mass. Small right kidney, with increased echogenicity. Findings consistent with chronic parenchymal disease . Reviewed by: Kalen Ledesma on 11/22/2022 9:35 AM PDT Approved by: Kalen Ledesma on 11/22/2022 9:35 AM PDT Station ID: [id number]
== END 2022-11-22 06:40 | disposition home or self-care (01) ==
LOC: DI 06:39
PROVIDERS: ATTEND Physician Assistant
DX: B18.2 Chronic viral hepatitis C (principal); N26.1 Atrophy of kidney (terminal)

== ENCOUNTER 2023-05-06 14:55 | Outpatient (CLI) | payer MEDICARE, MEDICAID | END 2023-05-06 23:59 | disposition critical access hospital (66) | LOC: EMS 14:55 | DX: R53.1 Weakness (principal) | CPT/HCPCS: A0425; A0429 ==

== ENCOUNTER 2023-05-06 15:16 | Inpatient (IN) | payer MEDICARE, MEDICAID ==
--- NOTE | 2023-05-06 15:53 | ED Physician Documentation ---
History of Present Illness - Stated complaint Stated Complaint: ANXIETY/CONFUSION - Chief complaint Chief Complaint: General - Additonal information Additional information: 77-year-old female presents emergency department for altered mental status and confusion. Patient lives at assisted living facility where they called patient's niece Amanda to report that the patient has been more altered and confused than normal and very anxious and perseverant. Patient is refusing to eat or drink any water or food because she is worried that she might have to get up to go to the bathroom and patient is very anxious about falling. She is been having increased confusion, I spoke with the patient's niece Amanda who says that there is no formal diagnoses of dementia that she can be forgetful at times but is unsure if the patient has dementia but does report that this mentation changes significantly different from her baseline. Patient denies any pain she is unable to give me any history of provide any information as to what brings her into the emergency department today. She is tangential at times but able to speak in full sentences. 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 - Present Medications Home Medications: Ambulatory Orders Medication Instructions Recorded Confirmed Furosemide 20 mg PO DAILY 02/17/19 05/06/23 Levothyroxine Sodium 112 mcg ORAL QDAC 02/17/19 05/06/23 Metoprolol Succinate 25 mg PO DAILY 02/17/19 05/06/23 Apixaban [Eliquis] 1 tab PO BID 05/06/23 05/06/23 Atorvastatin [Lipitor] 1 tab PO DAILY 05/06/23 05/06/23 Ferrous Sulfate [Feosol] 1 tab PO DAILY 05/06/23 05/06/23 cephALEXin [Keflex] 500 mg PO BID 7 Days #14 cap 05/06/23 lisinopriL [Zestril] 1 tab PO DAILY 05/06/23 05/06/23 - Allergies Allergies/Adverse Reactions: Allergies Allergy/AdvReac Type Severity Reaction Status Date / Time peach Allergy Hives Verified 05/06/23 15:28 pear Allergy Hives Verified 05/06/23 15:28 milk AdvReac Nausea Verified 05/06/23 15:28 Sulfa (Sulfonamide AdvReac Rash Verified 05/06/23 15:28 Antibiotics) - Social History Does the pt smoke?: No Smoking Status: Never smoker Does the pt drink ETOH?: No Does the pt have substance abuse?: No - Immunizations Immunizations are current?: Yes - POLST Patient has POLST: No POLST Status: Full Code PD ED PE NORMAL - Vitals Vital signs reviewed: Yes - General General: Well developed/nourished - HEENT HEENT: Atraumatic, PERRL, Moist mucous membranes, Pharynx benign - Cardiac Cardiac: RRR, No murmur, No gallop, Strong equal pulses - Respiratory Respiratory: No respiratory distress, Clear bilaterally - Abdomen Abdomen: Normal bowel sounds, Soft, Non tender, No organomegaly - Back Back: No CVA TTP - Derm Derm: Normal color - Neuro Eye Opening: Spontaneous Motor: Obeys Commands Verbal: Confused GCS Score: 14 - Psych Psych: Other - Free text exam Free text exam: Patient is quite tangential and confused unable to provide any history unable to participate in exam she is able to follow directions. Results - Vitals Vitals: Vital Signs - 24 hr 05/06/23 15:25 Temperature 36.6 C Heart Rate 84 Respiratory 16 Rate Blood Pressure 156/69 H O2 Saturation 95 Oxygen O2 Source [] Room air O2 Source Room air - Labs Labs: Laboratory Tests 05/06/23 05/06/23 05/06/23 15:49 15:49 16:03 WBC 8.1 RBC 4.85 Hgb 14.0 Hct 45.4 MCV 93.6 MCH 28.9 MCHC 30.8 L RDW 17.3 H Plt Count 250 MPV 11.8 H Neut # (Auto) 5.9 Lymph # (Auto) 1.3 L [place] # (Auto) 0.8 Eos # (Auto) 0.0 Baso # (Auto) 0.0 Absolute Nucleated RBC 0.00 Nucleated RBC % 0.0 Sodium 132 L Potassium 4.1 Chloride 96 L Carbon Dioxide 23 Anion Gap 13.0 BUN 47 H Creatinine 1.6 H Estimated GFR (MDRD) 31 L Glucose 98 Calcium 9.8 Magnesium 1.7 Total Bilirubin 2.1 H AST 38 ALT 14 Alkaline Phosphatase 66 Total Protein 8.4 Albumin 3.9 Globulin 4.5 H Albumin/Globulin Ratio 0.9 L Urine Color DARK YELLOW Urine Clarity CLEAR Urine pH 5.5 Ur Specific [place] 1.025 Urine Protein 30 H Urine Glucose (UA) NEGATIVE Urine Ketones TRACE Urine Occult Blood TRACE-INTA Urine Nitrite NEGATIVE Urine Bilirubin MODERATE H Urine Urobilinogen 1 (NORMAL) Ur Leukocyte Esterase TRACE H Urine RBC 0-5 Urine WBC >25 H Urine WBC Clumps PRESENT Ur Squamous Epith Cells FEW Squamous Urine Bacteria Many H Urine Casts 0-2 Hyaline Casts Ur Microscopic Review INDICATED Urine Culture Comments INDICATED - Rads (name of study) Head CT without Relevant Findings:: Final report received, EMP independent interpretation of test, Other (No intracranial hemorrhages or abnormalities.) PD Medical Decision Making - ED course ED course: This patient presents with altered mental status, concerning for UTI. Labs and exam were inconsistent with toxic metabolic etiologies such as electrolyte disturbances (Na/Ca), hypoglycemia; acidosis states, infection (i.e. Sepsis). History and exam make toxidromes of intoxication or withdrawal, hypoxemia or hypercarbia, liver disease or failure causing hepatic encephalopathy, endocrine emergencies (hyper/hypothyroidism, adrenal insufficiency), seizure, trauma, intracranial bleeds or ischemic stroke less likely, Head CT without any significant abnormalities or findings.Urinalysis does reveal that she has leukocytes although no nitrites. I spoke with Dr. Cunningham plant operator/shift supervisor hospitalist who suggest doing the CT abdomen pelvis for further evaluation of her altered mental status because given that patient does not have a raging UTI no leukocytosis he asked for more investigation.Patient was started on Keflex for UTI urine sent for cultures.She was given a liter of IV fluids here in the emergency department to help with her dehydration.CT abdomen pelvis with contrast was also complete after receiving 1 L of IV fluids which did not reveal any acute abnormalities that could be indicative of patient's altered mental status. Upper abdominal ventral hernia contains fat and a loop of large bowel but there is no signs of bowel obstruction, she has a large hiatal hernia. New right renal atrophy in comparison to CT from 07/2020 there is compensatory hypertrophy of the left kidney without hydronephrosis. She also has a mild T12 compression fracture unsure if this is new or old patient denies any back pain. She also has ongoing marked cardiomegaly. I gave these updated results to Dr. Packer who has agreed to admit the patient and believes she would benefit from further hospitalization and ongoing management of this new and worsening altered mental status. Departure - Departure Disposition: 66 [facility] DC/Xfer Clinical Impression: UTI (urinary tract infection) Qualifiers: Urinary tract infection type: acute cystitis Hematuria presence: without hematuria Qualified Code(s): N30.00 - Acute cystitis without hematuria Altered mental status Qualifiers: Altered mental status type: delirium Qualified Code(s): R41.0 - Disorientation, unspecified Prescriptions: cephALEXin [Keflex] 500 mg PO BID 7 Days #14 cap Forms: PCP List
[2023-05-06 15:55] LABS: BASOPHILS % (AUTO) 0.2 %; EOSINOPHILS % (AUTO) 0.2 %; HCT - HEMATOCRIT 45.4 % (37.0-47.0); LYMPHOCYTES # (AUTO) 1.3 10^3/uL (1.5-3.5); LYMPHOCYTES % (AUTO) 15.8 %; MEAN CORPUSCULAR HEMOGLOBIN 28.9 pg (27.0-31.0); MEAN CORPUSCULAR HGB CONC 30.8 g/dL (32.0-36.0); MEAN CORPUSCULAR VOLUME 93.6 fL (81.0-99.0); MEAN PLATELET VOLUME 11.8 fL (7.9-10.8); MONOCYTES # (AUTO) 0.8 10^3/uL (0.0-1.0); NEUTROPHILS # (AUTO) 5.9 10^3/uL (1.5-6.6); NEUTROPHILS % (AUTO) 73.4 %; PLT - PLATELET COUNT 250 10^3/uL (130-450); RED BLOOD COUNT 4.85 10^6/uL (4.20-5.40); RED CELL DISTRIBUTION WIDTH 17.3 % (12.0-15.0); WHITE BLOOD COUNT 8.1 x10^3/uL (4.8-10.8)
[2023-05-06 16:13] LABS: ALBUMIN 3.9 g/dL (3.2-5.5); ALBUMIN/GLOBULIN RATIO 0.9 (1.0-2.2); BILIRUBIN,TOTAL 2.1 mg/dL (0.2-1.0); CALCIUM 9.8 mg/dL (8.5-10.3); CREATININE 1.6 mg/dL (0.6-1.3); MAGNESIUM 1.7 mg/dL (1.7-2.3); POTASSIUM 4.1 mmol/L (3.5-4.5); TOTAL PROTEIN 8.4 g/dL (6.4-8.9)
[2023-05-06 16:31] LABS: BILIRUBIN,URINE MODERATE (NEGATIVE); GLUCOSE, URINE (UA) NEGATIVE (NEGATIVE); KETONES,URINE (UA) TRACE mg/dL (NEGATIVE); LEUKOCYTE ESTERASE, URINE TRACE (NEGATIVE); NITRITE,URINE NEGATIVE (NEGATIVE); OCCULT BLOOD,URINE TRACE-INTA (NEGATIVE); PH,URINE 5.5 PH (5.0-7.5); PROTEIN,URINE 30 mg/dL (NEGATIVE); UROBILINOGEN,URINE 1 (NORMAL) E.U./dL (NORMAL)
[2023-05-06 16:41] LABS: CLARITY,URINE CLEAR (CLEAR)
[2023-05-06 17:00] LABS: BACTERIA,URINE Many /HPF (None Seen); RBC,URINE 0-5 /HPF (0-5); SQUAMOUS EPITHELIAL CELL,UR FEW Squamous (<= Few); WBC,URINE >25 /HPF (0-5)
[2023-05-06 17:01] LABS: CASTS, URINE 0-2 Hyaline Casts /LPF; WBC CLUMPS,URINE PRESENT
[2023-05-06] MEDS: cephALEXin 250 MG CAPSULE PO STA (18:17)
[2023-05-06] MEDS: SODIUM CHLORIDE 0.9% 1,000 ML IV ONE (20:39)
[2023-05-06] MEDS ORDERED: iohexoL-300 150 ML BOTTLE ONE (21:38)
[2023-05-06] MEDS: iohexoL-300 100 ML VIAL IVP ONE (22:15)
--- NOTE | 2023-05-06 22:25 | CT Report ---
PROCEDURE: Head WO INDICATIONS: AMS TECHNIQUE: Noncontrast 4.5 mm thick angled axial sections acquired from the foramen magnum to the vertex. For r adiation dose reduction, the following was used: automated exposure control, adjustment of mA and/or kV according to patient size. COMPARISON: None. FINDINGS: Image quality: Images are mild degraded by motion despite repeat scanning. Diagnostic information is obtained. CSF spaces: Basal cisterns are patent. No extra-axial fluid collections. Ventricles are symmetric in size and shape. Brain: No midline shift. No intracranial masses or hemorrhage. Hypodensities in the subcortical and periventricular white matter are most commonly seen in setting of chronic microvascular ischemic ted nges. Age-related cerebral and cerebellar volume loss is seen. Intracranial vascular calcifications a re noted in the internal carotid arteries. Skull and face: Calvarium and visualized facial bones are intact, without suspicious lesions. Sinuses: Visualized sinuses and mastoids are clear. IMPRESSION: No acute intracranial pathology. Reviewed by: Thai Sosa MD on 05/06/2023 10:24 PM PDT Approved by: Thai Sosa MD on 05/06/2023 10:24 PM PDT Station ID: [id number]
--- NOTE | 2023-05-06 22:44 | CT Report ---
PROCEDURE: Abdomen/Pelvis W INDICATIONS: AMS CONTRAST: Omni 300, 90mls TECHNIQUE: After the administration of intravenous contrast, a CT scan of the abdomen and pelvis was performed. Images were recorded and evaluated at appropriate window settings. Reformats: coronal and sagittal. F or radiation dose reduction, the following was used: automated exposure control, adjustment of mA and /or kV according to patient size. COMPARISON: CT abdomen/pelvis 07/26/2020 FINDINGS: Image quality: Diagnostic. Lower chest: Marked cardiomegaly with significant biatrial enlargement. Liver: No solid mass. Gallbladder and biliary tree: No radiopaque stones or wall thickening. No biliary dilation. Spleen: Absent. Pancreas: No pancreatic ductal dilation. Adrenals: No adrenal nodule. Kidneys and ureters: Right kidney is atrophic, which has progressed when compared to the prior CT.. N o hydronephrosis. No renal cystic lesion which requires follow up. No solid mass. Stomach, bowel and peritoneum: Large hiatal hernia containing the majority of the stomach. Postsurgic al changes are seen from prior prior bowel resection with anastomosis in the lower central abdomen, w hich appears patent. Lymph nodes: No central or retroperitoneal adenopathy. Surgical clips are seen in the retroperitoneum . Vessels: No infrarenal aortic aneurysm. PELVIS Reproductive organs: Unremarkable. Bladder: No abnormal wall thickening, accounting for underdistention. Pelvic lymph nodes: No pelvic adenopathy by size criteria. Bones: No aggressive osseous abnormality. Generalized osteopenia. Mild T12 compression fracture appea rs new when compared to the CT from 07/26/2020. Other: Wide necked ventral hernia seen containing fat and a loop of large bowel without signs of gianni l obstruction. IMPRESSION: 1.No acute abnormality identified in the abdomen or pelvis. 2.Upper abdominal ventral hernia contains fat and a loop of large bowel without signs of bowel obstru ction. 3.Large hiatal hernia. 4.Right renal atrophy is new when compared to the CT from 07/26/2020. There is compensatory hypertrophy of the left kidney. No hydronephrosis. 5.Mild T12 compression fracture is of uncertain age, but is new when compared to the CT from 07/26/2020 . 6.Marked cardiomegaly. Reviewed by: Thai Sosa MD on 05/06/2023 10:43 PM PDT Approved by: Thai Sosa MD on 05/06/2023 10:43 PM PDT Station ID: [id number]
[2023-05-07] MEDS ORDERED: ONDANSETRON 4 MG/2 ML VIAL IVP PRN (00:25)
[2023-05-07] MEDS ORDERED: SODIUM CHLORIDE FLUSH 0.9% 10 ML SYRINGE IVP PRN (00:25)
--- NOTE | 2023-05-07 00:30 | HISTORY & PHYSICAL EXAMINATION ---
Chief Complaint - Chief Complaint Chief Complaint: Altered mental status History of Present Illness - Admitted From Admitted From:: Assisted Living - History Obtained From Records Reviewed: Yes History obtained from: ER team Exam Limitations: Patient is altered - History of Present Illness HPI Comment/Other: 77-year-old female presents emergency department for altered mental status and confusion. Patient lives at assisted living facility where they called patient's niece Amanda to report that the patient has been more altered and confused than normal and very anxious and perseverant. Patient is refusing to eat or drink any water or food because she is worried that she might have to get up to go to the bathroom and patient is very anxious about falling. She is been having increased confusion, I spoke with the patient's niece Amanda who says that there is no formal diagnoses of dementia that she can be forgetful at times but is unsure if the patient has dementia but does report that this mentation changes significantly different from her baseline. Patient denies any pain she is unable to give me any history of provide any information as to what brings her into the emergency department today. She is tangential at times but able to speak in full sentences.Patient is not able to give any meaningful hisotry to me I had aksed ER to check ct head and also ct abd for any other causes of altered mental status both scans have been negative and unremarkbale at this time will admit for observation, baseline mental status not know n to me History - Past Medical History Cardiovascular: reports: Congestive heart failure, Hypertension, Atrial fibrillation, Other Respiratory: reports: Asthma Endocrine/Autoimmune: reports: HyPOthyroidism GI: reports: None : reports: Incontinence HEENT: reports: Other Musculoskeletal: reports: Osteoarthritis MRSA Hx?: No - 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 - Substance History Use: Uses substance without health or social issues: NONE - POLST Patient has POLST: No POLST Status: Full Code Meds/Allgy - Home Medications Home Medications: Ambulatory Orders Medication Instructions Recorded Confirmed Furosemide 20 mg PO DAILY 02/17/19 05/06/23 Levothyroxine Sodium 112 mcg ORAL QDAC 02/17/19 05/06/23 Metoprolol Succinate 25 mg PO DAILY 02/17/19 05/06/23 Apixaban [Eliquis] 1 tab PO BID 05/06/23 05/06/23 Atorvastatin [Lipitor] 1 tab PO DAILY 05/06/23 05/06/23 Ferrous Sulfate [Feosol] 1 tab PO DAILY 05/06/23 05/06/23 cephALEXin [Keflex] 500 mg PO BID 7 Days #14 cap 05/06/23 lisinopriL [Zestril] 1 tab PO DAILY 05/06/23 05/06/23 - Allergies Allergies/Adverse Reactions: Allergies Allergy/AdvReac Type Severity Reaction Status Date / Time peach Allergy Hives Verified 05/06/23 15:28 pear Allergy Hives Verified 05/06/23 15:28 milk AdvReac Nausea Verified 05/06/23 15:28 Sulfa (Sulfonamide AdvReac Rash Verified 05/06/23 15:28 Antibiotics) Review of Systems - Other Findings Other Findings: Unable to obtain Prior Level of Functionality: Lives at assisted living Exam - Vital Signs Vital Signs: Vital Signs x48h Pulse Resp BP Pulse Ox 05/06/23 23:29 83 16 104/82 H 97 - Physical Exam General Appearance: positive: No acute distress Eyes Bilateral: positive: Normal inspection Neck: positive: No JVD Respiratory: positive: Breath sounds nml Neurologic/Psychiatric: positive: Other (altered mental status) Sepsis Event Note (H) - Evaluation Current Stage of Sepsis: Ruled out Conclusion/Plan - Problem List (1) Altered mental status Conclusion/Plan: Doubt she has alterted mental status from uti in setting of no fever, no sirs no sepsis will start with iv rocephin l would llike her to rest overnight and reasees in am MRI brain if clinically indicated jammie Qualifiers: Altered mental status type: delirium Qualified Code(s): R41.0 - Disorientation, unspecified (2) Atrial fibrillation Conclusion/Plan: Continue Eliquis unable to see EKG but rate is under control Qualifiers: Atrial fibrillation type: chronic (3) Dehydration Conclusion/Plan: Gentle hydration as creatinine and BUN are elevated (4) HTN (hypertension) Conclusion/Plan: Hold BP meds and to be resumed in am - Lab Results Fish Bones: 05/06/23 15:49 05/06/23 15:49 - EKG Results EKG Interpreted Independently: No
[2023-05-07] MEDS ORDERED: cefTRIAXone 1 GM VIAL ONE (01:06)
[2023-05-07] MEDS: cefTRIAXone 1 GM in SODIUM CHLORIDE 0.9% MINIBAG 100 ML IV STA (01:14)
[2023-05-07] MEDS: SODIUM CHLORIDE 0.9% 1,000 ML IV SCH (04:40)
[2023-05-07] MEDS: SODIUM CHLORIDE FLUSH 0.9% 10 ML SYRINGE IVP SCH (04:40)
[2023-05-07] MEDS: LEVOTHYROXINE 75 MCG TABLET PO SCH (06:47)
[2023-05-07] MEDS ORDERED: NON FORMULARY MED (Atorvastatin [Lipitor] 20 MG Tablet) PO SCH (09:00)
[2023-05-07] MEDS: FERROUS SULFATE 325 MG TABLET PO SCH (09:32)
[2023-05-07] MEDS: APIXABAN 5 MG TABLET PO SCH (09:32)
--- NOTE | 2023-05-07 10:43 | PHARMACY PROGRESS NOTE ---
- Best Possible Medication History Admit Date and Time: 05/07/23 0025 Processed by: Nursing Medications reviewed in ED?: Yes Medication History completed: Yes Patient Interview: Pt unable to participate Secondary Source(s): Insurance records As the person ultimately responsible for medication therapy, providers are able to order a medication from an existing home medication list in [facility] via the "Reconcile Routine" prior to Confirmation of that medication by support services tech. Such practice is discouraged except when the physician, in their clinical judgment, deems that a medical need exists for a medication without regard to previous use.
--- NOTE | 2023-05-07 12:53 | PROVIDER PROGRESS NOTE ---
Subjective - Prog Note Date Prog Note Date: 05/07/23 Prog Note Time: 12:50 - Subjective Pt reports feeling: Improved Current Medications - Current Medications Current Medications: Active Medications Acetaminophen (Acetaminophen 325 Mg Tablet) 650 mg PO Q4HR PRN PRN Reason: Pain 1 to 4, or Fever Apixaban (Apixaban 5 Mg Tablet) 5 mg PO BID [facility] Last Admin: 05/07/23 09:32 Dose: 5 mg Atorvastatin Calcium (Atorvastatin 10 Mg Tablet) 20 mg PO QPM [facility] Ferrous Sulfate (Ferrous Sulfate 325 Mg Tablet) 325 mg PO DAILY [facility] Last Admin: 05/07/23 09:32 Dose: 325 mg Sodium Chloride (Normal Saline 0.9%) 1,000 mls @ 100 mls/hr IV .Q10H [facility] Last Admin: 05/07/23 04:40 Dose: 100 mls/hr Ceftriaxone Sodium 1 gm/ (Sodium Chloride) 100 mls @ 200 mls/hr IV DAILY [facility] Levothyroxine Sodium (Levothyroxine 112 Mcg Tablet) 112 mcg PO QDAC [facility] Ondansetron HCl (Ondansetron 4 Mg/2 Ml Vial) 4 mg IVP Q6HR PRN PRN Reason: Nausea / Vomiting Sodium Chloride (Sodium Chloride Flush 0.9% 10 Ml Syringe) 10 ml IVP PRN PRN PRN Reason: NEEDED PER PROVIDER ORDERS Sodium Chloride (Sodium Chloride Flush 0.9% 10 Ml Syringe) 10 ml IVP 0100,0900,1700 [facility] Last Admin: 05/07/23 09:32 Dose: 10 ml Furosemide 20 mg PO DAILY 02/17/19 Levothyroxine Sodium 112 mcg ORAL QDAC 02/17/19 Metoprolol Succinate 25 mg PO QDAC 02/17/19 Apixaban [Eliquis] 5 mg PO BID 05/06/23 Atorvastatin [Lipitor] 20 mg PO DAILY 05/06/23 Ferrous Sulfate [Feosol] 1 tab PO DAILY 05/06/23 lisinopriL [Zestril] 1 tab PO DAILY 05/06/23 Objective - Vital Signs/Intake & Output Vital Signs: Vital Signs - 24 hr 05/06/23 05/06/23 05/07/23 15:25 23:29 01:00 Temperature 36.6 C Heart Rate 84 83 81 Heart Rate [ Monitoring electrodes] Respiratory 16 16 20 Rate Blood Pressure 156/69 H 104/82 H 156/75 H Blood Pressure [Left Brachial artery] Blood Pressure [Right Brachial artery] O2 Saturation 95 97 95 05/07/23 05/07/23 05/07/23 01:29 05:17 08:43 Temperature 36.8 C 36.7 C 36.8 C Heart Rate Heart Rate [ 76 85 85 Monitoring electrodes] Respiratory 18 20 16 Rate Blood Pressure Blood Pressure 137/89 H [Left Brachial artery] Blood Pressure 157/83 H 157/81 H [Right Brachial artery] O2 Saturation 97 96 97 05/07/23 12:59 Temperature 36.8 C Heart Rate Heart Rate [ 91 Monitoring electrodes] Respiratory 16 Rate Blood Pressure Blood Pressure [Left Brachial artery] Blood Pressure 169/82 H [Right Brachial artery] O2 Saturation 96 Intake & Output: Intake & Output 05/04/23 05/05/23 05/06/23 05/07/23 22:59 23:59 23:59 23:59 Intake Total 1000 360 Output Total 70 Balance 1000 290 - Objective General Appearance: positive: No acute distress Eyes Bilateral: positive: Normal inspection ENT: positive: No signs of dehydration Neck: positive: Nml inspection, No JVD, Trachea midline Respiratory: positive: No respiratory distress Cardiovascular: positive: Regular rate & rhythm, No murmur, No gallop Abdomen: positive: Non-tender Skin: positive: Color nml, Dry (right side of lips dry and crusted), Other (unilateral drooping on the left side face by the corner of her mouth) Extremities: positive: No pedal edema Neurologic/Psychiatric: positive: CN's nml (2-12) - Lab Results Fish Bones: 05/06/23 15:49 05/06/23 15:49 Other Labs: Lab Results x24hrs 05/06/23 05/06/23 05/06/23 Range/Units 16:03 15:49 15:49 WBC 8.1 (4.8-10.8) x10^3/uL RBC 4.85 (4.20-5.40) 10^6/uL Hgb 14.0 (12.0-16.0) g/dL Hct 45.4 (37.0-47.0) % MCV 93.6 (81.0-99.0) fL MCH 28.9 (27.0-31.0) pg MCHC 30.8 L (32.0-36.0) g/dL RDW 17.3 H (12.0-15.0) % Plt Count 250 (130-450) 10^3/uL MPV 11.8 H (7.9-10.8) fL Neut # (Auto) 5.9 (1.5-6.6) 10^3/uL Lymph # (Auto) 1.3 L (1.5-3.5) 10^3/uL [place] # (Auto) 0.8 (0.0-1.0) 10^3/uL Eos # (Auto) 0.0 (0.0-0.7) 10^3/uL Baso # (Auto) 0.0 (0.0-0.1) 10^3/uL Absolute Nucleated RBC 0.00 x10^3/uL Nucleated RBC % 0.0 /100WBC Sodium 132 L (135-145) mmol/L Potassium 4.1 (3.5-4.5) mmol/L Chloride 96 L (101-111) mmol/L Carbon Dioxide 23 (21-32) mmol/L Anion Gap 13.0 (6-13) BUN 47 H (6-20) mg/dL Creatinine 1.6 H (0.6-1.3) mg/dL Estimated GFR (MDRD) 31 L (>89) Glucose 98 (74-104) mg/dL Calcium 9.8 (8.5-10.3) mg/dL Magnesium 1.7 (1.7-2.3) mg/dL Total Bilirubin 2.1 H (0.2-1.0) mg/dL AST 38 (10-42) IU/L ALT 14 (10-60) IU/L Alkaline Phosphatase 66 (42-121) IU/L Total Protein 8.4 (6.4-8.9) g/dL Albumin 3.9 (3.2-5.5) g/dL Globulin 4.5 H (2.1-4.2) g/dL Albumin/Globulin Ratio 0.9 L (1.0-2.2) Urine Color DARK YELLOW Urine Clarity CLEAR (CLEAR) Urine pH 5.5 (5.0-7.5) PH Ur Specific [place] 1.025 (1.002-1.030) Urine Protein 30 H (NEGATIVE) mg/dL Urine Glucose (UA) NEGATIVE (NEGATIVE) mg/dL Urine Ketones TRACE (NEGATIVE) mg/dL Urine Occult Blood TRACE-INTA (NEGATIVE) Urine Nitrite NEGATIVE (NEGATIVE) Urine Bilirubin MODERATE H (NEGATIVE) Urine Urobilinogen 1 (NORMAL) (NORMAL) E.U./dL Ur Leukocyte Esterase TRACE H (NEGATIVE) Urine RBC 0-5 (0-5) /HPF Urine WBC >25 H (0-5) /HPF Urine WBC Clumps PRESENT Ur Squamous Epith Cells FEW Squamous (<= Few) Urine Bacteria Many H (None Seen) /HPF Urine Casts 0-2 Hyaline Casts /LPF Ur Microscopic Review INDICATED Urine Culture Comments INDICATED Sepsis Event Note (H) - Evaluation Current Stage of Sepsis: Ruled out Assessment/Plan - Problem List (1) UTI (urinary tract infection) Impression: urine culture - E. Coli ceftriaxone 1 gm, 100 mls @ 200mls/1hr daily IV Qualifiers: Urinary tract infection type: acute cystitis Hematuria presence: without h ematuria Qualified Code(s): N30.00 - Acute cystitis without hematuria (2) Altered mental status Impression: Likely due to recent acute cystitis Plan: reassessment of labs and observational status at [facility] (3) Atrial fibrillation Conclusion/Plan: Continue Eliquis unable to see EKG but rate is under control Qualifiers: Atrial fibrillation type: chronic (4) Dehydration Conclusion/Plan: Gentle hydration as creatinine and BUN are elevated (5) HTN (hypertension) Conclusion/Plan: Hold BP meds and to be resumed in am Qualifiers: Altered mental status type: delirium Qualified Code(s): R41.0 - Disorientation, unspecified
[2023-05-07] MEDS: ATORVASTATIN 10 MG TABLET PO SCH (20:29)
[2023-05-07] MEDS: ACETAMINOPHEN 325 MG TABLET PO PRN (20:31)
[2023-05-08 05:37] LABS: BASOPHILS % (AUTO) 0.4 %; EOSINOPHILS # (AUTO) 0.1 10^3/uL (0.0-0.7); EOSINOPHILS % (AUTO) 0.7 %; HCT - HEMATOCRIT 37.1 % (37.0-47.0); HGB - HEMOGLOBIN 11.5 g/dL (12.0-16.0); LYMPHOCYTES # (AUTO) 1.5 10^3/uL (1.5-3.5); LYMPHOCYTES % (AUTO) 20.6 %; MEAN CORPUSCULAR HEMOGLOBIN 28.6 pg (27.0-31.0); MEAN CORPUSCULAR VOLUME 92.3 fL (81.0-99.0); MEAN PLATELET VOLUME 11.3 fL (7.9-10.8); MONOCYTES # (AUTO) 0.9 10^3/uL (0.0-1.0); MONOCYTES % (AUTO) 12.4 %; NEUTROPHILS # (AUTO) 4.9 10^3/uL (1.5-6.6); NEUTROPHILS % (AUTO) 65.6 %; PLT - PLATELET COUNT 209 10^3/uL (130-450); RED BLOOD COUNT 4.02 10^6/uL (4.20-5.40); RED CELL DISTRIBUTION WIDTH 17.5 % (12.0-15.0); WHITE BLOOD COUNT 7.4 x10^3/uL (4.8-10.8)
[2023-05-08 06:05] LABS: CALCIUM 8.6 mg/dL (8.5-10.3); CREATININE 0.9 mg/dL (0.6-1.3); POTASSIUM 3.5 mmol/L (3.5-4.5)
[2023-05-08] MEDS: LEVOTHYROXINE 112 MCG TABLET PO SCH (06:49)
[2023-05-08] MEDS: cefTRIAXone 1 GM in SODIUM CHLORIDE 0.9% MINIBAG 100 ML IV SCH (09:23)
--- NOTE | 2023-05-08 14:28 | PROVIDER PROGRESS NOTE ---
Subjective - Prog Note Date Prog Note Date: 05/08/23 Prog Note Time: 14:30 - Subjective Pt reports feeling: Improved (says she feels better) Subjective: Oriented to location. Disoriented to exact date (just aware that it is april) Her speech is still mumbled and vocal strength fades as she speaks (may just be losing train of thought) Dry cracked lips have been improving, have moist appearance Current Medications - Current Medications Current Medications: Active Medications Acetaminophen (Acetaminophen 325 Mg Tablet) 650 mg PO Q4HR PRN PRN Reason: Pain 1 to 4, or Fever Last Admin: 05/07/23 20:31 Dose: 650 mg Apixaban (Apixaban 5 Mg Tablet) 5 mg PO BID [facility] Last Admin: 05/08/23 09:23 Dose: 5 mg Atorvastatin Calcium (Atorvastatin 10 Mg Tablet) 20 mg PO QPM [facility] Last Admin: 05/07/23 20:29 Dose: 20 mg Ferrous Sulfate (Ferrous Sulfate 325 Mg Tablet) 325 mg PO DAILY [facility] Last Admin: 05/08/23 09:23 Dose: 325 mg Sodium Chloride (Normal Saline 0.9%) 1,000 mls @ 100 mls/hr IV .Q10H [facility] Last Admin: 05/08/23 02:00 Dose: 100 mls/hr Ceftriaxone Sodium 1 gm/ (Sodium Chloride) 100 mls @ 200 mls/hr IV DAILY [facility] Last Admin: 05/08/23 09:23 Dose: 200 mls/hr Levothyroxine Sodium (Levothyroxine 112 Mcg Tablet) 112 mcg PO QDAC [facility] Last Admin: 05/08/23 06:49 Dose: 112 mcg Ondansetron HCl (Ondansetron 4 Mg/2 Ml Vial) 4 mg IVP Q6HR PRN PRN Reason: Nausea / Vomiting Sodium Chloride (Sodium Chloride Flush 0.9% 10 Ml Syringe) 10 ml IVP PRN PRN PRN Reason: NEEDED PER PROVIDER ORDERS Sodium Chloride (Sodium Chloride Flush 0.9% 10 Ml Syringe) 10 ml IVP 0100,0900,1700 [facility] Last Admin: 05/08/23 09:24 Dose: 10 ml Furosemide 20 mg PO DAILY 02/17/19 Levothyroxine Sodium 112 mcg ORAL QDAC 02/17/19 Metoprolol Succinate 25 mg PO QDAC 12/24/19 Apixaban [Eliquis] 5 mg PO BID 05/06/23 Atorvastatin [Lipitor] 20 mg PO DAILY 05/06/23 Ferrous Sulfate [Feosol] 1 tab PO DAILY 05/06/23 lisinopriL [Zestril] 1 tab PO DAILY 05/06/23 Objective - Vital Signs/Intake & Output Reviewed Vital Signs: Yes Vital Signs: Vital Signs - 24 hr 05/07/23 05/08/23 05/08/23 16:24 00:26 05:52 Temperature 36.8 C 36.7 C 36.8 C Heart Rate [ 90 Brachial] Heart Rate [ 79 85 Monitoring electrodes] Respiratory 18 16 20 Rate Blood Pressure 151/82 H 156/81 H [Left Brachial artery] Blood Pressure 147/82 H [Right Brachial artery] O2 Saturation 96 97 97 05/08/23 14:00 Temperature 36.8 C Heart Rate [ 90 Brachial] Heart Rate [ Monitoring electrodes] Respiratory 16 Rate Blood Pressure [Left Brachial artery] Blood Pressure 178/85 H [Right Brachial artery] O2 Saturation 97 Oxygen O2 Source [With Activity] Room air O2 Source Room air Intake & Output: Intake & Output 05/05/23 05/06/23 05/07/23 05/08/23 23:59 23:59 23:59 23:59 Intake Total 1000 2261.667 383.333 Output Total 440 Balance 1000 1821.667 383.333 - Objective General Appearance: positive: No acute distress, Alert Eyes Bilateral: positive: Normal inspection, PERRL ENT: positive: ENT inspection nml, No signs of dehydration Neck: positive: Nml inspection, No JVD Respiratory: positive: Chest non-tender, No respiratory distress, Breath sounds nml Cardiovascular: positive: Regular rate & rhythm, No murmur, No gallop Peripheral Pulses: 2+ Radial (R), 2+ Radial (L) Abdomen: positive: Non-tender, No distention Skin: positive: Color nml, No rash, Dry (Dryed and cracked lips. Showing signs of improvement with use of chapstick) Neurologic/Psychiatric: positive: CN's nml (2-12), Disoriented to time (Not aware of date but is aware that it is april) - Lab Results Fish Bones: 05/08/23 05:30 05/08/23 05:30 Other Labs: Lab Results x24hrs 05/08/23 05/08/23 Range/Units 05:30 05:30 WBC 7.4 (4.8-10.8) x10^3/uL RBC 4.02 L (4.20-5.40) 10^6/uL Hgb 11.5 L (12.0-16.0) g/dL Hct 37.1 (37.0-47.0) % MCV 92.3 (81.0-99.0) fL MCH 28.6 (27.0-31.0) pg MCHC 31.0 L (32.0-36.0) g/dL RDW 17.5 H (12.0-15.0) % Plt Count 209 (130-450) 10^3/uL MPV 11.3 H (7.9-10.8) fL Neut # (Auto) 4.9 (1.5-6.6) 10^3/uL Lymph # (Auto) 1.5 (1.5-3.5) 10^3/uL [place] # (Auto) 0.9 (0.0-1.0) 10^3/uL Eos # (Auto) 0.1 (0.0-0.7) 10^3/uL Baso # (Auto) 0.0 (0.0-0.1) 10^3/uL Absolute Nucleated RBC 0.00 x10^3/uL Nucleated RBC % 0.0 /100WBC Sodium 138 (135-145) mmol/L Potassium 3.5 (3.5-4.5) mmol/L Chloride 110 (101-111) mmol/L Carbon Dioxide 22 (21-32) mmol/L Anion Gap 6.0 (6-13) BUN 27 H (6-20) mg/dL Creatinine 0.9 (0.6-1.3) mg/dL Estimated GFR (MDRD) 61 L (>89) Glucose 89 (74-104) mg/dL Calcium 8.6 (8.5-10.3) mg/dL ABX Reporting Has patient been on IV antibiotics over the past 48 hours?: Yes Sepsis Event Note (H) - Evaluation Current Stage of Sepsis: Ruled out Assessment/Plan - Problem List (1) UTI (urinary tract infection) Impression: Urine culture - E. Coli Plan: Ceftriaxone 1 gm, 100 mls @ 200mls/1hr daily IV Qualifiers: Urinary tract infection type: acute cystitis Hematuria presence: without hematuria Qualified Code(s): N30.00 - Acute cystitis without hematuria (2) Altered mental status Impression: Likely due to recent acute cystitis Plan: reassessment of labs and observational status at SNF (3) Atrial fibrillation Conclusion/Plan: Continue Eliquis unable to see EKG but rate is under control Qualifiers: Atrial fibrillation type: chronic (4) Dehydration Conclusion/Plan: Gentle hydration (1000 mls @ 100mls IV Q10H) as BUN is elevated (5) HTN (hypertension) Conclusion/Plan: BP medication was permissively held Resume metoprolol 25 mg PO QDAC Qualifiers: Altered mental status type: delirium Qualified Code(s): R41.0 - Dis orientation, unspecified Qualifiers: Urinary tract infection type: acute cystitis Hematuria presence: without hematuria Qualified Code(s): N30.00 - Acute cystitis without hematuria
[2023-05-08] MEDS: METOPROLOL SUCCINATE 25 MG TABLET PO SCH (16:28)
[2023-05-08 22:13] LABS: B. PARAPERTUSSIS- RESP PCR PAN NOT DETECTED; B. PERTUSSIS- RESP PCR PANEL NOT DETECTED; C. PNEUMONIAE- RESP PCR PANEL NOT DETECTED; CORONAVIRUS 229E-RESP PCR NOT DETECTED; CORONAVIRUS HKU1-RESP PCR NOT DETECTED; CORONAVIRUS NL63-RESP PCR NOT DETECTED; CORONAVIRUS OC43-RESP PCR NOT DETECTED; HUMAN METAPNEUMOVIRUS NOT DETECTED; INFLUENZA A- RESP PCR PANEL NOT DETECTED; INFLUENZA B - RESP PCR PANEL NOT DETECTED; M. PNEUMONIAE- RESP PCR PANEL NOT DETECTED; PARAINFLUENZA VIRUS 1 NOT DETECTED; PARAINFLUENZA VIRUS 2 NOT DETECTED; PARAINFLUENZA VIRUS 3 NOT DETECTED; PARAINFLUENZA VIRUS 4 NOT DETECTED; RHINOVIRUS/ENTEROVIRUS NOT DETECTED; RSV- RESP PCR PANEL NOT DETECTED; SARS-CoV-2 -RESP PCR PANEL NOT DETECTED
[2023-05-09] MEDS: hydrALAZINE INJ 20 MG/ML VIAL IVP PRN ×2 (00:59→08:09)
[2023-05-09 06:00] LABS: BASOPHILS % (AUTO) 0.6 %; EOSINOPHILS # (AUTO) 0.1 10^3/uL (0.0-0.7); HCT - HEMATOCRIT 40.6 % (37.0-47.0); HGB - HEMOGLOBIN 12.1 g/dL (12.0-16.0); LYMPHOCYTES # (AUTO) 1.6 10^3/uL (1.5-3.5); LYMPHOCYTES % (AUTO) 22.2 %; MEAN CORPUSCULAR HEMOGLOBIN 28.5 pg (27.0-31.0); MEAN CORPUSCULAR HGB CONC 29.8 g/dL (32.0-36.0); MEAN CORPUSCULAR VOLUME 95.5 fL (81.0-99.0); MEAN PLATELET VOLUME 12.1 fL (7.9-10.8); MONOCYTES # (AUTO) 1.1 10^3/uL (0.0-1.0); MONOCYTES % (AUTO) 15.8 %; NEUTROPHILS # (AUTO) 4.3 10^3/uL (1.5-6.6); NEUTROPHILS % (AUTO) 60.1 %; PLT - PLATELET COUNT 187 10^3/uL (130-450); RED BLOOD COUNT 4.25 10^6/uL (4.20-5.40); RED CELL DISTRIBUTION WIDTH 18.1 % (12.0-15.0); WHITE BLOOD COUNT 7.2 x10^3/uL (4.8-10.8)
[2023-05-09 06:38] LABS: CALCIUM 8.5 mg/dL (8.5-10.3); CREATININE 0.8 mg/dL (0.6-1.3); POTASSIUM 3.5 mmol/L (3.5-4.5)
[2023-05-09] MEDS ORDERED: NITROFURANTOIN MACRO 100 MG CAPSULE PO SCH ×2 (09:00→21:00)
--- NOTE | 2023-05-09 11:08 | PROVIDER PROGRESS NOTE ---
Subjective - Prog Note Date Prog Note Date: 05/09/23 Prog Note Time: 11:05 - Subjective Pt reports feeling: Improved Subjective: Mrs. Dai reports feeling better and that she is improving. Her lip has improved tremendously, no longer dry and cracked She has been feeling more tired today and has been sleeping more then previous days Current Medications - Current Medications Current Medications: Active Medications Acetaminophen (Acetaminophen 325 Mg Tablet) 650 mg PO Q4HR PRN PRN Reason: Pain 1 to 4, or Fever Last Admin: 05/07/23 20:31 Dose: 650 mg Apixaban (Apixaban 5 Mg Tablet) 5 mg PO BID [facility] Last Admin: 05/09/23 08:10 Dose: 5 mg Atorvastatin Calcium (Atorvastatin 10 Mg Tablet) 20 mg PO QPM [facility] Last Admin: 05/08/23 20:55 Dose: 20 mg Ferrous Sulfate (Ferrous Sulfate 325 Mg Tablet) 325 mg PO DAILY [facility] Last Admin: 05/09/23 08:10 Dose: 325 mg Hydralazine HCl (Hydralazine Inj 20 Mg/Ml Vial) 10 mg IVP Q6HR PRN PRN Reason: SBP>160 or dbp>100 Last Admin: 05/09/23 08:09 Dose: 10 mg Sodium Chloride (Normal Saline 0.9%) 1,000 mls @ 100 mls/hr IV .Q10H [facility] Last Admin: 05/09/23 07:01 Dose: 100 mls/hr Levothyroxine Sodium (Levothyroxine 112 Mcg Tablet) 112 mcg PO QDAC [facility] Last Admin: 05/09/23 06:52 Dose: 112 mcg Metoprolol Succinate (Metoprolol Succinate 25 Mg Tablet) 25 mg PO QDAC [facility] Last Admin: 05/09/23 06:52 Dose: 25 mg Nitrofurantoin (Nitrofurantoin Macro 100 Mg Capsule) 100 mg PO BID [facility] Ondansetron HCl (Ondansetron 4 Mg/2 Ml Vial) 4 mg IVP Q6HR PRN PRN Reason: Nausea / Vomiting Sodium Chloride (Sodium Chloride Flush 0.9% 10 Ml Syringe) 10 ml IVP PRN PRN PRN Reason: NEEDED PER PROVIDER ORDERS Sodium Chloride (Sodium Chloride Flush 0.9% 10 Ml Syringe) 10 ml IVP 0 100,0900,1700 [facility] Last Admin: 05/09/23 08:10 Dose: 10 ml Furosemide 20 mg PO DAILY 02/17/19 Levothyroxine Sodium 112 mcg ORAL QDAC 02/17/19 Metoprolol Succinate 25 mg PO QDAC 02/17/19 Apixaban [Eliquis] 5 mg PO BID 05/06/23 Atorvastatin [Lipitor] 20 mg PO DAILY 05/06/23 Ferrous Sulfate [Feosol] 1 tab PO DAILY 05/06/23 lisinopriL [Zestril] 1 tab PO DAILY 05/06/23 Objective - Vital Signs/Intake & Output Reviewed Vital Signs: Yes Vital Signs: Vital Signs x48h Temp Pulse Resp BP BP Pulse Ox 05/09/23 08:39 146/81 H 05/09/23 08:09 163/88 H 05/09/23 07:28 36.4 C L 88 20 163/88 H 95 05/09/23 06:50 36.9 C 82 16 173/90 H 96 Intake & Output: Intake & Output 05/06/23 05/07/23 05/08/23 05/09/23 23:59 23:59 23:59 23:59 Intake Total 1000 2261.667 2153.333 963.333 Output Total 440 200 250 Balance 1000 0292.201 6469.333 713.333 - Objective General Appearance: positive: No acute distress Eyes Bilateral: positive: Normal inspection, PERRL ENT: positive: ENT inspection nml Neck: positive: Thyroid nml, No JVD Respiratory: positive: Chest non-tender, No respiratory distress Cardiovascular: positive: No murmur, No gallop Abdomen: positive: Tenderness. negative: Guarding, Rebound, Mass Skin: positive: No rash, Dry (Dry flakes around ankles bilateral) Extremities: positive: No pedal edema. negative: Non-tender (TTP around dorsal and planter aspect of the foot bilaterally) Neurologic/Psychiatric: positive: Disoriented to time, Depressed mood/affect (Associated with seperation from her sister). negative: Oriented x3 (Oriented to location ([facility]) and that it is april (month only not the day). Disoriented to the reason she is the hospiatal) - Lab Results Fish Bones: 05/09/23 05:25 05/09/23 05:25 Other Labs: Lab Results x24hrs 05/09/23 05/09/23 05/08/23 Range/Units 05:25 05:25 21:00 WBC 7.2 (4.8-10.8) x10^3/uL RBC 4.25 (4.20-5.40) 10^6/uL Hgb 12.1 (12.0-16.0) g/dL Hct 40.6 (37.0-47.0) % MCV 95.5 (81.0-99.0) fL MCH 28.5 (27.0-31.0) pg MCHC 29.8 L (32.0-36.0) g/dL RDW 18.1 H (12.0-15.0) % Plt Count 187 (130-450) 10^3/uL MPV 12.1 H (7.9-10.8) fL Neut # (Auto) 4.3 (1.5-6.6) 10^3/uL Lymph # (Auto) 1.6 (1.5-3.5) 10^3/uL [place] # (Auto) 1.1 H (0.0-1.0) 10^3/uL Eos # (Auto) 0.1 (0.0-0.7) 10^3/uL Baso # (Auto) 0.0 (0.0-0.1) 10^3/uL Absolute Nucleated RBC 0.00 x10^3/uL Nucleated RBC % 0.0 /100WBC Sodium 137 (135-145) mmol/L Potassium 3.5 (3.5-4.5) mmol/L Chloride 110 (101-111) mmol/L Carbon Dioxide 20 L (21-32) mmol/L Anion Gap 7.0 (6-13) BUN 16 (6-20) mg/dL Creatinine 0.8 (0.6-1.3) mg/dL Estimated GFR (MDRD) 70 L (>89) Glucose 96 (74-104) mg/dL Calcium 8.5 (8.5-10.3) mg/dL Nasal Adenovirus (PCR) NOT DETECTED Nasal B. parapertussis DNA (PCR) NOT DETECTED Nasal Coronavir 229E PCR NOT DETECTED Nasal Coronavir HKU1 PCR NOT DETECTED Nasal Coronavir NL63 PCR NOT DETECTED Nasal Coronavir OC43 PCR NOT DETECTED Nasal Enterovir/Rhinovir PCR NOT DETECTED Nasal Influenza B PCR NOT DETECTED Nasal Influenza A PCR NOT DETECTED Nasal Parainfluen 1 PCR NOT DETECTED Nasal Parainfluen 2 PCR NOT DETECTED Nasal Parainfluen 3 PCR NOT DETECTED Nasal Parainfluen 4 PCR NOT DETECTED Nasal RSV (PCR) NOT DETECTED Nasal B.pertussis DNA PCR NOT DETECTED Nasal C.pneumoniae (PCR) NOT DETECTED Johnny Human Metapneumo PCR NOT DETECTED Nasal M.pneumoniae (PCR) NOT DETECTED Nasal SARS-CoV-2 (PCR) NOT DETECTED ABX Reporting Has patient been on IV antibiotics over the past 48 hours?: No Sepsis Event Note (H) - Evaluation Current Stage of Sepsis: Ruled out Assessment/Plan - Problem List (1) UTI (urinary tract infection) Impression: Urine culture pos for Escherichia Coli Plan: Patient received daily IV Ceftriaxone 1gm 200mls @ 100mls/1hr which started at 05/07 @09:00 till 05/08 @ 08:10 Transitioned to PO ABX - Macrobid 100mg capsule BID on 05/08 @ 09:00 DC Macrobid after 5 days Repeat urine culture after 48-72 hrs after last day of ABX treatment of symptoms return Qualifiers: Urinary tract infection type: acute cystitis Hematuria presence: without hematuria Qualified Code(s): N30.00 - Acute cystitis without hematuria (2) Altered mental status Impression: Likely due to recent acute cystitis Plan: continued reassessment of vital Repeat CBC with diff if patient symptoms worsen PT and OT assessment DC the [facility] today (3) Atrial fibrillation Conclusion/Plan: Continue Eliquis 5mg PO BID (started 05/06 @ 09:00) rate is under control Qualifiers: Atrial fibrillation type: chronic (4) Dehydration Conclusion/Plan: Gentle hydrated (1000 mls @ 100mls IV Q10H) till creatinine and BUN is elevated (BUN and creatinine normalized by 05/08) Continue gentle hydration 1000 mls @ 100mls IV Q10H for hydration maintenance (5) HTN (hypertension) Impression: BP medication was permissively held Plan: Metoprolol 25 mg PO QDAC started on 05/07 @ 16:00 Hydralazine 10 mg PRN (SBP >160 or DBP > 100) Qualifiers: Altered mental status type: delirium Qualified Code(s): R41.0 - Disorientation, unspecified Qualifiers: Urinary tract infection type: acute cystitis Hematuria presence: without hematuria Qualified Code(s): N30.00 - Acute cystitis without hematuria Qualifiers: Urinary tract infection type: acute cystitis Hematuria presence: without hematuria Qualified Code(s): N30.00 - Acute cystitis without hematuria
[2023-05-09] MEDS: MULTIVITAMIN W/MINERALS TABLET PO SCH (12:46)
--- NOTE | 2023-05-09 14:56 | Discharge Plan ---
"Discharge Plan for SNF / [facility] - Discharge Plan And Transition Orders Problem Reviewed?: Yes Disposition: 01 Home, Self Care Condition: Fair Allergies and Adverse Reactions: Allergies Allergy/AdvReac Type Severity Reaction Status Date / Time peach Allergy Hives Verified 05/06/23 15:28 pear Allergy Hives Verified 05/06/23 15:28 milk AdvReac Nausea Verified 05/06/23 15:28 Sulfa (Sulfonamide AdvReac Rash Verified 05/06/23 15:28 Antibiotics) Health Concerns: This is a 77-year-old elderly female who lives at an assisted living facility, [facility]. The patient also has a sister that lives at [facility]. They are very close. Sister was recently transferred to [facility], a [facility] facility. With the transfer, the patient has been notably depressed, less interactive. She already has baseline memory loss. The facility noted that the patient seemed to be more altered and confused than normal. She was becoming very anxious, perseverating. She was refusing to eat or drink any water or food because she had to get up to go to the bathroom. She was also very frightened of falling. As such the facility called their niece Amanda. Amanda asked that the patient be sent to the emergency room. Amanda states that the patient does not have a formal diagnosis of dementia but she is very forgetful at times. On examination she is well-developed well-nourished, moist mucous membranes, with no respiratory distress. She was obeying commands. Confused but a [place] Coma Scale of 14. Normal vital signs, normal CBC, mildly hyponatremic on labs. BUN and creatinine mildly elevated at 47 and 1.6. Baseline for her is 12. And 0.7. Urinalysis had a UTI. She was placed in observation as a observation status. Given antibiotics and received IV fluids overnight. The next day she was still confused. Mumbling. Lips were very dry and cracked. And she was changed to inpatient status. Urine has grown out E. coli. She received 2 doses of IV Rocephin and then switched to oral Macrobid. BUN and creatinine are now normal on the 14. White cell count is normal. Her exam shows that the oral mucosa dryness has resolved. She is still confused but more interactive. Following commands. She is only eating small bites of her food up to 25%. She is now felt to be stable enough to return back to her memory care unit. Plan of Treatment: 1. She should follow-up with a primary care provider in the next week. 2. She should finish antibiotic treatment for 5 days. Macrobid 100 mg p.o. twice daily until the second dose on May 10. 3.. She will return to her assisted living facility. Care Goals: Overall goals are consisted of advance care planning. If this patient continues to deteriorate with memory loss, will the patient remain in her assisted living facility? Or will this patient be transition to a [facility] facility? At this time a simple goal will be to complete her antibiotic therapy. Assessment: Patient is oriented to self but not time, place, or situation. She is mildly anxious, fretful. But her dry cracked lips have resolved. There is no re spiratory distress. - SNF / HALFWAY Transition Orders Admit to (Facility): [facility] Under the care of (Name): Holden Bear Discharge Diagnosis: 1. Altered mental status 2. E. coli UTI 3. 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 Chronic atrial fibrillation 5. Dehydration 6. Acute kidney insufficiency 7. Hypertension Other Notification Orders: Call PCP immediately if patient develops dyspnea, chest pain/tightness or edema. Additional Bowel Program Orders: If no BM after 2 days, nurse may give M.O.M. 30ml PO PRN and/or ducolax Supp 1 DE and/or EMILIA 250mg P.O., and/or senna 1-2 tabs PO. On day 3 nurse may give repeat above order until residents constipation is resolved. Medication Orders: PLEASE REFER TO THE DISCHARGE MEDICATION LIST. Insulin Orders?: No - Diet Type: Geriatric Texture: Regular Liquids: Thin - Therapies | Activity Activity: Activity as Tolerated Weight Bearing: Full Weight Assistance Devices: Wheelchair, Walker"
--- NOTE | 2023-05-09 15:08 | DISCHARGE SUMMARY ---
Discharge Summary Admit Date: 05/07/23 Discharge Date: 05/09/23 Discharging Provider: Chichi Branch MD Primary Care Provider: Holden Bear MD Code Status: Do Not Attempt Resuscitation Condition at Discharge: Fair Discharge Disposition: 01 Home, Self Care - DIAGNOSES Discharge Diagnoses with Status of Each Condition: 1. Altered mental status 2. E. coli UTI 3. 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 Chronic atrial fibrillation 5. Dehydration 6. Acute kidney insufficiency 7. Hypertension - HPI History of Present Illness: 77-year-old female presents emergency department for altered mental status and confusion. Patient lives at assisted living facility where they called patient's niece Amanda to report that the patient has been more altered and confused than normal and very anxious and perseverant. Patient is refusing to eat or drink any water or food because she is worried that she might have to get up to go to the bathroom and patient is very anxious about falling. She is been having increased confusion, I spoke with the patient's niece Amanda who says that there is no formal diagnoses of dementia that she can be forgetful at times but is unsure if the patient has dementia but does report that this mentation changes significantly different from her baseline. Patient denies any pain she is unable to give me any history of provide any information as to what brings her into the emergency department today. She is tangential at times but able to speak in full sentences.Patient is not able to give any meaningful hisotry to me I had aksed ER to check ct head and also ct abd for any other causes of altered mental status both scans have been negative and unremarkbale at this time will admit for observation, baseline mental status not know n to me - Past Medical History Cardiovascular: reports: Congestive heart failure, Hypertension, Atrial fibrillation, Other Respiratory: reports: Asthma Endocrine/Autoimmune: reports: HyPOthyroidism GI: reports: None : reports: Incontinence HEENT: reports: Other Musculoskeletal: reports: Osteoarthritis MRSA Hx?: No - 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 History /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 The patient also has a sister that lives at [facility]. They are very close. Sister was recently transferred to [facility], a custodial facility. With the transfer, the patient has been notably depressed, less interactive. She already has baseline memory loss. The fac ility noted that the patient seemed to be more altered and confused than normal. She was becoming very anxious, perseverating. She was refusing to eat or drink any water or food because she had to get up to go to the bathroom. She was also very frightened of falling. As such the facility called their niece Amanda. Amanda asked that the patient be sent to the emergency room. Amanda states that the patient does not have a formal diagnosis of dementia but she is very forgetful at times. Low her other and, this patient's sister, is at [facility]. [facility] is working with [facility] [facility] She was placed in observation status. Given antibiotics and received IV fluids overnight. The next day she was still confused. Mumbling. Lips were still very dry and cracked. She was changed to inpatient status where IVF and IV antibiotics continued. Urine has grown out E. coli. She received 2 doses of IV Rocephin and then switched to oral Macrobid. BUN and creatinine are now normal on the . White cell count is normal. Her exam shows that the oral mucosa dryness has resolved. She is still confused but more interactive. Following commands. She is only eating small bites of her food up to 25%. She is now felt to be stable enough to return back to her memory care unit. Plan of Treatment: 1. She should follow-up with a primary care provider in the next week. 2. She should finish antibiotic treatment for 5 days. Macrobid 100 mg p.o. twice daily until the second dose on May 10. 3.. She will return to her assisted living facility. Care Goals: Overall goals are consisted of advance care planning. If this patient continues to deteriorate with memory loss, will the patient remain in her assisted living facility? Or will this patient be transition to a custodial facility? At this time a simple goal will be to complete her antibiotic therapy. Assessment: Patient is oriented to self but not time, place, or situation. She is mildly anxious, fretful. But her dry cracked lips have resolved. There is no res piratory distress.Temperature is 36.4. Supine blood pressure is 144/72. Heart rate 84. Sitting blood pressure is 104/64, heart rate 87. Standing blood pressure is 147/76, heart rate 89. She is fretful. Anxious. But cooperative and able to be prompted. Shotty neck adenopathy but no JVD or bruits. No respiratory distress and lungs are clear. Irregular rate and rhythm. Rate has been controlled in the 80s during her stay. Abdomen is soft, nontender. No pain. Normal bowel sounds. Extremities have trace edema around her ankles but no focal deficits. She has a sad affect. Hyperverbal. The mumbling has stopped and she now has more lucid and clear speech pattern. She gets out of be d with a gait belt. Able to ambulate with a 1 person assist. Confused and forgetful. Incontinence has required a pure wick catheter or a pad underneath her. Greater than 30 minutes was spent coordinating discharge This document was made in part using voice recognition software. While efforts are made to proofread this document, sound alike and grammatical errors may occur. - ALLERGIES Allergies/Adverse Reactions: Allergies Allergy/AdvReac Type Severity Reaction Status Date / Time peach Allergy Hives Verified 05/06/23 15:28 pear Allergy Hives Verified 05/06/23 15:28 milk AdvReac Nausea Verified 05/06/23 15:28 Sulfa (Sulfonamide AdvReac Rash Verified 05/06/23 15:28 Antibiotics) - MEDICATIONS Home Medications: Ambulatory Orders Medication Instructions Recorded Confirmed Furosemide 20 mg PO DAILY 02/17/19 05/06/23 Levothyroxine Sodium 112 mcg ORAL QDAC 02/17/19 05/06/23 Metoprolol Succinate 25 mg PO QDAC 02/17/19 05/07/23 Apixaban [Eliquis] 5 mg PO BID 05/06/23 05/07/23 Atorvastatin [Lipitor] 20 mg PO DAILY 05/06/23 05/07/23 Ferrous Sulfate [Feosol] 1 tab PO DAILY 05/06/23 05/06/23 lisinopriL [Zestril] 1 tab PO DAILY 05/06/23 05/06/23 Multivitamin W/Minerals [Theragran 1 tab PO DAILYWM tab 05/09/23 M] Nitrofurantoin [Macrobid] 100 mg PO BID #5 cap 05/09/23 - LABS Result Diagrams: 05/09/23 05:25 05/09/23 05:25 - SEPSIS Current Stage of Sepsis: Ruled out
[2023-05-09 15:51] VITALS: BP 162/85; O2SAT 98
== END 2023-05-09 18:01 | disposition home or self-care (01) | DRG 690 ==
LOC: EDUNIT# → ED 15:16 → MS2 05-07 00:25 → OBSVTOIN 05-07 19:58
PROVIDERS: ADMIT Internal Medicine; ATTEND Specialist
DX: N30.00 Acute cystitis without hematuria (principal); I48.20 Chronic atrial fibrillation, unspecified; B96.20 Unspecified Escherichia coli [E. coli] as the cause of diseases classified elsewhere; K43.9 Ventral hernia without obstruction or gangrene; N26.1 Atrophy of kidney (terminal); K44.9 Diaphragmatic hernia without obstruction or gangrene; M48.54XA Collapsed vertebra, not elsewhere classified, thoracic region, initial encounter for fracture; R41.0 Disorientation, unspecified; G30.9 Alzheimer's disease, unspecified; I48.91 Unspecified atrial fibrillation; F02.80 Dementia in other diseases classified elsewhere, unspecified severity, without behavioral disturbance, psychotic disturbance, mood disturbance, and anxiety; E86.0 Dehydration; N28.9 Disorder of kidney and ureter, unspecified; I11.0 Hypertensive heart disease with heart failure; I50.9 Heart failure, unspecified; F41.9 Anxiety disorder, unspecified; Z79.01 Long term (current) use of anticoagulants; E03.9 Hypothyroidism, unspecified
CPT/HCPCS: 36415; 70450; 74177; 80048; 80053; 81001; 83735; 85025; 87086; 87181; 87633; 96361; 96365; 97162; 97165; 99285; A9270; G0378; 81003

== ENCOUNTER 2023-05-13 15:11 | Outpatient (CLI) | payer MEDICARE, MEDICAID | END 2023-05-13 23:59 | disposition critical access hospital (66) | LOC: EMS 15:11 | DX: R53.83 Other fatigue (principal); R41.0 Disorientation, unspecified; R63.0 Anorexia; R39.89 Other symptoms and signs involving the genitourinary system | CPT/HCPCS: A0425; A0429 ==

== ENCOUNTER 2023-05-13 15:56 | Emergency (ER) | payer MEDICARE, MEDICAID ==
--- NOTE | 2023-05-13 16:10 | ED Physician Documentation ---
History of Present Illness - Stated complaint Stated Complaint: - Chief complaint Chief Complaint: General - Additonal information Additional information: 77-year-old female presents emergency department from [facility] assisted living facility for ongoing generalized malaise. Patient was recently discharged here from hospitalization on 05/09/2023 and completed a full course of Macrobid for urinary tract infections on 05/11/2023. She was originally hospitalized for OUMOU due to urinary tract infection causing delirium. She probably also has an undiagnosed history of dementia. Patient is alert and oriented x 4 right now she is complaining of abdominal pain and [facility] sent her into assisted facility for concerns of patient not continuing to improve the way that they were expecting her to go. Patient does endorsing mild abdominal pain and tenderness she is a poor historian but she does not think she has had any fevers or chills. 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 - Present Medications Home Medications: Ambulatory Orders Medication Instructions Recorded Confirmed Furosemide 20 mg PO DAILY 02/17/19 05/06/23 Levothyroxine Sodium 112 mcg ORAL QDAC 02/17/19 05/06/23 Metoprolol Succinate 25 mg PO QDAC 02/17/19 05/07/23 Apixaban [Eliquis] 5 mg PO BID 05/06/23 05/07/23 Atorvastatin [Lipitor] 20 mg PO DAILY 05/06/23 05/07/23 Ferrous Sulfate [Feosol] 1 tab PO DAILY 05/06/23 05/06/23 lisinopriL [Zestril] 1 tab PO DAILY 05/06/23 05/06/23 Multivitamin W/Minerals [Theragran 1 tab PO DAILYWM tab 05/09/23 M] Nitrofurantoin [Macrobid] 100 mg PO BID #5 cap 05/09/23 - Allergies Allergies/Adverse Reactions: Allergies Allergy/AdvReac Type Severity Reaction Status Date / Time peach Allergy Hives Verified 05/13/23 15:57 pear Allergy Hives Verified 05/13/23 15:57 milk AdvReac Nausea Verified 05/13/23 15:57 Sulfa (Sulfonamide AdvReac Rash Verified 05/13/23 15:57 Antibiotics) - Social History Does the pt smoke?: No Smoking Status: Never smoker Does the pt drink ETOH?: No Does the pt have substance abuse?: No - Immunizations Immunizations are current?: Yes - POLST Patient has POLST: No POLST Status: Full Code PD ED PE NORMAL - Vitals Vital signs reviewed: Yes - General General: Alert and oriented X 3, No acute distress, Well developed/nourished - HEENT HEENT: Atraumatic, PERRL, EOMI - Cardiac Cardiac: RRR, No murmur, No gallop - Respiratory Respiratory: No respiratory distress, Clear bilaterally - Abdomen Abdomen: Normal bowel sounds, Soft, No organomegaly, Other (Umbilical tenderness with palpation) - Derm Derm: Normal color, Warm and dry, No rash - Extremities Extremities: No deformity, No tenderness to palpate, No edema, No calf tenderness / cord - Neuro Neuro: Alert and oriented X 3, 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, No motor deficit, No sensory deficit, Normal speech Eye Opening: Spontaneous Motor: Obeys Commands Verbal: Oriented GCS Score: 15 Results - Vitals Vitals: Vital Signs - 24 hr 05/13/23 05/13/23 05/13/23 15:58 16:04 18:03 Temperature 36.6 C Heart Rate 78 78 67 Respiratory 17 17 20 Rate Blood Pressure 149/85 H 162/75 H 137/88 H O2 Saturation 96 95 05/13/23 20:00 Temperature Heart Rate 74 Respiratory 16 Rate Blood Pressure O2 Saturation 96 Oxygen O2 Source [With Activity] Room air O2 Source Room air - Labs Labs: Laboratory Tests 05/13/23 05/13/23 05/13/23 16:21 16:25 16:25 WBC 5.6 RBC 4.47 Hgb 12.9 Hct 40.7 MCV 91.1 MCH 28.9 MCHC 31.7 L RDW 19.2 H Plt Count 170 MPV 11.8 H Neut # (Auto) 3.7 Lymph # (Auto) 0.8 L [place] # (Auto) 0.8 Eos # (Auto) 0.2 Baso # (Auto) 0.0 Absolute Nucleated RBC 0.00 Nucleated RBC % 0.0 Sodium 133 L Potassium 3.1 L Chloride 97 L Carbon Dioxide 30 Anion Gap 6.0 BUN 20 Creatinine 0.9 Estimated GFR (MDRD) 61 L Glucose 104 Calcium 8.9 Magnesium 1.5 L Total Bilirubin 1.2 H AST 27 ALT 12 Alkaline Phosphatase 53 Total Protein 6.9 Albumin 3.2 Globulin 3.7 Albumin/Globulin Ratio 0.9 L Lipase 92 H Urine Color Urine Clarity Urine pH Ur Specific [place] Urine Protein Urine Glucose (UA) Urine Ketones Urine Occult Blood Urine Nitrite Urine Bilirubin Urine Urobilinogen Ur Leukocyte Esterase Urine RBC Urine WBC Ur Squamous Epith Cells Urine Bacteria Ur Microscopic Review Urine Culture Comments Nasal Adenovirus (PCR) NOT DETECTED Nasal B. parapertussis DNA (PCR) NOT DETECTED Nasal Coronavir 229E PCR NOT DETECTED Nasal Coronavir HKU1 PCR NOT DETECTED Nasal Coronavir NL63 PCR NOT DETECTED Nasal Coronavir OC43 PCR NOT DETECTED Nasal Enterovir/Rhinovir PCR NOT DETECTED Nasal Influenza B PCR NOT DETECTED Nasal Influenza A PCR NOT DETECTED Nasal Parainfluen 1 PCR NOT DETECTED Nasal Parainfluen 2 PCR NOT DETECTED Nasal Parainfluen 3 PCR NOT DETECTED Nasal Parainfluen 4 PCR NOT DETECTED Nasal RSV (PCR) NOT DETECTED Nasal B.pertussis DNA PCR NOT DETECTED Nasal C.pneumoniae (PCR) NOT DETECTED Johnny Human Metapneumo PCR NOT DETECTED Nasal M.pneumoniae (PCR) NOT DETECTED Nasal SARS-CoV-2 (PCR) NOT DETECTED 05/13/23 16:25 WBC RBC Hgb Hct MCV MCH MCHC RDW Plt Count MPV Neut # (Auto) Lymph # (Auto) [place] # (Auto) Eos # (Auto) Baso # (Auto) Absolute Nucleated RBC Nucleated RBC % Sodium Potassium Chloride Carbon Dioxide Anion Gap BUN Creatinine Estimated GFR (MDRD) Glucose Calcium Magnesium Total Bilirubin AST ALT Alkaline Phosphatase Total Protein Albumin Globulin Albumin/Globulin Ratio Lipase Urine Color YELLOW Urine Clarity HAZY Urine pH 6.0 Ur Specific [place] 1.025 Urine Protein NEGATIVE Urine Glucose (UA) NEGATIVE Urine Ketones 15 H Urine Occult Blood LARGE H Urine Nitrite NEGATIVE Urine Bilirubin SMALL H Urine Urobilinogen 1 (NORMAL) Ur Leukocyte Esterase NEGATIVE Urine RBC 6-10 H Urine WBC 0-3 Ur Squamous Epith Cells RARE Squamous Urine Bacteria Rare Ur Microscopic Review INDICATED Urine Culture Comments NOT INDICATED Nasal Adenovirus (PCR) Nasal B. parapertussis DNA (PCR) Nasal Coronavir 229E PCR Nasal Coronavir HKU1 PCR Nasal Coronavir NL63 PCR Nasal Coronavir OC43 PCR Nasal Enterovir/Rhinovir PCR Nasal Influenza B PCR Nasal Influenza A PCR Nasal Parainfluen 1 PCR Nasal Parainfluen 2 PCR Nasal Parainfluen 3 PCR Nasal Parainfluen 4 PCR Nasal RSV (PCR) Nasal B.pertussis DNA PCR Nasal C.pneumoniae (PCR) Johnny Human Metapneumo PCR Nasal M.pneumoniae (PCR) Nasal SARS-CoV-2 (PCR) - Rads (name of study) CT abdomen pelvis Relevant Findings:: Final report received, EMP independent interpretation of test, Other (No acute abnormality visualized to the abdomen or pelvis.) PD Medical Decision Making - ED course ED course: 77-year-old female presents presents emergency department for further evaluation of generalized fatigue and malaise. I spoke on the phone with patient's niece Gely she says that she just has not been the same since her mother, patient's sister has been hospitalized for COVID. She says that she has not been eating she goes to check on her and she is in her room with meals at her bedside that the patient has not touched. Original concern was possible ongoing urinary tract infection but urinalysis in the emergency department is unremarkable no signs of UTI no leukocytes no nitrates no bacteria. Respiratory swab is also negative. Labs were collected no leukocytosis. Chemistry shows hypokalemia, 3.1, hypomagnesemia, 1.5, low albumin, 0.9Her lipase is slightly elevated at 90 but this is not significant enough to cause any sort of significant abdominal pain or failure to thrive symptoms. CT abdomen pelvis was also complete and there is no acute abnormalities visualized to indicate why patient is having mild abdominal pain and overall symptoms of failure to thrive. She has a reoccurring upper abdominal ventral hernia without signs of bowel obstruction, she has known cardiomegaly and a known T12 compression fracture and known right renal atrophy. This is not new in comparison to the last CT that we complete when she was here recently for her hospitalization. Patient's niece is updated of these results and the plan is to discharge patient back to [facility] and her niece is going to start looking into other facilities that have more 24/7 assisted care and a possible memory care facility as patient has undiagnosed dementia. They were told to follow-up with her primary care provider they are given return precautions patient was encouraged to try and drink protein shakes and eat a well-balanced diet to help with the fatigue and malaise that she is experiencing. All questions answered patient is going back to [facility] via ambulance she is safe for discharge at this time. Departure - Departure Disposition: 01 Home, Self Care Clinical Impression: Malaise and fatigue, Failure to thrive in adult Instructions: ED Failure To Thrive Comments: Thank you for trusting us with your care. We have completed a urinalysis, labs, and imaging and we are not finding any acute abnormalities or findings at this time. Your potassium magnesium are low and I am concerned that you are not eating enough calories or nutrition which is what is causing your generalized fatigue and malaise. Make sure that you are trying to eat enough calories and a healthy well-balanced diet and drinking things like protein shakes to help with your energy level. I spoke with your niece Amanda I think you should discuss with your primary care provider the possibility of moving into a assisted facility where you can have more [id number] care so that you are getting the support that you need. Please come back to the emergency department for having any confusion, fevers or chills, worsening mental status, or any other concerning symptoms. Forms: PCP List
[2023-05-13 16:30] LABS: BASOPHILS % (AUTO) 0.4 %; EOSINOPHILS # (AUTO) 0.2 10^3/uL (0.0-0.7); EOSINOPHILS % (AUTO) 4.3 %; HCT - HEMATOCRIT 40.7 % (37.0-47.0); HGB - HEMOGLOBIN 12.9 g/dL (12.0-16.0); LYMPHOCYTES # (AUTO) 0.8 10^3/uL (1.5-3.5); LYMPHOCYTES % (AUTO) 13.7 %; MEAN CORPUSCULAR HEMOGLOBIN 28.9 pg (27.0-31.0); MEAN CORPUSCULAR HGB CONC 31.7 g/dL (32.0-36.0); MEAN CORPUSCULAR VOLUME 91.1 fL (81.0-99.0); MEAN PLATELET VOLUME 11.8 fL (7.9-10.8); MONOCYTES # (AUTO) 0.8 10^3/uL (0.0-1.0); NEUTROPHILS # (AUTO) 3.7 10^3/uL (1.5-6.6); NEUTROPHILS % (AUTO) 66.2 %; PLT - PLATELET COUNT 170 10^3/uL (130-450); RED BLOOD COUNT 4.47 10^6/uL (4.20-5.40); RED CELL DISTRIBUTION WIDTH 19.2 % (12.0-15.0); WHITE BLOOD COUNT 5.6 x10^3/uL (4.8-10.8)
[2023-05-13 16:31] LABS: BILIRUBIN,URINE SMALL (NEGATIVE); GLUCOSE, URINE (UA) NEGATIVE (NEGATIVE); KETONES,URINE (UA) 15 mg/dL (NEGATIVE); LEUKOCYTE ESTERASE, URINE NEGATIVE (NEGATIVE); NITRITE,URINE NEGATIVE (NEGATIVE); OCCULT BLOOD,URINE LARGE (NEGATIVE); PROTEIN,URINE NEGATIVE (NEGATIVE); UROBILINOGEN,URINE 1 (NORMAL) E.U./dL (NORMAL)
[2023-05-13 16:34] LABS: CLARITY,URINE HAZY (CLEAR)
[2023-05-13 16:47] LABS: ALBUMIN 3.2 g/dL (3.2-5.5); ALBUMIN/GLOBULIN RATIO 0.9 (1.0-2.2); BILIRUBIN,TOTAL 1.2 mg/dL (0.2-1.0); CALCIUM 8.9 mg/dL (8.5-10.3); CREATININE 0.9 mg/dL (0.6-1.3); MAGNESIUM 1.5 mg/dL (1.7-2.3); POTASSIUM 3.1 mmol/L (3.5-4.5); TOTAL PROTEIN 6.9 g/dL (6.4-8.9)
[2023-05-13 16:53] LABS: BACTERIA,URINE Rare /HPF (None Seen); SQUAMOUS EPITHELIAL CELL,UR RARE Squamous (<= Few); WBC,URINE 0-3 /HPF (0-5)
[2023-05-13 17:32] LABS: CORONAVIRUS 229E-RESP PCR NOT DETECTED; CORONAVIRUS HKU1-RESP PCR NOT DETECTED; CORONAVIRUS NL63-RESP PCR NOT DETECTED; CORONAVIRUS OC43-RESP PCR NOT DETECTED
[2023-05-13 17:33] LABS: B. PARAPERTUSSIS- RESP PCR PAN NOT DETECTED; B. PERTUSSIS- RESP PCR PANEL NOT DETECTED; C. PNEUMONIAE- RESP PCR PANEL NOT DETECTED; HUMAN METAPNEUMOVIRUS NOT DETECTED; INFLUENZA A- RESP PCR PANEL NOT DETECTED; INFLUENZA B - RESP PCR PANEL NOT DETECTED; M. PNEUMONIAE- RESP PCR PANEL NOT DETECTED; PARAINFLUENZA VIRUS 1 NOT DETECTED; PARAINFLUENZA VIRUS 2 NOT DETECTED; PARAINFLUENZA VIRUS 3 NOT DETECTED; PARAINFLUENZA VIRUS 4 NOT DETECTED; RHINOVIRUS/ENTEROVIRUS NOT DETECTED; RSV- RESP PCR PANEL NOT DETECTED; SARS-CoV-2 -RESP PCR PANEL NOT DETECTED
[2023-05-13] MEDS: MAGNESIUM OXIDE 400 MG TABLET PO STA (18:37)
[2023-05-13] MEDS: POTASSIUM CHLORIDE 20 MEQ/15 ML UDC PO STA (18:37)
[2023-05-13 19:18] VITALS: BP 137/88
--- NOTE | 2023-05-13 19:46 | CT Report ---
PROCEDURE: Abdomen/Pelvis WO INDICATIONS: abdominal pain TECHNIQUE: A CT scan of the abdomen and pelvis was performed without the use of intravenous contrast. Images we re recorded and evaluated at appropriate window settings. Reformats: coronal and sagittal. For radiat ion dose reduction, the following was used: automated exposure control, adjustment of mA and/or kV ac cording to patient size. COMPARISON: Abdomen/pelvis 05/06/2023. FINDINGS: Image quality: Diagnostic. Lower chest: Heart is markedly enlarged. Large hiatal hernia. Atelectasis is seen in the lung bases. Liver: No contour-deforming mass. Gallbladder and biliary tree: No radiopaque stones or wall thickening. No biliary dilation. Mildly co ntracted gallbladder. Spleen: No splenomegaly. Pancreas: No pancreatic ductal dilation. Adrenals: No adrenal nodule. Kidneys and ureters: Atrophic right kidney. No hydronephrosis. No renal cystic lesion which requires follow up. No solid mass. Stomach, bowel and peritoneum: No bowel distension. No pathologic free fluid. Surgical anastomosis is seen at the rectosigmoid junction and at the lower central abdomen. Large bowel is seen within an up per abdominal ventral hernia without signs of obstruction. Small bowel loops are unremarkable. Lymph nodes: No central or retroperitoneal adenopathy. Multiple surgical clips are seen in the upper retroperitoneum. Vessels: No infrarenal aortic aneurysm. PELVIS Reproductive organs: Unremarkable. Bladder: No wall thickness, accounting for underdistention. Pelvic lymph nodes: No pelvic adenopathy by size criteria. Bones: No aggressive osseous abnormality. Generalized osteopenia. Unchanged mild T12 compression frac ture. Other: Upper abdominal ventral hernia again seen containing a loop of large bowel without signs of mckenna wel obstruction. IMPRESSION: 1.No acute abnormality is seen in the abdomen or pelvis. No significant interval change when compared to the exam from 05/06/2023. 2.Upper abdominal ventral hernia again seen containing a loop of large bowel without signs of bowel o bstruction currently. 3.Large hiatal hernia. 4.Marked cardiomegaly. 5.Right renal atrophy. 6.Mild T12 compression fracture. Reviewed by: Thai Sosa MD on 05/13/2023 7:45 PM PDT Approved by: Thai Sosa MD on 05/13/2023 7:45 PM PDT Station ID: [id number]
[2023-05-13 20:40] VITALS: O2SAT 96
[2023-05-13] MEDS: SODIUM CHLORIDE 0.9% 1,000 ML IV ONE (20:57)
== END 2023-05-13 21:05 | disposition home or self-care (01) ==
LOC: EDUNIT# → ED 15:56
DX: R53.81 Other malaise (principal); R53.83 Other fatigue; R62.7 Adult failure to thrive; Z68.22 Body mass index [BMI] 22.0-22.9, adult; I11.0 Hypertensive heart disease with heart failure; I50.9 Heart failure, unspecified; I48.91 Unspecified atrial fibrillation; E03.9 Hypothyroidism, unspecified; Z79.899 Other long term (current) drug therapy; Z79.01 Long term (current) use of anticoagulants
CPT/HCPCS: 36415; 74176; 80053; 81001; 83690; 83735; 85025; 87633; 99284; A9270; 81003; 87086

== ENCOUNTER 2023-05-13 21:11 | Outpatient (CLI) | payer MEDICARE, MEDICAID | END 2023-05-13 23:59 | disposition home or self-care (01) | LOC: EMS 21:11 | PROVIDERS: ATTEND Nurse Practitioner | DX: R62.7 Adult failure to thrive (principal); R53.1 Weakness; Z74.01 Bed confinement status | CPT/HCPCS: A0425; A0428 ==

== ENCOUNTER 2023-05-23 05:49 | Outpatient (CLI) | payer MEDICARE, MEDICAID | END 2023-05-23 23:59 | disposition critical access hospital (66) | LOC: EMS 05:49 | DX: R53.1 Weakness (principal); W06.XXXA Fall from bed, initial encounter; Y92.032 Bedroom in apartment as the place of occurrence of the external cause; Z79.01 Long term (current) use of anticoagulants | CPT/HCPCS: A0425; A0429 ==

== ENCOUNTER 2023-05-23 06:08 | Emergency (ER) | payer MEDICARE, MEDICAID ==
--- NOTE | 2023-05-23 06:07 | ED Physician Documentation ---
PD HPI Fall - Stated complaint Stated Complaint: GLF - History obtained from History obtained from: Patient, EMS - Additional information Additional information: BIBA. HPI from EMS, as well as patient. Patient is a resident of [facility]. 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 The patient went to stand up from a seated position, rapidly experienced generalized weakness which resulted in her falling backwards, striking her head on the floor. She denies loss of consciousness, denies headache. She also denies neck pain. When asked if she is having any pain, she points to both distal anterior thighs and says "here, where I fell". Patient's medication list includes Eliquis. EMS report also notes that staff at [facility] says that, although patient typically ambulates only with a walker, she typically is able to do so without any assistance and thus being too weak to stand up is not patient's baseline. EMS also reports that staff at [facility] note the patient has had some very degrees of confusion lately, which has been attributed to UTI. The patient is on an antibiotic and staff had indicated to EMS that patient's confusion has steadily but consistently been improving since starting antibiotic. PD PAST MEDICAL HISTORY - Past Medical History Past Medical History: Yes - Present Medications Home Medications: Ambulatory Orders Medication Instructions Recorded Confirmed Furosemide 20 mg PO DAILY 02/17/19 05/23/23 Levothyroxine Sodium 112 mcg ORAL QDAC 02/17/19 05/23/23 Metoprolol Succinate 25 mg PO QDAC 02/17/19 05/23/23 Apixaban [Eliquis] 5 mg PO BID 05/06/23 05/23/23 Atorvastatin [Lipitor] 20 mg PO DAILY 05/06/23 05/23/23 Ferrous Sulfate [Feosol] 1 tab PO DAILY 05/06/23 05/23/23 lisinopriL [Zestril] 1 tab PO DAILY 05/06/23 05/23/23 Multivitamin W/Minerals [Theragran 1 tab PO DAILYWM tab 05/09/23 05/23/23 M] Cholecalciferol [Vitamin D3] 1 tab PO DAILY 05/23/23 05/23/23 - Allergies Allergies/Adverse Reactions: Allergies Allergy/AdvReac Type Severity Reaction Status Date / Time peach Allergy Hives Verified 05/23/23 06:25 pear Allergy Hives Verified 05/23/23 06:25 milk AdvReac Nausea Verified 05/23/23 06:25 Sulfa (Sulfonamide AdvReac Rash Verified 05/23/23 06:25 Antibiotics) PD ED PE NORMAL - Vitals Vital signs reviewed: Yes - General General: Alert and oriented X 3 (soft-spoken but she is able to answer orientation questions x 3 accurately), No acute distress, Well developed/nourished - HEENT HEENT: Atraumatic, PERRL, EOMI - Neck Neck: Other (mild midline/midlevel posterior cervical TTP) - Respiratory Respiratory: No respiratory distress, Clear bilaterally - Abdomen Abdomen: Soft, Non tender - Extremities Extremities: No deformity, No tenderness to palpate, Normal ROM s pain, No edema - Neuro Neuro: Alert and oriented X 3, No motor deficit, No sensory deficit, Normal speech Eye Opening: Spontaneous Motor: Obeys Commands Verbal: Oriented GCS Score: 15 PD ED PE EXPANDED - Cardiac Cardiac: Irregularly irregular Results - Vitals Vitals: Vital Signs - 24 hr 05/23/23 05/23/23 06:12 07:13 Temperature 35.9 C L Heart Rate 57 L 73 Respiratory 20 15 Rate Blood Pressure 156/97 H 146/78 H O2 Saturation 95 93 Oxygen O2 Source [With Activity] Room air O2 Source Room air - Labs Labs: Laboratory Tests 05/23/23 05/23/23 05/23/23 06:24 06:24 08:38 WBC 6.6 RBC 5.04 Hgb 14.9 Hct 46.8 MCV 92.9 MCH 29.6 MCHC 31.8 L RDW 19.9 H Plt Count 184 MPV 11.2 H Neut # (Auto) 3.4 Lymph # (Auto) 2.3 [place] # (Auto) 0.8 Eos # (Auto) 0.1 Baso # (Auto) 0.1 Absolute Nucleated RBC 0.00 Nucleated RBC % 0.0 Sodium 135 Potassium 3.5 Chloride 96 L Carbon Dioxide 28 Anion Gap 11.0 BUN 30 H Creatinine 1.1 Estimated GFR (MDRD) 48 L Glucose 88 Calcium 9.7 Total Bilirubin 1.4 H AST 38 ALT 15 Alkaline Phosphatase 56 Total Protein 7.8 Albumin 3.5 Globulin 4.3 H Albumin/Globulin Ratio 0.8 L Lipase 33 Urine Color YELLOW Urine Clarity HAZY Urine pH 6.0 Ur Specific [place] 1.020 Urine Protein NEGATIVE Urine Glucose (UA) NEGATIVE Urine Ketones TRACE Urine Occult Blood MODERATE H Urine Nitrite NEGATIVE Urine Bilirubin SMALL H Urine Urobilinogen 1 (NORMAL) Ur Leukocyte Esterase NEGATIVE Urine RBC 0-5 Urine WBC 0-3 Ur Squamous Epith Cells RARE Squamous Urine Bacteria Few Urine Casts 0-2 Hyaline Casts Ur Microscopic Review INDICATED Urine Culture Comments NOT INDICATED - Rads (name of study) CTH Relevant Findings:: Prelim report reviewed, See rad report CT cervical spine Relevant Findings:: Prelim report reviewed, See rad report PD Medical Decision Making - ED course Complexity details: considered differential, d/w patient ED course: Basic blood tests (CBC, ER abdominal panel), CTH, and CT cervical spine are ordered and results pending at end of my shift and thus care of patient is turned over to oncoming ED physician (Dr. Jaquez) at end of my shift. Departure - Departure Forms: PCP List
[2023-05-23 06:28] LABS: BASOPHILS # (AUTO) 0.1 10^3/uL (0.0-0.1); BASOPHILS % (AUTO) 0.9 %; EOSINOPHILS # (AUTO) 0.1 10^3/uL (0.0-0.7); EOSINOPHILS % (AUTO) 0.8 %; HCT - HEMATOCRIT 46.8 % (37.0-47.0); HGB - HEMOGLOBIN 14.9 g/dL (12.0-16.0); LYMPHOCYTES # (AUTO) 2.3 10^3/uL (1.5-3.5); LYMPHOCYTES % (AUTO) 35.1 %; MEAN CORPUSCULAR HEMOGLOBIN 29.6 pg (27.0-31.0); MEAN CORPUSCULAR HGB CONC 31.8 g/dL (32.0-36.0); MEAN CORPUSCULAR VOLUME 92.9 fL (81.0-99.0); MEAN PLATELET VOLUME 11.2 fL (7.9-10.8); MONOCYTES # (AUTO) 0.8 10^3/uL (0.0-1.0); MONOCYTES % (AUTO) 11.4 %; NEUTROPHILS # (AUTO) 3.4 10^3/uL (1.5-6.6); NEUTROPHILS % (AUTO) 51.6 %; PLT - PLATELET COUNT 184 10^3/uL (130-450); RED BLOOD COUNT 5.04 10^6/uL (4.20-5.40); RED CELL DISTRIBUTION WIDTH 19.9 % (12.0-15.0); WHITE BLOOD COUNT 6.6 x10^3/uL (4.8-10.8)
[2023-05-23 06:59] LABS: ALBUMIN 3.5 g/dL (3.2-5.5); ALBUMIN/GLOBULIN RATIO 0.8 (1.0-2.2); BILIRUBIN,TOTAL 1.4 mg/dL (0.2-1.0); CALCIUM 9.7 mg/dL (8.5-10.3); CREATININE 1.1 mg/dL (0.6-1.3); POTASSIUM 3.5 mmol/L (3.5-4.5); TOTAL PROTEIN 7.8 g/dL (6.4-8.9)
--- NOTE | 2023-05-23 08:01 | CT Report ---
PROCEDURE: Cervical Spine WO INDICATIONS: fall, neck tenderness TECHNIQUE: Noncontrast 3 mm thick sections acquired from the skull base to the T4 level. Sagittal and coronal r eformats were then constructed. For radiation dose reduction, the following was used: automated exp osure control, adjustment of mA and/or kV according to patient size. COMPARISON: None. FINDINGS: Image quality: Excellent. Bones: No fractures or dislocations. Visualized superior ribs are intact. Cervical spondylosis, mo st notably involving multiple left facet joints. Additionally, there is bony right foraminal narrowin g at C5-C6. Soft tissues: Prevertebral soft tissues are normal in thickness. No paravertebral hematomas. No ap ical pneumothoraces. IMPRESSION: 1. No acute cervical fracture or dislocation. 2. Cervical spondylosis. Findings are concordant with preliminary interpretation provided by [facility]. Reviewed by: Blu Chan MD on 05/23/2023 8:00 AM PDT Approved by: Blu Chan MD on 05/23/2023 8:00 AM PDT Station ID: [id number]
--- NOTE | 2023-05-23 08:08 | CT Report ---
PROCEDURE: Head WO INDICATIONS: fall, on eliquis TECHNIQUE: Noncontrast 4.5 mm thick angled axial sections acquired from the foramen magnum to the vertex. For r adiation dose reduction, the following was used: automated exposure control, adjustment of mA and/or kV according to patient size. COMPARISON: 05/06/2023. FINDINGS: Image quality: Excellent. CSF spaces: Basal cisterns are patent. No extra-axial fluid collections. Ventricles are normal in size and shape. Brain: No midline shift. No intracranial masses or hemorrhage. [place]-white matter interface is norm al. Intracranial carotid calcifications. Age-related volume loss and small vessel ischemic change. Skull and face: Calvarium and visualized facial bones are intact, without suspicious lesions. Sinuses: Visualized sinuses and mastoids are clear. IMPRESSION: No acute intracranial pathology. Findings are concordant with preliminary interpretation provided by [facility]. Reviewed by: Blu Chan MD on 05/23/2023 8:06 AM PDT Approved by: Blu Chan MD on 05/23/2023 8:06 AM PDT Station ID: [id number]
--- NOTE | 2023-05-23 08:12 | XRAY Report ---
PROCEDURE: Chest 1V INDICATIONS: weakness TECHNIQUE: One view of the chest was acquired. COMPARISON: 11/16/2020. FINDINGS: Surgical changes and devices: Extensive upper abdominal clips. Lungs and pleura: No pleural effusions or pneumothorax. Question mild interstitial pulmonary edema w ith a biapical predominance. Mediastinum: Mediastinal contours appear normal. Unchanged cardiomegaly. Bones and chest wall: No suspicious bony lesions. Overlying soft tissues appear unremarkable. IMPRESSION: Question mild pulmonary edema. Reviewed by: Blu Chan MD on 05/23/2023 8:11 AM PDT Approved by: Blu Chan MD on 05/23/2023 8:11 AM PDT Station ID: [id number]
[2023-05-23 08:49] LABS: BILIRUBIN,URINE SMALL (NEGATIVE); GLUCOSE, URINE (UA) NEGATIVE (NEGATIVE); KETONES,URINE (UA) TRACE mg/dL (NEGATIVE); LEUKOCYTE ESTERASE, URINE NEGATIVE (NEGATIVE); NITRITE,URINE NEGATIVE (NEGATIVE); OCCULT BLOOD,URINE MODERATE (NEGATIVE); PROTEIN,URINE NEGATIVE (NEGATIVE); UROBILINOGEN,URINE 1 (NORMAL) E.U./dL (NORMAL)
[2023-05-23 08:51] LABS: CLARITY,URINE HAZY (CLEAR)
[2023-05-23 08:56] LABS: BACTERIA,URINE Few /HPF (None Seen); RBC,URINE 0-5 /HPF (0-5); SQUAMOUS EPITHELIAL CELL,UR RARE Squamous (<= Few); WBC,URINE 0-3 /HPF (0-5)
[2023-05-23 08:57] LABS: CASTS, URINE 0-2 Hyaline Casts /LPF
[2023-05-23 10:16] VITALS: BP 143/80; O2SAT 94
--- NOTE | 2023-05-23 10:19 | ED Physician Documentation ---
ED Addendum - Addendum Addendum: 05/23/23 10:18 Patient was able to stand bedside without needing assistance. Ambulated some. CT reports for the head and neck were without any acute abnormalities. We should be able to get the patient discharged back to her care facility. Disposition: Discharged home in stable condition. Diagnoses: 1. General weakness 2. Fall 3. Neck strain 4. Anticoagulant long-term therapy.
== END 2023-05-23 11:32 | disposition home or self-care (01) ==
LOC: EDUNIT# → ED 06:08
DX: S16.1XXA Strain of muscle, fascia and tendon at neck level, initial encounter (principal); W18.30XA Fall on same level, unspecified, initial encounter; Y92.129 Unspecified place in nursing home as the place of occurrence of the external cause; R53.1 Weakness; Z79.899 Other long term (current) drug therapy; Z79.01 Long term (current) use of anticoagulants
CPT/HCPCS: 36415; 80053; 81001; 81003; 83690; 85025; 87086; 99283; 99284

== ENCOUNTER 2023-05-23 11:23 | Outpatient (CLI) | payer MEDICARE, MEDICAID | END 2023-05-23 23:59 | disposition home or self-care (01) | LOC: EMS 11:23 | PROVIDERS: ATTEND Emergency Medicine | DX: F03.90 Unspecified dementia, unspecified severity, without behavioral disturbance, psychotic disturbance, mood disturbance, and anxiety (principal); R41.0 Disorientation, unspecified | CPT/HCPCS: A0425; A0428 ==